=== PATIENT | female | born 1955 | race Caucasian/White ===

== ENCOUNTER 2025-08-17 14:54 | Emergency (ER) | payer MEDICARE, SELFPAY ==
[2025-08-17] VITALS (10 sets, daily range): BP systolic 130–154; BP diastolic 69–82; PULSE 67–75; RESP 11–20; TEMP 36.7–36.8; O2SAT 95–100; BMI 25.8
--- NOTE | 2025-08-17 15:05 | ECG_ITS ---
APPROVED REPORT Exam: Resting ECG HR:71 bpm ECG Measurements Heart Rate 71 AXES WV 192 P 31 QRSd 102 QRS 76 QT 391 T 39 QTc 413 Conclusion SINUS RHYTHM INCOMPLETE RIGHT BUNDLE BRANCH BLOCK [90+ ms QRS DURATION, TERMINAL R IN V1/V2, 40+ ms S IN I/aVL/V4/V5/V6] BORDERLINE ECG UNCONFIRMED REPORT Electronically signed by : GREG LANG, 08/17/2025 18:54:32
--- NOTE | 2025-08-17 15:18 | ED_ITS ---
<Statement entered by Gareth Nunez MD - 08/17/25 22:02> Gareth Nunez MD: I was consulted by the MARIAN, and we discussed the complexity of the problems being addressed. I approve the treatment and management plan for this patient's care in the emergency department, thus performing a substantive portion of the medical decision making. I personally evaluate the patient she states that she feels better at this time. She has mild discomfort to the back of her head but is been ambulatory here in the emergency department. Will arrange follow-up with the cardiology clinic on Monday for her given she has been having some palpitations for quite some time but she feels comfortable going home at this time. I presume she likely had a vasovagal syncopal episode as a source of her syncope today. Discharge Plan Disposition Patient Disposition: Home, Self-Care Condition: Good Referrals Follow up/Referrals: Juliann Pizano [Primary Care Provider, Medical] - See instructions Riky Carson MD [Staff Physician, Cardiology] - See instructions Activity Restrictions/Add. Instructions Additional Instructions/Restrictions: You were seen for syncope. Please see cardiology Monday at 9 am. Return here if you have another episode or have chest pain, shortness of breath. Clinical Impressions Clinical Impression: Syncope Instructions Patient Instructions: DI for Syncope in Adults (Fainting) Print Language Print Language: Tamazight Discharge ED Provider: Gareth Nunez General Adult HPI General Chief complaint: Syncope Stated complaint: Syncope Time Seen by Provider: 08/17/25 15:07 Mode of Arrival: Wheelchair Source of Information: Patient Description of Symptoms (Recalled from ER Triage Doc. by RN): Reports while signing [place] a [place] [facility] [place] that she got hot and passed out and just remembers waking up on the floor. Complaint of having nausea since last night. Denies any pain. History of Present Illness HPI narrative: Patient presents after a syncopal episode. 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 She reports that she started to feel as if she might pass out and became hot and sweaty. She did have complete loss of consciousness however no injury as those around her were able to catch her before her fall. She denies any chest pain or shortness of breath. She does report some palpitations. She reports some pain in her bilateral jaws. Loss of consciousness lasted several minutes per witnesses. She does report some nausea MD complaint: syncope Onset (ago): minute(s) Severity: moderate Consistency: intermittent Relieving factors: other (laying flat ) Exacerbating factors: none Associated symptoms: nausea/vomiting and syncope; negative chest pain Treatments prior to arrival: none Related Data Allergies Allergy/AdvReac Type Severity Reaction Status Date / Time No Known Allergies Allergy Verified 08/17/25 15:06 [facility] Disclaimer: The information contained in this section may have been updated after the patient was seen, as this information can be updated by other users. Social History Smoking Status: Never smoker alcohol intake: never current occupational status: retired Travel in the last 8 weeks?: None ROS Obtained: Yes Systems reviewed as appropriate & no additional complaints except as documented Physical Exam General General appearance: alert and in no apparent distress Head Head exam: atraumatic and normocephalic Eye Eye exam: Present normal appearance and EOMI Chest Chest inspection: Present symmetric chest wall rise Respiratory Respiratory exam: Present normal lung sounds bilaterally; Absent wheezes or stridor Cardiovascular Cardiovascular exam: Present regular rate and normal rhythm; Absent systolic murmur Abdominal Exam Abdominal exam: Present soft; Absent distention, tenderness or guarding Extremities Exam Extremities exam: Present full ROM Neurological Exam Neurological exam: Present alert, oriented X3 and CN II-XII intact; Absent motor sensory deficit Psychiatric Psychiatric exam: Present normal affect and normal mood Skin Skin exam: Present warm, dry and intact Medical Decision Making Medical Records Screening: Per USPSTF and CDC recommendations, given the prevalence of disease in our region, it is our hospital?s policy to screen for HIV and viral Hepatitis for all patients aged 18 and over and those with ongoing risk factors. Noam Inquiry Pt receiving controlled substance: No Vital Signs: 08/17/25 15:00 08/17/25 15:03 08/17/25 15:30 Temperature 98.0 F Temperature Source Oral Pulse Rate 72 74 Pulse Rate [Radial] 72 Respiratory Rate 12 13 14 Blood Pressure 133/71 148/72 H Blood Pressure [Right Arm] 140/69 Blood Pressure Mean [Right Arm] 92 Blood Pressure Source [Right Arm] Automatic Cuff Blood Pressure Position [Right Arm] Sitting 02 Sat by Pulse Oximetry 97 98 96 Oxygen Delivery Method Room Air 08/17/25 16:00 08/17/25 16:30 08/17/25 16:45 Temperature Temperature Source Pulse Rate 67 67 73 Pulse Rate [Radial] Respiratory Rate 11 L 13 11 L Blood Pressure 142/71 H 154/77 H Blood Pressure [Right Arm] Blood Pressure Mean [Right Arm] Blood Pressure Source [Right Arm] Blood Pressure Position [Right Arm] 02 Sat by Pulse Oximetry 97 95 96 Oxygen Delivery Method 08/17/25 17:00 08/17/25 17:30 08/17/25 18:00 Temperature Temperature Source Pulse Rate 75 75 72 Pulse Rate [Radial] Respiratory Rate 16 12 12 Blood Pressure 151/82 H 152/75 H 130/69 Blood Pressure [Right Arm] Blood Pressure Mean [Right Arm] Blood Pressure Source [Right Arm] Blood Pressure Position [Right Arm] 02 Sat by Pulse Oximetry 96 97 100 Oxygen Delivery Method 08/17/25 19:45 Temperature 98.2 F Temperature Source Pulse Rate 71 Pulse Rate [Radial] Respiratory Rate 20 Blood Pressure 154/80 H Blood Pressure [Right Arm] Blood Pressure Mean [Right Arm] Blood Pressure Source [Right Arm] Blood Pressure Position [Right Arm] 02 Sat by Pulse Oximetry Oxygen Delivery Method Room Air Lab Data Lab Results 08/17/25 15:14: WBC 5.9, RBC 4.06 L, Hgb 12.4, Hct 36.9 L, MCV 90.9, MCH 30.5, MCHC 33.6, RDW 12.0, Plt Count 278, MPV 10.6 H, Neut % (Auto) 59.5, Lymph % (Auto) 30.9, [place] % (Auto) 7.3, Eos % (Auto) 1.2, Baso % (Auto) 0.9, Neut # (Auto) 3.5, Lymph # (Auto) 1.8, [place] # (Auto) 0.4, Eos # (Auto) 0.1, Baso # (Auto) 0.1, Sodium 139, Potassium 3.7, Chloride 106, Carbon Dioxide 25, Anion Gap 11.7, BUN 14, Creatinine 0.80, Estimated Creat Clear 54, Estimated GFR 71, Est GFR ( Amer) 86, Glucose 104 H, Calcium 9.3, Magnesium 1.8, Total Bilirubin 1.0, AST 40 H, ALT 29, Alkaline Phosphatase 90, Troponin I < 0.01, Total Protein 7.2, Albumin 4.4, Globulin 2.8, Albumin/Globulin Ratio 1.6, TSH 1.04 08/17/25 17:00: Urine Color Yellow, Urine Appearance Clear, Urine pH 7.0, Ur Specific Clark 1.010, Urine Protein Negative, Urine Glucose (UA) Negative, Urine Ketones Negative, Urine Blood Negative, Urine Nitrate Negative, Urine Bilirubin Negative, Urine Urobilinogen 0.2, Ur Leukocyte Esterase Trace, Urine RBC 3-5, Urine WBC 5-10, Ur Squamous Epith Cells 5-10, Urine Bacteria 3+, Urine Mucus 1+ 08/17/25 18:00: Troponin I < 0.01 08/17/25 15:14 08/17/25 15:14 Orders (Tests/Meds): ED MEDICATIONS Discontinued Medications Generic Name Dose Route Start Last Admin Trade Name Freq PRN Reason Stop Dose Admin Sodium Chloride 1,000 mls @ 999 mls/hr 08/17/25 15:12 08/17/25 16:58 Sod Chlor 0.9% 1000ml Bag IV 08/17/25 16:12 Infused .Q1H1M ONE Infusion ORDERS Category Date Time Status CBC w/Auto Diff [Complete Blood Count Auto Diff] Stat Lab 08/17/25 15:14 Completed CMP [Comprehensive Metabolic Panel] Stat Lab 08/17/25 15:14 Completed MAG [Magnesium] Stat Lab 08/17/25 15:14 Completed TSH [Thyroid Stimulating Hormone] Stat Lab 08/17/25 15:14 Completed Trop I [Troponin I] Stat Lab 08/17/25 15:14 Completed Troponin I Q3H Lab 08/17/25 18:00 Completed UA [Urinalysis and Microscopic] Stat Lab 08/17/25 17:00 Completed Urine Culture Stat Micro 08/17/25 17:00 Received Medical Decision Narrative: In summary patient is a 70-year-old who presents the emergency department for evaluation of syncope. Patient is hemodynamically stable upon arrival, afebrile. Unremarkable physical exam. Differential diagnosis includes ACS, dehydration, vasovagal syncope. Initial workup will be conducted with hematologic labs, EKG, troponin. Initial inventions include IV fluid. Initial workup reviewed by me unremarkable. Upon repeat evaluation patient had acceptable resolution of symptoms. Given this patient is appropriate for discharge home at this time with follow-up appointment to see cardiology tomorrow morning at 9 AM. Given return precautions. Patient is agreeable to plan. Denies UTI symptoms. Critical Care Critical Care Time Critical Care Time: No
[2025-08-17 15:22] LABS: Hematocrit 36.9 % (37.0-47.0); Hemoglobin 12.4 g/dL (12.2-16.2); Immature Granulocytes % 0.2 %; Mean Corpuscular HGB Conc 33.6 g/dL (31.8-35.4); Mean Corpuscular Hemoglobin 30.5 pg (27.0-31.2); Mean Corpuscular Volume 90.9 fl (81-99); Nucleated Red Blood Cells % 0 %; Platelet Count 278 K/mm3 (142-424); Red Blood Count 4.06 M/mm3 (4.20-5.40); Red Cell Distribution Width-SD 40.0 fL; White Blood Count 5.9 K/mm3 (4.8-10.8)
[2025-08-17] MEDS: 0.9 % SODIUM CHLORIDE 1000ML 1,000 ML 999 ML IV (15:31)
[2025-08-17 15:34] LABS: Alanine Aminotransferase 29 U/L (12-78); Albumin Level 4.4 g/dl (3.5-5.0); Albumin/Globulin Ratio 1.6 (1.1-1.8); Alkaline Phosphatase 90 U/L (38-126); Anion Gap 11.7 mEq/L (5-15); Aspartate Amino Transferase 40 U/L (14-36); Bilirubin,Total 1.0 mg/dl (0.2-1.3); Blood Urea Nitrogen 14 mg/dl (7-17); Calcium 9.3 mg/dl (8.4-10.2); Carbon Dioxide 25 mmol/L (22.0-30.0); Chloride 106 mmol/L (98-107); Creatinine Clearance Estimated 54 mL/min (50-200); Creatinine,Serum 0.80 mg/dl (0.52-1.04); Estimated Glomerular Filt Rate 71 ml/min (>60); GFR (African American) 86 ML/MIN (>60); Globulin 2.8 g/dL (1.3-3.2); Glucose 104 mg/dl (74-100); Magnesium 1.8 mg/dl (1.6-2.3); Potassium 3.7 mmoL/L (3.5-5.1); Sodium 139 mmol/L (136-145); Total Protein,Serum 7.2 g/dl (6.3-8.2)
--- OUTSIDE RECORDS SUMMARY | 2025-08-17 15:39 | XMS_ITS | Patient Health Record ---
Author Organization [facility] Address [address] [place] [address] Care Team Providers Care Aquatics Assistant Department Head Name Role Phone Bri Castrejon Unavailable [phone] Reason For Referral No Information Social History Social History Additional Details Category Social Info Options Details Miscellaneous: Sexually active: SEXUAL AC TIV: Current Problems Problem Type SNOMED Code ICD Code Onset Dates Problem Status W/U Status Risk Notes Problem Atrophic vaginitis (27126569) Atrophic vaginitis (N95.2) 2020 Active confirmed Vaginal atrophy Problem Hormone replacement therapy (056292516) Counseling for estrogen replacement therapy (Z79.890) 2020 Active confirmed Hormone replacement therapy Problem Menopause (351375871) *Menopausal and female climacteric states (Code also, associated symptoms) (N95.1) 2020 Active confirmed Menopausal and female climacteric states Problem SI - Stress incontinence (37818764) Female genuine stress incontinence (N39.3) 2016 Active confirmed Urinary incontinence, stress Problem Gynecological examination normal (77523235942082 4) Cervical smear, as part of routine gynecological examination (Z01.419) 2018 Active confirmed Annual without abnormal findings Problem Midline cystocele (234175389) Acquired female bladder prolapse (N81.10) 2020 Active confirmed 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
--- OUTSIDE RECORDS SUMMARY | 2025-08-17 15:39 | XMS_ITS | Continuity of Care Document ---
Author Organization [facility], PAIN MEDICINE [address] [place] [address] Care Team Providers Care Cork Insulator Helper Name Role Phone PIZANOJULIANN Primary Care Provider [phone] YOMI KELLER Orthopedic Surgeon [phone] Assessment Encounter Date Assessment Date Assessment LastModified by Organization Details LastModified Time 06/03/2025 06/03/2025 This is a 69-year-old female with knee pain today for follow-up evaluation after bilateral intra-articular injection of the knees with Zilretta added relief for only 1 week. Unfortunately her knee pain is worsening and persistent. She would like to discuss her candidacy for genicular nerve ablation PMH: PSHx: 1. X-ray bilateral knees 12/14/2022 demonstrates severe degenerative changes bilaterally. The above image findings were discussed with the patient. Previous injection therapy has included: 05/08/2025 bilateral Zilretta injection 50% 1 week 01/28/2025 Bilateral Zilretta injections with 80% ongoing 10/22/2024 Bilateral Zilretta injections with 98% x 3 months 07/22/2024 intra-articular knee injection (triamcinolone) bilaterally (ortho) 04/17/2024 intra-articular knee injection (triamcinolone) bilaterally (ortho) Intra-articular hyaluronic acid no relief Presentation is consistent with osteoarthritis of both knees. I recommend: 1. Fortunately Zilretta has not offered durable relief. 2. I explained that her insurance will not cover genicular nerve ablation at this time. 3. She understands that surgery may be her only option. She would like to discuss her options with orthopedics and I will place a referral. 4. Topical pain relief cream was discussed and will be prescribed I had an in-depth discussion with the patient regarding the risks of the procedure including bleeding, infection, damage to surrounding structures, paralysis and even . We discussed the potential adverse effects of corticosteroid injection including flushing of the face, lipodystrophy, skin discoloration, elevated blood glucose, increased blood pressure. Risks of frequent steroid administration include weight gain, hormonal changes, mood changes, osteoporosis. External records were reviewed and discussed as above, including imaging, clinical notes, and relevant labs. [email or web address] Not available 06/03/2025 14:24:36 Plan of Treatment Reminders Order Date Submit Date Provider Last Modified By Organization Details Last Modified Time Details Appointments SHOT ONLY 2024 03:15P M DMITRY_ [place]_RY[place] E Not available Not available Not available RECHECK 2025 02:30P M LUIS ALFREDO SALDAÑA PA-C Not available Not available Not available MEDICARE WELLNESS VISIT 2025 09:30A M JULIANN PIZANO MD Not available Not available Not available Lab None recorded. Referral orthopedi c surgeon referral 2024 025 [email or web address] Yomi Keller MD, [address] [place], [address], 06/04/2025 14:30:37 Procedures None recorded. Surgeries None recorded. Imaging None recorded. Medication Orders Compound Rx Alternati ves Neuropath ic Pain Cream 2024 025 [email or web address] [facility], [address] [place], [address], 06/12/2025 13:56:32 Patient TargetsNo targets recorded. Patient InstructionsNo instructions recorded. Reason for Referral Orthopedic Surgeon Referral for Bilateral osteoarthritis of knees Referring Physician: Jossie Arevalo, Pain Management, Encounter Date: 06/03/2025 Results Created Date Observation Date Name Description Value Unit Range Abnormal Flag Note LastModifiedBy Organization Detail LastModifiedTime 06/10/2006/09/2025 XR, knee, 4 or more view [facility] [address] [place] [address] [phone] Pk ni Name: MICHELLE ni : 1954 Patiterry ni 9 Orderi ng Provid er: LUIS ALFREDO SALDAÑA EXAM DATE: 2024 EXAM: XR YOMAIRA KNEES COMPLE TE, 4 OR MORE VWS HISTOR Y: Pain COMPAR STACY: 023 FINDIN GS: Loss of the medial compar tments bilate rally with degene rative spurri ng. Normal alignm ent includ ing the patell ofemor al joints . No fractu re or disloc ation. IMPRES LELE: 1. Severe bilate ral knee DJD Interp reted By: Shiva Andrea MD Electr onical ly Signed By: Shiva Andrea MD on 2024 8:48 AM [email or web address] [facility] [address] [place], [place], [address] [place] [address], 06/10/2025 09:39:21 Result Notes None recorded. Problems Name Problem SNOMED Code Status Onset Date Resolution Date Notes Provider Name and Address Organization Details Recorded Time Lack of energy 446577074 Completed 201502/07/2018 From Autom[employer] Load;Pro vider: Juliann Pizano;Sta tus: Active JULIANN PIZANO MD [address] [place] [address] 8 13:33:48 Finding of appearan ce of skin Completed 201502/07/2018 From Automate d Load;Pro vider: Juliann Pizano;Sta tus: Active JULIANN PIZANO MD [address] [place] [address], [address] [place] [address] 8 13:33:45 Hypothyr oidism 44564554 Active 2015 From Autom[employer] Load;Pro vider: Juliann Pizano;Sta tus: Active JULIANN PIZANO MD [address] [place] [address], [address] [place] [address] 3 14:38:44 Tinnitus 46556776 Active 2015 From Automate d Load;Pro vider: Pizano, Juliann;Sta tus: Active Not Available [facility] 2 07:32:58 Fibrocys tic disease of breast 62802049 Active 2017 Not Available [facility] 2 07:32:58 Divertic ular disease of colon 784789145 Active 2017 Not Available [facility] 2 07:32:58 Hearing loss 98714498 Active 2017 Not Available [facility] 2 07:32:58 Displace ment of lumbar interver tebral disc without myelopat hy 51432402 Active 2017 JULIANN PIZANO MD [address] [place] [address], [address] , [facility] 3 14:38:27 Osteoart hritis of knee 553028635 Active 2018 Not Available [facility] 2 07:32:58 Alopecia 27639543 Active 2019 Not Available [facility] 2 07:32:58 Hyperlip idemia 70210944 Active 2019 LDL>190 JULIANN PIZANO MD [address] [place] [address], [address] , [facility] 3 22:05:06 Vitamin B12 deficien cy (non anemic) 43148193 Active 2020 JULIANN PIZANO MD [address] [place] [address], [address] , [facility] 3 14:38:51 Atherosc lerosis of aorta 41715408 Active 2022 JULIANN PIZANO MD [address] [place] [address], [address] , [facility] 3 14:51:55 Cystitis 42314441 Active 2022 KERRIE SLATER PA-C [address] [place] [address], [address] , [facility] 3 10:32:11 Bilatera l osteoart hritis of knees 00953055595 9107 Active 2022 JULIANN PIZANO MD [address] [place] [address], [address] , [facility] 3 10:32:14 Pain of right temporom andibula r joint 14982593868 085653 Active 2022 JULIANN PIZANO MD [facility] [place], [address] , [facility] 3 10:33:46 Body mass index 25-29 - overweig ht 852792529 Active 2023 JULIANN PIZANO MD [facility] [place], [address] , [facility] 4 09:58:29 Dyslipid emia 986890594 Active 2023 JULIANN PIZANO MD [facility] [place], [address] , [facility] 4 10:13:07 Ischial bursitis 140324657 Active 2023 JULIANN PIZANO MD [facility] [place], [address] , [facility] 4 10:42:24 Lumbar radiculo wendy 085249271 Active 2024 JULIANN PIZANO MD [facility] [place], [address] , [facility] 5 11:31:09 Primary gonarthr osis, bilatera l 883937298 Active 2024 JULIANN PIZANO MD [address] [place] [address] [place], [address] , [facility] 5 14:24:04 Acute frontal sinusiti s 01586214 Active 2024 KERRIE SLATER PA-C [address] [place] [address] [place], [address] , [facility] 5 11:58:13 Acute cough Active 2024 KERRIE SLATER PA-C [address] [place], [address] , [facility] 5 12:02:22 Problem Notes None recorded. Procedures Surgical History Date Name Laterality Status Provider Name and Address Organization Details Recorded Time 025 Joint Injection, Knee - Barb completed YOUNG GHOTRA MD [address] [place], [address], [facility] 05/08/2025 12:43:39 025 Joint Injection, Knee - Barb completed YOUNG GHOTRA MD [address] [place], [address], [facility] 01/28/2025 16:06:18 025 Joint Injection, Knee - Barb completed YOUNG GHOTRA MD [address] [place], [address], [facility] 10/22/2024 12:43:32 024 Injection - Joint/Bursa, Major completed Vicki Rai [facility] 07/15/2024 10:48:22 024 Injection - Joint/Bursa, Major completed Spenser Tijerina [facility] 04/12/2024 15:30:21 024 Injection - Joint/Bursa, Major completed Alexandria Sellers [facility] 01/10/2024 15:32:45 024 Injection - Joint/Bursa, Major completed Quinten Rizo [facility] 10/16/2023 15:30:00 024 Injection - Joint/Bursa, Major completed Lisa SWANN PA-C [address] [place], [address], [facility] 10/13/2023 11:11:57 024 Injection - Joint/Bursa, Major cancelled [facility] 09/05/2023 08:39:03 023 Euflexxa Injection completed Rashad Welsh [facility] 08/16/2023 08:58:43 023 Euflexxa Injection completed Quinten Rizo [facility] 08/09/2023 09:16:07 023 Euflexxa Injection completed Rashad Welsh [place] [facility] 08/02/2023 08:54:42 023 Injection - Joint/Bursa, Major completed Alexandria Young [place] [facility] 06/21/2023 08:22:13 023 Injection - Joint/Bursa, Major completed [place] Young [place] [facility] 06/19/2023 14:59:56 023 DXA Normal completed JONAH HOWARD MD [address] [place] [address], [address], [place] [facility] 03/30/2023 12:31:04 023 Injection - Joint/Bursa, Major completed Alexandria Young [place] [facility] 03/07/2023 15:51:17 023 Injection - Joint/Bursa, Major completed Alexandria Young [place] [facility] 03/07/2023 12:43:58 023 Injection - Joint/Bursa, Major completed [place] Young [place] [facility] 12/14/2022 15:10:30 023 Injection - Joint/Bursa, Major completed Alexandria Young [place] [facility] 12/05/2022 10:15:50 023 Injection - Joint/Bursa, Major completed [place] Young [place] [facility] 09/19/2022 14:26:10 023 Injection - Joint/Bursa, Major completed [place] Young [place] [facility] 09/12/2022 14:23:21 022 Injection - Joint/Bursa, Major completed [place] Young [place] [facility] 06/03/2022 11:20:02 022 Injection - Joint/Bursa, Major completed [place] Young [place] [facility] 05/23/2022 08:51:27 022 Injection - Joint/Bursa, Major completed Vicki Rai [place] [facility] 03/02/2022 09:13:27 022 Injection - Joint/Bursa, Major completed Alexandria Young [place] [facility] 02/18/2022 09:00:30 06/23/2 022 Injection - Joint/Bursa, Major cancelled Alexandria Young [place] [facility] 02/09/2022 14:36:58 022 Injection - Joint/Bursa, Major completed [place] Young [place] [facility] 11/18/2021 12:21:48 022 Injection - Joint/Bursa, Major completed [place] [facility] 11/10/2021 12:53:16 022 Injection - Joint/Bursa, Major cancelled Alexandria Young [place] [facility] 11/10/2021 09:28:24 021 Injection - Joint/Bursa, Major completed [place] Young [place] [facility] 08/18/2021 13:14:56 021 Injection - Joint/Bursa, Major completed [place] [facility] 2021 13:04:59 021 Injection - Joint/Bursa, Major completed [place] Young [place] [facility] 05/12/2021 10:51:44 021 Injection - Joint/Bursa, Major completed [place] [facility] 05/12/2021 10:50:50 021 repair of stress incontinence by suprapubic sling completed JULIANN PIZANO MD [address] [place], [address], [place] [facility] 12/07/2023 10:17:40 021 Injection - Joint/Bursa, Major completed [place] Young [place] [facility] 02/10/2021 08:25:13 021 Injection - Joint/Bursa, Major completed Vicki Rai [place] [facility] 02/03/2021 08:07:56 021 Injection - Joint/Bursa, Major completed [place] Young [place] [facility] 11/11/2020 08:47:33 021 Injection - Joint/Bursa, Major completed Lisa SWANN PA-C [address] [place], [address], [facility] 11/04/2020 13:58:40 020 Orthotic, HFO, Static Custom completed HEMALATHA BERNARD, OTR/L, CHT [address] [place], [address], [facility] 2020 13:04:03 020 Op Note completed YOUNG GUIDRY MD [address] [place], [address], [facility] 07/27/2020 19:12:28 020 Injection - Joint/Bursa, Interm completed YOUNG GUIDRY MD [address] [place], [address], [facility] 02/25/2020 19:59:39 Op Note completed YOUNG GUIDRY MD [address] [place], [address], [facility] 05/13/2019 09:25:23 019 Injection - Trigger Finger, Ortho completed YOUNG GUIDRY MD [address] [place], [address], [facility] 04/05/2019 16:43:35 019 Injection - Carpal Tunnel completed YOUNG GUIDRY MD [address] [place], [address], [facility] 03/15/2019 16:13:35 019 Injection - Joint/Bursa, Major completed Cristine Luna [facility] 12/18/2018 15:10:45 019 Injection - Joint/Bursa, Major completed Cristine Jeremy [facility] 12/11/2018 10:50:07 019 Injection - Joint/Bursa, Interm completed YOUNG GUIDRY MD [address] [place], [address], [facility] 09/20/2018 17:43:12 019 Electromyography (EMG) with Nerve Conduction Study (NCV) completed Luz Maria Pizano (Nicky) [facility] 09/20/2018 13:42:03 019 Injection - Joint/Bursa, Major completed Lisa SWANN PA-C [address] [place] [address], [address] [place] [address], [facility] 09/05/2018 15:07:17 018 Injection - Joint/Bursa, Interm completed YOUNG GUIDRY MD [address] [place] [address], [address] [place] [address], [facility] 07/04/2018 12:19:03 Hand tendon/muscle transfer completed JULIANN PIZANO MD [address] [place] [address], [address] [place] [address], [facility] 01/05/2017 11:59:57 Cataract Surgery completed JULIANN PARKS MD [address] [place] [address], [address] [place] [address], [facility] 08/29/2022 14:55:26 Appendectomy completed JULIANN PIZANO MD [address] [place] [address], [address] [place] [address] 10/13/2016 08:25:37 Imaging Results None recorded. Procedure Notes None recorded. Medical Equipment None Reported. Allergies No known drug allergies Medications Name Sig Start Date Stop Date Status Note LastModified by Organization Details LastModified Time Compound Rx Alternati ves Neuropath ic Pain Cream Apply 1-2 grams to the affected area 3-4 times daily 2024 active D/C Not Available Not Available Not Avai lable Compound Rx Alternati ves General Pain Cream Apply 1-2 grams to the affected area 3-4 times daily 01/08 completed Not Available Not Available Not Available methocarb cande 500 mg tablet Take 1 tablet twice a day by oral route. 02/07 completed Not Available Not Available Not Available diclofena c 3 % topical gel Apply 2-3 gm topicall y, up to 4 times daily. PRN active Not Available Not Available No t Available doxycycli ne hyclate 100 mg capsule Take 1 capsule twice a day by oral route for 7 days. 07/25 completed Not Available Not Available Not Available atorvasta tin 20 mg tablet Take 1 tablet every day by oral route for 90 days. 02/27 completed Not Available Not Available Not Available atorvasta tin 10 mg tablet Take 1 tablet by oral route at bedtime. 01/10 completed Not Available Not Available Not Available pravastat in 40 mg tablet TAKE 1 TABLET BY MOUTH DAILY 08/28 completed No longer taking 07/30/24 Not Available Not Available Not Available benzonata te 200 mg capsule Take 1 capsule 3 times a day by oral route as needed for 10 days. 07/28 completed Not Available Not Available Not Available meloxicam 15 mg tablet TAKE 1 TABLET BY MOUTH DAILY NEEDED 09/13 completed not taking Not Available Not Available Not Available Medrol (Tunde) 4 mg tablets in a dose pack Take 1 dose pk by oral route as directed for 6 days. 12/12 completed no longer takes Not Available Not Available Not Available prednison e 20 mg tablet Take 2 tablets every day by oral route for 5 days. 07/23 completed Not Available Not Available Not Available Tylenol Arthritis Pain 650 mg tablet,ex tended release Take 1 tablet every 8 hours by oral route. active schedule Not Available Not Available No t Available meloxicam 7.5 mg tablet 1 tab daily as needed 2024 active Not Available Not Available Not Avai lable levothyro xine 100 mcg tablet TAKE 1 TABLET BY MOUTH DAILY 2024 active Not Available Not Available Not Avai lable pravastat in 80 mg tablet TAKE 1 TABLET BY MOUTH AT BEDTIME active Not Available Not Available No t Available gentamici n 0.3 % eye drops INSTILL 1 DROP INTO AFFECTED EYE(S) BY OPHTHALM IC ROUTE EVERY 4 HOURS 07/04 completed Not Available Not Available Not Available benzonata te 100 mg capsule Take 1 capsule 3 times a day by oral route for 10 days. 02/24 completed Not Available Not Available Not Available cyanocoba jessica (vit B-12) 1,000 mcg/mL injection solution Inject 1 mL every month by subcutan eous route. 2024 active Not Available Not Available Not Avai lable Neurontin 100 mg capsule Take 1 capsule po qhs for 1 week 08/11 completed Not Available Not Available Not Available calcipotr iene 0.005 % topical cream Apply 3-4gm topicall y twice a day; rub it in gently and complete . PRN active Not Available Not Available No t Available Synthroid 88 mcg tablet One Tablet Daily 04/27 completed Frequenc y: daily;Me dication Descript ion: levothyr oxine; Dosage:1 ; Route:or al; refills: 1; Quantity :30 tablet Not Available Not Available Not Available diclofena c sodium 75 mg tablet,de layed release TAKE ONE TABLET BY MOUTH TWICE A DAY 06/21 completed Not Available Not Available Not Available Synthroid 112 mcg tablet Take 1 tablet every day by oral route for 30 days. 04/25 completed Not Available Not Available Not Available prednison e 5 mg tablets in a dose pack Take by oral route. 05/03 completed Not Available Not Available Not Available ibuprofen 600 mg tablet As needed 03/29 completed Duration : 30 days;Antione quency: prn;Medi cation Descript ion: ibuprofe n; Dosage:1 ; Route:or al; refills: 0; Quantity :60 tablet Not Available Not Available Not Available [place] 5 mg-325 mg tablet TAKE 1 TAB PO Q 4-6 HRS PRN UNCONTRO LLED PAIN 08/02 completed Not Available Not Available Not Available cefdinir 300 mg capsule Take 1 capsule every 12 hours by oral route for 10 days. 12/12 completed no longer takes Not Available Not Available Not Available doxepin 5 % topical cream Apply 1-2 gm topicall y, 3 times a day to affected area. If feeling drowsy, apply at bed time. PRN active Not Available Not Available No t Available amoxicill in 875 mg-potass ium clavulana te 125 mg tablet Take 1 tablet every 12 hours by oral route for 10 days. 01/24 completed Not Available Not Available Not Available oxycodone 5 mg tablet take 1 tab po q 4-6 hrs prn uncontro lled pain 08/11 completed Not Available Not Available Not Available Bactrim DS 800 mg-160 mg tablet Take 1 tablet every 12 hours by oral route for 5 days. 02/24 completed Not Available Not Available Not Available ezetimibe 10 mg tablet Take 1 tablet by oral route at bedtime for 90 days. 2024 active Not Available Not Available Not Avai lable cyclobenz aprine 5 mg tablet Every night at bedtime 03/29 completed Frequenc y: qhs;Alt Frequenc y: prn;Medi cation Descript ion: cycloben zaprine; Dosage:1 ; Route:or al; refills: 0; Quantity :30 tablet Not Available Not Available Not Available rosuvasta tin 5 mg tablet Take 1 tablet every day by oral route. 03/27 completed Not Available Not Available Not Available rosuvasta tin 10 mg tablet Take 1 tablet by oral route at bedtime. 12/06 completed Not Available Not Available Not Available duloxetin e 30 mg capsule,d elayed release Take 2 capsules every day by oral route for 90 days. 09/13 completed not taking Not Available Not Available Not Available fluocinon penelope 0.1 % topical cream Apply 2-4gm up to 4times daily to affected area. PRN active Not Available Not Available No t Available ibuprofen 04/24 completed prn Not Available Not Available Not Available fiber active Not Available Not Availa ble Not Available ProAir HFA 90 mcg/actua tion aerosol inhaler Inhale 2 puffs every 6-8 hours by inhalati on route for 10 days. 01/24 completed Not Available Not Available Not Available vitamin E 15 unit/0.3 mL oral drops 04/30 completed Medicati on Descript ion: vitamin E; Route:or al; refills: 0; Quantity :1 capsule Not Available Not Available Not Available cyclobenz aprine 7.5 mg tablet Take 1-2 tablet by mouth up to 3 times daily for pain. PRN active Not Available Not Available No t Available diclofena c 1 % topical gel APPLY 2 GRAMS TO THE AFFECTED AREA(S) BY TOPICAL ROUTE 4 TIMES PER DAY PRN 09/13 completed No longer using 07/30/24 Not Available Not Available Not Available naproxen sodium ER (CR) 375 mg tablet,ex tended release 24 hr mphase Take 1-2 tablets orally, Once daily as needed for pain. PRN active Not Available Not Available No t Available diclofena c 1.5 % topical drops Apply up to 40 drops to the affected area up to 4 times daily 03/29 completed Not Available Not Available Not Available Multi For Her active Not Available Not Available Not Available lidocaine 5 % topical ointment Apply 2-3 gm 3-4 times daily to affected area. Do not exceed 8 gm a day. PRN active Not Available Not Available No t Available multivit 37-iron 27 mg-Lmfola te 1.13 mg-algalo il,soy 581.92 mg capsule Take by oral route. 08/28 completed not taking Not Available Not Available Not Available Calcium Magnesium 500 mg calcium-2 50 mg tablet 07/29 completed Medicati on Descript ion: multivit pedraza with minerals ; Route:or al; refills: 0 Not Available Not Available Not Available Mirvaso 0.33 % topical gel APPLY A PEA-SIZE D AMOUNT BY TOPICAL ROUTE ON FACE ONCE DAILY TO COVER AREAS OF FACE WITH THIN LAYER AVOIDING THE EYES AND LIPS 03/15 completed Not Available Not Available Not Available SynerDerm topical spray Apply a small amount (1 gm) to affected skin area, allow to dry. May repeat up to 4 times daily. PRN active Not Available Not Available No t Available baclofen 5 mg tablet Take 1 tablet 3 times a day by oral route as needed for 30 days. 12/12 completed no longer take Not Available Not Available Not Available calcium 400 mg-vit D3 83.3 mcg-magne sium 166.7 mg-zinc 16.7 mg capsule Take by oral route. active Not Available Not Available No t Available Paxlovid 300 mg (150 mg x 2)-100 mg tablets in a dose pack Take 3 tablets twice a day by oral route for 5 days. 12/12 completed Not Available Not Available Not Available Vitals Date Recorded Body height Body mass index (BMI) Body weight Oxygen saturation Heart rate Systolic And Diastolic Provider Name and Address Organization Details Last Updated DateTime 5 160.02 cm 26.6 kg/m2 33101.8 6 g 96 % 86 /min 130/72 mm[Hg] Daisy Bang [facility] 5 14:02:09 Social History Question Answer Notes LastModified by Organizat ion Details LastModified Time Tobacco Smoking Status Never Smoker JULIANN PIZANO MD [address] [place] [address], [address], [facility] 01/05/2017 08:07:38 What Is Your Level Of Caffeine Consumption? Occasional Information not available 06/08/2017 How Much Tobacco Do You Chew? None [email or web address] Information not available 03/07/2019 Which Of Your Hands Is Dominant? Right Information not available 06/08/2017 Marital Status Informatio n not available 06/08/2017 What Was The Date Of Your Most Recent Tobacco Screening? 07/11/2025 [email or web address] Information not available 07/11/2025 What Is Your Relationship Status? [email or web address] Information not available 09/07/2023 How Much Tobacco Do You Smoke? No Information not available 04/24/2019 Has Tobacco Cessation Counseling Been Provided? No [email or web address] Information not available 10/18/2023 Sex: Female Functional Status Question Answer Note LastModified by Organizat ion Details LastModified Time Do you use any illicit or recreational drugs? No Information not available 06/08/2017 Do you or have you ever used any other forms of tobacco or nicotine? No [email or web address] Information not available 10/18/2023 What is your level of alcohol consumption? None Information not available 06/08/2017 Do you or have you ever used smokeless tobacco? Never used smokeless tobacco Information not available 04/24/2019 Are you currently employed? No Information not available 10/18/2019 What is your occupation? retired Information not available 10/18/2019 Do you or have you ever used e-cigarettes or vape? Never used electronic cigarettes Information not available 04/24/2019 Mental Status None recorded. Family History Relationship Description Onset Age of this Age Resolved Age Notes LastModified by Organization Details LastModified Time Unspecified Relation Malignant neoplastic disease Not available 2016 08:25:18 Unspecified Relation Cerebrovascu lar accident Not available 08:25:23 Mother History of multiple myeloma Not available 07/30 11:06:48 Notes:NO FAMILY HX OF MM Medical History Condition Response Coronary Artery Disease N Other N Gout N Atrial Fibrillation N Kidney Stones N Hyperthyroidism N Blood Transfusion N Emphysema N Sexually Transmitted Disease N Depression N COPD N Pneumonia N Anxiety Disorder N Muscle, Joint, or Bone Problems Y Vision or Eye Problems N Arthritis Y Polyps N Infertility N Blood Clot N Cancer N Varicosities N Stroke N Neurologic Disorder N Headaches N Fibromyalgia N Kidney Disease N Endocrine Disorder N Heart Problems N Heart Conditions N Ear or Hearing Problems N Hospitalizations N Migraines N Skin Problems N Eating Disorder N Meningitis N Constipation N Ulcers N Rheumatic Fever N Bleeding Disorder N Tuberculosis N Genetic Disorder N AIDS/HIV N Asthma N Thyroid Disorder Y GERD/Reflux N Hepatitis N Included as Review of Systems Y Pulmonary Embolism N Chronic Ear Infections N Chicken Pox N Thrombophilias N Anxiety/Depression N Thyroid Disease Y Hernia N Colon/Rectal Disorders N Lung Disease N Hypothyroidism Y Glaucoma N Breast Problem N Measles N Difficulty Swallowing N Diverticulitis/Diverticulosis Y Anesthesia Complications N Varicose Veins N Meniere's disease N Attempted Suicide N Hearing Loss N Radiation Therapy N Endometriosis N Blood Thinners N Bladder or Kidney Problems N Alcohol Overuse/Alcohol Abuse N High Cholesterol Y Liver Disease N Allergies/Hayfever N Parkinson's Disease N Alzheimer's N Thyroid Problems Y GI Problems N Anemia N Immune System Disorder N Heart Attack ([place]) N Mental Illness N Neurological Problems N Ovarian Cancer N Diabetes N Seizures/Epilepsy N Eczema N Diverticulitis N Epilepsy/Seizures N Reflux/GERD N Sleep Apnea N Heart Disease N Pre-Eclampsia N Hypertension N Osteoporosis N Gynecological HistoryNo gynecological history recorded. Obstetrics History GPAL:G 0 P 0 0 0 0 Immunizations Vaccine Type Date Status Note Provider Nam e and Address Organization Details Recorded Time zoster recombinant 3 completed Sayda lund [facility] 12/06/2023 16:19:20 Hep A, adult 9 completed Not Available [facility] 09/07/2019 02:50:37 COVID-19, mRNA, LNP-S, PF, jamie-sucrose, 30 mcg/0.3 mL 4 [facility] 14:35:52 Influenza, split virus, quadrivalent, PF 9 completed Not Available [facility] 09/07/2019 02:52:20 Influenza, split virus, quadrivalent, preservative 0 completed Sayda Borjas null, [facility] 09/07/2023 16:44:05 zoster live 5 completed Sayda Borjas null, [facility] 09/07/2023 16:44:05 DTaP 4 completed Sayda Borjas [facility] 09/07/2023 16:44:05 COVID-19 vaccine, vector-nr, rS-Ad26, PF, 0.5 mL 1 completed Sayda Borjas [facility] 09/07/2023 16:44:05 Influenza, split virus, quadrivalent, preservative 1 completed [facility] 16:44:05 Tdap 4 completed Sayda Borjas [facility] 12/07/2023 10:49:24 Influenza, high-dose, quadrivalent, PF 4 completed Sayda Borjas [facility] 12/07/2023 10:49:24 RSV, recombinant, protein subunit RSVpreF, adjuvant reconstituted, 0.5 mL, PF 4 completed [facility] 01/09/2024 11:30:59 COVID-19, mRNA, LNP-S, PF, 100 mcg/0.5mL dose or 50 mcg/0.25mL dose 1 completed Veronica Stone null, [facility] 06/13/2022 08:44:52 Pneumococcal conjugate PCV 13 1 completed Veronica Stone [facility] 06/13/2022 08:44:52 COVID-19, mRNA, LNP-S, PF, 100 mcg/0.5mL dose or 50 mcg/0.25mL dose 2 completed Veronica Stone [facility], [facility] 06/13/2022 08:44:52 COVID-19 vaccine, vector-nr, rS-Ad26, PF, 0.5 mL 1 completed Veronica Stone [facility] 06/13/2022 08:44:52 Influenza, high-dose, trivalent, PF 0 completed Veronica Stone [facility], [facility] 06/13/2022 08:44:52 Influenza, high-dose, trivalent, PF 4 completed JULIANN PIZANO MD [address] [place] [address], [phone], [facility] 05/26/2024 14:32:15 pneumococcal polysaccharide PPV23 9 completed JULIANN PIZANO MD [address] [place] [address], [phone], [facility] 08/29/2022 14:39:38 Influenza, split virus, quadrivalent, PF 7 completed JULIANN PIZANO MD [address] [place] [address], [phone], [facility] 08/29/2022 14:39:38 influenza, unspecified formulation 2 completed Sayda Borjas [facility] 09/07/2023 16:44:05 COVID-19, mRNA, LNP-S, PF, jamie-sucrose, 30 mcg/0.3 mL 5 completed JULIANN PIZANO MD [address] [place] [address], [id number], [facility] 12/12/2024 17:13:08 zoster recombinant 3 completed Luis Alfredo Bourgeois [facility] 02/27/2023 09:41:31 Hep A, adult 8 completed Not Available [facility] 09/07/2019 02:45:53 Influenza, high-dose, trivalent, PF 5 completed Luis Alfredo Ramsey [facility] 06/12/2025 14:37:25 COVID-19, mRNA, LNP-S, PF, jamie-sucrose, 30 mcg/0.3 mL 5 [facility]25 14:37:25 COVID-19, mRNA, LNP-S, bivalent, PF, 30 mcg/0.3 mL dose 3 completed [place] Braulio [facility] 03/24/2023 15:03:47 Influenza, split virus, quadrivalent, PF 8 completed Not Available [facility] 09/07/2019 02:48:52 Past Encounters Encounter ID Performer Location Encounter Start Date Encounter Closed Date Diagnosis/Indication Diagnosis SNOMED-CT Code Diagnosis ICD10 Code Diagnosis IMO Codes Diagnosis Note [id number] JULIANN PIZANO MD [facility] [address] [address] 05/12/2025 13:44:12 05/12/2025 14:11:53 Cobalamin deficiency 606773844 E53.8 [id number] YOUNG GHOTRA MD [facility]ESS[facility] NAL CHARGES [address] [facility], [address] [place] [address] 05/08/2025 11:29:44 05/13/2025 15:18:57 Bilateral osteoarthritis of knees [id number] 78970 M17.0 [id number] JOSSIE AREVALO PA-C [facility] [address] [place] [address] 06/03/2025 13:53:16 06/04/2025 04:17:53 Bilateral osteoarthritis of knees [id number] 45986 M17.0 Osteoarthr itis of knee 588728423 M17.9 Health Concerns Section Related Observation LastModified by Organization Detai ls LastModified Time None Recorded Concern Status LastModified by Organization Details LastModified Time None Recorded Payers Encounter Date Sequence Insurance Name Policy Number Policy Walter Covered Member ID Walter Member ID Guarantor Name 06/03/2025 1 [place]MEDICARE REPLACEMENT HMO) [id number] Sharp [id number] January [employer] Notes Date Note Type Note Provider Name and Address Organization Details Recorded Time 06/03/2025 text/html Injection follow upReported by PatientPainFor most recent procedures, patient reportsjoint injection (yomaira zilretta knee)anddate: (05/08/25). For % of relief, patient reportspain relief 0%. For duration of relief, patient reportsongoing. For severity, patient reportsworsening,curre nt pain 8/10, andaverage pain 7-8/10. For wound, patient reportsinjection site healed well,no fever, andno bleeding. JOSSIE AREVALO PA-C [address] [place], [phone], [facility] 06/03/2025 14:26:25 OBGyn Episode No OBEpisode recorded.
--- OUTSIDE RECORDS SUMMARY | 2025-08-17 15:39 | XMS_ITS | Data Portability ---
Author Organization [facility] [place] [facility] Address [address] [facility] [address] [place] [address] Care Team Providers Care Rate Examiner Name Role Phone DENVERJULIANN Primary Care Provider YOMI KELLER Orthopedic Surgeon Assessment Encounter Date Assessment Date Assessment LastModified [...] relevant labs. [email or web address] Not available 06/03/2025 14:24:36 06/12/2025 06/12/2025 - 69-year-old female with a history of vitamin B12 deficiency and hypothyroidism presenting with a six-month follow-up. - Vitamin B12 deficiency: Ongoing management with B12 injections noted, well-tolerated by the patient. - Snoring: Clinical suspicion of possible concurrent sleep apnea prompting a sleep study. - Restless legs syndrome: Symptoms appear to be predominantly nocturnal, possibly linked to other conditions including low ferritin or sleep apnea. - Bilateral primary osteoarthritis of knee: Symptomatic with reduced effect from prior injections and meloxicam; considering alternative pain management including low-dose meloxicam pending renal review. - Dyslipidemia: Patient aware of the condition, questioning medication effects. - Hypothyroidism: Currently stable as per patient's report without requirement for modification of therapy. Not available 06/12/2025 14:36:35 07/11/2025 07/11/2025 - The patient is a 69-year-old female presenting with an acute cough and postnasal drainage. - The patient's symptoms, which began 5-6 days ago, are consistent with an acute viral upper respiratory infection, characterized by cough, significant postnasal drainage, and associated headaches. - Negative rapid tests for COVID-19, influenza, and strep further support a viral etiology. - The symptoms are suggestive of bronchitis, which is most often viral. - The current timeline places the patient at the peak of a typical viral illness, which generally resolves within 10 days. - A bacterial infection is less likely at this stage but will be considered if symptoms persist or worsen. - Given the patient's report of prior success with corticosteroids for a similar episode, a non-antibiotic approach is the initial plan. Acute Sinusitis: - Advised a watchful waiting approach as symptoms are more consistent with a viral infection rather than a bacterial sinus infection. - An antibiotic prescription will be sent to the pharmacy but should only be filled and initiated if symptoms worsen (e.g., spike a fever, drainage becomes thicker or darker) or fail to improve by Monday. General Care: - Advised the patient to avoid close contact with others for a few more days while symptomatic to prevent transmission, as the patient is likely still contagious. [email or web address] Not available 07/14/2025 13:07:05 Plan of Treatment Reminders Order Date Submit Date Provider Last Modified By Organization Details Last Modified Time Details Appointments SHOT ONLY 2024 03:15P Coby ANDRES_ DENVER_NURS E Not available Not available Not available RECHECK 2025 02:30P Coby SALDAÑA PA-C Not available Not available Not available MEDICARE WELLNESS VISIT 2025 09:30A M JULIANN PIZANO MD Not available Not available Not available Lab influenza virus A + B and SARS CoV 2, QL, SARA+probe , respirato ry specimen [address], [address] [place] [address], [phone], 07/11/2025 11:58:56 strep group A, DNA, swab [address], [address] [place] [address], [address], 07/11/2025 11:58:56 lipid panel, serum 2024 025 [facility], [address] [place] [address], [address], 06/12/2025 18:18:25 hepatic function panel, serum 2024 025 [facility], [address] [place] [address], [address], 06/12/2025 18:34:01 ferritin, serum or plasma 2024 025 [facility], [address] [place], [address], 06/12/2025 18:33:57 TSH, serum or plasma 2024 025 [facility], [address] [place], [address], 06/12/2025 18:34:03 Referral sleep medicine referral 2024 025 [email or web address] Laci Patricia MD, [address], [address], 07/25/2025 08:58:34 orthopedi c surgeon referral 2024 025 [email or web address] Yomi Keller MD, [address] [place], [address], 06/04/2025 14:30:37 Procedures None recorded. Surgeries None recorded. Imaging None recorded. Medication Orders cyanocoba jessica (vit B-12) 1,000 mcg/mL injection solution 2024 025 [email or web address] Not available 07/18/2025 15:33:33 doxycycli ne hyclate 100 mg capsule 2024 025 [facility] [id number], [address] [place] [address], [address], 07/25/2025 05:02:00 prednison e 20 mg tablet 2024 025 [facility] [id number], [address] [place], [address], 07/23/2025 05:02:37 benzonata te 200 mg capsule 2024 025 [facility] [id number], [address] [place], [address], 07/28/2025 05:02:05 meloxicam 7.5 mg tablet 2024 [facility] [id number], [address] [place], [address], 06/12/2025 14:37:19 cyanocoba jessica (vit B-12) 1,000 mcg/mL injection solution 2024 025 Not available 06/12/2025 14:37:19 Compound Rx Alternati ves Neuropath ic Pain Cream 2024 [facility], [address], [place], [address], 06/12/2025 13:56:32 Patient TargetsNo targets recorded. Patient Instructions Encounter Date Encounter Id Patient Instructions Last Modified By Organization Details Last Modified Time 06/12/2025 [id number] - Continue administering your B12 injection monthly. - Make sure to complete the sleep study as planned. - You can take melatonin to help with your restless legs at night. - Start taking meloxicam as directed for knee pain relief. - Continue your cholesterol medication but talk with me if you feel it affects your knee pain. - Remember to get vaccinated today for COVID-19 and influenza. - Follow up with any new or worsening symptoms. Return 6month fasting medicare wellness visit. [email or web address] Not available 06/12/2025 14:34:00 07/11/2025 [id number] - Take one prednisone pill each morning with food for five days. - If you experience trouble sleeping or feel very jittery from the prednisone, you can stop taking it. - Take the Tessalon Perles (cough pearls) as directed to help with your cough. - Keep the Tessalon Perles in a safe place, as they are toxic in high doses and can be dangerous if taken by accident. - An antibiotic prescription has been sent to your pharmacy. Do not pick it up or start taking it unless your symptoms get worse (such as new fever or thicker, darker drainage) or if you are not getting any better by Monday. - Expect that it may take another 3 to 5 days to start feeling better. - While you are still actively coughing and have drainage, it is best to avoid being around other people as you are likely still contagious. [email or web address] Not available 07/11/2025 12:07:20 Reason for Referral Orthopedic Surgeon Referral for Bilateral osteoarthritis of knees Referring Physician: Carrol Arevalo, Pain Management, Encounter Date: 06/03/2025 Sleep Medicine Referral for Snoring Referring Physician: Juliann Pizano, Family Medicine, Encounter Date: 06/12/2025 Results Created Date Observation Date Name Description Value Unit Range Abnormal Flag Note LastModifiedBy Organization Detail LastModifiedTime 06/12/2006/12/2025 LIPID PROFI LE HDL cholesterol 58 mg/dL normal EDILSON L RANGE FEMAL E >49 MALE >39 NOTE: NEW EDILSON L RANGE Not Available [facility] [address] [place] [address], [address], 06/12/2025 18:33:59 06/12/20 25 06/12/2025 LIPID PROFI LE triglyceride s 106 mg/dL 0-149 normal TRIGL YCERI DE RANGE S EDILSON L: < 150 BORDE RLINE HIGH: 150 - 199 HIGH: 200 - 499 VERY HIGH: > OR = 500 Not Available [facility] [address] [place] [address], [address], 06/12/2025 18:33:59 06/12/20 25 06/12/2025 LIPID PROFI LE cholesterol 198 mg/dL 0-199 normal JHOANA STERO L (TOTA L) RANGE S GAYLA ABLE: < 200 BORDE RLINE : 200 - 239 HIGHE R RISK: > 239 Not Available [facility] [address] [place] [address], [address], 06/12/2025 18:33:59 06/12/20 25 06/12/2025 LIPID PROFI LE LDL cholesterol 119 mg/dL _(nohelia c) 0-99 high LDL JHOANA STERO L RANGE S OPTIM AL: < 100 NEAR/ ABOVE OPTIM AL: 100 - 129 BORDE RLINE HIGH: 130 - 159 HIGH: 160 - 189 VERY HIGH: > OR = 190 Not Available [facility] [address] [place] [address], [address], 06/12/2025 18:33:59 06/12/20 25 06/12/2025 LIPID PROFI LE chol/HDL ratio (calc) 3.4 mg/dL normal NO EDILSON L RANGE ESTAB LISHE D FOR JHOANA STERO L/HDL RATIO (CALC ULATE D). Not Available [facility] [address] [place] [address], [address], 06/12/2025 18:33:59 06/12/20 25 06/12/2025 LIPID PROFI LE LDL, direct 122 0-99 high Not Available [facility] [address] [place] [address], [address], 06/12/2025 18:33:59 06/12/20 25 06/12/2025 REY TIN ferritin 69 NG/mL 13-157 normal Not Available [facility] [address] [place] [address], [address], 06/12/2025 18:33:57 06/12/20 25 06/12/2025 HEPAT IC (LIVE R) PANEL AST 21 U/L 0-32 normal Not Available [facility] [address] [place] [address], [address], 06/12/2025 18:34:01 06/12/20 25 06/12/2025 HEPAT IC (LIVE R) PANEL ALT 14 U/L 0-33 normal Not Available [facility] [address] [place] [address], [address], 06/12/2025 18:34:01 06/12/20 25 06/12/2025 HEPAT IC (LIVE R) PANEL alkaline phosphatase 79 U/L 30-121 normal Not Available [facility] [address] [place] [address], [address], 06/12/2025 18:34:01 06/12/20 25 06/12/2025 HEPAT IC (LIVE R) PANEL total protein 7.2 g/dL 6.4-8. 3 normal Not Available [facility] [address] [place] [address] [place], [address], 06/12/2025 18:34:01 06/12/20 25 06/12/2025 HEPAT IC (LIVE R) PANEL albumin 4.4 g/dL 3.5-5. 2 normal Not Available [facility] [address] [place] [address], [address], 06/12/2025 18:34:01 06/12/20 25 06/12/2025 HEPAT IC (LIVE R) PANEL bilirubin, total 0.6 mg/dL 0.1-1. 0 normal NOTE: New refer ence range . Not Available [facility] [address] [place] [address], [address], 06/12/2025 18:34:01 06/12/20 25 06/12/2025 HEPAT IC (LIVE R) PANEL bilirubin, direct <0.2 mg/dL 0.0-0. 3 normal Not Available [facility] [address] [place] [address], [address], 06/12/2025 18:34:01 06/12/2006/12/2025 HEPAT IC (LIVE R) PANEL bilirubin, indirect see below mg/dL _(nohelia c) 0.0-1. 0 normal Unabl e to calcu late Indir ect Bilir ubin. Not Available [facility] [address] [place] [address], [address], 06/12/2025 18:34:01 06/12/20 25 06/12/2025 TSH TSH 1.300 u[IU] /mL 0.270- 4.200 normal Not Available [facility] [address] [place], [address], 06/12/2025 18:34:03 07/11/20 25 07/11/2025 influ trini virus A + B and SARS CoV 2, QL, SARA+p robe, respi rator y speci men Unknown Analyte Negati ve Not Available [facility] [address], [address], 07/11/2025 11:41:20 07/11/20 25 07/11/2025 influ trini virus A + B and SARS CoV 2, QL, SARA+p robe, respi rator y speci men Unknown Analyte Negati ve Not Available [address], [address], 07/11/2025 11:41:20 07/11/20 25 07/11/2025 influ trini virus A + B and SARS CoV 2, QL, SARA+p robe, respi rator y speci men Unknown Analyte Negati ve Not Available [address], [address], 07/11/2025 11:41:20 07/11/20 25 07/11/2025 influ trini virus A + B and SARS CoV 2, QL, SARA+p robe, respi rator y speci men Unknown Analyte Valid Not Available [address], [address], 07/11/2025 11:41:20 07/11/20 25 07/11/2025 strep group A, DNA, swab Strep A negati ve Not Available [address], [address], 07/11/2025 11:41:55 07/11/20 25 07/11/2025 strep group A, DNA, swab Procedural Control Valid Not Available [address], [address], 07/11/2025 11:41:55 06/10/20 25 06/09/2025 XR, knee, 4 or more view [facility] [address] [place] [address] [phone] Patiterry t Name: MICHELLE ni : 1954 Patiterry t 9 Orderi ng Provid er: AUGUSTA SALDAÑA EXAM DATE: 2024 EXAM: XR LOLA KNEES COMPLE TE, 4 OR MORE VWS HISTOR Y: Pain COMPAR STACY: 023 FINDIN GS: Loss of the medial compar tments bilate rally with degene rative spurri ng. Normal alignm ent includ ing the patell ofemor al joints . No fractu re or disloc ation. IMPRES LELE: 1. Severe bilate ral knee DJD Interp reted By: Milvia Andrea MD Electr on ly Signed By: Milvia Andrea MD on 2024 8:48 AM [email or web address] [facility] [address] [place], [address], 06/10/2025 09:39:21 Result Notes Documentation Provider Name and Address Organization Details Recorded Time Xr, Knee, 4 Or More View : [facility] [address] [place], [place] [id number] Patient Name: MICHELLE MACDONALD Patient : 1955 Patient Ordering Provider: AUGUSTA SALDAÑA EXAM DATE: 06/09/2025 EXAM: XR LOLA KNEES COMPLETE, 4 OR MORE VWS HISTORY: Pain COMPARISON: 12/14/2022 FINDINGS: Loss of the medial compartments bilaterally with degenerative spurring. Normal alignment including the patellofemoral joints. No fracture or dislocation. IMPRESSION: 1. Severe bilateral knee DJD Interpreted By: Milvia Andrea MD STA SALDAÑA PA-C [address] [place] [address], [address], [facility] 06/10/2025 09:39:21 Problems Name Problem SNOMED Code Status Onset Date Resolution Date Notes Provider Name and Address Organization Details Recorded Time Lack of energy 456481130 Completed 201502/07/2018 From Automate d Load;Pro vider: Juliann Pizano;Sta tus: Active JULIANN PIZANO MD [address] [place] [address], [address] , [facility] 8 13:33:48 Finding of appearan ce of skin Completed 201502/07/2018 From Automate d Load;Pro vider: Juliann Pizano;Sta tus: Active JULIANN PIZANO MD [address] [place] [address], [address] , [facility] 8 13:33:45 Hypothyr oidism 64922538 Active 2015 From Automate d Load;Pro vider: Juliann Pizano;Sta tus: Active JULIANN PIZANO MD [address] [place] [address], [address] , [facility] 3 14:38:44 Tinnitus 54506560 Active 2015 From Automate d Load;Pro vider: Juliann Pizano;Sta tus: Active Not Available [facility] 2 07:32:58 Fibrocys tic disease of breast 54660921 Active 2017 Not Available [facility] 2 07:32:58 Divertic ular disease of colon 185180027 Active 2017 Not Available [facility] 2 07:32:58 Hearing loss 61705877 Active 2017 Not Available [facility] 2 07:32:58 Displace ment of lumbar interver tebral disc without myelopat hy 81457195 Active 2017 JULIANN PIZANO MD [address] [place] [address], [address] , [facility] 3 14:38:27 Osteoart hritis of knee 858886403 Active 2018 Not Available [facility] 2 07:32:58 Alopecia 04074882 Active 2019 Not Available [facility] 2 07:32:58 Hyperlip idemia 23790182 Active 2019 LDL>190 JULIANN PIZANO MD [address] [place] [address], [address] , [facility] 3 22:05:06 Vitamin B12 deficien cy (non anemic) 80964628 Active 2020 JULIANN PIZANO MD [address] [place] [address], [address] , [facility] 3 14:38:51 Atherosc lerosis of aorta 24629164 Active 2022 JULIANN PIZANO MD [address] [place] [address], [address] , [facility] 3 14:51:55 Cystitis 97121127 Active 2022 KERRIE SLATER PA-C [address] [place] [address], [address] [place] [address] , [facility] 3 10:32:11 Bilatera l osteoart hritis of knees 95004812772 9107 Active 2022 JULIANN PIZANO MD [address] [place] [address], [address] , [facility] 3 10:32:14 Pain of right temporom andibula r joint 89817070194 172560 Active 2022 JULIANN PIZANO MD [address] [place] [address], [address] , [facility] 3 10:33:46 Body mass index 25-29 - overweig ht 720862427 Active 2023 JULIANN PIZANO MD [address] [place] [address], [address] , [facility] 4 09:58:29 Dyslipid emia 722282015 Active 2023 JULIANN PIZANO MD [address] [place] [address], [address] , [facility] 4 10:13:07 Ischial bursitis 194331962 Active 2023 JULIANN PIZANO MD [address] [place] [address], [address] , [facility] 4 10:42:24 Lumbar radiculo wendy 610723904 Active 2024 JULIANN PIZANO MD [address] [place] [address], [address] , [facility] 11:31:09 Primary gonarthr aura joiner l 629241944 Active 2024 JULIANN PIZANO MD [address] [place] [address], [address] , [facility] 14:24:04 Acute frontal sinusiti s 69722065 Active 2024 KERRIE SLATER PA-C [address] [place] [address], [address] , [facility] 11:58:13 Acute cough Active 2024 KERRIE SLATER PA-C [address] [place] [address], [address] , [facility] 12:02:22 Problem Notes None recorded. Procedures Surgical History Date Name Laterality Status Provider Name and Address Organization Details Recorded Time 025 Joint Injection, Knee - Barb completed YOUNG DAY MD [address] [place] [address], [address], [facility] 05/08/2025 12:43:39 025 Joint Injection, Knee - Barb completed YOUNG DAY MD [address] [place] [address], [address], [facility] 01/28/2025 16:06:18 025 Joint Injection, Knee - Barb completed YOUNG DAY MD [address] [place] [address], [address], [facility] 10/22/2024 12:43:32 024 Injection - Joint/Bursa, Saravanan completed Vicki Rai [facility] 07/15/2024 10:48:22 024 Injection - Joint/Bursa, Saravanan completed Spenser Tijerina [facility] 04/12/2024 15:30:21 024 Injection - Joint/Bursa, Saravanan completed Alexandria Young [place] [facility] 01/10/2024 15:32:45 024 Injection - Joint/Bursa, Major completed Quinten Rizo [place] [facility] 10/16/2023 15:30:00 024 Injection - Joint/Bursa, Major completed Lisa SWANN PA-C [address] [place], [address], [place] [facility] 10/13/2023 11:11:57 024 Injection - Joint/Bursa, Major cancelled Alexandria Young [place] [facility] 09/05/2023 08:39:03 023 Euflexxa Injection completed Rashad Welsh [place] [facility] 08/16/2023 08:58:43 023 Euflexxa Injection completed Quinten Rizo [place] [facility] 08/09/2023 09:16:07 023 Euflexxa Injection completed Rashad Welsh [place] [facility] 08/02/2023 08:54:42 023 Injection - Joint/Bursa, Major completed [place] Young [place] [facility] 06/21/2023 08:22:13 023 Injection - Joint/Bursa, Major completed [place] Young [place] [facility] 06/19/2023 14:59:56 023 DXA Normal completed JONAH HOWARD MD [address] [place], [address], [place] [facility] 03/30/2023 12:31:04 023 Injection - Joint/Bursa, [...] Joint/Bursa, Major completed Vicki Rai [place] [facility] 03/02/2022 09:13:27 022 Injection - Joint/Bursa, Major completed [place] Young [place] [facility] 02/18/2022 09:00:30 022 Injection - Joint/Bursa, Major cancelled Alexandria [...] sling completed JULIANN PIZANO MD [address] [place], [address], [facility] 12/07/2023 10:17:40 021 Injection - Joint/Bursa, Major completed [facility] 02/10/2021 08:25:13 021 Injection - Joint/Bursa, Major completed Vicki Rai [facility] 02/03/2021 08:07:56 021 Injection - Joint/Bursa, Major completed [place] Sellers [place] [facility] 11/11/2020 08:47:33 021 Injection - Joint/Bursa, Major completed Lisa SWANN PA-C [address] [place], [address], [facility] 11/04/2020 13:58:40 020 Orthotic, HFO, Static Custom completed HEMALATHA BERNARD, OTR/L, CHT [address] [place], [address], [facility] 2020 13:04:03 020 Op Note completed YOUNG GUIDRY MD [address] [place], [address], [facility] 07/27/2020 19:12:28 020 Injection - Joint/Bursa, Interm completed YOUNG GUIDRY MD [address] [place], [address], [facility] 02/25/2020 19:59:39 019 Op Note completed YOUNG GUIDRY MD [address] [place], [address], [facility] 05/13/2019 09:25:23 019 Injection - Trigger Finger, Ortho completed YOUNG GUIDRY MD [address] [place], [address], [facility] 04/05/2019 16:43:35 019 Injection - Carpal Tunnel completed YOUNG GUIDRY MD [address] [place] [address], [address], [facility] 03/15/2019 16:13:35 019 Injection - Joint/Bursa, Major completed Cristinecarol Luna [facility] 12/18/2018 15:10:45 019 Injection - Joint/Bursa, Major completed Cristine Jeremy [facility] 12/11/2018 10:50:07 019 Injection - Joint/Bursa, Interm completed YOUNG GUIDRY MD [address] [place] [address], [address], [facility] 09/20/2018 17:43:12 019 Electromyography (EMG) with Nerve Conduction Study (NCV) completed Luz Maria Pizano (Nicky) [facility] 09/20/2018 13:42:03 019 Injection - Joint/Bursa, Major completed Lisa SWANN PA-C [address] [place] [address], [address], [facility] 09/05/2018 15:07:17 018 Injection - Joint/Bursa, Interm completed YOUNG GUIDRY MD [address] [place] [address], [address], [facility] 07/04/2018 12:19:03 Hand tendon/muscle transfer completed JULIANN PIZANO MD [address] [place] [address], [address], [facility] 01/05/2017 11:59:57 Cataract Surgery completed JULIANN PARKS MD [address] [place] [address], [address], [facility] 08/29/2022 14:55:26 Appendectomy completed JULIANN PIZANO MD [address] [place] [address], [address], [facility] 10/13/2016 08:25:37 Imaging Results None recorded. Procedure [...] tablet Not Available Not Available Not Available [place] 5 mg-325 mg tablet TAKE 1 TAB [...] and Address Organization Details Last Updated DateTime 160.02 cm 26.6 kg/m2 36386.8 6 g 96 % 86 /min 130/72 mm[Hg] Daisy Bang [facility] 14:02:09 Date Recorded Body height Body mass index (BMI) Body weight Pain severity - 0-10 verbal numeric rating [Score] - Reported Provider Name and Address Organization Details Last Updated DateTime 06/09/2025 160.02 cm 26.6 kg/m2 49331.86 g 6 Honey Mane [facility] 06/09/2025 15:32:20 Date Recorded Body height Body mass index (BMI) Body weight Body temperature Heart rate Oxygen saturation Respiratory rate Systolic And Diastolic Provider Name and Address Organization Details Last Updated DateTime 160.02 cm 26.6 kg/m2 26208.5 6 g 97.2 [degF] 84 /min 96 % 16 /min 134/84 mm[Hg] Augusta Ramsey [facility] 13:55:58 Date Recorded Body height Body mass index (BMI) Body weight Body temperature Heart rate Oxygen saturation Systolic And Diastolic Provider Name and Address Organization Details Last Updated DateTime 11/21/202 5 160.02 cm 26 kg/m2 41734.6 4 g 98.6 [degF] 112 /min 95 % 118/80 mm[Hg] Makenzie Cornell [facility] 5 11:31:59 Social History Question Answer Notes LastModified by Organizat ion Details LastModified Time Tobacco Smoking Status Never Smoker JULIANN PIZANO MD [address] [place] [address], [phone], [facility] 01/05/2017 08:07:38 What Is Your Level Of Caffeine Consumption? Occasional Information not available 06/08/2017 How Much Tobacco Do You Chew? None [email or web address] Information not available 03/07/2019 Which Of Your Hands Is Dominant? Right Information not available 06/08/2017 Marital Status Informatio n not available 06/08/2017 What Was The Date Of Your Most Recent Tobacco Screening? 07/11/2025 [email or web address] Information not available 07/11/2025 What Is Your Relationship Status? [email or web address] Information not available 09/07/2023 How Much Tobacco Do You Smoke? No Information not available 04/24/2019 Has Tobacco Cessation Counseling Been Provided? No [email or web address] Information not available 10/18/2023 Sex: Female Functional Status Question Answer Note LastModified by Organizat ion Details LastModified Time Do you use any illicit or recreational drugs? No Information not available 06/08/2017 Do you or have you ever used any other forms of tobacco or nicotine? No [email or web address] Information not available 10/18/2023 What is your [...] available 08:25:23 Mother History of multiple myeloma [email or web address] Not available 07/30 11:06:48 Notes:NO FAMILY HX OF MM Medical History Condition Response Coronary Artery Disease N Gout N Other N Atrial Fibrillation N Kidney Stones N Hyperthyroidism N Blood Transfusion N Emphysema N Sexually Transmitted Disease N COPD N Depression N Pneumonia N Anxiety Disorder N Muscle, [...] Disease Y Hernia N Colon/Rectal Disorders N Glaucoma N Hypothyroidism Y Lung Disease N Breast Problem N Measles N Difficulty Swallowing N Diverticulitis/Diverticulosis Y Anesthesia Complications N Varicose Veins N Attempted Suicide N Meniere's disease N Hearing Loss N Radiation Therapy N Endometriosis N Blood Thinners N Bladder or Kidney Problems N Alcohol Overuse/Alcohol Abuse N High Cholesterol Y Liver Disease N Allergies/Hayfever N Parkinson's Disease N Alzheimer's N Thyroid Problems Y GI Problems N Anemia N Immune System Disorder N Heart Attack (IA) N Mental Illness N Neurological Problems N Diabetes N Ovarian Cancer N Seizures/Epilepsy N Eczema N Diverticulitis N Epilepsy/Seizures N Reflux/GERD N Sleep Apnea N Heart Disease N Hypertension N Pre-Eclampsia N Osteoporosis N Gynecological HistoryNo gynecological history recorded. Obstetrics History GPAL:G 0 P 0 0 0 0 Immunizations Vaccine Type Date Status Note Provider Salvador e and Address Organization Details Recorded Time [facility]oster [facility] 16:19:20 Hep A, adult 9 completed Not Available [facility]07/2019 02:50:37 COVID-19, mRNA, LNP-S, PF, jamie-sucrose, 30 mcg/0.3 mL 4 completed Gem Gilliam [facility] 06/09/2025 14:35:52 Influenza, split virus, quadrivalent, PF 9 completed Not Available [facility] 09/07/2019 02:52:20 Influenza, split virus, quadrivalent, preservative 0 completed Sayda Borjas [facility] 09/07/2023 16:44:05 zoster live 5 completed Sayda Borjas null, [facility] 09/07/2023 16:44:05 DTaP 4 completed Sayda Borjas [facility] 09/07/2023 16:44:05 COVID-19 vaccine, vector-nr, rS-Ad26, PF, 0.5 mL 1 completed Sayda Borjas [facility] 09/07/2023 16:44:05 Influenza, split virus, quadrivalent, preservative 1 completed Sayda Borjas [facility] 09/07/2023 16:44:05 Tdap 4 completed Sayda Borjas [facility] 12/07/2023 10:49:24 Influenza, high-dose, quadrivalent, PF 4 completed Sayda Borjas [facility] 12/07/2023 10:49:24 RSV, recombinant, protein subunit RSVpreF, adjuvant reconstituted, 0.5 mL, PF 4 completed Augusta Ramsey [facility] 01/09/2024 11:30:59 COVID-19, mRNA, LNP-S, PF, 100 mcg/0.5mL dose or 50 mcg/0.25mL dose 1 completed Veronica Phelpse null, [facility] 06/13/2022 08:44:52 Pneumococcal conjugate PCV 13 1 completed Veronica Stone [facility] 06/13/2022 08:44:52 COVID-19, mRNA, LNP-S, PF, 100 mcg/0.5mL dose or 50 mcg/0.25mL dose 2 completed Veronica Stone [facility], [facility] 06/13/2022 08:44:52 COVID-19 vaccine, vector-nr, rS-Ad26, PF, 0.5 mL 1 completed Veronica Stone [facility] 06/13/2022 08:44:52 Influenza, high-dose, trivalent, PF 0 completed Veronica Stone null, [facility] 06/13/2022 08:44:52 Influenza, high-dose, trivalent, PF 4 completed JULIANN PIZANO MD [address] [place] [address], [phone], [facility] 05/26/2024 14:32:15 pneumococcal polysaccharide PPV23 9 completed JULIANN PIZANO MD [address] [place] [address], [phone], [facility] 08/29/2022 14:39:38 Influenza, split virus, quadrivalent, PF 7 completed JULIANN PIZANO MD [address] [place] [address], [phone], [facility] 08/29/2022 14:39:38 influenza, unspecified formulation 2 completed Sayda Borjas [facility] 09/07/2023 16:44:05 COVID-19, mRNA, LNP-S, PF, jamie-sucrose, 30 mcg/0.3 mL 5 completed JULIANN PIZANO MD [address] [place] [address], [phone], [facility] 12/12/2024 17:13:08 zoster recombinant 3 completed [facility] 02/27/2023 09:41:31 Hep A, adult 8 completed Not Available [facility] 09/07/2019 02:45:53 Influenza, high-dose, trivalent, PF 5 completed [facility] 06/12/2025 14:37:25 COVID-19, mRNA, LNP-S, PF, jamie-sucrose, 30 mcg/0.3 mL 5 completed Augusta Braulio [facility] 06/12/2025 14:37:25 COVID-19, mRNA, LNP-S, bivalent, PF, 30 mcg/0.3 mL dose 3 completed [place] Braulio [facility] 03/24/2023 15:03:47 Influenza, split virus, quadrivalent, PF 8 completed Not Available [facility] 09/07/2019 02:48:52 Past Encounters Encounter ID Performer Location Encounter Start Date Encounter Closed Date Diagnosis/Indication Diagnosis SNOMED-CT Code Diagnosis ICD10 Code Diagnosis IMO Codes Diagnosis Note [id number] [facility] [address] 11/21/2016 16:13:37 11/21/2016 16:13:37 [id number] JULIANN PIZANO MD [address] [address] 11/23/2016 10:48:14 11/23/2016 14:28:47 [id number] JULIANN PIZANO MD [address] [address] 01/05/2017 11:05:32 01/05/2017 12:22:52 Hypothyroidism 96616629 E03.9 TSH today since she has restarted medication . Continue current dosage. I informed that she cannot discontinu e medication [id number] MESERET PANIAGUA APRN [facility] [place] [facility] [address] [place] [address] 03/29/2017 08:41:01 03/29/2017 09:44:29 Hypothyroidism 55285406 E03.9 Bilateral knee pain 1187 206394 4474242 M25.224 [id number] VINH KLINE MD [facility] [address] [place] [address] 03/29/2017 10:49:12 03/31/2017 15:53:12 [id number] MESERET PANIAGUA APRN [facility] [place] [facility] [address] [place] [address] 04/27/2017 09:54:11 04/27/2017 11:40:00 Osteoarthritis of knee 224759829 M17.0 Body mass index 30+ - obesity 127485251 Z68.39 Hypothyroidism 32197970 E03.9 Administra tion of influenza vaccine 22546673 Z23 [id number] YOUNG GUIDRY MD [facility] [address] [place] [address] 06/08/2017 09:14:33 06/08/2017 15:18:36 Pain in thumb 640637494 M79.642 X-rays reveal previous Trapezoid excision with tight rope suspension of the thumb metacarpal . There is residual subsidence of the thumb metacarpal . [id number] MESERET PANIAGUA APRN [address] [address] 10/10/2017 13:48:13 10/10/2017 14:59:14 Contusion wrist or hand 157368198 S60.211A Contusion of right hand 7326613248 2883055 S60.221A [id number] JULIANN PIZANO MD [address] [address] 02/07/2018 12:45:49 02/07/2018 15:50:22 Hypothyroidism 42463720 E03.9 stable/con tinue current medication Vitamin B1 2 deficiency (non anemic) 32669657 E53.8 She has not taking vitamin B12. I advised to start at Vitamin B12 500mcg daily. Repeat in 2 months. Fibrocysti c disease of breast 98231035 N60.19 Continue vitamin E Diverticul osis of colon without diverticulitis 971106733 K57.30 Increased body mass index 00794320 E66.9 Advised [employer] Active or passive immunization 996304400 Z23 [id number] JULIANN PIZANO MD [address] [address] 02/09/2018 09:58:08 02/09/2018 10:07:19 [id number] JULIANN PIZANO MD [address] [address] 02/16/2018 14:58:15 02/19/2018 15:50:26 Active or passive immunization 782391463 Z23 [id number] JULIANN PIZANO MD [address] [address] 05/03/2018 10:46:16 05/14/2018 09:28:10 Acute conjunctivitis of left eye 1112194931 39748 H10.32 To call if symptoms worsen or do not improve. Active or passive immunization 154543259 Z23 [id number] YOUNG GUIDRY MD [facility] [address] [place] [address] 07/04/2018 09:39:59 07/04/2018 10:21:48 Pain in thumb 134118113 M79.642 Left thumb CMC CSI: 07/04/18 Previous x-rays reveal previous trapezium excision with tight rope suspension of the thumb metacarpal . There is residual subsidence of the thumb metacarpal . [id number] C ORVILLE SWANN PA-C [facility] [address] [address] 07/04/2018 10:21:00 07/04/2018 11:16:32 Osteoarthritis of knee 082042154 M17.0 heel wedge, NSAID, f/u By phone to try different anti-infla mmatories follow-up and person if/when ready to consider Intra-karen cular corticoste roid injection [id number] MESERET PANIAGUA APRN [address] [address] 08/09/2018 09:57:38 08/10/2018 14:43:05 Pain in throat 256410492 R07.0 Pharyngitis 321280072 J0 2.9 Hypothyroidism 32023771 E03.9 Mixed hyperlipidemia 267 022110 E78.2 [id number] YOUNG GUIDRY MD [facility] [address] [place] [address] 08/16/2018 14:06:42 08/20/2018 17:19:48 Pain in thumb 302272809 M79.642 Left thumb CMC CSI: 07/04/18 Previous x-rays reveal previous trapezium excision with tight rope suspension of the thumb metacarpal . There is residual subsidence of the thumb metacarpal . 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 Bilateral injection today. Refilled diclofenac . Follow-up when necessary [id number] SEBASTIEN DENNEY MD [facility] [address] [place] [address] 09/20/2018 12:50:54 09/20/2018 14:14:28 Skin sensation disturbance 46079741 R20.9 Pain in left thumb 08862 91833 610058 M79.823 [id number] YOUNG GUIDRY MD [facility] [address] [address] 09/20/2018 14:38:46 09/20/2018 16:28:59 Pain in thumb 882014426 M79.642 Left thumb CMC CSI: 07/04/18 Previous x-rays reveal previous trapezium excision with tight rope suspension of the thumb metacarpal . There is residual subsidence of the thumb metacarpal . Carpal mckenna jay syndrome 87387470 G56.02 Possible EMG negative carpal tunnel syndrome EMG/NCV (09/20/18) was normal [id number] Lisa SWANN PA-C [facility] [address] [place] [address] 12/11/2018 10:41:31 12/11/2018 12:20:33 Osteoarthritis of knee 100829761 M17.0 We decided to inject 1 knee today in the contralate ral knee next week. I'll also send her prioritiza tion for hyaluronic acid. We spent approximat samir 25 minutes discussing various treatments such as meniscal supplement ation and stem cell injections . A total of 15 min of face-to-fa ce time was spent with the patient during this encounter, with >50% spent on counseling , review of imaging, treatment options, and coordinati on of care. [id number] C ORVILLE SWANN PA-C [facility] [address] [place] [address] 12/18/2018 14:43:06 12/18/2018 15:45:02 Osteoarthritis of knee 106430752 M17.0 [id number] JASON BERGER APRN [facility] [address] [place] [address] 03/07/2019 09:43:43 03/07/2019 10:16:01 Rosacea 942592020 L71.9 ERYTHEMATO US OPTIONS EDUCATE RECOMMEND UV PROTECTION DAILY TRY MIRVASO GEL QAM IF INSURANCE WILL COVER IF PAPULAR DEVELOPS DISCUSSED LET ME KNOW FOR FURTHER TREATMENT [id number] YOUNG GUIDRY MD [facility] [address] [place] [address] 03/15/2019 15:05:42 03/15/2019 16:11:48 Pain in thumb 608353501 M79.642 Left thumb CMC CSI: 07/04/18 Previous x-rays reveal previous trapezium excision with tight rope suspension of the thumb metacarpal . There is residual subsidence of the thumb metacarpal . Carpal mckenna jay syndrome 37155638 G56.02 Possible EMG negative carpal tunnel syndrome (CSI: 03/15/19) EMG/NCV (09/20/18) was normal [id number] YOUNG GUIDRY MD [facility] [address] [place] [address] 04/05/2019 15:06:41 04/08/2019 08:56:30 Pain in thumb 983842007 M79.642 Left thumb CMC CSI: 07/04/18 Previous x-rays reveal previous trapezium excision with tight rope suspension of the thumb metacarpal . There is residual subsidence of the thumb metacarpal . Carpal mckenna jay syndrome 03871905 G56.02 Possible EMG negative carpal tunnel syndrome (CSI: 03/15/19) - currently no numbness or tingling in the index or long fingers following injection EMG/NCV (09/20/18) was normal Trigger finger 004179369 1 07468 M65.312 Early trigger thumb versus tenosynovi tis (CSI: 04/05/19) [id number] JULIANN PIZANO MD [address] [address] 04/24/2019 13:32:43 04/24/2019 15:59:28 Hypothyroidism 94208348 E03.9 stable/con tinue current medication Fibrocysti c disease of breast 33224680 N60.19 Continue vitamin E Osteoarthr itis of knee 329823715 M17.0 Following with orthopedic s for prn cortisone. Continue diclofenac prn and advised to try topical American Wonder Dream Cream Hyperlipidemia 00364858 E78.5 [id number] YOUNG GUIDRY MD SURGERY SCHEDULE [address] [place] [address] 05/13/2019 06:05:31 05/13/2019 06:09:45 [id number] NOHEMY MICHEL PA-C [facility] [address] [facility] [place] [address] 05/24/2019 14:12:18 05/24/2019 15:19:56 Postoperative care 593303268 Z48.89 Doing well s/p Revision left thumb CMC tight rope suspension arthroplas ty; Removal of hardware from left thumb and index finger (DOS: 05/13/19) Post op films today reveal stable appearance status post left thumb revision CMC arthroplas ty with tight rope suspension . Previously status post revision left thumb CMC tight rope suspension arthroplas ty and left thumb CMC arthroplas ty by Dr. Lewis . Pain in thumb 587414067 M79.642 Left thumb CMC CSI: 07/04/18 Previous x-rays reveal previous trapezium excision with tight rope suspension of the thumb metacarpal . There is residual subsidence of the thumb metacarpal . Trigger finger 977192400 1 47845 M65.312 Early trigger thumb versus tenosynovi tis (CSI: 04/05/19) Carpal mckenna jay syndrome 30823937 G56.02 Possible EMG negative carpal tunnel syndrome (CSI: 03/15/19) - currently no numbness or tingling in the index or long fingers following injection EMG/NCV (09/20/18) was normal [id number] YOUNG GUIDRY MD [facility] [address] [place] [address] 06/21/2019 13:58:06 06/21/2019 16:13:30 Postoperative care 587903799 Z48.89 6 weeks s/p Revision left thumb CMC tight rope suspension arthroplas ty; Removal of hardware from left thumb and index finger (DOS: 05/13/19) Carpal mckenna jay syndrome 10382193 G56.02 Possible EMG negative carpal tunnel syndrome (CSI: 03/15/19) - currently no numbness or tingling in the index or long fingers following injection EMG/NCV (09/20/18) was normal [id number] JULIANN PIZANO MD [facility] [address] [place] [address] 07/22/2019 10:48:33 07/22/2019 13:35:42 [id number] ASAEL NAYLOR PA-C [facility] [address] [place] [address] 07/29/2019 13:29:50 07/29/2019 16:49:05 Active or passive immunization 208842107 Z23 [id number] YOUNG GUIDRY MD [facility] [address] [place] [address] 08/02/2019 13:14:29 08/02/2019 13:36:50 Postoperative care 595027292 Z48.89 12 weeks s/p Revision left thumb CMC tight rope suspension arthroplas ty; Removal of hardware from left thumb and index finger (DOS: 05/13/19) Carpal mckenna jay syndrome 72641903 G56.02 Possible EMG negative carpal tunnel syndrome (CSI: 03/15/19) - currently no numbness or tingling in the index or long fingers following injection EMG/NCV (09/20/18) was normal [id number] MESERET PANIAGUA APRN [address] [address] 08/19/2019 14:00:10 08/19/2019 14:58:52 Adult health examination 276349460 Z00.00 Active or passive immunization 782434775 Z23 Abdominal aortic aneurysm screening 805319193 Z13.6 [id number] YOUNG GUIDRY MD [facility] [address] [place] [address] 09/13/2019 13:03:55 09/13/2019 14:21:49 Postoperative care 159929730 Z48.89 4 months s/p Revision left thumb CMC tight rope suspension arthroplas ty; Removal of hardware from left thumb and index finger (DOS: 05/13/19) Carpal mckenna jay syndrome 60520519 G56.02 Possible EMG negative carpal tunnel syndrome (CSI: 03/15/19) - currently no numbness or tingling in the index or long fingers following injection EMG/NCV (09/20/18) was normal [id number] YOUNG GUIDRY MD [facility] [address] [place] [address] 10/18/2019 13:12:26 10/18/2019 14:08:00 Postoperative care 207587499 Z48.89 5 months s/p Revision left thumb CMC tight rope suspension arthroplas ty; Removal of hardware from left thumb and index finger (DOS: 05/13/19) Carpal mckenna jay syndrome 53947664 G56.02 Possible EMG negative carpal tunnel syndrome (CSI: 03/15/19) - currently no numbness or tingling in the index or long fingers following injection EMG/NCV (09/20/18) was normal [id number] JULIANN PIZANO MD [address] [address] 01/28/2020 08:55:16 01/28/2020 12:34:20 Alopecia 77382331 L65.9 ?due to thyroid. TEODORA normal 07/2019. Blood work today, including TSH. Advised MVI, Bcomplex and Acai(not FDA approved). Hypothyroidism 34600321 E03.9 stable/con tinue current medication Displaceme nt of lumbar intervertebral disc without myelopathy 59532666 M51.26 Tinnitus 64429170 H93.11 Osteoarthr itis of knee 277250045 M17.0 Following with orthopedic s for prn cortisone. Continue diclofenac prn and advised to try topical American Wonder Dream Cream Hearing loss 41825283 H9 1.93 Diverticul ar disease of colon 314534884 K57.30 Hyperlipidemia 43197699 E78.5 [id number] YOUNG GUIDRY MD [facility] [address] [place] [address] 02/25/2020 10:00:02 02/25/2020 12:49:33 Postoperative care 279452136 Z48.89 9.5 months s/p Revision left thumb CMC tight rope suspension arthroplas ty; Removal of hardware from left thumb and index finger (DOS: 05/13/19) Carpal mckenna jay syndrome 81814551 G56.02 Possible EMG negative carpal tunnel syndrome (CSI: 03/15/19) - currently no numbness or tingling in the index or long fingers following injection EMG/NCV (09/20/18) was normal Pain in thumb 082089639 M79.642 Left thumb hardware/C MC CSI: 02/25/20 [id number] YOUNG GUIDRY MD [facility] [address] [place] [address] 03/17/2020 08:42:34 03/17/2020 12:17:11 Pain in thumb 773654943 M79.642 Left thumb hardware/C MC CSI: 02/25/20 Postoperative care 96538 9007 Z48.89 10 months s/p Revision left thumb CMC tight rope suspension arthroplas ty; Removal of hardware from left thumb and index finger (DOS: 05/13/19) Carpal mckenna jay syndrome 83881412 G56.02 Possible EMG negative carpal tunnel syndrome (CSI: 03/15/19) - currently no numbness or tingling in the index or long fingers following injection EMG/NCV (09/20/18) was normal [id number] YOUNG GUIDRY MD [facility] [address] [address] 05/21/2020 09:01:22 05/21/2020 10:56:30 Pain in thumb 197096846 M79.642 Left thumb hardware/C MC CSI: 02/25/20 Postoperative care 39768 9007 Z48.89 1 year s/p Revision left thumb CMC tight rope suspension arthroplas ty; Removal of hardware from left thumb and index finger (DOS: 05/13/19) Carpal mckenna jay syndrome 44522566 G56.02 Possible EMG negative carpal tunnel syndrome (CSI: 03/15/19) - currently no numbness or tingling in the index or long fingers following injection EMG/NCV (09/20/18) was normal [id number] YOUNG GUIDRY MD [facility] [address] [place] [address] 06/18/2020 09:11:15 06/23/2020 10:28:03 Pain in thumb 842822364 M79.642 Left thumb hardware/C MC CSI: 02/25/20 Postoperative care 40103 9007 Z48.89 Previously s/p Revision left thumb CMC tight rope suspension arthroplas ty; Removal of hardware from left thumb and index finger (DOS: 05/13/19) Carpal mckenna jay syndrome 69402734 G56.02 Possible EMG negative carpal tunnel syndrome (CSI: 03/15/19) - currently no numbness or tingling in the index or long fingers following injection EMG/NCV (09/20/18) was normal [id number] YOUNG GUIDRY MD SURGERY SCHEDULE [address] [place] [address] 07/27/2020 10:41:20 07/27/2020 10:43:08 [id number] JULIANN PIZANO MD [address] [address] 07/29/2020 11:17:55 07/29/2020 14:15:15 Hyperlipidemia 93933358 E78.5 Patient is advised on low fat, low calorie diet, weight loss and regular exercise. Also advised on medication compliance and regular labs. Hypothyroidism 48370190 E03.9 stable/con tinue current medication Diverticul ar disease of colon 578771215 K57.30 Fibrocysti c disease of breast 02224327 N60.19 Continue vitamin E Osteoarthr itis of knee 402363794 M17.0 Following with orthopedic s for prn cortisone. Continue diclofenac prn and advised to try topical American Wonder Dream Cream Hearing loss 77158436 H9 1.93 Osteoarthr osis of the carpometacarpal joint of the thumb 75185067 M18.9 s/p another revision per Dr Guidry [id number] NOHEMY MICHEL PA-C [facility] [address] [place] [address] 2020 10:55:54 2020 11:47:56 Pain in thumb 129287612 M79.642 Left thumb hardware/C MC CSI: 02/25/20 Postoperative care 63695 9007 Z48.89 Now s/p Revision left thumb CMC suture suspension arthroplas ty; Left 1/2 trapezoid excision; Removal of hardware from left thumb and index finger; Left trigger thumb release (DOS: 07/27/2020) Post op films today reveal stable alignment status post revision left thumb CMC arthroplas ty and 1/2 trapezoid excision. Previously s/p Revision left thumb CMC tight rope suspension arthroplas ty; Removal of hardware from left thumb and index finger (DOS: 05/13/19) Carpal mckenna jay syndrome 93576658 G56.02 Possible EMG negative carpal tunnel syndrome (CSI: 03/15/19) - currently no numbness or tingling in the index or long fingers following injection EMG/NCV (09/20/18) was normal [id number] HEMALATHA BERNARD, OTR/L, CHT PHYSICAL THERAPY / HAND THERAPY [facility] [address] [place] [address] 2020 12:59:33 2020 13:49:19 Osteoarthrosis of the carpometacarpal joint of the thumb 36417462 M18.9 CMC Arth. Revision [id number] HEMALATHA BERNARD OTR/L, CHT PHYSICAL THERAPY / HAND [facility] [address] [place] [address] 08/19/2020 13:14:31 11/17/2020 13:26:58 [id number] YOUNG GUIDRY MD ORTHOPEDI [facility] [address] [place] [address] 09/08/2020 10:32:24 09/08/2020 11:58:13 Postoperative care [id number] Z48.89 6 weeks s/p Revision left thumb CMC suture suspension arthroplas ty; Left 1/2 trapezoid excision; Removal of hardware from left thumb and index finger; Left trigger thumb release (DOS: 07/27/2020) Post op films today reveal stable alignment status post revision left thumb CMC arthroplas ty and 1/2 trapezoid excision. Previously s/p Revision left thumb CMC tight rope suspension arthroplas ty; Removal of hardware from left thumb and index finger (DOS: 05/13/19) Carpal mckenna jay syndrome 30143110 G56.02 Possible EMG negative carpal tunnel syndrome (CSI: 03/15/19) - currently no numbness or tingling in the index or long fingers following injection EMG/NCV (09/20/18) was normal [id number] MESERET PANIAGUA APRN [facility] [address] [place] [address] 09/28/2020 11:48:30 09/28/2020 12:22:28 Bilateral tinnitus 1158464479 102 H93.13 Hypothyroidism 40066128 E03.9 Mixed hyperlipidemia 267 287878 E78.2 [id number] CODY LOVELACE MD ENT SB [address] [place] [address] 10/12/2020 14:21:56 10/14/2020 10:55:48 Sensorineural hearing loss of bilateral ears 178001973 H90.3 audiogram performed and reviewed. Bilateral high-frequ ency sensorineu ral hearing loss present which is the etiology for her bilateral tinnitus. Not severe enough for hearing aids. Discussed lack of adequate treatment options. Discussed masking. Bilateral tinnitus 72906 69616 102 H93.13 Right temporomandibular joint disorder [id number] 6397564 M26.601 soft diet, heat, NSAIDs [id number] ANNE MARIE BARNARD ENT SB [address] [place] [address] 1 10/12/2020 15:10:48 10/12/2020 15:30:35 Sensorineural hearing loss of bilateral ears 622917065 H90.3 [id number] YOUNG GUIDRY MD ORTHOPEDI CS [facility] [address] [place] [address] 10/20/2020 10:16:27 10/20/2020 11:32:53 Postoperative care 026761801 Z48.89 12 weeks s/p Revision left thumb CMC suture suspension arthroplas ty; Left 1/2 trapezoid excision; Removal of hardware from left thumb and index finger; Left trigger thumb release (DOS: 07/27/2020) Post op films today reveal stable alignment status post revision left thumb CMC arthroplas ty and 1/2 trapezoid excision. Previously s/p Revision left thumb CMC tight rope suspension arthroplas ty; Removal of hardware from left thumb and index finger (DOS: 05/13/19) Carpal mckenna jay syndrome 24416450 G56.02 Possible EMG negative carpal tunnel syndrome (CSI: 03/15/19) - currently no numbness or tingling in the index or long fingers following injection EMG/NCV (09/20/18) was normal [id number] Lisa SWANN PA-C [facility]EDI [facility] [address] [facility] [place] [address] 11/04/2020 13:13:05 11/04/2020 14:03:17 Osteoarthritis of knee 374455951 M17.0 Ongoing bilateral medial compartmen t arthritis. Discontinu e ibuprofen and change to daily meloxicam. Follow-up next week for contralate ral knee injection. Maynor discussion with patient regarding likely inevitabil ity of knee replacemen t if she wishes to maintain current quality of life. Certainly no emergency [id number] Lisa SWANN PA-C [facility] [address] [place] [address] 11/11/2020 09:12:48 11/11/2020 09:51:36 Osteoarthritis of knee 164578707 M17.0 Patient responding well to right knee CSI and by mouth meloxicam [id number] YOUNG GUIDRY MD ORTHOPEDI [facility] [address] [place] [address] 12/01/2020 10:39:20 12/01/2020 11:54:27 Postoperative care 332348360 Z48.89 4 months s/p Revision left thumb CMC suture suspension arthroplas ty; Left 1/2 trapezoid excision; Removal of hardware from left thumb and index finger; Left trigger thumb release (DOS: 07/27/2020) Post op films today reveal stable alignment status post revision left thumb CMC arthroplas ty and 1/2 trapezoid excision. Previously s/p Revision left thumb CMC tight rope suspension arthroplas ty; Removal of hardware from left thumb and index finger (DOS: 05/13/19) Carpal mckenna jay syndrome 26684026 G56.02 Possible EMG negative carpal tunnel syndrome (CSI: 03/15/19) - currently no numbness or tingling in the index or long fingers following injection EMG/NCV (09/20/18) was normal [id number] MESERET PANIAGUA APRN [address] [address] 12/23/2020 13:56:56 12/23/2020 14:33:23 Pre-surgery evaluation 863461762 Z01.818 Urinary incontinence 165 086122 R32 Hypothyroidism 17923711 E03.9 Displaceme nt of lumbar intervertebral disc without myelopathy 56068314 M51.26 [facility] 79985023 H93.13 [id number] YOUNG GUIDRY MD ORTHOPEDI [facility] [address] [place] [address] 01/28/2021 14:29:50 01/28/2021 15:23:25 Postoperative care 558867739 Z48.89 6 months s/p Revision left thumb CMC suture suspension arthroplas ty; Left 1/2 trapezoid excision; Removal of hardware from left thumb and index finger; Left trigger thumb release (DOS: 07/27/2020) Post op films today reveal stable alignment status post revision left thumb CMC arthroplas ty and 1/2 trapezoid excision. Previously s/p Revision left thumb CMC tight rope suspension arthroplas ty; Removal of hardware from left thumb and index finger (DOS: 05/13/19) Carpal mckenna jay syndrome 90040914 G56.02 Possible EMG negative carpal tunnel syndrome (CSI: 03/15/19) - currently no numbness or tingling in the index or long fingers following injection EMG/NCV (09/20/18) was normal [id number] MILVIA SANTANA PA-C [facility] [address] [place] [address] 02/03/2021 09:50:22 02/03/2021 10:09:20 Osteoarthritis of knee 151476675 M17.9 [id number] MILVIA SANTANA PA-C [facility] [address] [place] [address] 02/10/2021 09:51:36 02/10/2021 10:03:13 Osteoarthritis of knee 233865330 M17.9 [id number] NOHEMY MICHEL PA-C [facility]EDI [facility] [address] [place] [place] [address] 02/11/2021 10:03:30 02/11/2021 10:55:31 Postoperative care 080083329 Z48.89 6 months s/p Revision left thumb CMC suture suspension arthroplas ty; Left 1/2 trapezoid excision; Removal of hardware from left thumb and index finger; Left trigger thumb release (DOS: 07/27/2020) Updated post op films today reveal stable alignment status post revision left thumb CMC arthroplas ty and 1/2 trapezoid excision. 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 (CSI: 03/15/19) - currently no numbness or tingling in the index or long fingers following injection EMG/NCV (09/20/18) was normal [id number] YOUNG GUIDRY MD ORTHOPEDI CS [facility] [address] [place] [address] 02/18/2021 10:57:01 02/18/2021 12:55:02 Postoperative care 090811444 Z48.89 7 months s/p Revision left thumb CMC suture suspension arthroplas ty; Left 1/2 trapezoid excision; Removal of hardware from left thumb and index finger; Left trigger thumb release (DOS: 07/27/2020) Updated post op films today reveal stable alignment status post revision left thumb CMC arthroplas ty and 1/2 trapezoid excision. 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 (CSI: 03/15/19) - currently no numbness or tingling in the index or long fingers following injection EMG/NCV (09/20/18) was normal [id number] YOUNG GUIDRY MD ORTHOPEDI [facility] [address] [place] [address] 03/04/2021 15:01:51 03/04/2021 16:08:29 Postoperative care 968489449 Z48.89 7 months s/p Revision left thumb CMC suture suspension arthroplas ty; Left 1/2 trapezoid excision; Removal of hardware from left thumb and index finger; Left trigger thumb release (DOS: 07/27/2020) Previously s/p Revision left thumb CMC tight rope suspension arthroplas ty; Removal of hardware from left thumb and index finger (DOS: 05/13/19) Carpal mckenna jay syndrome 21063691 G56.02 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 Scheduled for injection on 05/12. Advised PT and topical Voltaren gel prn. To call if symptoms worsen or do not resolve. Bilateral osteoarthritis of knees 2749483205 22777 M17.0 [id number] MILVIA SANTANA PA-C [facility] [address] [place] [address] 05/05/2021 10:25:16 05/05/2021 10:50:23 Osteoarthritis of knee 099954036 M17.9 [id number] MILVIA SANTANA PA-C [facility] [address] [place] [address] 05/12/2021 10:26:05 05/12/2021 11:09:04 Osteoarthritis of knee 014021773 M17.9 [id number] JULIANN PIZANO MD [address] [address] 06/07/2021 14:05:30 06/08/2021 07:31:20 Adult health examination 492374394 Z00.00 Screening for osteoporosis 604914415 Z13.820 Anemia 139310142 D64.9 Hypothyroidism 09195480 E03.9 stable/con tinue current medication Vitamin B1 2 deficiency (non anemic) 39343573 E53.8 She has not taking vitamin B12. I advised to start at Vitamin B12 500mcg daily. Repeat in 2 months. Hyperlipidemia 90247114 E78.5 Patient is advised on low fat, low calorie diet, weight loss and regular exercise. Also advised on medication compliance and regular labs. Menopausal syndrome 1237 91434 N95.9 [id number] [place] [address] 06/17/2021 11:41:40 06/17/2021 16:06:45 [id number] JULIANN PIZANO MD [address] [address] 06/30/2021 10:51:20 06/30/2021 11:34:23 Vitamin B12 deficiency (non anemic) 75437728 E53.8 She has not taking vitamin B12. I advised to start at Vitamin B12 500mcg daily. Repeat in 2 months. [id number] JULIANN PIZANO MD [address] [address] 07/28/2021 10:50:28 07/29/2021 08:52:05 Vitamin B12 deficiency (non anemic) 82790975 E53.8 She has not taking vitamin B12. I advised to start at Vitamin B12 500mcg daily. Repeat in 2 months. [id number] MILVIA SANTANA PA-C [facility] [address] [place] [address] 2021 13:04:02 2021 13:19:59 Osteoarthritis of knee 240625813 M17.9 [id number] MILVIA SANTANA PA-C [facility] [address] [place] [address] 08/18/2021 13:07:07 08/18/2021 13:27:07 Osteoarthritis of knee 862448919 M17.9 [id number] JULIANN PIZANO MD [place] [address] 09/14/2021 11:08:59 09/14/2021 11:55:43 Vitamin B12 deficiency (non anemic) 89159891 E53.8 She has not taking vitamin B12. I advised to start at Vitamin B12 500mcg daily. Repeat in 2 months. [id number] TATUM ALVARADOI CS [facility] [address] [place] [address] 11/10/2021 15:19:11 11/10/2021 15:57:27 Osteoarthritis of knee 111348115 M17.9 [id number] ADELINA LENNON MD [address] [address] 11/17/2021 10:44:52 11/17/2021 11:05:32 Vitamin B12 deficiency (non anemic) 10394742 E53.8 [id number] MILVIA SANTANA PA-C [facility] [address] [place] [address] 11/18/2021 14:57:55 11/18/2021 15:30:12 Osteoarthritis of knee 451718278 M17.9 [id number] JULIANN PIZANO MD [place] [address] 12/08/2021 11:01:00 12/08/2021 13:00:04 Hypothyroidism 43977388 E03.9 stable/con tinue current medication Vitamin B1 2 deficiency (non anemic) 64869528 E53.8 She has been consistent with B12 IM monthly. Repeat B12 levels. Hyperlipidemia 19663300 E78.5 Patient is advised on low fat, low calorie diet, weight loss and regular exercise. Also advised on medication compliance and regular labs. Immunization due 1396137 08 Z28.3 Osteoarthr itis of knee 907947762 M17.9 Following with orthopedic s for prn cortisone. Continue diclofenac prn and advised to try topical American Wonder Dream Cream Displaceme nt of lumbar intervertebral disc without myelopathy 75903711 M51.26 Diverticul ar disease of colon 237385183 K57.30 Tinnitus 95713025 H93.13 Fibrocysti c disease of breast 78979798 N60.19 Continue vitamin E Hearing loss 65422985 H9 1.93 [id number] RACHELL GILBERT PA-C [facility] [address] [place] [address] 12/20/2021 13:36:01 12/20/2021 14:12:00 Cough 53264088 R05.1 Asthmatic bronchitis 405 777616 J45.098 [id number] JULIANN PIZANO MD [facility] [address] [place] [address] 12/31/2021 14:34:55 12/31/2021 14:46:11 Vitamin B12 deficiency (non anemic) 00148828 E53.8 She has been consistent with B12 IM monthly. Repeat B12 levels. [id number] ASAEL NAYLOR PA-C [facility] [address] [place] [address] 01/24/2022 10:38:15 01/25/2022 09:57:02 Exposure to SARS-CoV-2 157276528 Z20.369 [id number] ADELINA LENNON MD [facility] [address] [place] [address] 02/04/2022 14:36:40 02/04/2022 15:25:23 Vitamin B12 deficiency (non anemic) 11311681 E53.8 [id number] TAIWO Messina ANSELMO, DO [facility] [address] [place], [place] [address] 02/10/2022 10:38:51 02/10/2022 11:46:56 COVID-19 101523396 U07.1 [id number] MILVIA SANTANA PA-C [facility] [address] [address] 02/22/2022 10:28:00 02/22/2022 11:25:59 Osteoarthritis of left knee joint 3095611273 85577 M17.12 [id number] MILVIA SANTANA PA-C [facility] [address] [place] [address] 03/03/2022 14:50:15 03/03/2022 15:34:16 Osteoarthritis of right knee joint 3427746438 50431 M17.11 [id number] JULIANN PIZANO MD [place] [address] 03/17/2022 14:21:09 03/17/2022 15:23:21 Vitamin B12 deficiency (non anemic) 25045930 E53.8 She has been consistent with B12 IM monthly. Repeat B12 levels. [id number] JULIANN PIZANO MD [place] [address] 7 04/18/2022 10:45:43 04/18/2022 11:33:25 Vitamin B12 deficiency (non anemic) 13981359 E53.8 She has been consistent with B12 IM monthly. Repeat B12 levels. [id number] JULIANN PIZANO MD [place] [address] 05/19/2022 10:37:12 05/19/2022 11:17:18 Vitamin B12 deficiency (non anemic) 41415852 E53.8 She has been consistent with B12 IM monthly. Repeat B12 levels. [id number] MILVIA SANTANA PA-C [facility] [address] [place] [address] 06/02/2022 14:36:21 06/02/2022 15:50:32 Osteoarthritis of left knee joint 9215991178 63836 M17.12 [id number] MILVIA SANTANA PA-C [facility] [address] [place] [address] 06/06/2022 09:47:55 06/06/2022 10:04:12 Osteoarthritis of right knee joint 6133900924 12219 M17.11 [id number] KERRIE SLATER PA-C [place] [address] 06/28/2022 11:02:38 06/28/2022 11:16:23 Vitamin B12 deficiency (non anemic) 62263008 E53.8 [id number] JULIANN PIZANO MD [place] [address] 7 07/28/2022 10:49:23 07/28/2022 11:21:13 Vitamin B12 deficiency (non anemic) 12257060 E53.8 She has been consistent with B12 IM monthly. Repeat B12 levels. [id number] JULIANN PIZANO MD [place] [address] 08/29/2022 13:35:50 08/29/2022 17:08:01 Vitamin B12 deficiency (non anemic) 97231576 E53.8 She has been consistent with B12 IM monthly. Repeat B12 levels. Adult [facility] th examination 730266449 Z00.00 Hypothyroidism 72092403 E03.9 stable/con tinue current medication Displaceme nt of lumbar intervertebral disc without myelopathy 28999419 M51.26 Diverticul ar disease of colon 924640719 K57.30 Fibrocysti c disease of breast 50757513 N60.19 Continue vitamin E Osteoarthr itis of knee 575993979 M17.9 Following with orthopedic s for prn cortisone. Continue diclofenac prn and advised to try topical American Wonder Dream Cream Hearing loss 94365813 H9 1.93 Hyperlipidemia 50553903 E78.5 Advised patient to start Lipitor nightly due to atheroscle rosis of aorta. ASCVD 9% in 10 years Patient is advised on low fat, low calorie diet, weight loss and regular exercise. Also advised on medication compliance and regular labs. Body mass index 25-29 - overweight 880526725 Z68.28 Atheroscle rosis of aorta 08380940 I70.0 Immunization due 4952168 08 Z28.39 Menopause 621724247 Z78. 0 [id number] MILVIA SANTANA PA-C [facility] [address] [address] 09/12/2022 14:54:41 09/12/2022 15:34:35 Osteoarthritis of left knee joint 4922761793 42221 M17.12 [id number] MILVIA SANTANA PA-C [facility] [address] [place] [address] 6 09/19/2022 14:38:07 09/19/2022 15:15:13 Osteoarthritis of right knee joint 5269769736 05150 M17.11 [id number] [place] [address] 11/28/2022 11:51:05 11/29/2022 12:13:12 [id number] [place] [address] 11/30/2022 15:43:25 11/30/2022 16:05:13 [id number] MILVIA SANTANA PA-C [facility] [address] [place] [address] 12/14/2022 15:02:39 12/14/2022 15:44:50 Osteoarthritis of left knee joint 3673161050 33251 M17.12 [id number] MILVIA SANTANA PA-C [facility] [address] [place] [address] 12/05/2022 12:46:40 12/05/2022 13:08:36 Osteoarthritis of right knee joint 0323771188 28492 M17.11 CSI today. We will have patient follow-up in office with new x-rays, reevaluati on, possible scheduling of TKA. [id number] KERRIE SLATER PA-C [facility] [address] [place] [address] 01/10/2023 09:54:57 01/10/2023 11:54:21 Dysuria 36228697 R30.0 No blood in urine today but did have some leukocytes . We will treat with Bactrim and see if sx improve. MCIF pending. Cystitis 27765733 N30.81 if not improved after abx - recommend Urology and HOME COMFORT ADVISOR follow-up for bleeding of unknown origin in a post-menop ausal female. No blood in urine today. No recent episodes. Pt will call her HOME COMFORT ADVISOR to make an appt (had bladder/ur ethral surgery in the past). Hyperlipidemia 84255951 E78.[address] Pizano note on most recent lipids - start atorvastat in 20 mg. Pt did not receive that prescripti on. Risks benefits of increasing her statin were discussed. She agrees to try it. Pt is due to return in February for recheck so she will get her fasting lipid recheck then. [id number] OLAYINKA GARZA PA-C [facility] [address] [place] [address] 02/08/2023 13:48:04 02/08/2023 14:49:53 Acute upper respiratory infection 68791330 J06.9 Patient presented with symptoms of upper respirator y infection. Discussed symptoms likely due to allergy exacerbati on. Advised to drink plenty of fluids, run a cool-mist humidifier in room at night, gargle salt water for sore throat, and get plenty of rest. Patient should avoid over-exert ion and reduce exposure to irritants such as smoke, cold, dry air, and dust. Treatment currently involves symptomati c relief. Antihistam ine and decongesta nt usage was discussed and recommenda tions made. Patient understood these instructio ns and will follow up in the office in 7-10 days if symptoms not improving. [id number] JULIANN PIZANO MD [facility] [address] [place] [address] 02/27/2023 09:23:11 02/27/2023 11:25:27 Hypothyroidism 38317150 E03.9 stable/con tinue current medication Vitamin B1 2 deficiency (non anemic) 56181649 E53.8 She has been consistent with B12 IM monthly. Repeat B12 levels. Atheroscle rosis of aorta 34434480 I70.0 Hyperlipidemia 94053606 E78.5 Displaceme nt of lumbar intervertebral disc without myelopathy 81870728 M51.26 Following with Work[employer] Diverticul ar disease of colon 210516964 K57.30 Stable/no issues Cystitis 31306399 N30.81 Stable/no issues. Fibrocysti c disease of breast 40213035 N60.19 Continue vitamin E Body mass index 25-29 - overweight 119548077 Z68.28 Myalgia/my ositis - multiple 153065954 M79.10 Appears to be related to new start atorvastat in. Bloodwork today. Change to rosuvastat in Menopause 194028287 Z78. 0 Bilateral osteoarthritis of knees 4084896544 52721 M17.0 Actively following with orthopedic surgery/co ntinue injections prn Pain of ri ght temporomandibular joint 0982600470 4130200 M26.621 Advised bite guard [id number] MILVIA SANTANA PA-C [facility] [address] [place] [address] 03/07/2023 12:32:57 03/07/2023 13:37:53 Osteoarthritis of right knee joint 6647192345 44475 M17.11 [id number] MILVIA SANTANA PA-C [facility] [address] [address] 03/13/2023 15:07:45 03/13/2023 15:31:16 Osteoarthritis of left knee joint 8585227356 45495 M17.12 CSI today [id number] JULIANN PIZANO MD [facility] [address] [address] 03/27/2023 11:09:57 03/27/2023 12:57:18 Hyperlipidemia 80528959 E78.5 Tolerating rosuvastat in Patient is advised on low fat, low calorie diet, weight loss and regular exercise. Also advised on medication compliance and regular labs. Vitamin B1 2 deficiency (non anemic) 34469982 E53.8 She has been consistent with B12 IM monthly. Repeat B12 levels. [id number] JONAH HOWARD MD [facility] [address] [place] [address] 03/30/2023 08:18:53 03/30/2023 08:35:59 Menopausal and postmenopausal disorders 557847612 N95.8 [id number] JULIANN PIZANO MD [place] [address] 05/01/2023 16:00:56 05/01/2023 16:23:41 Vitamin B12 deficiency (non anemic) 43970387 E53.8 She has been consistent with B12 IM monthly. Repeat B12 levels. [id number] JULIANN PIZANO MD [address] 7 05/04/2023 15:04:25 05/04/2023 18:23:43 Bilateral osteoarthritis of knees 3153703828 23476 M17.0 Actively following with orthopedic surgery/co ntinue injections prn [id number] MILVIA SANTANA PA-C [facility] [address] [place] [address] 06/19/2023 14:52:23 06/19/2023 15:15:49 Osteoarthritis of left knee joint 3135634992 78556 M17.12 CSI today [id number] JULIANN PIZANO MD [place] [address] 06/19/2023 16:09:27 06/19/2023 16:16:20 Vitamin B12 deficiency (non anemic) 06946819 E53.8 She has been consistent with B12 IM monthly. Repeat B12 levels. [id number] MILVIA SANTANA PA-C [facility] [address] [place] [address] 06/22/2023 08:55:00 06/22/2023 09:19:16 Osteoarthritis of right knee joint 2471104179 16635 M17.11 [id number] JULIANN PIZANO MD [facility] [address] [place] [address] 07/28/2023 15:35:18 07/28/2023 16:06:58 Vitamin B12 deficiency (non anemic) 45943235 E53.8 She has been consistent with B12 IM monthly. Repeat B12 levels. [id number] GENE BETANCOURT PA-C [facility] [address] [place] [address] 08/02/2023 08:50:12 08/02/2023 09:15:45 Bilateral osteoarthritis of knees 7904890472 30232 M17.0 I discussed the risk and benefits of KUMAR injection to the patient which included the risk of infection, hypersensi tivity. The patient voiced understand ing of these risks and wished to proceed with the injection. Bilateral KUMAR injection tolerated well. Follow-up 1 week for her second part. [id number] TATUM MANTILLAI [facility] [address] [place] [address] 08/09/2023 08:54:10 08/09/2023 09:31:19 Bilateral osteoarthritis of knees 9327520577 99681 M17.0 I discussed the risk and benefits of KUMAR injection to the patient which included the risk of infection, hypersensi tivity. The patient voiced understand ing of these risks and wished to proceed with the injection. Bilateral KUMAR injection tolerated well. Follow-up 1 week for her third part. [id number] GENE BETANCOURT PA-C [facility] [address] [place] [address] 08/16/2023 08:51:19 08/16/2023 10:01:23 Bilateral osteoarthritis of knees 6020505438 27064 M17.0 I discussed the risk and benefits of KUMAR injection to the patient which included the risk of infection, hypersensi tivity. The patient voiced understand ing of these risks and wished to proceed with the injection. Third week of bilateral KUMAR injections completed and tolerated great. Patient will follow-up 6 months, sooner if needed. [id number] JULIANN PIZANO MD FAMILY [address] [address] 12/07/2023 09:22:19 12/07/2023 12:16:06 Adult health examination 939965518 Z00.00 Atheroscle rosis of aorta 68012865 I70.0 Continue rosuvastat in and advised to add aspirin 81mg daily. Hypothyroidism 74450451 E03.9 stable/con tinue levothyrox ine Displaceme nt of lumbar intervertebral disc without myelopathy 32064474 M51.26 Following with Workman's Comp-Rubina nue meloxicam Bilateral osteoarthritis of knees 4167809858 93144 M17.0 Actively following with orthopedic surgery/co ntinue injections prn-Contin ue meloxicam Diverticul ar disease of colon 284001697 K57.30 Stable/no issues Cystitis 77513437 N30.81 Stable/no issues. Vitamin B1 2 deficiency (non anemic) 68428789 E53.8 She has been consistent with B12 IM monthly.- Repeat B12 levels.-Ad vised compliance with monthly B12 injections . Pain of ri ght temporomandibular joint [id number] 8694286 M26.621 Continue bite guard Body mass index 25-29 - overweight 980190308 Z68.28 Congratula tions on sustained 15 pound weight loss with healthy diet and exercise. Dyslipidemia 115533991 E 78.5 Intolerant to atorvastat in and rosuvastat in. Elevated 10 year calculated CV risk factor 8.9%. Change rosuvastat in to pravastati n.-Fasting bloodwork today and in 1month after change medication -Advised CoQ10 daily Patient is advised on low fat, low calorie diet, weight loss and regular exercise. Also advised on medication compliance and regular labs. Immunization due 9601862 08 Z28.39 Ischial bursitis 0914018 03 M70.72 Advised Medrol dose pack. To call if symptoms persist or worsen. [id number] Lisa SWANN PA-C [facility] [address] [address] 10/13/2023 10:41:46 10/13/2023 11:07:03 Osteoarthritis of knee 077150550 M17.0 [id number] AUDREY ANKITA CLUSKY, PA-C [facility] [address] [address] 10/18/2023 08:37:48 10/18/2023 09:02:45 Bilateral osteoarthritis of knees 9097078864 15988 M17.0 I discussed the risk and benefits of CSI to the patient which included the risk of elevated blood sugar, elevated blood pressure. We also discussed the risks of chondrotox ic effect of the medication with repeated injection as well as the risks of infection. The patient voiced understand ing of these risks and wished to proceed with the injection. We will arrange a repeat bilateral CSI in 3 months so she does not have to come in 2 different days.. Gel injections in the past provided her no relief. She wants to stick to CSI going forward. [id number] JULIANN PIZANO MD [address] [address] 01/09/2024 11:07:22 01/09/2024 11:38:24 Vitamin B12 deficiency (non anemic) 03973356 E53.8 Active or passive immunization 610720516 Z23 [id number] AUDREY KNAPP PA-C [facility] [address] [place] [address] 01/17/2024 08:24:12 01/17/2024 08:48:08 Bilateral osteoarthritis of knees 9777888728 90021 M17.0 I discussed the risk and benefits of CSI to the patient which included the risk of elevated blood sugar, elevated blood pressure. We also discussed the risks of chondrotox ic effect of the medication with repeated injection as well as the risks of infection. The patient voiced understand ing of these risks and wished to proceed with the injection. Bilateral knee CSI's. [id number] JULIANN PIZANO MD [address] [address] 02/06/2024 11:04:36 02/06/2024 11:44:50 Vitamin B12 deficiency (non anemic) 43602031 E53.8 Small amount of leakage of B12 from around connection of needle and syringe. Reassuranc e given to patient that insignific ant amount noted. [id number] JULIANN PIZANO MD [facility] [place] [address] [place] [address] 05/23/2024 13:54:24 05/27/2024 05:35:09 Hypothyroidism 04617063 E03.9 stable/con tinue levothyrox ine Hyperlipidemia 54459253 E78.5 Tolerating rosuvastat in Patient is advised on low fat, low calorie diet, weight loss and regular exercise. Also advised on medication compliance and regular labs. Alopecia 41880968 L65.9 Bilateral osteoarthritis of knees 0336801503 57503 M17.0 Actively following with orthopedic surgery/co ntinue injections prn-Contin ue meloxicam- Add duloxetine Immunization due 0642414 08 Z28.39 Body mass index 25-29 - overweight 554414521 Z68.28 Congratula tions on sustained 15 pound weight loss with healthy diet and exercise. Screening mammography 24 915198 Z12.31 [id number] JULIANN PIZANO MD [address] [address] 03/07/2024 13:50:02 03/07/2024 16:55:41 [id number] JULIANN PIZANO MD [address] [address] 03/14/2024 15:49:26 03/14/2024 16:05:49 Vitamin B12 deficiency (non anemic) 55210490 E53.8 Small amount of leakage of B12 from around connection of needle and syringe. Reassuranc e given to patient that insignific ant amount noted. [id number] AUDREY KNAPP PA-C [facility] [address] [address] 04/17/2024 08:33:09 04/17/2024 08:55:29 Bilateral osteoarthritis of knees 8741817160 80281 M17.0 I discussed the risk and benefits of CSI to the patient which included the risk of elevated blood sugar, elevated blood pressure. We also discussed the risks of chondrotox ic effect of the medication with repeated injection as well as the risks of infection. The patient voiced understand ing of these risks and wished to proceed with the injection. Bilateral knee CSI's. May repeat in 3 months or PRN. [id number] JULIANN PIZANO MD [address] [address] 04/16/2024 10:50:30 04/16/2024 11:59:24 Vitamin B12 deficiency (non anemic) 32849801 E53.8 [id number] JULIANN PIZANO MD [address] [address] 05/14/2024 11:00:04 05/14/2024 12:38:19 Vitamin B12 deficiency (non anemic) 45314620 E53.8 [id number] JULIANN PIZANO MD [place] [address] 06/13/2024 10:38:43 06/13/2024 12:10:59 Vitamin B12 deficiency (non anemic) 46145475 E53.8 [id number] JULIANN PIZANO MD [address] [address] 07/11/2024 14:07:35 07/11/2024 16:43:47 Vitamin B12 deficiency (non anemic) 65812537 E53.8 [id number] AUDREY KNAPP PA-C [facility] [address] [place] [address] 07/22/2024 08:24:17 07/22/2024 08:50:05 Bilateral osteoarthritis of knees 6733642221 61700 M17.0 I discussed the risk and benefits of CSI to the patient which included the risk of elevated blood sugar, elevated blood pressure. We also discussed the risks of chondrotox ic effect of the medication with repeated injection as well as the risks of infection. The patient voiced understand ing of these risks and wished to proceed with the injection. Bilateral knee CSI's. May repeat in 3 months or PRN. [id number] YOUNG DAY MD [facility] [address] [place] [address] 07/30/2024 10:24:17 07/30/2024 16:23:19 Bilateral osteoarthritis of knees 9066382291 60762 M17.0 Osteoarthr itis of knee 731202117 M17.9 [id number] JULIANN PIZANO MD [facility] [place] [address] [place] [address] 08/15/2024 16:12:33 08/15/2024 16:37:58 Vitamin B12 deficiency (non anemic) 68409504 E53.8 [id number] JULIANN PIZANO MD [facility] [address] [place] [address] 08/28/2024 14:49:07 08/28/2024 16:50:27 Cough 21032669 R05.9 As the cough may be secondary to sinusitis, begin doxycyclin e therapy aimed at treating any underlying bacterial component. Recommend Delsym as an effective suppressan t to facilitate better sleep. Acute sinusitis 52059412 J01.90 Prescribe doxycyclin e to address sinusitis and its contributo ry effect on cough frequency. Encourage the use of over-the-c ounter cough suppressan ts like Delsym to manage acute symptoms. Restless l egs syndrome 71709435 G25.81 and snoring: Referral to a sleep specialist for targeted evaluation and management of restless legs syndrome. Continue monitoring leg restlessne ss frequency and symptom severity. Hyperlipidemia 70894373 E78.5 Continue pravastati n at 80 mg. Order follow-up laboratory tests for cholestero l and liver function to ensure therapeuti c efficacy and safety. Confirm adherence to prescribed medication and continue cardiovasc ular risk assessment . Patient is advised on low fat, low calorie diet, weight loss and regular exercise. Also advised on medication compliance and regular labs. Body mass index 25-29 - overweight 143289413 Z68.28 Congratula tions on weight loss with healthy diet and exercise. [id number] JULIANN PIZANO MD [facility] [address] [place] [address] 09/13/2024 10:41:14 09/16/2024 08:54:21 Cough 72839467 R05.9 Administer benzonatat e pearls for symptomati c relief of cough. Order a chest X-ray due to persistent symptoms. Recommend and continue supportive care. -As the cough may be secondary to sinusitis, so treat sinusitis. Recommend Delsym as an effective suppressan t to facilitate better sleep over benzonatat e, if more effective. Restless l egs syndrome 41715748 G25.81 Reassessme nt scheduled for next month with sleep specialist . Continue current management until then. Lumbar radiculopathy 128 702725 M54.16 Recommend Medrol dose pack as anti-infla mmatory treatment. Initiate Baclofen for muscle relaxation . Follow up with Dr. Day for pain management and reassessme nt whether surgery or further interventi on might be helpful. Acute sinusitis 48934413 J01.90 Prescribe Cefdinir 300 mg orally twice daily for 10 days. Recommend monitoring symptoms and follow up if they persist or worsen. Bilateral osteoarthritis of knees 5064385924 64875 M17.0 Instruct to continue use of analgesic creams as needed. Explore possibilit y of expedited cortisone injections following consultati ons with Dr. Day and insurer. Continue Tylenol Arthritis as previously directed. Actively following with orthopedic surgery/co ntinue injections prn -Tylenol 650mg TID scheduled [id number] JULIANN PIZANO MD [address] [address] 09/19/2024 15:58:13 09/20/2024 04:18:05 Vitamin B12 deficiency (non anemic) 88502188 E53.8 [id number] JULIANN PIZANO MD [address] [address] 10/18/2024 13:59:32 10/18/2024 14:55:42 Vitamin B12 deficiency (non anemic) 23979525 E53.8 [id number] YOUNG DAY MD [facility] PROFESSIO NAL CHARGES [address], [address] [place] [address] 10/22/2024 11:47:06 10/22/2024 13:25:39 Bilateral osteoarthritis of knees 2158257348 16179 M17.0 [id number] CARROL AREVALO PA-C [facility] [address] [place] [address] 01/08/2025 12:52:45 01/08/2025 16:13:38 Bilateral osteoarthritis of knees 8043183825 76717 M17.0 Osteoarthr itis of knee 310934117 M17.9 [id number] JULIANN PIZANO MD [address] [address] 12/12/2024 10:43:25 12/12/2024 15:06:45 Adult health examination 381471797 Z00.00 Ensure routine health maintenanc e and update screenings as needed during the wellness exam. Screening mammography 24 000092 Z12.31 Mammogram on 10/03/2024 . Screening for malignant neoplasm of colon 276957714 Z12.11 Colonoscop y on 11/28/2017 , repeat in 2027. Hepatitis C screening 41 1816139 Z11.59 07/22/2019 negative. Eye disord er screening 667922090 Z13.5 Keep regular follow-up with ophthalmol ogist for preventive care. No record in chart. Postmenopa usal osteoporosis 782564025 M81.0 2201 Continue existing treatment plan and follow preventive advice. DEXA on 03/30/2023 , repeat in 2027. Atheroscle rosis of aorta 14762041 I70.0 Continue rosuvastat in and advised to add aspirin 81mg daily. Hyperlipidemia 29538188 E78.5 Sustain current lipid management plan and regular tests, as necessary. Continue pravastati n at 80 mg. Order follow-up laboratory tests for cholestero l and liver function to ensure therapeuti c efficacy and safety. Confirm adherence to prescribed medication and continue cardiovasc ular risk assessment . Patient is advised on low fat, low calorie diet, weight loss and regular exercise. Also advised on medication compliance and regular labs.-Chec k EKG-Check labs today. Vitamin B1 2 deficiency (non anemic) 10357405 E53.8 Resume B12 injection schedule due to previous disruption s from illness. Hypothyroidism 33740700 E03.9 Keep up with thyroid medication and periodic evaluation s. stable/con tinue levothyrox ine Immunization due 8105781 08 Z23 6094805 Covid vaccine today, then hepatitis B vaccine at pharmacy. Displaceme nt of lumbar intervertebral disc without myelopathy 24938512 M51.26 Following with Workman's Comp-Rubina nue meloxicam [id number] [place] [address] 01/09/2025 13:56:27 01/09/2025 14:33:39 Cobalamin deficiency 633913625 E53.8 98999 [id number] YOUNG DAY MD [facility] PROFESSIO NAL CHARGES [address] [facility] [address], [address] [place] [address] 01/28/2025 14:39:40 01/28/2025 16:25:52 Bilateral osteoarthritis of knees 9688348850 40077 M17.0 [id number] JULIANN PIZANO MD [place] [address] 02/10/2025 14:00:04 02/10/2025 15:08:57 Cobalamin deficiency 899569357 E53.8 472394 [id number] CARROL AREVALO PA-C [facility] [address] [place] [address] 02/26/2025 14:32:52 02/26/2025 16:22:08 Bilateral osteoarthritis of knees 4046192464 00345 M17.0 Osteoarthr itis of knee 749129798 M17.9 [id number] JULIANN PIZANO MD [place] [address] 03/12/2025 13:49:13 03/12/2025 15:34:33 Cobalamin deficiency 517947961 E53.8 56423 [id number] JULIANN PIZANO MD [place] [address] 04/14/2025 14:04:45 04/14/2025 14:53:59 Cobalamin deficiency 198063840 E53.8 04997 [id number] JULIANN PIZANO MD [place] [address] 05/12/2025 13:44:12 05/12/2025 14:11:53 Cobalamin deficiency 175427072 E53.8 83038 [id number] YOUNG DAY MD [facility] PROFESSIO NAL [address]ARGES [address] [facility] [address], [address] [place] [address] 05/08/2025 11:29:44 05/13/2025 15:18:57 Bilateral osteoarthritis of knees 8533379255 76428 M17.0 [id number] CARROL AREVALO PA-C [facility] [address] [place] [address] 06/03/2025 13:53:16 06/04/2025 04:17:53 Bilateral osteoarthritis of knees 0700594312 14301 M17.0 Osteoarthr itis of knee 239641519 M17.9 [id number] AUGUSTA SALDAÑA PA-C [facility] [address] [place] [address] 06/09/2025 14:29:03 06/09/2025 15:58:40 Primary gonarthrosis, bilateral 662989988 M17.0 [id number] Ms. Macdonald is here to discuss treatment options for her knees. Patient states that she continues to have significan t bilateral knee pain despite numerous cortisone injections , Zilretta injections and hyaluronic injections in the bilateral knees. She most recently has been seeing pain management with Dr. Day and received Zilretta injections on May 08. She states that they lasted about 3 weeks before wearing off. She has also tried meloxicam without significan t relief, as well as topical pain creams and physical therapy. Radiograph s today of the bilateral knees show severe arthritis in the medial compartmen t of the knees bilaterall y. No acute findings noted. Ultimately , we discussed that she has already tried and failed many of the conservati ve treatments that we have to offer for the knees. 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 She is interested in nerve ablation but unfortunat samir her insurance does not cover this. Patient does state that she was on meloxicam at 1 time but was taken off of the medication by her primary care provider. She has an appointmen t with her PCP and is going to ask the reason why she was taken off of it and if this is something she can try again for her bilateral knee pain. Return to clinic in 3 months to check back in on her knee pain and if she is more ready for knee replacemen t at that time. Patient was agreeable. [id number] JULIANN PIZANO MD [facility] [place] [facility] [address] [place] [address] 06/12/2025 13:44:45 06/12/2025 14:53:29 Vitamin B12 deficiency (non anemic) 64025922 E53.8 Continue B12 injections monthly. Snoring 18172884 R06.83 97651 - Refer for a sleep study to assess nocturnal breathing patterns and potential sleep apnea. Restless l egs syndrome 40760752 G25.81 31235 Reassessme nt scheduled for next month with sleep specialist . Continue current management until then. - Order ferritin level as low levels might contribute to symptoms. - Consider melatonin supplement ation as supportive therapy. Primary go narthrosis, bilateral 099031471 M17.0 9220173 Instruct to continue use of analgesic creams as needed. Explore possibilit y of expedited cortisone injections following consultati ons with Dr. Day and insurer. Continue Tylenol Arthritis as previously directed.A ctively following with orthopedic surgery/co ntinue injections prn-Tyleno l 650mg TID scheduled- Advised meloxicam 7.5mg daily prn- Restart meloxicam at a low dose of 7.5 mg as needed for knee pain. - Follow-up on patient's response and knee pain management . Dyslipidemia 427796619 E 78.5 Intolerant to atorvastat in and rosuvastat in. Elevated 10 year calculated CV risk factor 8.9%. Continue pravastati n.-Fasting bloodwork today and in 1month after change medication -Advised CoQ10 daily Patient is advised on low fat, low calorie diet, weight loss and regular exercise. Also advised on medication compliance and regular labs. - Continue current medication ; address any concerns about side effects causing musculoske letal symptoms. Hypothyroidism 39269693 E03.9 Keep up with thyroid medication and periodic evaluation s. stable/con tinue levothyrox ine - Conduct a TSH test for evaluation due to persistent nocturnal symptoms, though well-maint ained per patient report. Immunization due 4765831 08 Z23 6766419 Covid vaccine today, then hepatitis B vaccine at pharmacy.- Administer COVID-19 and influenza vaccinatio ns during the visit. [id number] KERRIE SLATER PA-C [facility] [address] [place] [address] 07/11/2025 11:22:46 07/11/2025 13:36:55 Acute cough 0358251145 62684791 R05.9 4173889933 discussed negative flu and covid Acute fron joaquín sinusitis 20143940 J01.10 J40 20123559 Patient presented with symptoms of upper respirator y infection. Advised to drink plenty of fluids and get plenty of rest. Treatment currently involves symptomati c relief. Patient may take acetaminop hen or ibuprofen as directed to reduce fever and body aches. Antihistam ine and decongesta nt usage was discussed and recommenda tions made.Delay ed antibiotic use discussed and patient agreed - a prescripti on for an antibiotic was placed on hold at the pharmacy to be picked up if symptoms not improving over the next few days or if worse.Ashley ent understood these instructio ns and will follow up in the office in 10 days to 2 weeks if symptoms not improving. - Prescribed a 5-day course of prednisone , taken once in the morning with food, to manage inflammati on. - Prescribed Tessalon Perles to help control the cough, as this was effective for the patient previously . - Counseled the patient on the potential side effects of prednisone , including jitterines s and trouble sleeping, and advised to stop the medication if these occur. - Advised the patient on the toxicity risk of Tessalon Perles and the importance of keeping them stored safely away from children. [id number] ALEXANDRIA LEONG APRN [facility] [address] [place] [address] 07/18/2025 14:52:21 07/18/2025 15:05:20 Cobalamin deficiency 502278335 E53.8 68007 Health Concerns Section Related Observation LastModified by Organization Detai ls LastModified Time None Recorded Concern Status LastModified by Organization Details LastModified Time None Recorded Advance Directives Directive None Recorded Payers Insurance Date Sequence Insurance Name Policy Number Policy Walter Covered Member ID Walter Member ID Guarantor Name 08/12/2025 1 DUARTE-VIC: [employer] [employer] [place] - MEDIBLUE PL[place] (MEDICARE REPLACEMENT HMO) [id number] January Torres [id number] January Sharp 03/27/2023 MIGUEL (BA) January Deans [id number] January Sharp 03/27/2023 1 [place] [id number] January Torres [id number] January Sharp 03/27/2023 1 [place] January Torres [id number] January Sharp 03/27/2023 GENERIC INSURANCE - MOVED-HOLD January Sharp 03/27/2023 2 [employer] - [employer] jobs HEALTH NETWORK (EPO) January Torres [id number] January Torres 03/27/2023 1 [employer] HEALTH (PPO) January Torres [id number] January Sharp 03/27/2023 2 VERDEGARD (PPO) January Torres [id number] January Sharp 03/27/2023 1 [employer] Mashed jobs HEALTH (PPO) January Torres [id number] January Torres 08/19/2020 TRA[employer]ELERS INSURANCE [employer] January Torres 05/04/2020 TRA[employer]ELERS [employer] January Torres 03/27/2023 CORVEL (ZURDO) January Deans [id number] January Torres 03/27/2023 3 VERDEGARD SMM January Torres [id number] January Torres 03/27/2023 1 HUMANA (POS) [id number] January Jono [id number] January Torres 03/27/2023 1 [employer] - [employer] [place] (MEDICAID REPLACEMENT - HMO) [id number] January Jono [id number] January Torres 03/27/2023 [employer] - DMEPOS ASSIGNED (MEDICARE DME REGION B) January Torres [id number] January Torres 03/27/2023 1 [place]ID-[place] [facility] CHO[facility] - FFS/TRADITIONAL January Deans [id number] January Torres 03/03/2022 [employer] January Torres 03/27/2023 BABS (BA) Michelle Gonzalez Jono [id number] January Lisa Macdonald 05/04/2020 1 UNSPECIFIED REMIT PAYOR January Lisa Macdonald 08/19/2020 [employer]S [employer] January Torres 08/19/2020 [employer] Michelle Lisa Macdonald 03/27/2023 BABS (BA) Michelle Cowart [id number] Michelle Lisa Macdonald 03/27/2023 INGENIOUSMED (MOVED TO HOLD) January Torres January Torres Notes Date Note Type Note Provider Name and Address Organization Details Recorded Time 06/03/2025 text/html Injection follow upReported by PatientPainFor most recent procedures, patient reportsjoint injection (lola zilretta knee)anddate: (05/08/25). For % of relief, patient reportspain relief 0%. For duration of relief, patient reportsongoing. For severity, patient reportsworsening,curre nt pain 8/10, andaverage pain 7-8/10. For wound, patient reportsinjection site healed well,no fever, andno bleeding. CARROL AREVALO PA-C [address] [place], [address], [facility] 06/03/2025 14:26:25 06/09/2025 text/html ROS as noted in the HPI 06/09/25Recheck lola knee pain Patient states that she continues to have significant bilateral knee pain despite numerous cortisone injections, Zilretta injections and hyaluronic injections in the bilateral knees. She most recently has been seeing pain management with Dr. Day and received Zilretta injections on May 08. She states that they lasted about 3 weeks before wearing off. She has also tried meloxicam without significant relief, as well as topical pain creams and physical therapy. She is wanting to know what her treatment options are. She is primarily concerned that she is the primary caregiver for her buhgud-mu-lpe and is wanting to avoid surgical treatment and the associated downtime. She is interested in nerve ablation but unfortunately her insurance does not cover this. 05/08/2025 bilateral Zilretta injection 50% 1 week01/28/2025 Bilateral Zilretta injections with 80% ongoing10/22/2024 Bilateral Zilretta injections with 98% x 3 [id number]/22/2024 intra-articular knee injection (triamcinolone) bilaterally (ortho)04/17/2024 intra-articular knee injection (triamcinolone) bilaterally (ortho)Intra-articular hyaluronic acid no relief 4Bil knee CSI 01/17/24Bil Knee CSI 10/18/23Left knee CSI 10/13/23Right knee CSI AUGUSTA SALDAÑA PA-C [address] [place] [address], [phone], [facility] 06/09/2025 17:10:43 06/12/2025 text/html ROS as noted in the HPI Pt presents today for 6 mo recheck, B12 injection. Agrees to flu vaccination and any other vaccinations needed. No acute issues. 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 The patient is a 69-year-old female presenting with a six-month follow-up. Vitamin B12 deficiency (non-anemic): - Patient has been administering their own B12 injections. - Compliance with therapy is noted, and there are no reported issues with treatment. Snoring: - Patient acknowledges snoring, particularly mentioned that her partner occasionally brings it up. - The presence of snoring is being associated with nocturnal respiratory concerns needing further investigation. Restless legs syndrome: - Patient describes nocturnal agitation of the legs, especially troubling at night. - Some nights are worse than others, affecting the patient's ability to fall asleep. - Melatonin has been used to help with symptoms. Bilateral primary osteoarthritis of knee: - Patient reports knee pain for which they previously used meloxicam. - Currently off meloxicam, leading to questions on effectiveness and need for alternative therapies. - Recent knee injections did not have lasting effects. Dyslipidemia: - Patient is aware of elevated cholesterol, mentioning medication might be contributing to knee discomfort. Hypothyroidism: - Patient states no current issues with thyroid function. - Previous lab assessments indicated normal thyroid function. Documentation on this patient encounter was supported using voice-enabled Al technology. The patient consented to recording for the purpose of documenting the encounter. Provider reviewed content of the generated note prior to signature. JULIANN PIZANO MD [address] [place] [address], [phone], [facility] 06/12/2025 14:38:24 07/11/2025 text/html Upper Respirator y SymptomsReported by PatientUpper Respiratory SymptomsFor quality, patient reportsproductive coughandcongested. For associated symptoms, patient reportsgreen sputum,wheezing, andsore throatbut reportsno shortness of breath,no change in number of pillows needed to sleep at night,no sweats,no fever,no significant weight gain,no significant weight loss,no morning cough,no vomiting,no diarrhea,no rash, andno nausea. For onset/timing, patient reportsactual date: (07/06/25). For context, patient reportsno sick contacts,no foreign travel, andnon-smoker. The patient is a 69-year-old female presenting with cough and postnasal drainage. Acute Viral Illness: - The patient reports not feeling well for approximately 5-6 days. - Current symptoms include a cough, significant postnasal drainage, and headaches that worsen with coughing. - The patient has tried [id number] medications without relief. - In-office testing for COVID-19, influenza, and streptococcus were all negative. - The patient denies a history of allergies, wheezing, or asthma. - The patient reports having a similar condition in the past which was successfully treated with a prednisone pack and Tessalon Perles for the cough. Documentation on this patient encounter was supported using voice-enabled Al technology. The patient consented to recording for the purpose of documenting the encounter. Provider reviewed content of the generated note prior to signature. KERRIE SLATER PA-C [address] [place] [address], [phone], [facility] 07/14/2025 13:07:34 OBGyn Episode No OBEpisode recorded.
--- OUTSIDE RECORDS SUMMARY | 2025-08-17 15:39 | XMS_ITS | Clinical Summary ---
Author Organization [facility] Address [address] [facility] [address] Care Team Providers Care Support Service Tech Name Role Phone Juliann Pizano MD Primary Care Provider [phone] Allergies No known active allergies Medications atorvastatin (LIPITOR) 20 MG tablet TAKE 1 TABLET BY MOUTH AT BEDTIME 01/15/2022 Active Euthyrox 100 mcg tablet TAKE 1 TABLET BY MOUTH ONCE DAILY 12/08/2021 Active meloxicam (MOBIC) 15 MG tablet 12/03/2021 Active Social History Tobacco Use Types Packs/Day Years Used Date Smoking Tobacco: Never Smokeless Tobacco: Never Tobacco Cessation:Counseling Given: No Comments No Sex and Gender Information Value Date Recorded Sex Assigned at Not on file Legal Sex Female 12:41 PM EDT Gender Identity Not on file Sexual Orientation Not on file Last Filed Vital Signs Vital Sign Reading Time Taken Comments Blood Pressure 130/85 02/15/2022 4:13 PM EDT Pulse 73 02/15/2022 4:13 PM EDT Temperature 36.2 C (97.2 F) 02/15/2022 4:13 PM EDT Respiratory Rate 18 02/15/2022 4:13 PM EDT Oxygen Saturation 98% 02/15/2022 4:13 PM EDT Inhaled Oxygen Concentration - - Weight 77.1 kg (170 lb) 02/15/2022 4:13 PM EDT Height 160 cm (5' 3 ) 02/15/2022 4:13 PM EDT Body Mass Index 30.11 02/15/2022 4:13 PM EDT Plan of Treatment Not on file Medical Devices Not on file Insurance [facility] Care Teams Support Service Tech Relationship Specialty Start Date End Date Juliann Pizano MD [address] [place] [address] PCP - General Internal Medicine 02/15/22
--- OUTSIDE RECORDS SUMMARY | 2025-08-17 15:39 | XMS_ITS | Data Portability ---
Author Organization [facility], [facility] Address [address] [place] [address] Assessment No assessment recorded. Plan of Treatment Reminders Order Date Submit Date Provider Last Modified By Organization Details Last Modified Time Details Appointments SHOT ONLY 2024 03:15P M DMITRY_ [place] Not available Not available Not available RECHECK 2025 02:30P M LUIS ALFREDO SALDAÑA PA-C Not available Not available Not available MEDICARE WELLNESS VISIT 2025 09:30A M JC GOFF MD Not available Not available Not available Lab None recorded. Referral None recorded. Procedures None recorded. Surgeries None recorded. Imaging None recorded. Medication Orders None recorded. Patient TargetsNo targets recorded. Patient InstructionsNo instructions recorded. Reason for Referral None Reported. Medical Equipment None Reported. Vitals None Recorded Social History None recorded. Functional Status None recorded. Mental Status None recorded. Family History Nothing Reported. Medical History No medical history recorded. Gynecological HistoryNo gynecological history recorded. Obstetrics History GPAL:G 0 P 0 0 0 0 Past Encounters Encounter ID Performer Location Encounter Start Date Encounter Closed Date Diagnosis/Indication Diagnosis SNOMED-CT Code Diagnosis ICD10 Code Diagnosis IMO Codes Diagnosis Note [id number] QM_IMPORTS [place] [address] 11/21/2016 16:13:37 11/21/2016 16:13:37 [id number] JC GOFF MD [facility] [address] [address] 11/23/2016 10:48:14 11/23/2016 14:28:47 [id number] JC GOFF MD [address] [address] 01/05/2017 11:05:32 01/05/2017 12:22:52 [id number] MESERET PANIAGUA [facility] [address] [place] [address] 03/29/2017 08:41:01 03/29/2017 09:44:29 [id number] VINH KLINE MD [facility] [address] [place] [address] 03/29/2017 10:49:12 03/31/2017 15:53:12 [id number] MESERET PANIAGUA [facility] [address] [place] [address] 7 04/27/2017 09:54:11 04/27/2017 11:40:00 [id number] YOUNG GUIDRY MD [facility]EDI [facility] CLOSED [address] [place] [address] 06/08/2017 09:14:33 06/08/2017 15:18:36 [id number] MESERET PANIAGUA RAD[facility] PRESENTER [facility] [address] [place] [address] 7 10/10/2017 13:48:13 10/10/2017 14:59:14 [id number] JC GOFF MD [address] [address] 7 02/07/2018 12:45:49 02/07/2018 15:50:22 [id number] JC GOFF MD [address] [address] 7 02/09/2018 09:58:08 02/09/2018 10:07:19 [id number] JC GOFF MD [address] [address] 7 02/16/2018 14:58:15 02/19/2018 15:50:26 [id number] JC GOFF MD [address] [address] 7 05/03/2018 10:46:16 05/14/2018 09:28:10 [id number] YOUNG GUIDRY MD [facility] CLOSED [address] [place] [address] 07/04/2018 09:39:59 07/04/2018 10:21:48 [id number] Lisa SWANN PA-C [facility] CLOSED [address] [place] [address] 6 07/04/2018 10:21:00 07/04/2018 11:16:32 [id number] MESERET PANIAGUA APRN [address] [address] 7 08/09/2018 09:57:38 08/10/2018 14:43:05 [id number] YOUNG GUIDRY MD [facility] CLOSED [address] [facility] [place] [address] 6 08/16/2018 14:06:42 08/20/2018 17:19:48 [id number] JC GOFF MD [place] [address] 7 08/22/2018 15:01:56 08/23/2018 08:38:12 [id number] Lisa SWANN PA-C [facility] CLOSED [address] [place] [address] 6 09/05/2018 13:57:11 09/05/2018 15:09:51 [id number] SEBASTIEN DENNEY MD NEUROLOGY [facility] CLOSED [address] [facility] [place] [address] 1 09/20/2018 12:50:54 09/20/2018 14:14:28 [id number] YOUNG GUIDRY MD [facility] CLOSED [address] [place] [address] 6 09/20/2018 14:38:46 09/20/2018 16:28:59 [id number] Lisa SWANN PA-C [facility] CLOSED [address] [place] [address] 6 12/11/2018 10:41:31 12/11/2018 12:20:33 [id number] Lisa SWANN PA-C [facility] CLOSED [address] [place] [address] 6 12/18/2018 14:43:06 12/18/2018 15:45:02 [id number] JASON BERGER, RADIO PRESENTER [facility] [address] [place] [address] 03/07/2019 09:43:43 03/07/2019 10:16:01 [id number] YOUNG GUIDRY MD [facility] CLOSED [address] [place] [address] 6 03/15/2019 15:05:42 03/15/2019 16:11:48 [id number] YOUNG GUIDRY MD [facility] CLOSED [address] [place] [address] 6 04/05/2019 15:06:41 04/08/2019 08:56:30 [id number] JC GOFF MD [address] [address] 7 04/24/2019 13:32:43 04/24/2019 15:59:28 [id number] YOUNG GUIDRY MD SURGERY SCHEDULE [address] [place] [address] 1 05/13/2019 06:05:31 05/13/2019 06:09:45 [id number] NOHEMY MICHEL PA-C [facility] CLOSED [address] [address] 6 05/24/2019 14:12:18 05/24/2019 15:19:56 [id number] YOUNG GUIDRY MD [facility] CLOSED [address] [address] 6 06/21/2019 13:58:06 06/21/2019 16:13:30 [id number] JC GOFF MD [facility] DMITRY [address] [place] [address] 7 07/22/2019 10:48:33 07/22/2019 13:35:42 [id number] ASAEL NAYLOR PA-C SAME DAY DMITRY CLOSED [employer] [place] [address] 07/29/2019 13:29:50 07/29/2019 16:49:05 [id number] YOUNG GUIDRY MD [facility]I [facility] CLOSED [address] [place] [address] 08/02/2019 13:14:29 08/02/2019 13:36:50 [id number] MESERET PANIAGUA APRN [address] [address] 7 08/19/2019 14:00:10 08/19/2019 14:58:52 [id number] YOUNG GUIDRY MD [facility] CLOSED [address] [place] [address] 6 09/13/2019 13:03:55 09/13/2019 14:21:49 [id number] YOUNG GUIDRY MD [facility]I [facility] CLOSED [address] [place] [address] 6 10/18/2019 13:12:26 10/18/2019 14:08:00 [id number] JC GOFF MD [address] [address] 7 01/28/2020 08:55:16 01/28/2020 12:34:20 [id number] YOUNG GUIDRY MD [facility] CLOSED [address] [place] [address] 6 02/25/2020 10:00:02 02/25/2020 12:49:33 [id number] YOUNG GUIDRY MD [facility]I [facility] CLOSED [address] [place] [address] 6 03/17/2020 08:42:34 03/17/2020 12:17:11 [id number] YOUNG GUIDRY MD [facility] CLOSED [address] [place] [address] 6 05/21/2020 09:01:22 05/21/2020 10:56:30 [id number] YOUNG GUIDRY MD [facility] CLOSED [address] [place] [address] 6 06/18/2020 09:11:15 06/23/2020 10:28:03 [id number] YOUNG GUIDRY MD SURGERY SCHEDULE [address] [place] [address] 1 07/27/2020 10:41:20 07/27/2020 10:43:08 [id number] JC GOFF MD [place] [id number] 7 07/29/2020 11:17:55 07/29/2020 14:15:15 [id number] NOHEMY MICHEL PA-C [facility] CLOSED [address] [place] [address] 2020 10:55:54 2020 11:47:56 [id number] HEMALATHA BERNARD, OTR/L, CHT PHYSICAL THERAPY / HAND THERAPY [facility] CLOSED [address] [place] [address] 2020 12:59:33 2020 13:49:19 [id number] HEMALATHA BERNARD, OTR/L, CHT PHYSICAL THERAPY / HAND THERAPY [facility] CLOSED [address] [place] [address] 6 08/19/2020 13:14:31 11/17/2020 13:26:58 [id number] YOUNG GUIDRY MD [facility]OP[facility]I CS [facility] CLOSED [address] [place] [address] 6 09/08/2020 10:32:24 09/08/2020 11:58:13 [id number] MESERET PANIAGUA APRN [facility] [place] [id number] 7 09/28/2020 11:48:30 09/28/2020 12:22:28 [id number] [place] [address] [place], [place] [address] 1 10/12/2020 14:21:56 10/14/2020 10:55:48 [id number] ANNE MARIE BARNARD ENT SB [address] [place] [address] 1 10/12/2020 15:10:48 10/12/2020 15:30:35 [id number] YOUNG GUIDRY MD [facility]I [facility] CLOSED [address] [place] [address] 10/20/2020 10:16:27 10/20/2020 11:32:53 [id number] Lisa SWANN PA-C [facility] CLOSED [address] [place] [address] 6 11/04/2020 13:13:05 11/04/2020 14:03:17 [id number] Lisa SWANN PA-C [facility] CLOSED [address] [place] [address] 6 11/11/2020 09:12:48 11/11/2020 09:51:36 [id number] YOUNG GUIDRY MD [facility]OPEDI CS [facility] CLOSED [address] [place] [address] 6 12/01/2020 10:39:20 12/01/2020 11:54:27 [id number] MESERET PANIAGUA RADIO PRESENTER [address] [address] 7 12/23/2020 13:56:56 12/23/2020 14:33:23 [id number] YOUNG GUIDRY MD [facility]OPEDI [facility] CLOSED [address] [place] [address] 6 01/28/2021 14:29:50 01/28/2021 15:23:25 [id number] MILVIA SANTANA PA-C [facility]I [facility] CLOSED [address] [place] [address] 6 02/03/2021 09:50:22 02/03/2021 10:09:20 [id number] MILVIA SANTANA PA-C [facility]I [facility] CLOSED [address] [place] [address] 6 02/10/2021 09:51:36 02/10/2021 10:03:13 [id number] NOHEMY MICHEL PA-C [facility] CLOSED [address] [place] [address] 6 02/11/2021 10:03:30 02/11/2021 10:55:31 [id number] YOUNG GUIDRY MD [facility]THOPEDI CS [facility] CLOSED [address] [place] [address] 6 02/18/2021 10:57:01 02/18/2021 12:55:02 [id number] YOUNG GUIDRY MD [facility]OPEDI CS [facility] CLOSED [address] [place] [address] 6 03/04/2021 15:01:51 03/04/2021 16:08:29 [id number] JC GOFF MD [facility] [address] [place] [address] 7 04/30/2021 12:57:45 04/30/2021 14:12:24 [id number] MILVIA SANTANA PA-C [facility]I [facility] CLOSED [address] [place] [address] 6 05/05/2021 10:25:16 05/05/2021 10:50:23 [id number] MILVIA SANTANA PA-C [facility]I [facility] CLOSED [address] [place] [address] 6 05/12/2021 10:26:05 05/12/2021 11:09:04 [id number] JC GOFF MD [place] [address] 7 06/07/2021 14:05:30 06/08/2021 07:31:20 [id number] [place] [address] 7 06/17/2021 11:41:40 06/17/2021 16:06:45 [id number] [place] [address] 7 06/30/2021 10:51:20 06/30/2021 11:34:23 [id number] [place] [address] 7 07/28/2021 10:50:28 07/29/2021 08:52:05 [id number] MILVIA SANTANA PA-C [facility] CLOSED [address] [place] [address] 2021 13:04:02 2021 13:19:59 [id number] MILVIA SANTANA PA-C [facility] CLOSED [address] [place] [address] 6 08/18/2021 13:07:07 08/18/2021 13:27:07 [id number] JC GOFF MD [facility] [address] [place] [address] 09/14/2021 11:08:59 09/14/2021 11:55:43 [id number] MILVIA SANTANA PA-C [facility] CLOSED [address] [place] [address] 6 11/10/2021 15:19:11 11/10/2021 15:57:27 [id number] ADELINA LENNON MD [facility] [address] [place] [address] 11/17/2021 10:44:52 11/17/2021 11:05:32 [id number] MILVIA SANTANA PA-C [facility]I CS [facility] CLOSED [address] [facility] [place] [address] 11/18/2021 14:57:55 11/18/2021 15:30:12 [id number] [facility]C GO[facility] [address] [place] [address] 12/08/2021 11:01:00 12/08/2021 13:00:04 [id number] RACHELL GILBERT PA-C SAME DAY DMITRY CLOSED [address] [place] [address] 7 12/20/2021 13:36:01 12/20/2021 14:12:00 [id number] JC GOFF MD [facility] [address] [facility] [place] [address] 12/31/2021 14:34:55 12/31/2021 14:46:11 [id number] ASAEL NAYLOR PA-C SAME DAY DMITRY CLOSED [address] [place] [address] 7 01/24/2022 10:38:15 01/25/2022 09:57:02 [id number] ADELINA LENNON MD [address] [address] 7 02/04/2022 14:36:40 02/04/2022 15:25:23 [id number] TAIWO BRIONES, DO SAME DAY DMITRY CLOSED [address] [place] [address] 7 02/10/2022 10:38:51 02/10/2022 11:46:56 [id number] MILVIA SANTANA PA-C [facility] CLOSED [address] [place] [address] 6 02/22/2022 10:28:00 02/22/2022 11:25:59 [id number] MILVIA SANTANA PA-C [facility] CLOSED [address] [place] [address] 6 03/03/2022 14:50:15 03/03/2022 15:34:16 [id number] JC GOFF MD [address] [address] 7 03/17/2022 14:21:09 03/17/2022 15:23:21 [id number] JC GOFF MD [address] [address] 7 04/18/2022 10:45:43 04/18/2022 11:33:25 [id number] JC GOFF MD [address] [address] 7 05/19/2022 10:37:12 05/19/2022 11:17:18 [id number] MILVIA SANTANA PA-C [facility] CLOSED [address] [place] [address] 6 06/02/2022 14:36:21 06/02/2022 15:50:32 [id number] MILVIA SANTANA PA-C [facility] CLOSED [address] [place] [address] 6 06/06/2022 09:47:55 06/06/2022 10:04:12 [id number] KERRIE SLATER PA-C [place] [address] 7 06/28/2022 11:02:38 06/28/2022 11:16:23 [id number] JC GOFF MD [place] [address] 7 07/28/2022 10:49:23 07/28/2022 11:21:13 [id number] [place] [address] 7 08/29/2022 13:35:50 08/29/2022 17:08:01 [id number] MILVIA SANTANA PA-C [facility] CLOSED [address] [place] [address] 6 09/12/2022 14:54:41 09/12/2022 15:34:35 [id number] MILVIA SANTANA PA-C [facility] CLOSED [address] [place] [address] 6 09/19/2022 14:38:07 09/19/2022 15:15:13 [id number] [place] [address] 7 11/28/2022 11:51:05 11/29/2022 12:13:12 [id number] JC GOFF MD [address] [address] 7 11/30/2022 15:43:25 11/30/2022 16:05:13 [id number] MILVIA SANTANA PA-C [facility]I [facility] CLOSED [address] [place] [address] 6 12/14/2022 15:02:39 12/14/2022 15:44:50 [id number] MILVIA SANTANA PA-C [facility] CLOSED [address] [address] 6 12/05/2022 12:46:40 12/05/2022 13:08:36 [id number] KERRIE SLATER PA-C [facility] [address] [place] [address] 7 01/10/2023 09:54:57 01/10/2023 11:54:21 [id number] OLAYINKA GARZA PA-C SAME DAY DMITRY CLOSED [address] [place] [address] 7 02/08/2023 13:48:04 02/08/2023 14:49:53 [id number] [place] [address] 7 02/27/2023 09:23:11 02/27/2023 11:25:27 [id number] MILVIA SANTANA PA-C [facility] CLOSED [address] [address] 6 03/07/2023 12:32:57 03/07/2023 13:37:53 [id number] MILVIA SANTANA PA-C [facility] CLOSED [address] [address] 6 03/13/2023 15:07:45 03/13/2023 15:31:16 [id number] [place] [address] 7 03/27/2023 11:09:57 03/27/2023 12:57:18 [id number] JONAH HOWARD MD [facility] [address] [place] [address] 1 03/30/2023 08:18:53 03/30/2023 08:35:59 [id number] JC GOFF MD [place] [address] 7 05/01/2023 16:00:56 05/01/2023 16:23:41 [id number] [place] [address] 7 05/04/2023 15:04:25 05/04/2023 18:23:43 [id number] MILVIA SANTANA PA-C [facility] CLOSED [address] [place] [address] 6 06/19/2023 14:52:23 06/19/2023 15:15:49 [id number] JC GOFF MD [place] [address] 7 06/19/2023 16:09:27 06/19/2023 16:16:20 [id number] MILVIA SANTANA PA-C [facility] CLOSED [address] [place] [address] 6 06/22/2023 08:55:00 06/22/2023 09:19:16 [id number] JC GOFF MD [place] [address] 7 07/28/2023 15:35:18 07/28/2023 16:06:58 [id number] GENE BETANCOURT PA-C [facility] CLOSED [address] [place] [address] 6 08/02/2023 08:50:12 08/02/2023 09:15:45 [id number] GENE BETANCOURT PA-C [facility] CLOSED [address] [place] [address] 6 08/09/2023 08:54:10 08/09/2023 09:31:19 [id number] GENE BETANCOURT PA-C [facility]OP[facility] CLOSED [address] [place] [address] 6 08/16/2023 08:51:19 08/16/2023 10:01:23 [id number] JC GOFF MD [address] 7 12/07/2023 09:22:19 12/07/2023 12:16:06 [id number] Lisa SWANN PA-C [facility] CLOSED [address] [place] [address] 6 10/13/2023 10:41:46 10/13/2023 11:07:03 [id number] AUDREY KNAPP PA-C [facility] CLOSED [address] [place] [address] 6 10/18/2023 08:37:48 10/18/2023 09:02:45 [id number] JC GOFF MD [facility] [address] [place] [address] 7 01/09/2024 11:07:22 01/09/2024 11:38:24 [id number] AUDREY KNAPP PA-C [facility] CLOSED [address] [address] 6 01/17/2024 08:24:12 01/17/2024 08:48:08 [id number] JC GOFF MD [address] [address] 7 02/06/2024 11:04:36 02/06/2024 11:44:50 [id number] JC GOFF MD [address] [address] 7 05/23/2024 13:54:24 05/27/2024 05:35:09 [id number] JC GOFF MD [address] [address] 7 03/07/2024 13:50:02 03/07/2024 16:55:41 [id number] JC GOFF MD [address] [address] 7 03/14/2024 15:49:26 03/14/2024 16:05:49 [id number] AUDREY KNAPP PA-C [facility] CLOSED [address] [place] [address] 6 04/17/2024 08:33:09 04/17/2024 08:55:29 [id number] JC GOFF MD [place] [address] [place] [address] 7 04/16/2024 10:50:30 04/16/2024 11:59:24 [id number] JC GOFF MD [facility] [address] [place] [address] 7 05/14/2024 11:00:04 05/14/2024 12:38:19 [id number] JC GOFF MD [address] [address] 7 06/13/2024 10:38:43 06/13/2024 12:10:59 [id number] JC GOFF MD [address] [address] 7 07/11/2024 14:07:35 07/11/2024 16:43:47 [id number] AUDREY KNAPP PA-C [facility] CLOSED [address] [address] 6 07/22/2024 08:24:17 07/22/2024 08:50:05 [id number] YOUNG GHOTRA MD PAIN MEDICINE CLOSED [address] [place] [address] 1 07/30/2024 10:24:17 07/30/2024 16:23:19 [id number] JC GOFF MD [address] [address] 7 08/15/2024 16:12:33 08/15/2024 16:37:58 [id number] JC GOFF MD [facility] [address] [place] [address] 7 08/28/2024 14:49:07 08/28/2024 16:50:27 [id number] JC GOFF MD [facility] [address] [place] [address] 7 09/13/2024 10:41:14 09/16/2024 08:54:21 [id number] JC GOFF MD [address] [address] 7 09/19/2024 15:58:13 09/20/2024 04:18:05 [id number] JC GOFF MD [place] [address] 7 10/18/2024 13:59:32 10/18/2024 14:55:42 [id number] YOUNG GHOTRA MD [facility] [facility] PROFESSIO NAL CHARGES [address] [place] [address] 1 10/22/2024 11:47:06 10/22/2024 13:25:39 [id number] CARROL BELLAMY PA-C PAIN MEDICINE [address] [place] [address] 1 01/08/2025 12:52:45 01/08/2025 16:13:38 [id number] JC GOFF MD [place] [address] 7 12/12/2024 10:43:25 12/12/2024 15:06:45 [id number] JC GOFF MD [place] [address] 7 01/09/2025 13:56:27 01/09/2025 14:33:39 [id number] YOUNG GHOTRA MD [facility] [address] [facility] PROFESSIO NAL CHARGES [address] [place] [address] 1 01/28/2025 14:39:40 01/28/2025 16:25:52 [id number] JC GOFF MD [place] [address] 7 02/10/2025 14:00:04 02/10/2025 15:08:57 [id number] CARROL BELLAMY PA-C PAIN MEDICINE [address] [place] [address] 1 02/26/2025 14:32:52 02/26/2025 16:22:08 [id number] JC GOFF MD [place] [address] 7 03/12/2025 13:49:13 03/12/2025 15:34:33 [id number] JC GOFF MD [facility] [address] [address] 04/14/2025 14:04:45 04/14/2025 14:53:59 [id number] JC GOFF MD [facility] [place] [id number] 05/12/2025 13:44:12 05/12/2025 14:11:53 [id number] YOUNG GHOTRA MD [facility] [address] OF [facility] PROFESSIO NAL [address]ARGES [address] [facility], [address] [place] [address] 05/08/2025 11:29:44 05/13/2025 15:18:57 [id number] CARROL BELLAMY PA-C PAIN MEDICINE [address] [place] [address] 1 06/03/2025 13:53:16 06/04/2025 04:17:53 [id number] LUIS ALFREDO SALDAÑA PA-C ORTHOPEDI [address] [place] [address] 06/09/2025 14:29:03 06/09/2025 15:58:40 [id number] JC [place] [address] 06/12/2025 13:44:45 06/12/2025 14:53:29 [id number] KERRIE SLATER PA-C [facility] [place] [id number] 07/11/2025 11:22:46 07/11/2025 13:36:55 [id number] ARIANNE LEONG APRN [facility] [address] [address] 07/18/2025 14:52:21 07/18/2025 15:05:20 Health Concerns Section Related Observation LastModified by Organization Detai ls LastModified Time None Recorded Concern Status LastModified by Organization Details LastModified Time None Recorded Advance Directives Directive None Recorded Payers Insurance Date Sequence Insurance Name Policy Number Policy Walter Covered Member ID Walter Member ID Guarantor Name 08/12/2025 1 [place]MED[place] REPLACEMENT HMO) [id number] January Torres [id number] January Sharp 03/27/2023 ALISIA & ARSEN (BA) January Jono [id number] January Sharp 03/27/2023 1 [place] [id number] 0 January Torres [id number] January Sharp 03/27/2023 1 [place] January Sharp [id number] January Sharp 03/27/2023 GENERIC INSURANCE - MOVED-HOLD January Sharp 03/27/2023 2 [employer] (EPO) January Sharp [id number] January Sharp 03/27/2023 1 [employer] [facility] (PPO) January Torres [id number] January Sharp 03/27/2023 2 [employer] (PPO) January Sharp [id number] January Sharp 03/27/2023 1 [employer] [facility] (PPO) January Torres [id number] January Torres 08/19/2020 [employer]ERS [employer] January Sharp 05/04/2020 TRA[employer]ELERS [employer] January03/27/2023 [place] (ZURDO) January [place] [id number] January Sharp 03/27/2023 3 [employer] SMM January Torres [id number] January Sharp 03/27/2023 1 [employer] (POS) [id number] January [place] [id number] January Sharp 03/27/2023 1 [employer] [employer] [place] (MEDICA[place]AC[place] - HMO) CSKY January Jono [id number] January Sharp 03/27/2023 C[employer] ADMINISTRATORS - DMEPOS ASSIGNED (MEDICARE DME REGION B) January Torres [id number] January Sharp 03/27/2023 1 [place] [facility] HEALTH CHOICES - FFS/TRADITIONAL January [place] [id number] January Sharp 03/03/2022 [employer] January Torres 03/27/2023 BABS (BA) January Jono [id number] January Torres 05/04/2020 1 UNSPECIFIED REMIT PAYOR January Torres 08/19/2020 BABS [employer] January Torres 08/19/2020 [employer] January Torres 03/27/2023 BABS (NAPOLEON) January [place] [id number] January Torres 03/27/2023 INGENIOUSMED (MOVED TO HOLD) January Torres January Torres OBGyn Episode No OBEpisode recorded.
--- OUTSIDE RECORDS SUMMARY | 2025-08-17 15:39 | XMS_ITS | Continuity of Care Document ---
Author Organization Formerly [facility], [facility] Address [address] [place] [address] Care Team Providers Care Sausage Canner Name Role Phone JULIANN PIZANO Primary Care Provider YOMI KELLER Orthopedic Surgeon Assessment Encounter Date Assessment Date Assessment LastModified by Organization Details LastModified Time 06/12/2025 06/12/2025 - 69-year-old female with a [...] modification of therapy. Not available 06/12/2025 14:36:35 Plan of Treatment Reminders Order Date Submit Date Provider Last Modified By Organization Details Last Modified Time Details Appointments SHOT ONLY 2024 03:15P M DMITRY_ [place] E Not available Not available Not available RECHECK 2025 02:30P M LUIS ALFREDO SALDAÑA PA-C Not available Not available Not available MEDICARE WELLNESS VISIT 2025 09:30A M JULIANN PIZANO MD Not available Not available Not available Lab lipid panel, serum 2024 [facility], [address] [place] [address], [phone], 06/12/2025 18:18:25 hepatic function panel, serum 2024 [facility], [address] [place] [address], [address], 06/12/2025 18:34:01 ferritin, serum or plasma 2024 [facility], [address] [place] [address], [address], 06/12/2025 18:33:57 TSH, serum or plasma 2024 [facility], [address] [place] [address], [address], 06/12/2025 18:34:03 Referral sleep medicine referral 2024 [email or web address] Laci Patricia MD, [address] [place] [address], [id number], 07/25/2025 08:58:34 Procedures None recorded. Surgeries None recorded. Imaging None recorded. Medication Orders meloxicam 7.5 mg tablet 2024 [facility] [id number], [address] [place] [address], [id number], 06/12/2025 14:37:19 cyanocoba jessica (vit B-12) 1,000 mcg/mL injection solution 2024 [place] [address] Not available 06/12/2025 14:37:19 Patient TargetsNo targets recorded. Patient Instructions Encounter Date Encounter Id Patient Instructions Last Modified By Organization Details Last Modified Time 06/12/2025 [id number] - Continue administering your B12 injection monthly. [...] symptoms. Return 6month fasting medicare wellness visit. Not available 06/12/2025 14:34:00 Reason for Referral Sleep Medicine Referral for Snoring Referring Physician: Juliann Pizano, Family Medicine, Encounter Date: 06/12/2025 Results Created Date Observation Date Name Description Value Unit Range Abnormal Flag Note LastModifiedBy Organization Detail LastModifiedTime 06/12/2006/12/2025 LIPID PROFI LE HDL cholesterol 58 mg/dL normal EDILSON L RANGE FEMAL E >49 MALE >39 NOTE: NEW EDILSON L RANGE Not Available [facility] [address] [place] [address], [phone], 06/12/2025 18:33:59 06/12/2006/12/2025 LIPID PROFI LE triglyceride s 106 mg/dL 0-149 normal TRIGL YCERI DE RANGE S EDILSON L: < 150 BORDE RLINE HIGH: 150 - 199 HIGH: 200 - 499 VERY HIGH: > OR = 500 Not Available [facility] [address] [place], [address], 06/12/2025 18:33:59 06/12/20 25 06/12/2025 LIPID PROFI LE cholesterol 198 mg/dL 0-199 normal JHOANA STERO L (TOTA L) RANGE S GAYLA ABLE: < 200 BORDE RLINE : 200 - 239 HIGHE R RISK: > 239 Not Available [facility] [address] [place], [address], 06/12/2025 18:33:59 06/12/2006/12/2025 LIPID PROFI LE LDL cholesterol 119 mg/dL _(nohelia c) 0-99 high LDL JHOANA STERO L RANGE S OPTIM AL: < 100 NEAR/ ABOVE OPTIM AL: 100 - 129 BORDE RLINE HIGH: 130 - 159 HIGH: 160 - 189 VERY HIGH: > OR = 190 Not Available [facility] [address] [place] [address], [address], 06/12/2025 18:33:59 06/12/20 25 06/12/2025 LIPID PROFI LE chol/HDL ratio (calc) 3.4 mg/dL normal NO EDILSON L RANGE ESTAB LISHE D FOR JHOANA STERO L/HDL RATIO (CALC ULATE D). Not Available [facility] [address] [place] [address], [address], 06/12/2025 18:33:59 06/12/20 25 06/12/2025 LIPID PROFI LE LDL, direct 122 0-99 high Not Available [facility] [address] [place] [address], [address], 06/12/2025 18:33:59 06/12/20 25 06/12/2025 REY TIN ferritin 69 NG/mL 13-157 normal Not Available [facility] [address] [place] [address], [address], 06/12/2025 18:33:57 06/12/20 25 06/12/2025 HEPAT IC (LIVE R) PANEL AST 21 U/L 0-32 normal Not Available [facility] [address] [place] [address], [address], 06/12/2025 18:34:01 06/12/20 25 06/12/2025 HEPAT IC (LIVE R) PANEL ALT 14 U/L 0-33 normal Not Available [facility] [address] [place] [address], [address], 06/12/2025 18:34:01 06/12/20 25 06/12/2025 HEPAT IC (LIVE R) PANEL alkaline phosphatase 79 U/L 30-121 normal Not Available [facility] [address] [place] [address], [address], 06/12/2025 18:34:01 06/12/20 25 06/12/2025 HEPAT IC (LIVE R) PANEL total protein 7.2 g/dL 6.4-8. 3 normal Not Available [facility] [address] [place] [address], [address], 06/12/2025 18:34:01 06/12/20 25 06/12/2025 HEPAT IC (LIVE R) PANEL albumin 4.4 g/dL 3.5-5. 2 normal Not Available [facility] [address] [place] [address], [address], 06/12/2025 18:34:01 06/12/20 25 06/12/2025 HEPAT IC (LIVE R) PANEL bilirubin, total 0.6 mg/dL 0.1-1. 0 normal NOTE: New refer ence range . Not Available [facility] [address] [place] [address], [address], 06/12/2025 18:34:01 06/12/20 25 06/12/2025 HEPAT IC (LIVE R) PANEL bilirubin, direct <0.2 mg/dL 0.0-0. 3 normal Not Available [facility] [address] [place] [address], [address], 06/12/2025 18:34:01 06/12/20 25 06/12/2025 HEPAT IC (LIVE R) PANEL bilirubin, indirect see below mg/dL _(nohelia c) 0.0-1. 0 normal Unabl e to calcu late Indir ect Bilir ubin. Not Available [facility] [address] [place] [address], [address], 06/12/2025 18:34:01 06/12/2006/12/2025 TSH TSH 1.300 u[IU] /mL 0.270- 4.200 normal Not Available [facility] [address] [place] [address], [address], 06/12/2025 18:34:03 06/10/20 25 06/09/2025 XR, knee, 4 or more view [facility] [address] [place] [id number] [phone] Pk ni Name: MICHELLE ni : 1954 Pk ni 9 Orderi ng Provid er: LUIS [...] Shiva Andrea MD on 2024 8:[address] [facility] [address] [place], [address], 06/10/2025 09:39:21 Result Notes None recorded. Problems Name Problem SNOMED Code Status Onset Date Resolution Date Notes Provider Name and Address Organization Details Recorded Time Lack of energy 097186635 Completed 201502/07/2018 From [employer];Pro vider: Juliann Pizano;Sta tus: Active JULIANN PIZANO MD [address] [place] [address], [address] , [facility] 8 13:33:48 Finding of appearan ce of skin Completed 201502/07/2018 From Autom[employer];Pro vider: Juliann Pizano;Sta tus: Active JULIANN PIZANO MD [address] [place] [address], [address] , [facility] 8 13:33:45 Hypothyr oidism 57588797 Active 2015 From Autom[employer] Load;Pro vider: Juliann Pizano;Sta tus: Active JULIANN PIZANO MD [address] [place] [address], [address] , [facility] 3 14:38:44 Tinnitus 34805148 Active 2015 From Autom[employer] Load;Pro vider: Juliann Pizano;Sta tus: Active Not Available [facility] 2 07:32:58 Fibrocys tic disease of breast 66409641 Active 2017 Not Available [facility] 2 07:32:58 Divertic ular disease of colon 699629520 Active 2017 Not Available [facility] 2 07:32:58 Hearing loss 94002124 Active 2017 Not Available [facility] 2 07:32:58 Displace ment of lumbar interver tebral disc without myelopat hy 85518665 Active 2017 JULIANN PIZANO MD [address] [place] [address], [address] , [facility] 3 14:38:27 Osteoart hritis of knee 260464955 Active 2018 Not Available [facility] 2 07:32:58 Alopecia 58036576 Active 2019 Not Available [facility] 2 07:32:58 Hyperlip idemia 56408364 Active 2019 LDL>190 JULIANN PIZANO MD [address] [place] [address], [address] , [facility] 3 22:05:06 Vitamin B12 deficien cy (non anemic) 70677426 Active 2020 JULIANN PIZANO MD [address] [place] [address], [address] , [facility] 3 14:38:51 Atherosc lerosis of aorta 73615814 Active 2022 JULIANN PIZANO MD [address] [place] [address], [address] , [facility] 3 14:51:55 Cystitis 85668985 Active 2022 KERRIE SLATER PA-C [address] [place] [address], [address] , [facility] 3 10:32:11 Bilatera l osteoart hritis of knees 15832895335 9107 Active 2022 JULIANN PIZANO [place] [facility] [place], [address] , [facility] 3 10:32:14 Pain of right temporom andibula r joint 82898933252 505350 Active 2022 JULIANN PIZANO MD [facility] [place], [address] , [facility] 3 10:33:46 Body mass index 25-29 - overweig ht 738073027 Active 2023 JULIANN PIZANO MD [facility] [place], [address] , [facility] 4 09:58:29 Dyslipid emia 407852579 Active 2023 JULIANN PIZANO MD [facility] [place], [address] , [facility] 4 10:13:07 Ischial bursitis 005387656 Active 2023 JULIANN PIZANO MD [facility] [place], [address] , [facility] 4 10:42:24 Lumbar radiculo wendy 657149601 Active 2024 JULIANN PIZANO MD [facility] [place], [address] , [facility] 5 11:31:09 Primary gonarthr osis, bilatera l 830833144 Active 2024 JULIANN PIZANO MD [address] [place] [address] [place], [address] , [facility] 5 14:24:04 Acute frontal sinusiti s 21297001 Active 2024 KERRIE SLATER PA-C [address] [place] [address] [place], [address] , [facility] 5 11:58:13 Acute cough Active 2024 KERRIE SLATER PA-C [address] [place], [address] , [facility] 12:02:22 Problem Notes None recorded. Procedures Surgical History Date Name Laterality Status Provider Name and Address Organization Details Recorded Time 025 Joint Injection, Knee - Barb completed YOUNG DAY MD [address] [place], [address], [facility] 05/08/2025 12:43:39 025 Joint Injection, Knee - Barb completed YOUNG DAY MD [address] [place], [address], [facility] 01/28/2025 16:06:18 025 Joint Injection, Knee - Barb completed YOUNG DAY MD [address] [place], [address], [facility] 10/22/2024 12:43:32 024 Injection - Joint/Bursa, Major completed Vicki Rai [facility] 07/15/2024 10:48:22 024 Injection - Joint/Bursa, Major completed Spenser Tijerina [facility] 04/12/2024 15:30:21 024 Injection - Joint/Bursa, Major completed [facility] 01/10/2024 15:32:45 024 Injection - Joint/Bursa, Major completed Quinten Rizo [facility] 10/16/2023 15:30:00 024 Injection - Joint/Bursa, Major completed Lisa SWANN PA-C [address] [place], [address], [facility] 10/13/2023 11:11:57 024 Injection - Joint/Bursa, Major cancelled Alexandria [facility] 09/05/2023 08:39:03 023 Euflexxa Injection completed Rashad Welsh [facility] 08/16/2023 08:58:43 023 Euflexxa Injection completed Quinten Rizo [facility] 08/09/2023 09:16:07 023 Euflexxa Injection completed Rashad Welsh [place] [facility] 08/02/2023 08:54:42 023 Injection - Joint/Bursa, Major completed [place] [facility] 06/21/2023 08:22:13 023 Injection - Joint/Bursa, Major completed [place] [facility] 06/19/2023 14:59:56 023 DXA Normal completed JONAH HOWARD MD [address] [facility] [place], [address], [place] [facility] 03/30/2023 12:31:04 023 Injection - Joint/Bursa, [...] Joint/Bursa, Major completed Vicki Rai [place] [facility] 03/02/2022 09:13:27 022 Injection - Joint/Bursa, [...] suprapubic sling completed JULIANN PIZANO MD [address] [place], [address], [place] [facility] 12/07/2023 10:17:40 021 Injection - Joint/Bursa, Major completed [place] [facility] 02/10/2021 08:25:13 021 Injection - Joint/Bursa, Major completed Vicki Rai [place] [facility] 02/03/2021 08:07:56 021 Injection - Joint/Bursa, Major completed [place] [facility] 11/11/2020 08:47:33 021 Injection - Joint/Bursa, Major completed Lisa SWANN PA-C [address] [place], [address], [facility] 11/04/2020 13:58:40 Orthotic, HFO, Static Custom completed HEMALATHA BERNARD, OTR/L, CHT [address] [place], [address], [facility] 2020 13:04:03 020 Op Note completed YOUNG GUIDRY MD [address] [place], [address], [facility] 07/27/2020 19:12:28 020 Injection - Joint/Bursa, Interm completed YOUNG GUIDRY MD [address] [place], [address], [facility] 02/25/2020 19:59:39 Op Note completed YOUNG GUIDRY MD [address] [place], [address], [facility] 05/13/2019 09:25:23 019 Injection - Trigger Finger, Ortho completed YOUNG GUIDRY MD [address] [place], [address], [facility] 04/05/2019 16:43:35 019 Injection - Carpal Tunnel completed YOUNG GUIDRY MD [address] [place], [address], [facility] 03/15/2019 16:13:35 019 Injection - Joint/Bursa, Major completed Cristine Luna [facility] 12/18/2018 15:10:45 019 Injection - Joint/Bursa, Major completed Cristine Jeremy [facility] 12/11/2018 10:50:07 019 Injection - Joint/Bursa, Interm completed YOUNG GUIDRY MD [address] [place], [address], [facility] 09/20/2018 17:43:12 019 Electromyography (EMG) with Nerve Conduction Study (NCV) completed Luz Maria Pizano (Nicky) [facility] 09/20/2018 13:42:03 019 Injection - Joint/Bursa, Major completed Lisa SWANN PA-C [address] [place] [address], [address] [place] [address], [facility] 09/05/2018 15:07:17 018 Injection - Joint/Bursa, Interm completed YOUNG GUIDRY MD [address] [place] [address], [facility] 07/04/2018 12:19:03 Hand tendon/muscle transfer completed JULIANN PIZANO MD [address] [place] [address], [address] [place] [address], [facility] 01/05/2017 11:59:57 Cataract Surgery completed JULIANN PARKS MD [address] [place] [address], [address] [place] [address], [facility] 08/29/2022 14:55:26 Appendectomy completed JULIANN PIZANO MD [address] [place] [address], [address] [place] [address] 10/13/2016 08:25:37 Imaging Results None recorded. Procedure Notes None recorded. Medical Equipment None Reported. Allergies No known drug allergies Medications Name Sig Start Date Stop Date Status Note LastModified by Organization Details LastModified Time Compound Rx Alternati ves General Pain Cream Apply 1-2 grams to the affected area 3-4 times daily 01/08 completed Not Available Not Available Not Available Compound Rx Alternati ves Neuropath ic Pain Cream Apply 1-2 grams to the affected area 3-4 times daily 2024 active D/C Not Available Not Available Not Avai lable methocarb cnade 500 mg tablet Take 1 tablet twice [...] mL every month by subcutan eous route. 11/28/ 2025 active Not Available Not Available Not Avai [...] tablet Not Available Not Available Not Available [place] 5 mg-325 mg tablet TAKE 1 TAB [...] Updated DateTime 5 160.02 cm 26.6 kg/m2 10927.5 6 g 97.2 [degF] 84 /min 96 % 16 /min 134/84 mm[Hg] Luis Alfredo Ramsey [facility] 5 13:55:58 Social History Question Answer Notes LastModified by [employer] Details LastModified Time Tobacco Smoking Status Never Smoker JULIANN PIZANO MD [address] [place] [address], [address], [facility] 01/05/2017 08:07:38 What Is Your Level Of Caffeine Consumption? Occasional Information not available 06/08/2017 How Much Tobacco Do You Chew? None [email or web address] Information not available 03/07/2019 Which Of Your Hands Is Dominant? Right Information not available 06/08/2017 Marital Status Informatio n not available 06/08/2017 What Was The Date Of Your Most Recent Tobacco Screening? 07/11/2025 [email or web address] Information not available 07/11/2025 What Is Your Relationship Status? [email or web address] Information not available 09/07/2023 How Much Tobacco Do You Smoke? No Information not available 04/24/2019 Has Tobacco Cessation Counseling Been Provided? No [email or web address] Information not available 10/18/2023 Sex: Female Functional Status Question Answer Note LastModified by [employer] Details LastModified Time Do you use any illicit or recreational drugs? No Information not available 06/08/2017 Do you or have you ever used any other forms of tobacco or nicotine? No [email or web address] Information not available 10/18/2023 What is your [...] e-cigarettes or vape? Never used electronic cigarettes [email or web address] Information not available 04/24/2019 Mental Status None recorded. Family History Relationship Description Onset Age of this Age Resolved Age Notes LastModified by Organization Details LastModified Time Unspecified Relation Malignant neoplastic disease Not available 2016 08:25:18 Unspecified Relation Cerebrovascu lar accident [email or web address] Not available 08:25:23 Mother History of multiple [...] N Immune System Disorder N Heart Attack (NE) N Mental Illness N Neurological Problems N Diabetes N Ovarian Cancer N Seizures/Epilepsy N Eczema N Diverticulitis N Epilepsy/Seizures N Reflux/GERD N Sleep Apnea N Heart Disease N Hypertension N Pre-Eclampsia N Osteoporosis N Gynecological HistoryNo gynecological history recorded. Obstetrics History GPAL:G 0 P 0 0 0 0 Immunizations Vaccine Type Date Status Note Provider Salvador giraldo and Address Organization Details Recorded Time zoster recombinant 3 completed Sayda lund [facility] 12/06/2023 16:19:20 Hep A, adult 9 completed Not Available [facility] 09/07/2019 02:50:37 COVID-19, mRNA, LNP-S, PF, jamie-sucrose, 30 mcg/0.3 mL 4 completed Gem Gilliam [facility] 06/09/2025 14:35:52 Influenza, split virus, quadrivalent, PF 9 completed Not Available [facility] 09/07/2019 02:52:20 Influenza, split virus, quadrivalent, preservative 0 completed Sayda Borjas [facility] 09/07/2023 16:44:05 zoster live 5 [facility] 16:44:05 DTaP 4 completed Sayda Borjas [facility] 09/07/2023 16:44:05 COVID-19 vaccine, vector-nr, rS-Ad26, PF, 0.5 mL 1 completed Sayda Borjas [facility] 09/07/2023 16:44:05 Influenza, split virus, quadrivalent, preservative 1 completed Sayda Borjas [facility] 09/07/2023 16:44:05 Tdap 4 completed Sayda Borjas [facility] 12/07/2023 10:49:24 Influenza, high-dose, quadrivalent, PF 4 completed Sayda Borjas [facility] 12/07/2023 10:49:24 RSV, recombinant, protein subunit RSVpreF, adjuvant reconstituted, 0.5 mL, PF 4 completed Luis Alfredo Ramsey [facility] 01/09/2024 11:30:59 COVID-19, mRNA, LNP-S, PF, 100 mcg/0.5mL dose or 50 mcg/0.25mL dose 1 completed Veronica Stone [facility] 06/13/2022 08:44:52 Pneumococcal conjugate PCV 13 1 completed Veronica Stone [facility] 06/13/2022 08:44:52 COVID-19, mRNA, LNP-S, PF, 100 mcg/0.5mL dose or 50 mcg/0.25mL dose 2 completed Veronica Stone [facility] 06/13/2022 08:44:52 COVID-19 vaccine, vector-nr, rS-Ad26, PF, 0.5 mL 1 completed Veronica Stone [facility] 06/13/2022 08:44:52 Influenza, high-dose, trivalent, PF 0 completed Veronica Stone [facility] 06/13/2022 08:44:52 Influenza, high-dose, trivalent, PF 4 completed JULIANN PIZANO MD [address] [place] [address], [address] [place] [address] 05/26/2024 14:32:15 pneumococcal polysaccharide PPV23 9 completed JULIANN PIZANO MD [address] [place] [address], [address] [place] [address] 08/29/2022 14:39:38 Influenza, split virus, quadrivalent, PF 7 completed JULIANN PIZANO MD [address] [place] [address], [address] [place] [address], [facility] 08/29/2022 14:39:38 influenza, unspecified formulation 2 completed Sayda Borjas [facility] 09/07/2023 16:44:05 COVID-19, mRNA, LNP-S, PF, jamie-sucrose, 30 mcg/0.3 mL 5 completed JULIANN PIZANO MD [address] [place] [address], [address] [place] [address], [facility] 12/12/2024 17:13:08 zoster recombinant 3 completed Luis Alfredo Bourgeois [facility] 02/27/2023 09:41:31 Hep A, adult 8 completed Not Available [facility] 09/07/2019 02:45:53 Influenza, high-dose, trivalent, PF 5 completed Luis Alfredo Coreaser [facility] 06/12/2025 14:37:25 COVID-19, mRNA, LNP-S, PF, jamie-sucrose, 30 mcg/0.3 mL 5 completed Luis Alfredo Ramsey [facility] 06/12/2025 14:37:25 COVID-19, mRNA, LNP-S, bivalent, PF, 30 mcg/0.3 mL dose 3 completed Luis Alfredo Ramsey [facility] 03/24/2023 15:03:47 Influenza, split virus, quadrivalent, PF 8 completed Not Available [facility] 09/07/2019 02:48:52 Past Encounters Encounter ID Performer Location Encounter Start Date Encounter Closed Date Diagnosis/Indication Diagnosis SNOMED-CT Code Diagnosis ICD10 Code Diagnosis IMO Codes Diagnosis Note [id number] CARROL BELLAMY PA-C [facility] [address] [phone] 06/03/2025 13:53:16 06/04/2025 04:17:53 Bilateral osteoarthritis of knees 9146583050 40674 M17.0 Osteoarthr itis of knee 225111871 M17.9 [id number] LUIS ALFREDO SALDAÑA PA-C [facility] [address] [phone] 06/09/2025 14:29:03 06/09/2025 15:58:40 Primary gonarthrosis, bilateral 724047169 M17.0 [id number] Ms. Macdonald is here to discuss treatment [...] She is interested in nerve ablation but unfortshady dawson her insurance does not cover this. Patient [...] t at that time. Patient was agreeable. [id number] JULIANN PIZANO MD [facility] [address] [phone] 06/12/2025 13:44:45 06/12/2025 14:53:29 Vitamin B12 deficiency (non anemic) 72103786 E53.8 Continue B12 injections monthly. Snoring 22234458 R06.83 [id number] - Refer for a sleep study to assess nocturnal breathing patterns and potential sleep apnea. Restless l egs syndrome 23830163 G25.81 [id number] Reassessme nt scheduled for next month with sleep specialist . Continue current management until then. - Order ferritin level as low levels might contribute to symptoms. - Consider melatonin supplement ation as supportive therapy. Primary go narthrosis, bilateral [id number] M17.0 [id number] Instruct to continue use of analgesic creams [...] response and knee pain management . Dyslipidemia 702704996 E 78.5 Intolerant to atorvastat in and [...] side effects causing musculoske letal symptoms. Hypothyroidism 79291710 E03.9 Keep up with thyroid medication and periodic evaluation s. stable/con tinue levothyrox ine - Conduct a TSH test for evaluation due to persistent nocturnal symptoms, though well-maint ained per patient report. Immunization due [id number] 08 Z23 [id number] Covid vaccine today, then hepatitis B vaccine at pharmacy.- Administer COVID-19 and influenza vaccinatio ns during the visit. Health Concerns Section Related Observation LastModified by Organization Detai ls LastModified Time None Recorded Concern Status LastModified by Organization Details LastModified Time None Recorded Payers Encounter Date Sequence Insurance Name Policy Number Policy Walter Covered Member ID Walter Member ID Guarantor Name 06/12/2025 1 [place] ARIANE RAMACHANDRAN OF [employer] - MED[employer] PLUS (MEDICARE REPLACEMENT HMO) [id number] Torres [id number] 31 January C Torres Notes Date Note Type Note Provider Name and Address Organization Details Recorded Time 06/12/2025 text/html ROS as noted in the HPI Pt presents today for 6 mo recheck, B12 injection. Agrees to flu vaccination and any other vaccinations needed. No acute issues. 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 The patient is a 69-year-old female presenting [...] note prior to signature. JULIANN PIZANO MD [address] [place] [address], [phone], [facility] 06/12/2025 14:38:24 OBGyn Episode No OBEpisode recorded.
--- OUTSIDE RECORDS SUMMARY | 2025-08-17 15:40 | XMS_ITS | Encounter Summary ---
Author Organization [employer] ([place], [place], [place], [place], [place]) Address [address] [place] [address] Care Team Providers Care Resawyer Name Role Phone Unavailable Primary Care Provider Unavailabl e Encounter Details Date Type Department Care Team (Late st Contact Info) Description 03/03/2021 Transcribed Document [facility] Family Medicine [facility] [place] [address] ProviderHector MD [address] [place] [address] Social History Tobacco Use Types Packs/Day Years Used Date Smoking Tobacco: Never Assessed Comments Unknown Sex and Gender Information Value Date Recorded Sex Assigned at Female 02/15/2022 1:40 PM CDT Legal Sex Female 1:40 PM CDT Gender Identity Female 02/15/2022 1:40 PM CDT Sexual Orientation Not on file documented as of this encounter Miscellaneous Notes * Cerner Conversion Note - Hector Vaughan MD - 03/03/2021 4:23 [place] [address] MICHELLE VOSS :1955 Visit Time:03/03/2021 What to do next Your Diagnosis Stress incontinence (female) (male), Stress incontinence (female) (male) Instructions From Your Care Team Nothing vaginally until seen by doctor at follow up appointment Medications have been escribed to your pharmacy Resume diet as tolerated Follow-Up Appointments Follow Up with Angie PULLIAM MD-OBG When Comments Keep already scheduled follow up appointment Where: [place] [address]- Medications What How Much When Instructions Next Dose meloxicam 15 Milligram(s) Every Day levothyroxine 88 Microgram(s) Oral Every Day Take your medications faithfully. Do NOT skip medication. Do NOT stop taking medications without the direction of a physician. Carry a list of your medications with you at all times, and take this medication list with you to your first follow up visit. Report any side effects. Avoid herbal remedies unless discussed with your physician. As part of your treatment plan, your physician may have prescribed a limited course of a controlled substance. This medication may be given to help people with moderate or severe pain or for other medical conditions, but there are risks involved with treatment. Common side effects may include nausea, constipation, drowsiness, sweating, itching, dry mouth, and rash. More serious side effects may include cognitive and motor impairment, like problems with thinking, concentrating, alertness, and movement (e.g. slowed reflexes), and driving and operating heavy machinery can be dangerous. It is important for you to talk to your physician if you have these side effects or questions. These controlled substances can produce physical dependence and be habit-forming if taken for an extended period of time, which means that the body has gotten used to them and may experience withdrawal symptoms if they are abruptly stopped. Withdrawal symptoms can include runny nose, sweating, goose bumps, diarrhea, abdominal cramping, rapid heartbeat, difficulty sleeping, and nervousness. Please dispose of unused and medications per pharmacy guidance. Education Materials Urethral Vaginal Sling, Care After This sheet gives you information about how to care for yourself after your procedure. Your health care provider may also give you more specific instructions. If you have problems or questions, contact your health care provider. What can I expect after the procedure? After the procedure: ??? It is common to have some abdominal pain. Your health care provider will give you pain medicines for this. ??? You may also have a gauze packing in the vagina to prevent bleeding. This will be removed in 1???2 days. Follow these instructions at home: Incision care ??? Follow instructions from your health care provider about how to take care of your abdominal incision. Make sure you: ? Wash your hands with soap and water before you change your bandage (dressing). If soap and water are not available, use hand optical goods drill operator. ? Change your dressing as told by your health care provider. ? Leave stitches (sutures), skin glue, or adhesive strips in place. These skin closures may need to stay in place for 2 weeks or longer. If adhesive strip edges start to loosen and curl up, you may trim the loose edges. Do not remove adhesive strips completely unless your health care provider tells you to do that. ??? Check your incision area every day for signs of infection. Check for: ? Redness, swelling, or pain. ? Fluid or blood. ? Warmth. ? Pus or a bad smell. Activity ??? Get plenty of rest. ??? Limit exercise and activities as told by your health care provider. ??? Do not lift anything that is heavier than 5 pounds (2.3 kg) until your health care provider says that it is safe. ??? Do not douche, use tampons, or have sexual intercourse for 6 weeks after your procedure or as told by your health care provider. ??? Do not drive or use heavy machinery while taking prescription pain medicine. ??? Return to your normal activities as told by your health care provider. Ask your health care provider what activities are safe for you. General instructions ??? If you have a urinary catheter in place, follow instructions from your health care provider about how to empty the catheter bag. ??? Do not take baths, swim, or use a hot tub until your health care provider approves. Ask your health care provider if you may take showers. You may only be allowed to take sponge baths. ??? Take nrij-rdf-lcqigmv and prescription medicines only as told by your health care provider. Do not take aspirin because it can cause bleeding. ??? Do not use any products that contain nicotine or tobacco, such as cigarettes and e-cigarettes. These can delay bone healing. If you need help quitting, ask your health care provider. ??? You may resume your usual diet. Eat a well-balanced diet. ??? To prevent or treat constipation while you are taking prescription pain medicine, your health care provider may recommend that you: ? Drink enough fluid to keep your urine pale yellow. ? Take wtfu-rec-iftlctc or prescription medicines. ? Eat foods that are high in fiber, such as fresh fruits and vegetables, whole grains, and beans. ? Limit foods that are high in fat and processed sugars, such as fried and sweet foods. ??? Avoid straining when having a bowel movement. ??? Keep all follow-up visits as told by your health care provider. This is important. Contact a health care provider if: ??? You have a heavy or bad smelling vaginal discharge. ??? You have bruising in the vaginal area. ??? You have pain that is not controlled with medicines. ??? Your incision feels warm to the touch. ??? You have redness, swelling, or pain around your incision. ??? You have pus or a bad smell coming from your incision. ??? You have fluid or blood coming from your incision. ??? You feel faint or light-headed. ??? You have a rash. Get help right away if: ??? You have a fever. ??? You faint. ??? You have shortness of breath. ??? You have chest, abdominal, or leg pain. ??? You have pain when urinating or cannot urinate. ??? Your catheter is still in your bladder and it becomes blocked. ??? You have vaginal bleeding. ??? You have swelling, redness, and pain in the vaginal area. Summary ??? After the procedure, it is common to have some abdominal pain. Your health care provider will give you pain medicines for this. ??? Follow instructions from your health care provider about how to take care of your incision. ??? Limit exercise and activities as told by your health care provider. ??? Contact your health care provider if you have any signs of infection after your surgery. This information is not intended to replace advice given to you by your health care provider. Make sure you discuss any questions you have with your health care provider. Document Revised: 07/20/2018 Document Reviewed: 11/15/2017 [employer] Patient Education ?? 2020 [employer] General Anesthesia, Adult, Care After This sheet gives you information about how to care for yourself after your procedure. Your health care provider may also give you more specific instructions. If you have problems or questions, contact your health care provider. What can I expect after the procedure? After the procedure, the following side effects are common: ??? Pain or discomfort at the IV site. ??? Nausea. ??? Vomiting. ??? Sore throat. ??? Trouble concentrating. ??? Feeling cold or chills. ??? Weak or tired. ??? Sleepiness and fatigue. ??? Soreness and body aches. These side effects can affect parts of the body that were not involved in surgery. Follow these instructions at home: For at least 24 hours after the procedure: ??? Have a responsible adult stay with you. It is important to have someone help care for you until you are awake and alert. ??? Rest as needed. ??? Do not: ? Participate in activities in which you could fall or become injured. ? Drive. ? Use heavy machinery. ? Drink alcohol. ? Take sleeping pills or medicines that cause drowsiness. ? Make important decisions or sign legal documents. ? Take care of children on your own. Eating and drinking ??? Follow any instructions from your health care provider about eating or drinking restrictions. ??? When you feel hungry, start by eating small amounts of foods that are soft and easy to digest (bland), such as toast. Gradually return to your regular diet. ??? Drink enough fluid to keep your urine pale yellow. ??? If you vomit, rehydrate by drinking water, juice, or clear broth. General instructions ??? If you have sleep apnea, surgery and certain medicines can increase your risk for breathing problems. Follow instructions from your health care provider about wearing your sleep device: ? Anytime you are sleeping, including during daytime naps. ? While taking prescription pain medicines, sleeping medicines, or medicines that make you drowsy. ??? Return to your normal activities as told by your health care provider. Ask your health care provider what activities are safe for you. ??? Take bzaz-sng-huyrtba and prescription medicines only as told by your health care provider. ??? If you smoke, do not smoke without supervision. ??? Keep all follow-up visits as told by your health care provider. This is important. Contact a health care provider if: ??? You have nausea or vomiting that does not get better with medicine. ??? You cannot eat or drink without vomiting. ??? You have pain that does not get better with medicine. ??? You are unable to pass urine. ??? You develop a skin rash. ??? You have a fever. ??? You have redness around your IV site that gets worse. Get help right away if: ??? You have difficulty breathing. ??? You have chest pain. ??? You have blood in your urine or stool, or you vomit blood. Summary ??? After the procedure, it is common to have a sore throat or nausea. It is also common to feel tired. ??? Have a responsible adult stay with you for the first 24 hours after general anesthesia. It is important to have someone help care for you until you are awake and alert. ??? When you feel hungry, start by eating small amounts of foods that are soft and easy to digest (bland), such as toast. Gradually return to your regular diet. ??? Drink enough fluid to keep your urine pale yellow. ??? Return to your normal activities as told by your health care provider. Ask your health care provider what activities are safe for you. This information is not intended to replace advice given to you by your health care provider. Make sure you discuss any questions you have with your health care provider. Document Revised: 08/10/2018 Document Reviewed: 03/23/2018 [employer] Patient Education ?? 2020 [employer]. Emergency Awareness and Preventative Care STROKE is an EMERGENCY Every Minute Counts Act FAST and Check for these signs: FACE Does the face look uneven? ARM Does one arm drift down? SPEECH Does their speech sound strange? TIME Call at any sign of stroke Stroke Risk Factors Atrial Fibrillation (irregular heartbeat) Diabetes Family history of stroke Heart Disease Heavy alcohol use High Blood Pressure High Cholesterol Physical inactivity and obesity Smoking Cigarette Smoking The facts are clear, cigarette smoking will shorten your life. Smoking can cause many illnesses along the way. As a healthcare provider, we recommend that you stop smoking. Assistance with quitting is available by contacting 8-675-GCDG-NOW. This is a free resource providing counseling, support, and referral. Or you may contact your personal physician. National Suicide Prevention Lifeline: The National Suicide Prevention Lifeline is a national network of local crisis centers that provides free and confidential emotional support to people in suicidal crisis or emotional distress 24 hours a day, 7 days a week. Don't Wait! Stop a Heart Attack Before it Starts What is a heart attack? A heart attack is damage or to a part of the heart from severely decreased or lack of blood flow to the heart. Over time, arteries can become narrow from the buildup of fat and cholesterol, which is called plaque. The plaque can rupture causing a blood clot to form. When the blood clot forms, the artery can become severely narrowed or completely blocked, causing a heart attack. Heart attack is the leading cause of in the [place]. 85% of muscle damage occurs within the first 2 hours. Delay in the recognition of heart attack symptoms increases the chances of . Know the early symptoms of a heart attack: Nausea Feeling of fullness in chest Jaw Pain Pain that travels down one or both arms Fatigue/being tired Anxiety Back Pain Chest pressure, squeezing, or discomfort Shortness of breath Sweating, or a cold sweat Feeling of impending doom There are unusual signs of a heart attack, too! Women, the elderly, and diabetics may present with atypical symptoms: Fainting/dizziness Weakness Confusion Risk Factors for a Heart Attack Some heart disease risk factors, such as age and family history, cannot be changed. Others, like smoking and lack of exercise, can be changed. Smoking High Cholesterol High Blood Pressure Family History Obesity Age Gender (Males are at higher risk) Lack of Exercise Diabetes Diet Stress Excessive Alcohol Intake If you or someone you know is experiencing the signs and symptoms of a heart attack, DON???T DELAY. Call immediately and seek help. If someone collapses, perform CPR! Do not attempt to drive if you are having symptoms of heart attack. Hands-Only CPR Why Hands-Only CPR? Hands-Only CPR has been shown to be as effective as conventional CPR for cardiac arrests that occur outside of a hospital. Survival depends on immediately receiving CPR from someone nearby. How do you perform Hands-Only CPR? There are two easy steps: Call if you see a teen or adult collapse Push hard and fast in the center of the chest at a beat of 100 beats per minute. Save a life! 4 WAYS TO GET AHEAD OF SEPSIS SEPSIS is a MEDICAL EMERGENCY. Time matters! Infections put you and your family at risk for a life-threatening condition called sepsis. Sepsis is the body's extreme response to an infection. It is life-threatening, and without timely treatment, sepsis can rapidly lead to tissue damage, organ failure, and . Sepsis happens when an infection you already have-in your skin, lungs, urinary tract or somewhere else-triggers a chain reaction throughout your body. 1 PREVENT INFECTIONS Take good care of chronic conditions. Talk to your doctor about getting the recommended vaccines. 2 PRACTICE GOOD HYGIENE Wash your hands frequently. Keep cuts or open sores clean and covered until they are healed. 3 KNOW THE SYMPTOMS Confusion or disorientation Shortness of breath High heart rate Fever, shivering, or feeling very cold Extreme pain or discomfort Clammy or sweaty skin 4 ACT FAST Get medical care IMMEDIATELY if you suspect sepsis or if you have an infection that is not getting better or is getting worse. To learn more about sepsis and how to prevent infections, visit www.cdc.gov/sepsis. Test Results Laboratory or Other Results This Visit (last charted value for your 03/03/2021 visit) Hematology 03/01/2021 12:14 PM WBC: 5.4 K/uL -- Normal range between ( 3.9 and 10.0 ) RBC: 3.90 Million/uL -- Normal range between ( 3.93 and 5.22 ) Hct: 37.3 % -- Normal range between ( 34.1 and 44.9 ) Hgb: 12.2 Gram/dL -- Normal range between ( 11.2 and 15.7 ) Platelet Count: 245 K/uL -- Normal range between ( 163 and 369 ) MCH: 31.3 pg -- Normal range between ( 25.6 and 32.2 ) MCHC: 32.7 Gram/dL -- Normal range between ( 32.3 and 36.5 ) MCV: 95.6 fL -- Normal range between ( 79.0 and 94.8 ) Slide Review: No RDW: 12.6 % -- Normal range between ( 11.6 and 14.4 ) MPV: 10.9 fL -- Normal range between ( 9.4 and 12.4 ) Microbiology 03/01/2021 11:35 AM SARS-CoV-2 (COVID19 PCR): Negative General Chemistry 03/01/2021 12:14 PM Potassium Level: 4.8 mmol/L -- Normal range between ( 3.5 and 5.1 ) Patient Name:MICHELLE VOSS I have received this information and was given the opportunity to ask questions. Patient/Oracle Business Analyst Name: Patient/Oracle Business Analyst Signature: Relationship to Patient: Clinician/Hospital Oracle Business Analyst Signature: Date: documented in this encounter Plan of Treatment Not on file documented as of this encounter Visit Diagnoses Not on filedocumented in this encounter
--- OUTSIDE RECORDS SUMMARY | 2025-08-17 15:40 | XMS_ITS | Encounter Summary ---
Author Organization [employer] ([place], [place], [place], [place], [place]) Address [address] [place] [address] Care Team Providers Care Sales Representative Livestock Name Role Phone Unavailable Primary Care Provider Unavailabl e Encounter Details Date Type Department Care Team (Late st Contact Info) Description 03/03/2021 Transcribed Document [facility] Family Medicine [facility] [address] ProviderHector MD [facility] [address] Social History Tobacco Use Types Packs/Day Years Used Date Smoking Tobacco: Never Assessed Comments Unknown Sex and Gender Information Value Date Recorded Sex Assigned at Female 02/15/2022 1:40 PM CDT Legal Sex Female 1:40 PM CDT Gender Identity Female 02/15/2022 1:40 PM CDT Sexual Orientation Not on file documented as of this encounter Miscellaneous Notes * Cerner Conversion Note - Hector ProviderMD - 03/03/2021 3:06 PM CDT [facility] PostOp Summary Primary Physician: Angie PULLIAM MD-[facility] Finalized Date/Time: 03/03/21 16:41:07 Pt. Name: MICHELLE VOSS /Sex: 1955 Female Med Rec #: [id number] Physician: Angie PULLIAM MD-OBG Financial #: [id number] Pt. Type: O Room/Bed: [facility] Admit/Disch: 03/03/21 04:56:00 - Institution: [facility] Post[facility] Case Times Entry 1 In PACU II 03/03/21 16:11:00 Ready for PACU II 03/03/21 16:32:00 Discharge Discharge from PACU 03/03/21 16:32:00 II Last Modified By: NEIL WELCH RN 03/03/21 16:41:05 Finalized By: NEIL WELCH, KATHY Document Signatures Signed By: NEIL WELCH RN 03/03/21 16:41 Electronically signed by [facility] Conversion Coal Mill Operator Cerner at 12/07/2022 8:26 PM CDT documented in this encounter Plan of Treatment Not on file documented as of this encounter Visit Diagnoses Not on filedocumented in this encounter
--- OUTSIDE RECORDS SUMMARY | 2025-08-17 15:40 | XMS_ITS | Continuity of Care Document ---
Author Organization [facility], ORTHOPEDICS [address] [place] [address] Care Team Providers Care Wagon Driller Name Role Phone JULIANN PIZANO Primary Care Provider [phone] YOMI KELLER Orthopedic Surgeon [phone] Assessment No assessment recorded. Plan of Treatment [...] instructions recorded. Reason for Referral None Reported. Results Created Date Observation Date Name Description Value Unit Range Abnormal Flag Note LastModifiedBy Organization Detail LastModifiedTime 06/10/20 25 06/09/2025 XR, knee, 4 or more view [facility] [address] [facility] [place], [place] [id number] [phone] Patiterry t Name: MICHELLE ni : 1954 Pk ni [...] Shiva Andrea MD on 2024 8:48 AM [id number] [facility] Radiology [address] [place], [address], 06/10/2025 09:39:21 Result Notes None recorded. Problems Name Problem SNOMED Code Status Onset Date Resolution Date Notes Provider Name and Address Organization Details Recorded Time Lack of energy 340853203 Completed 201502/07/2018 From Automate d Load;Pro vider: Juliann Pizano;Sta tus: Active JULIANN PIZANO MD [address] [place] [address], [address] [place] [address] , [facility] 8 13:33:48 Finding of appearan ce of skin Completed 201502/07/2018 From Automate d Load;Pro vider: Juliann Pizano;Sta tus: Active JULIANN PIZANO MD [address] [place] [address], [address] [place] [address] 8 13:33:45 Hypothyr oidism 61706337 Active 2015 From Automate d Load;Pro vider: Juliann Pizano;Sta tus: Active JULIANN PIZANO MD [address] [place] [address], [address] [place] [address] , [facility] 3 14:38:44 Tinnitus 43298674 Active 2015 From Automate d Load;Pro vider: Juliann Pizano;Sta tus: Active Not Available [facility] 2 07:32:58 Fibrocys tic disease of breast 52618160 Active 2017 Not Available [facility] 2 07:32:58 Divertic ular disease of colon 536410015 Active 2017 Not Available [facility] 2 07:32:58 Hearing loss 51846156 Active 2017 Not Available [facility] 2 07:32:58 Displace ment of lumbar interver tebral disc without myelopat hy 07533991 Active 2017 JULIANN PIZANO MD [address] [place] [address], [address] , [facility] 3 14:38:27 Osteoart hritis of knee 506813721 Active 2018 Not Available [facility] 2 07:32:58 Alopecia 97032645 Active 2019 Not Available [facility] 2 07:32:58 Hyperlip idemia 95885972 Active 2019 LDL>190 JULIANN PIZANO MD [address] [place] [address], [address] , [facility] 3 22:05:06 Vitamin B12 deficien cy (non anemic) 09203859 Active 2020 JULIANN PIZANO MD [address] [place] [address], [address] [place] [address] , [facility] 3 14:38:51 Atherosc lerosis of aorta 01317388 Active 2022 JULIANN PIZANO MD [address] [place] [address], [address] [place] [address] , [facility] 3 14:51:55 Cystitis 97387507 Active 2022 KERRIE SLATER PA-C [address] [place] [address], [address] [place] [address] , [facility] 3 10:32:11 Bilatera l osteoart hritis of knees 13786410811 9107 Active 2022 JULIANN PIZANO MD [address] [place] [address], [address] , [facility] 3 10:32:14 Pain of right temporom andibula r joint 96029971934 858065 Active 2022 JULIANN PIZANO MD [address] [place] [address], [address] , [facility] 3 10:33:46 Body mass index 25-29 - overweig ht 299906019 Active 2023 JULIANN PIZANO MD [address] [place] [address], [address] , [facility] 4 09:58:29 Dyslipid emia 872142170 Active 2023 JULIANN PIZANO MD [address] [place] [address], [address] , [facility] 4 10:13:07 Ischial bursitis 768904643 Active 2023 JULIANN PIZANO MD [address] [place] [address], [address] , [facility] 4 10:42:24 Lumbar radiculo wendy 637396943 Active 2024 JULIANN PIZANO MD [address] [place] [address], [address] , [facility] 5 11:31:09 Primary gonarthr osis, bilatera l 495101062 Active 2024 JULIANN PIZANO MD [address] [place] [address], [address] , [facility] 5 14:24:04 Acute frontal sinusiti s 13072390 Active 2024 KERRIE SLATER PA-C [address] [place], [address] , [facility] 5 11:58:13 Acute cough Active 2024 KERRIE SLATER PA-C [address] [place], [address] , [facility] 5 12:02:22 Problem Notes None recorded. Procedures Surgical History Date Name Laterality Status Provider Name and Address Organization Details Recorded Time 025 Joint Injection, [place] [address] [place] [address], [address], [facility] 05/08/2025 12:43:39 025 Joint Injection, Knee - Barb completed YOUNG DAY MD [address] [place], [address], [facility] 01/28/2025 16:06:18 025 Joint Injection, Knee - Barb completed YOUNG DAY MD [address] [place], [address], [facility] 10/22/2024 12:43:32 024 Injection - Joint/Bursa, Major completed Vicki Rai [facility] 07/15/2024 10:48:22 024 Injection - Joint/Bursa, Major completed Spenser Tijerina [facility] 04/12/2024 15:30:21 024 Injection - Joint/Bursa, Major completed [place] Sellers [place] [facility] 01/10/2024 15:32:45 024 Injection - Joint/Bursa, Major completed Quinten Rizo [facility] 10/16/2023 15:30:00 024 Injection - Joint/Bursa, Major completed Lisa SWANN PA-C [address] [place], [address], [facility] 10/13/2023 11:11:57 024 Injection - Joint/Bursa, Major cancelled [place] Sellers [place] [facility] 09/05/2023 08:39:03 023 Euflexxa Injection completed Rashad Welsh [facility] 08/16/2023 08:58:43 023 Euflexxa Injection completed Quinten Rizo [facility] 08/09/2023 09:16:07 023 Euflexxa Injection completed Rashad Welsh [facility] 08/02/2023 08:54:42 023 Injection - Joint/Bursa, Major completed [place] Sellers [place] [facility] 06/21/2023 08:22:13 023 Injection - Joint/Bursa, Major completed [place] Sellers [place] [facility] 06/19/2023 14:59:56 023 DXA Normal completed JONAH HOWARD MD [address] [place], [address], [place] [facility] 03/30/2023 12:31:04 023 Injection - Joint/Bursa, [...] Joint/Bursa, Major completed Vicki Rai [place] [facility] 03/02/2022 09:13:27 022 Injection - Joint/Bursa, [...] suprapubic sling completed JULIANN PIZANO MD [address] [place], [address], [facility] 12/07/2023 10:17:40 021 Injection - Joint/Bursa, Major completed [place] [facility] 02/10/2021 08:25:13 021 Injection - Joint/Bursa, Major completed Vicki Rai [facility] 02/03/2021 08:07:56 021 Injection - Joint/Bursa, Major completed [place] [facility] 11/11/2020 08:47:33 021 Injection - Joint/Bursa, Major completed Lisa SWANN PA-C [address] [place], [address], [facility] 11/04/2020 13:58:40 020 Orthotic, HFO, Static Custom completed HEMALATHA BERNARD, OTR/L, CHT [address] [place], [address], [facility] 2020 13:04:03 020 Op Note completed YOUNG GUIDRY MD [address] [place], [address], [facility] 07/27/2020 19:12:28 020 Injection - Joint/Bursa, Interm completed YOUNG GUIDRY MD [address] [place], [address], [facility] 02/25/2020 19:59:39 019 Op Note completed YOUNG GUIDRY MD [address] [place], [address], [facility] 05/13/2019 09:25:23 019 Injection - Trigger Finger, Ortho completed YOUNG GUIDRY MD [address] [place], [address], [facility] 04/05/2019 16:43:35 019 Injection - Carpal Tunnel completed YOUNG GUIDRY MD [address] [place], [address], [facility] 03/15/2019 16:13:35 019 Injection - Joint/Bursa, Major completed Cristine Jeremy [facility] 12/18/2018 15:10:45 019 Injection - Joint/Bursa, Major completed Cristine Luna [facility] 12/11/2018 10:50:07 019 Injection - Joint/Bursa, Interm completed YOUNG GUIDRY MD [address] [place], [address], [facility] 09/20/2018 17:43:12 019 Electromyography (EMG) with Nerve Conduction Study (NCV) completed Luz Maria Pizano (Nicky) [facility] 09/20/2018 13:42:03 019 Injection - Joint/Bursa, Major completed Lisa SWANN PA-C [address] [place], [address], [facility] 09/05/2018 15:07:17 018 Injection - Joint/Bursa, Interm completed YOUNG GUIDRY MD [address] [place] [address], [address], [facility] 07/04/2018 12:19:03 Hand tendon/muscle transfer completed JULIANN PIZANO MD [address] [place] [address], [address], [facility] 01/05/2017 11:59:57 Cataract Surgery completed JULIANN PARKS MD [address] [place] [address], [address], [facility] 08/29/2022 14:55:26 Appendectomy completed JULIANN PIZANO MD [address] [place] [address], [address], [facility] 10/13/2016 08:25:37 Imaging Results None recorded. [...] MOUTH DAILY 08/28 completed No longer taking 12/10/24 Not Available Not Available Not Available benzonata [...] tablet Not Available Not Available Not Available [place] 5 mg-325 mg tablet TAKE 1 TAB [...] qhs;Alt Frequenc y: prn;Medi cation Descript ion: cyclobeolivia zaprine; Dosage:1 ; Route:or al; refills: 0; [...] Updated DateTime 06/09/2025 160.02 cm 26.6 kg/m2 04583.86 g 6 [employer] [facility] 06/09/2025 15:32:20 Social History Question Answer Notes LastModified by Organizat ion Details LastModified Time Tobacco Smoking Status Never Smoker JULIANN PIZANO MD [address] [place], [address], [facility] 01/05/2017 08:07:38 What Is Your Level Of Caffeine Consumption? Occasional Information not available 06/08/2017 How Much Tobacco Do You Chew? None [email or web address] Information not available 03/07/2019 Which Of Your Hands Is Dominant? Right Information not available 06/08/2017 Marital Status Informatio n not available 06/08/2017 What Was The Date Of Your Most Recent Tobacco Screening? 07/11/2025 [email or web address] Information not available 07/11/2025 What Is Your Relationship Status? [email or web address] Information not available 09/07/2023 How Much Tobacco Do You Smoke? No Information not available 04/24/2019 Has Tobacco Cessation Counseling Been Provided? No [email or web address] Information not available 10/18/2023 Sex: Female Functional Status Question Answer Note LastModified by Organizat ion Details LastModified Time Do you use any illicit or recreational drugs? No Information not available 06/08/2017 Do you or have you ever used any other forms of tobacco or nicotine? No [email or web address] Information not available 10/18/2023 What is your [...] available 08:25:23 Mother History of multiple myeloma [email or web address] Not available 07/30 11:06:48 Notes:NO FAMILY HX OF MM Medical History Condition Response Coronary Artery Disease N Other N Gout N Atrial Fibrillation N Kidney Stones N Hyperthyroidism N Blood Transfusion N Emphysema N Sexually Transmitted Disease N Depression N COPD N Pneumonia N Anxiety Disorder N Muscle, Joint, or Bone Problems Y Vision or Eye Problems N Arthritis Y Infertility N Polyps N Blood Clot N Cancer N Stroke N Varicosities N Neurologic Disorder N Headaches N Fibromyalgia N Endocrine Disorder N Kidney Disease N Heart Problems N Heart Conditions N Ear or Hearing Problems N Hospitalizations N Migraines N Eating Disorder N Skin Problems N Constipation N Meningitis N Ulcers N Rheumatic Fever N Bleeding Disorder N Tuberculosis N Genetic Disorder N AIDS/HIV N Asthma N Thyroid Disorder Y GERD/Reflux N Hepatitis N Included as Review of Systems Y Pulmonary Embolism N Chronic Ear Infections N Chicken Pox N Thrombophilias N Anxiety/Depression N Thyroid Disease Y Hernia N Colon/Rectal Disorders N Glaucoma N Lung Disease N Hypothyroidism Y Breast Problem N Measles N Difficulty Swallowing N Diverticulitis/Diverticulosis Y Anesthesia Complications N Meniere's disease N Varicose Veins N Attempted Suicide N Hearing Loss N Radiation Therapy N Endometriosis N Blood Thinners N Bladder or Kidney Problems N Alcohol Overuse/Alcohol Abuse N High Cholesterol Y Liver Disease N Allergies/Hayfever N Parkinson's Disease N Alzheimer's N Thyroid Problems Y GI Problems N Anemia N Immune System Disorder N Heart Attack (DC) N Mental Illness N Neurological Problems N [...] Recorded Time zoster recombinant 3 completed Sayda Borjas [facility] 12/06/2023 16:19:20 Hep A, adult 9 completed Not Available [facility] 09/07/2019 02:50:37 COVID-19, mRNA, LNP-S, PF, jamie-sucrose, 30 mcg/0.3 mL 4 completed Gem Gilliam [facility] 06/09/2025 14:35:52 Influenza, split virus, quadrivalent, PF 9 completed Not Available [facility] 09/07/2019 02:52:20 Influenza, split virus, quadrivalent, preservative 0 completed Sadya Borjas [facility] 09/07/2023 16:44:05 zoster live 5 completed Sayda Borjas null, [facility] 09/07/2023 16:44:05 DTaP 4 completed Sayda Borjas [facility] 09/07/2023 16:44:05 COVID-19 vaccine, vector-nr, rS-Ad26, PF, 0.5 mL 1 [facility] 16:44:05 Influenza, split virus, quadrivalent, preservative 1 [facility] 16:44:05 Tdap 4 completed Sayda Borjas [facility] 12/07/2023 10:49:24 Influenza, high-dose, quadrivalent, PF 4 completed Sayda Borjas [facility] 12/07/2023 10:49:24 RSV, recombinant, protein subunit RSVpreF, adjuvant reconstituted, 0.5 mL, PF 4 completed Luis Alfredo Ramsey [facility] 01/09/2024 11:30:59 COVID-19, mRNA, LNP-S, PF, 100 mcg/0.5mL dose or 50 mcg/0.25mL dose 1 completed Veronica Stone [facility] 06/13/2022 08:44:52 Pneumococcal conjugate PCV 13 1 completed Veronica Stone [facility] 06/13/2022 08:44:52 COVID-19, mRNA, LNP-S, PF, 100 mcg/0.5mL dose or 50 mcg/0.25mL dose 2 completed Veronica Stone [facility] 06/13/2022 08:44:52 COVID-19 vaccine, vector-nr, rS-Ad26, PF, 0.5 mL 1 completed Veronica Stone [facility] 06/13/2022 08:44:52 Influenza, high-dose, trivalent, PF 0 completed Veronicabethany Stone [facility] 06/13/2022 08:44:52 Influenza, high-dose, trivalent, PF 4 completed JULIANN PIZANO MD [address] [place] [address], [address] [place] [address], [facility] 05/26/2024 14:32:15 pneumococcal polysaccharide PPV23 9 completed JULIANN PIZANO MD [address] [place] [address], [address] [place] [address], [facility] 08/29/2022 14:39:38 Influenza, split virus, quadrivalent, PF 7 completed JULIANN PIZANO MD [address] [place] [address], [address] [place] [address], [facility] 08/29/2022 14:39:38 influenza, unspecified formulation 2 completed Sayda Borjas [facility] 09/07/2023 16:44:05 COVID-19, mRNA, LNP-S, PF, jamie-sucrose, 30 mcg/0.3 mL 5 completed JULIANN PIZANO MD [address] [place] [address], [address] [place] [address], [facility] 12/12/2024 17:13:08 zoster recombinant 3 completed Luis Alfredo Bourgeois [facility] 02/27/2023 09:41:31 Hep A, adult 8 completed Not Available [facility] 09/07/2019 02:45:53 Influenza, high-dose, trivalent, PF 5 completed Luis Alfredo Ramsey [facility] 06/12/2025 14:37:25 COVID-19, mRNA, LNP-S, PF, jamie-sucrose, 30 mcg/0.3 mL 5 completed Luis Alfredo Ramsey [facility] 06/12/2025 14:37:25 COVID-19, mRNA, LNP-S, bivalent, PF, 30 mcg/0.3 mL dose 3 completed Luis Alfredo Ramsey [facility] 03/24/2023 15:03:47 Influenza, split virus, quadrivalent, PF 8 completed Not Available [facility] 09/07/2019 02:48:52 Past Encounters Encounter ID Performer Location Encounter Start Date Encounter Closed Date Diagnosis/Indication Diagnosis SNOMED-CT Code Diagnosis ICD10 Code Diagnosis IMO Codes Diagnosis Note [id number] JULIANN PIZANO MD FAMILY [address] [address] 05/12/2025 13:44:12 05/12/2025 14:11:53 Cobalamin deficiency 306489140 E53.8 31742 [id number] CARROL BELLAMY PA-C PA[facility] MED[facility] [address] [place] [address] 06/03/2025 13:53:16 06/04/2025 04:17:53 Bilateral osteoarthritis of knees 1762054843 82656 M17.0 Osteoarthr itis of knee 503584766 M17.9 [id number] LUIS ALFREDO SALDAÑA PA-C ORTHOPEDI [facility] [address] [place] [id number] 06/09/2025 14:29:03 06/09/2025 15:58:40 Primary gonarthrosis, bilateral 241103631 M17.0 [id number] Ms. Macdonald is here to discuss treatment [...] t at that time. Patient was agreeable. Health Concerns Section Related Observation LastModified by Organization Detai ls LastModified Time None Recorded Concern Status LastModified by Organization Details LastModified Time None Recorded Payers Encounter Date Sequence Insurance Name Policy Number Policy Walter Covered Member ID Walter Member ID Guarantor Name 06/09/2025 1 DUARTE-VIC: ARIANE RAMACHANDRAN OF [place] - MED[employer] (MEDICARE REPLACEMENT HMO) [id number] C Torres [id number] 31 January C Torres Notes Date Note Type Note Provider Name and Address Organization Details Recorded Time 06/09/2025 text/html ROS as noted in the HPI 06/09/25Recheck yomaira knee pain Patient states that she continues [...] 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 She is interested in nerve ablation but unfortunately her insurance does not cover this. 05/08/2025 bilateral Zilretta injection 50% 1 week01/28/2025 Bilateral Zilretta injections with 80% ongoing10/22/2024 Bilateral Zilretta injections with 98% x 3 [id number]/22/2024 intra-articular knee injection (triamcinolone) bilaterally (ortho)04/17/2024 intra-articular knee injection (triamcinolone) bilaterally (ortho)Intra-articu lar hyaluronic acid no relief 04/17/2024il knee CSI 01/17/24Bil Knee CSI 10/18/23Left knee CSI 10/13/23Right knee CSI LUIS ALFREDO SALDAÑA PA-C [address] [place], [address], [facility] 06/09/2025 17:10:43 OBGyn Episode No OBEpisode recorded.
--- OUTSIDE RECORDS SUMMARY | 2025-08-17 15:40 | XMS_ITS | Encounter Summary ---
Author Organization [employer] ([place], [place], [place], [place], [place]) Address [address] [place] [address] Care Team Providers Care Treasury Management Sales Consultant Name Role Phone Unavailable Primary Care Provider Unavailabl e Encounter Details Date Type Department Care Team (Late st Contact Info) Description 03/01/2021 Transcribed Document [facility] [place] [facility] [place] [address] ProviderHector MD [facility] [place] [address] Social History Tobacco Use Types Packs/Day Years Used Date Smoking Tobacco: Never Assessed Comments Unknown Sex and Gender Information Value Date Recorded Sex Assigned at Female 02/15/2022 1:40 PM CDT Legal Sex Female 1:40 PM CDT Gender Identity Female 02/15/2022 1:40 PM CDT Sexual Orientation Not on file documented as of this encounter Miscellaneous Notes * Cerner Conversion Note - Historical ProviderMD - 03/01/2021 12:00 PM CDT PAT Adult Entered On: 03/01/2021 12:03 EDT Performed On: 03/01/2021 12:00 EDT by LAKEISHA PARTIDA RN Vital Measurements Temperature Source : Temporal artery scanning Temperature Mode : Fahrenheit Temperature, Fahrenheit : 98.1 Deg F Clinical Temperature, C : 36.7 Deg C Peripheral Pulse Rate : 82 bpm Respiratory Rate : 18 Breaths/Min Systolic Blood Pressure : 139 mmHg Diastolic Blood Pressure : 75 mmHg Oxygen Saturation : 98 % Oxygen Therapy Mode : Room air LAKEISHA PARTIDA RN - 03/01/2021 12:14 EDT Height and Weight, Clinical Dosing Height Source : Stated Height Entry Format : [place] Height, Feet : 5 ft(Converted to: 152 cm, 60 Inch) Height, Inches : 2 Inch(Converted to: 0 ft 2 Inch, 5.08 cm) Clinical Height : 157.48 cm Weight Source : Standing scale Weight Entry Format : [place] Clinical Dosing Weight : 75.45 kg Weight, Pounds : 166 lb Body Surface Area (BSA) : 1.77 m2 Body Mass Index : 30.4 kg/m2 ([place]) [employer] Body Weight : 50 kg LAKEISHA PARTIDA RN - 03/01/2021 12:00 EDT Health Histories Smoking Status : Never (less than 100 in lifetime; none in last 30 days) Smokeless Tobacco Status : Never LAKEISHA PARTIDA RN - 03/01/2021 12:00 EDT Social History (As Of: 03/01/2021 12:03:26 EDT) Tobacco: Never (less than 100 in lifetime) Smoking Status. (Last Updated: 03/01/2021 12:00:07 EDT by LAKEISHA PARTIDA RN) Alcohol: Alcohol Use History No. (Last Updated: 03/01/2021 12:00:07 EDT by LAKEISHA PARTIDA RN) Substance Abuse: Drug Use Hx: No. (Last Updated: 03/01/2021 12:00:07 EDT by LAKEISHA PARTIDA RN) Infectious Disease History Has the patient ever been tested for COVID-19? : Yes, Patient stated results pending Date of COVID-19 test known? : Yes Date of COVID-19 Test : 03/01/2021 EDT Does patient have symptoms of COVID-19? : No COVID19 Screening : No Experiencing Infectious Disease Symptoms : No symptoms Physical contact outside [place] in the last 30 days : No Infectious Disease History : Chicken pox/Shingles, Measles Tuberculosis Symptoms : None LAKEISHA PARTIDA RN - 03/01/2021 12:00 EDT COVID19 PreProcedure Screening Is this an Emergent or Add on Procedure? : No Date PreProcedure COVID-19 test known? : Yes Date of PreProcedure COVID-19 : 03/01/2021 EDT Has patient been isolated since the test : N/A - PreProcedure, in-person visit Exposed to COVID19 symptoms since test? : N/A - PreProcedure, in-person visit LAKEISHA PARTIDA RN - 03/01/2021 12:00 EDT Anesthesia/Transfusion History Family History of Anesthesia Reaction : No prior transfusion(s) Transfusion History : Prior anesthesia without reaction Family History of Anesthesia Reaction : None LAKEISHA PARTIDA RN - 03/01/2021 12:00 EDT Functional Assessment Functional ADL Evaluation Index EBN Bathing : Independent (2) Dressing : Independent (2) Toileting : Independent (2) Transferring Bed or Chair : Independent (2) Continence : Independent (2) Feeding : Independent (2) LAKEISHA PARTIDA RN - 03/01/2021 12:00 EDT ADL Index Score : 12 LAKEISHA PARTIDA RN - 03/01/2021 12:00 EDT Advance Directive Patient has Advance Directive *Q : No, patient refuses Advance Directive information LAKEISHA PARTIDA RN - 03/01/2021 12:00 EDT [place] Suicide Severity Rating Scale (C-SSRS) CSSRS Past Month Wish to be : No CSSRS Past Month Suicidal Thoughts : No CSSRS Lifetime Suicide Behavior : No Suicide Severity Rating Score : 0 Suicide Severity Rating : No Additional Care Required at this time LAKEISHA PARTIDA RN - 03/01/2021 12:00 EDT Psychosocial History Currently in Unsafe Situation : LAKEISHA Ritter RN - 03/01/2021 12:00 EDT Education Topics, Periop Preadmission Perioperative Education Grid Arrival Time/Place : Verbalizes understanding CHG Preoperative Bathing/Cloths : Verbalizes understanding Infection Control : Verbalizes understanding NPO Status/Directions : Verbalizes understanding Preprocedure Preparations : Verbalizes understanding Preprocedure Tests/Labs : Verbalizes understanding Remove Body Piercings : Verbalizes understanding Responsible Adult : Verbalizes understanding Take/Hold Medications Pre-Procedure : Verbalizes understanding LAKEISHA PARTIDA RN - 03/01/2021 12:00 EDT General Info Want Family/Rep/Phys Notified of Admit : No Emergency Contact #1 : Zahra Emergency Contact #1 Emergency Contact #1 Relationship : spouse Emergency Contact #2 : - Emergency Contact #2 Phone Number : - Emergency Contact #2 Relationship : - Primary Language : [place] Citizen Communication Barrier : None Power Plant Technician Needed : LAKEISHA Ritter RN - 03/01/2021 12:00 EDT Tino Scale Tino Sensory Perception : No impairment Tino Moisture : Rarely moist Tino Activity : Walks frequently Tino Mobility : No limitation Tino Nutrition : Excellent Tino Friction and Shear : No apparent problem Tino Score : 23 LAKEISHA PARTIDA RN - 03/01/2021 12:00 EDT Sleep Apnea Risk Assmt Hx of Obstructive Sleep Apnea Diagnosis : No Snore Loudly : Yes Tired, Fatigued, or Sleepy During Day : No Observed Stopping Breathing During Sleep : No Have/Are Being Treated for Hypertension : No BMI Greater Than 35 kg/m2 : No Age over 50 Years Old : Yes Neck Circumference Greater Than 40 cm : No Gender Male : No STOP-BANG Sleep Apnea Risk Level Score : 2 LAKEISHA PARTIDA RN - 03/01/2021 12:00 EDT documented in this encounter Plan of Treatment Not on file documented as of this encounter Visit Diagnoses Not on filedocumented in this encounter
--- OUTSIDE RECORDS SUMMARY | 2025-08-17 15:40 | XMS_ITS | Clinical Summary ---
[facility] Organization [facility] Address [address] [place] [address] Care Team Providers Care Single Corner Cutter Name Role Phone Juliann Pizano MD Primary Care Provider [phone] Family History Medical History Relation Name Comments Breast cancer Other maternal great aunt Ovarian cancer Neg Hx Relation Name Status Comments Other Social History Tobacco Use Types Packs/Day Years Used Date Smoking Tobacco: Unknown Smokeless Tobacco: Never Alcohol Use Standard Drinks/Week Comments Defer 0 (1 standard drink = 0.6 oz pur e alcohol) Comments No Sex and Gender Information Value Date Recorded Sex Assigned at Not on file Legal Sex Female 1:28 PM EDT Gender Identity Not on file Sexual Orientation Not on file Plan of Treatment Health Maintenance Due Date Last Done Comments COLOGUARD 1999 COLON CANCER SCREENING 5 YEA R SIGMOIDOSCOPY 1999 COLONOSCOPY 1999 COLORECTAL CANCER SCREENING 1999 CT COLONOGRAPHY 1999 FECAL OCCULT BLOOD TEST 1999 FIT Testing (1 year) 1999 PT PLAN OF CARE 11/03/2016 ANNUAL WELLNESS VISIT 11/17/2016 HEPATITIS C SCREENING 11/17/2016 MAMMOGRAM 03/17/2025 03/17/2023, 07/0 12/2022, 01/25/2022, Additional history exists INFLUENZA VACCINE 03/21/2025 05/23/2024, , 05/24/2022, Additional history exists DXA SCAN 03/30/2025 03/30/2023, 01/30/2020 COVID-19 Vaccine (2023-09 5 season) 2025 05/02/2024, 02/27/2023, 02/04/2022, Additional history exists TDAP/TD VACCINES (2 - Td or Tdap) 12/06/2033 024 Pneumococcal Vaccine 50+ Completed 04/09/2021, 07/23 ZOSTER VACCINE Completed 07/10/2023, 11/19, 10/01/2014 Procedures Procedure Name Priority Date/Time Associated Diagnosis Comments MAMMO DIAGNOSTIC DIGITAL TOMOSYNTHESIS RIGHT W CAD Routine 03/17/2023 1:43 PM EDT Abnormal mammogram DEXA BONE DENSITY AXIAL Routine 01/30/2020 1:16 PM EDT Other specified disorders of bone density and structure, multiple sites from Last 3 Months or Most Recently Relevant to Health Maintenance Results * Mammo Diagnostic Digital Tomosynthesis Right With CAD (03/17/2023 1:43 PM EDT) Anatomical Region Laterality Modality Breast Right Mammography 03/17/2023 12:5 9 PM EDT Impressions 03/17/2023 1:00 PM EDT Benign right breast imaging findings. BI-RADS CATEGORY: 2, BENIGN RECOMMENDATION: Recommend the patient resume routine annual screening mammography. CAD was utilized. The standard false-negative rate of mammography is between 10% and 25%. Complex patterns or increased breast density will markedly elevate the false-negative rate of mammography. The patient was notified of the results and recommendations at the time of her visit. Additionally, a letter, in lay terminology, with the results of this exam will be mailed to the patient. This report was finalized on 03/17/2023 2:[address] Aubrie Mancia MD. Narrative 03/17/2023 1:00 PM EDT RIGHT DIAGNOSTIC MAMMOGRAM WITH TOMOSYNTHESIS AND RIGHT BREAST ULTRASOUND CLINICAL INDICATION: 67-year-old patient recalled from recent screening mammogram for further evaluation of the right breast TECHNIQUE: Right MLO and CC focal compression views and a right ML view were obtained using both 2D and tomosynthesis imaging. Focused ultrasound evaluation of the right breast was also performed COMPARISON: 02/22/2023, 01/25/2022, 09/28/2020, 09/18/2019 FINDINGS: Additional mammographic imaging demonstrates a persistent small oval mass in the posterior right 7:00 region. Right breast ultrasound: Focused sonographic evaluation of the right breast demonstrates a 0.7 cm cyst at 7:00, 9 cm from the nipple, which correlates with the area noted mammographically. There are no suspicious sonographic findings in the imaged portion of the right breast Procedure Note Aubrie Mancia MD - 03/05/2024 RIGHT DIAGNOSTIC MAMMOGRAM WITH TOMOSYNTHESIS AND RIGHT BREAST ULTRASOUND CLINICAL INDICATION: 67-year-old patient recalled from recent screening mammogram for further evaluation of the right breast TECHNIQUE: Right MLO and CC focal compression views and a right ML view were obtained using both 2D and tomosynthesis imaging. Focused ultrasound evaluation of the right breast was also performed COMPARISON: 02/22/2023, 01/25/2022, 09/28/2020, 09/18/2019 FINDINGS: Additional mammographic imaging demonstrates a persistent small oval mass in the posterior right 7:00 region. Right breast ultrasound: Focused sonographic evaluation of the right breast demonstrates a 0.7 cm cyst at 7:00, 9 cm from the nipple, which correlates with the area noted mammographically. There are no suspicious sonographic findings in the imaged portion of the right breast IMPRESSION: Benign right breast imaging findings. BI-RADS CATEGORY: 2, BENIGN RECOMMENDATION: Recommend the patient resume routine annual screening mammography. CAD was utilized. The standard false-negative rate of mammography is between 10% and 25%. Complex patterns or increased breast density will markedly elevate the false-negative rate of mammography. The patient was notified of the results and recommendations at the time of her visit. Additionally, a letter, in lay terminology, with the results of this exam will be mailed to the patient. This report was finalized on 03/17/2023 2:[address] Aubrie Mancia MD. us Pamela Agarwal MD IMG MAMMOGRAPHY ORDERABLES Ted lorin Result - Final * DEXA Bone Density Axial (01/30/2020 1:16 PM EDT) Anatomical Region Laterality Modality Wrist, Hip, L-spine N/A Other 01/30/2020 2:31 PM EDT Impressions 01/30/2020 10:49 PM EDT Osteopenia of the left femoral neck. The ten year fracture risk assessment is calculated at 8.9% for major systemic osteoporotic fracture and 1.0% for a hip fracture. Less than 3% risk in the [place] for hip fracture and less than 20% risk of any systemic osteoporotic fracture is considered less than the threshold for where pharmacological therapy is recommended by the National Osteoporosis Foundation. All the treatment decisions require clinical judgment and consideration of individual patient factors, including patient preferences, co-morbidities, previous drug use, risk factors not captured in the FRAX model (frailty, falls, vitamin D deficiency, increased bone turnover, interval significant decline in bone density) and possible under or over estimation of fracture risk by FRAX. Approaches to reduce osteoporosis related fracture risk include optimizing calcium and vitamin D status, appropriate weight bearing exercises and fall-prevention measurements. The National Osteoporosis Foundation recommends (http://www.nof.org/hcp/practice/jrurbiio-bke-rvzcvttn-guidelines/clinic ans-guide) that FDA-approved medical therapies be considered in postmenopausal women and men aged equal or greater than 50 years with : a) hip or vertebral (clinical or morphometric) fracture; b) T-score of -2.5 or less at the spine or hip; c) Ten-year fracture probability by FRAX of greater than 3% for hip fracture of greater than 20% for major osteoporotic fracture. Secondary causes of bone loss should be evaluated if clinically indicated since the etiology of low BMD cannot be determined by BMD measurement alone. FOLLOWUP: Consider repeating the study in 2-3 years to reassess the patient's status or sooner if there is some new clinical indication. INTERVAL CHANGE: There was a decrease in bone mineral density of the L1-L4 vertebrae by 0.7%, and total left hip by 4.9% when compared to previous study performed on 08/08/2012. At this facility, the least significant change in the BMD at the left hip with 95% confidence is 0.384795 gm/cm2 at the hip and 0.173824 g/cm2 at the lumbar spine. This report was finalized on 01/30/2020 10:[address] Mandeep Napoles MD. Narrative 01/30/2020 10:49 PM EDT DUAL-ENERGY X-RAY ABSORPTIOMETRY (DXA) INDICATION: Postmenopausal, screening for osteoporosis COMPARISON: Previous bone mineral density exam performed on 08/08/2012 PROCEDURE: A DXA scan was performed using a Hologic densitometer. The lumbar spine L1-L4 was evaluated as well as left total hip. The T-score compares the patient's bone mineral density with the peak bone mass of young normal patients. According to criteria established by the World Health Organization, patients with T-scores between 1.0 and 2.5 standard deviations BELOW the mean are osteopenic (low bone mass). Patients with T-scores EQUAL TO OR GREATER than 2.5 standard deviations below the mean are osteoporotic. The Z-score compares the patient bone mineral density with age and sex matched peers. According to the International Society for Clinical Densitometry's 2007 consensus conference: In women prior to menopause and men less than age 50, Z-scores, not T-scores are preferred. A Z-score of -2.0 or lower is defined as below the expected range for age and a Z-score above -2.0 is within the expected range for age. The WHO diagnostic criteria may be applied in women in the menopausal transition. Osteoporosis cannot be diagnosed in men under age 50 on the basis of BMD alone. TECHNICAL QUALITY: The study is of good technical quality. RESULTS: Lumbar Spine: The BMD measured in the L1-L4 region is 0.939 g/cm2. The average T-score is -1.0. The Z-score is 0.8. Total Hip: The BMD measured at the left total proximal femur is 0.873 g/cm2. The T-score is -0.6. The Z-score is 0.7. Femoral Neck: The BMD measured at the left femoral neck is 0.672 g/cm2. The T-score is -1.6. The Z-score is -0.1. Procedure Note Luz Maria Martinez PA - 01/30/2020 DUAL-ENERGY X-RAY ABSORPTIOMETRY (DXA) INDICATION: Postmenopausal, screening for osteoporosis COMPARISON: Previous bone mineral density exam performed on 08/08/2012 PROCEDURE: A DXA scan was performed using a Hologic densitometer. The lumbar spine L1-L4 was evaluated as well as left total hip. The T-score compares the patient's bone mineral density with the peak bone mass of young normal patients. According to criteria established by the World Health Organization, patients with T-scores between 1.0 and 2.5 standard deviations BELOW the mean are osteopenic (low bone mass). Patients with T-scores EQUAL TO OR GREATER than 2.5 standard deviations below the mean are osteoporotic. The Z-score compares the patient bone mineral density with age and sex matched peers. According to the International Society for Clinical Densitometry's 2007 consensus conference: In women prior to menopause and men less than age 50, Z-scores, not T-scores are preferred. A Z-score of -2.0 or lower is defined as below the expected range for age and a Z-score above -2.0 is within the expected range for age. The WHO diagnostic criteria may be applied in women in the menopausal transition. Osteoporosis cannot be diagnosed in men under age 50 on the basis of BMD alone. TECHNICAL QUALITY: The study is of good technical quality. RESULTS: Lumbar Spine: The BMD measured in the L1-L4 region is 0.939 g/cm2. The average T-score is -1.0. The Z-score is 0.8. Total Hip: The BMD measured at the left total proximal femur is 0.873 g/cm2. The T-score is -0.6. The Z-score is 0.7. Femoral Neck: The BMD measured at the left femoral neck is 0.672 g/cm2. The T-score is -1.6. The Z-score is -0.1. IMPRESSION: Osteopenia of the left femoral neck. The ten year fracture risk assessment is calculated at 8.9% for major systemic osteoporotic fracture and 1.0% for a hip fracture. Less than 3% risk in the [place] for hip fracture and less than 20% risk of any systemic osteoporotic fracture is considered less than the threshold for where pharmacological therapy is recommended by the National Osteoporosis Foundation. All the treatment decisions require clinical judgment and consideration of individual patient factors, including patient preferences, co-morbidities, previous drug use, risk factors not captured in the FRAX model (frailty, falls, vitamin D deficiency, increased bone turnover, interval significant decline in bone density) and possible under or over estimation of fracture risk by FRAX. Approaches to reduce osteoporosis related fracture risk include optimizing calcium and vitamin D status, appropriate weight bearing exercises and fall-prevention measurements. The National Osteoporosis Foundation recommends (http://www.nof.org/hcp/practice/ndcerxfd-gzu-yayevvtq-guidelines/clinic ans-guide) that FDA-approved medical therapies be considered in postmenopausal women and men aged equal or greater than 50 years with : a) hip or vertebral (clinical or morphometric) fracture; b) T-score of -2.5 or less at the spine or hip; c) Ten-year fracture probability by FRAX of greater than 3% for hip fracture of greater than 20% for major osteoporotic fracture. Secondary causes of bone loss should be evaluated if clinically indicated since the etiology of low BMD cannot be determined by BMD measurement alone. FOLLOWUP: Consider repeating the study in 2-3 years to reassess the patient's status or sooner if there is some new clinical indication. INTERVAL CHANGE: There was a decrease in bone mineral density of the L1-L4 vertebrae by 0.7%, and total left hip by 4.9% when compared to previous study performed on 08/08/2012. At this facility, the least significant change in the BMD at the left hip with 95% confidence is 0.990515 gm/cm2 at the hip and 0.029863 g/cm2 at the lumbar spine. This report was finalized on 01/30/2020 10:[address] Mandeep Napoles MD. Stormy Jolley BRAND SPECIALIST IM DXA ORDERABLES Final R esult from Last 3 Months or Most Recently Relevant to Health Maintenance Insurance [employer]VANT[employer] HMO Care Teams Single Corner Cutter Relationship Specialty Start Date End Date Juliann Pizano MD [address] [place] [address] PCP - General 05/19/15
--- OUTSIDE RECORDS SUMMARY | 2025-08-17 15:40 | XMS_ITS | Clinical Summary ---
Author Organization [facility] ([place], [place], [place], [place], [place]) Address [address] [place] [address] Care Team Providers Care All Terrain Vehicle Technician Name Role Phone Unavailable Primary Care Provider Unavailabl e Social History Tobacco Use Types Packs/Day Years Used Date Smoking Tobacco: Never Assessed Comments Unknown Sex and Gender Information Value Date Recorded Sex Assigned at Female 02/15/2022 1:40 PM CDT Legal Sex Female 1:40 PM CDT Gender Identity Female 02/15/2022 1:40 PM CDT Sexual Orientation Not on file Plan of Treatment Not on file
--- OUTSIDE RECORDS SUMMARY | 2025-08-17 15:40 | XMS_ITS | Referral Summary ---
Author Organization [facility] ([place], [place], [place], [place], [place]) Address [address] [place] [address] Care Team Providers Care Flame Degreaser Name Role Phone Unavailable Primary Care Provider [...]
--- OUTSIDE RECORDS SUMMARY | 2025-08-17 15:40 | XMS_ITS | Encounter Summary ---
Author Organization [employer] ([place], [place], [place], [place], [place]) Address [address] [place] [address] Care Team Providers Care Treating Plant Supervisor Name Role Phone Unavailable Primary Care Provider Unavailabl e Encounter Details Date Type Department Care Team (Late st Contact Info) Description 03/03/2021 Transcribed Document [facility] [place] Medicine [facility] [place] [address] ProviderHector MD [place] [address] Social History Tobacco Use Types Packs/Day Years Used Date Smoking Tobacco: Never Assessed Comments Unknown Sex and Gender Information Value Date Recorded Sex Assigned at Female 02/15/2022 1:40 PM CDT Legal Sex Female 1:40 PM CDT Gender Identity Female 02/15/2022 1:40 PM CDT Sexual Orientation Not on file documented as of this encounter Miscellaneous Notes * Cerner Conversion Note - Hector Provider, - 03/03/2021 3:06 PM CDT [facility] [place] IntraOp Summary Primary Physician: Angie PULLIAM MD-OBG Finalized Date/Time: 03/05/21 09:24:22 Pt. Name: MICHELLE VOSS Lisa /Sex: 1955 Female Med Rec #: [id number] Physician: Angie PULLIAM MD-OBG Financial #: [id number] Pt. Type: O Room/Bed: [facility] Admit/Disch: 03/03/21 04:56:00 - 03/03/21 16:32:00 Institution: [facility] [place]Op Case Attendance Entry 1 Entry 2 Entry 3 Case Attendee Angie PULLIAM Holliday, Stewart R, RN Spohia Dwyer, PREPARATION SUPERVISOR -OBG Role Performed Surgeon/Proceduralist, Police Records Clerk, First Scrub, First First Time In 03/03/21 14:56:00 03/03/21 14:56:00 03/03/21 14:56:00 Time Out 03/03/21 15:21:00 03/03/21 15:21:00 03/03/21 15:07:00 Procedure Vaginal Sling Vaginal Sling Vaginal Sling Procedure, Cystoscopy Procedure, Cystoscopy Procedure, Cystoscopy Adult Adult Adult Other Attendee Superficial Wound Closed By: Last Modified By: Rashid Carrillo, RN Rashid Carrillo, RN Rashid Carrillo, KATHY 03/03/21 15:21:11 03/03/21 15:21:11 03/03/21 15:21:11 Entry 4 Entry 5 Case Attendee ZEN CHUA, LUIS ALFREDO [address] Role Performed PRESS MAINTAINER/Nurse Lathe Hand Scrub, First Time In 03/03/21 14:56:00 03/03/21 15:07:00 Time Out 03/03/21 15:21:00 03/03/21 15:21:00 Procedure Vaginal Sling Vaginal Sling Procedure, Cystoscopy Procedure, Cystoscopy Adult Adult Other Attendee Superficial Wound Closed By: Last Modified By: Rashid Carrillo RN Holliday, Stewart R, KATHY 03/03/21 15:21:11 03/03/21 15:21:11 [facility] IntraOp Case Attendance Audit 03/03/21 15:21:11 Communications Strategist: FELIX Modifier: [email or web address] 1 <+> Time Out 1 <*> Procedure Vaginal Sling Procedure, Cystoscopy Adult 2 <+> Time Out 2 <*> Procedure Vaginal Sling Procedure, Cystoscopy Adult 3 <*> Procedure Vaginal Sling Procedure, Cystoscopy Adult 4 <+> Time Out 4 <*> Procedure Vaginal Sling Procedure, Cystoscopy Adult 5 <+> Time Out 5 <*> Procedure Vaginal Sling Procedure, Cystoscopy Adult 03/03/21 15:07:06 Communications Strategist: FELIX Modifier: [email or web address] 1 <+> Time In 1 <*> Procedure Vaginal Sling Procedure, Cystoscopy Adult 2 <+> Time In 2 <*> Procedure Vaginal Sling Procedure, Cystoscopy Adult 3 <+> Time In 3 <+> Time Out 3 <*> Procedure Vaginal Sling Procedure, Cystoscopy Adult 4 <+> Time In 4 <*> Procedure Vaginal Sling Procedure, Cystoscopy Adult <+> 5 Case Attendee <+> 5 Role Performed <+> 5 Time In <+> 5 Procedure [facility] IntraOp Case Times Entry 1 Patient In Room Time 03/03/21 14:56:00 Out Room Time 03/03/21 15:21:00 Anesthesia Start Time 03/03/21 14:56:00 Stop Time 03/03/21 15:21:00 Anesthesia Ready 03/03/21 14:56:00 Surgery / Procedure Times Start Time 03/03/21 15:06:00 Stop Time 03/03/21 15:17:00 Last Modified By: Rashid Carrillo RN 03/03/21 15:21:10 [facility] IntraOp Case Times Audit 03/03/21 15:21:10 Communications Strategist: DAQUANIDSR Modifier: HOLLIDSR <+> 1 Out Room Time <+> 1 Stop Time 03/03/21 15:18:09 Communications Strategist: DAQUANIDSR Modifier: HOLLIDSR 1 <*> Start Time 03/03/21 15:17:00 03/03/21 15:17:57 Communications Strategist: DAQUANIDSR Modifier: HOLLIDSR <+> 1 Start Time 03/03/21 15:17:36 Communications Strategist: HOLLIDSR Modifier: HOLLIDSR <+> 1 Stop Time [facility] IntraOp Cautery Entry 1 ESU Identification Cautery Type Monopolar ESU ID Number ERBE ID Type Hospital Number Cautery Settings Cut Setting 30 Coag Setting 30 ESU Grounding Pad Ground Pad Type Adult Grounding Pad Rashid Carrillo RN Applied By Grounding Pad Site Intact Skin Condition Before Cautery Grounding Pad Site Unchanged Skin Condition After Cautery Last Modified By: Rsahid Carrillo RN 03/03/21 15:05:20 [facility] IntraOp Counts Verification Entry 1 Procedure Vaginal Sling Procedure, Cystoscopy Adult Count Info Count Type Sponge, Sharps, Miscellaneous Counts Verification Baseline/pre-procedure Sequence Counts Performed By Count Performed By Sophia Dwyer, GAYATRI (Scrub) Count Performed By Rashid Carrillo, RN (RN) Last Modified By: Rashid Carrillo RN 03/03/21 15:06:49 [facility] IntraOp Counts Final Entry 1 Procedure Vaginal Sling Procedure, Cystoscopy Adult Final Count Info Count Type Sponge, Sharps, Miscellaneous Counts Verification Skin Closure/end of Sequence procedure Count Results Correct, surgeon notified Counts Performed By Count Performed By LUIS ALFREDO [address] (Scrub) Count Performed By Rashid Carrillo RN (RN) Last Modified By: Rashid Carrillo RN 03/03/21 15:17:41 [facility] IntraOp Counts Final Audit 03/03/21 15:17:41 Communications Strategist: FELIX Modifier: FELIX 1 <*> Procedure Vaginal Sling Procedure [facility] IntraOp Departure from OR Entry 1 Integumentary Assessment Integumentary WDL Assessment WDL Transfer/Handoff Transfer to PACU Phase I Post-op Transport Stretcher/Gurney Via Patient Transport ZEN CHUA, Accompanied by Gerardo ACEVES Stewart R, RN Last Modified By: Rashid Carrillo RN 03/03/21 14:59:50 [facility] IntraOp Fire Risk Assessment Entry 1 Fire Info Surgical Site or 0- No Incision Above the Xyphoid Open O2 Source 0- No (Mask or Cannula) Available Ignition 1- Yes (ESU, Laser, Light Source) Fire Risk 1 Assessment Score Fire Score Fire Risk Yes Assessment Complete Fire Risk Rashid Carrillo, tactical air control party Verified By Fire Risk 03/03/21 14:47:00 Assessment Verified Date/Time Fire Risk High Risk Protocol Yes Implemented Standard Fire Yes Safety Precautions Followed Last Modified By: Rashid Carrillo, RN 03/03/21 14:56:09 [facility] IntraOp Fire Risk Assessment Audit 03/03/21 14:56:09 Communications Strategist: FELIX Modifier: FELIX <+> 1 Fire Risk Assessment Verified Date/Time [facility] IntraOp General Case Cashier Supervisor 1 Case Information OR OR 07 SJE Case Level 1 Room Verified Yes Wound Class II - Clean-Contaminated Specialty Gynecology Anesthesia Type General ASA Class 3 Diagnosis Preop Diagnosis urinary incontinence Postop Diagnosis refer to MD notes Last Modified By: Rashid Carrillo RN 03/03/21 15:06:05 [facility] IntraOp General Case Data Audit 03/03/21 15:06:05 Communications Strategist: FELIX Modifier: FELIX <+> 1 ASA Class <+> 1 Anesthesia Type <+> 1 Preop Diagnosis <+> 1 Postop Diagnosis <+> 1 Room Verified [facility] IntraOp Implant Log Entry 1 Type Implant (Synthetic) Implant Log Implant Type Mesh Implant SLING SOLYX SIS Identification [id number] Description Implant Quantity 1 Implant [id number] Identification Lot Number Implant Brooks Identification Sci:Urology/Gynecology Weight Control Lecturer Name: Implant [id number] Identification Catalog Number Implant Has an Yes Expiration Date Implant Expiration 01/26/24 Date Tissue Implant Last Modified By: Rashid Carrillo RN 03/03/21 15:08:33 [facility] IntraOp Intraoperative Assessment Entry 1 Valid History / Yes Physical in Chart Preoperative Yes Checklist Reviewed/Evaluated Allergies Reviewed Yes Patient is Latex No Sensitive Level of WDL Consciousness (WDL = Alert, Oriented to Person, Place, and Time) Skin Assessment Yes Verified Present Upon IVs Arrival to OR Last Modified By: Rashid Carrillo RN 03/03/21 15:05:06 [facility] IntraOp Intraoperative Equipment Entry 1 Type Equipment Equipment Equipment Other Intraop Monitoring Electrocardiogram Three lead placement (ECG) Electrode Placement Blood Pressure Non-Invasive BP Device Source Blood Pressure Arm, left upper Location Pulse Oximeter Hand, right Probe Site Antiembolic Devices Antiembolic Devices Sequential compression device, knee high Antiembolic Device Bilateral Location Scopes Photo/Video Documentation Photo No Video No Last Modified By: Rashid Carrillo RN 03/03/21 15:05:14 [facility] IntraOp Medication Admin Entry 1 Medication/Irrigant Marcaine 0.5% w/ epinephrine 1:200,000 30ml vial - [id number] Dose Administered By Angie PULLIAM MD-OBG Procedure Irrigation Last Modified By: Rashid Carrillo RN 03/03/21 15:05:36 [facility] IntraOp Patient Positioning Entry 1 Procedure Vaginal Sling Procedure Body Position Lithotomy Left Arm Position Secured on padded arm board Right Arm Position Secured on padded arm board Left Leg Position Secured in Leg Walter Right Leg Position Secured in Leg Walter Feet Uncrossed Yes Pressure Points Yes Checked Positioning Devices Arm Board, Stirrups/Leg Walter, Boot Positioned By Rashid Carrillo, RN, Angie PULLIAM MD-OBG Position Verified Positioning Yes Verified by Anesthesia Positioning Yes Verified by Surgeon Last Modified By: Rashid Carrillo RN 03/03/21 15:05:44 [facility] IntraOp Patient Positioning Audit 03/03/21 15:05:44 Communications Strategist: FELIX Modifier: FELIX <+> 1 Procedure S[facility] IntraOp Sign In Entry 1 Patient, Site, Yes Procedure Identified Surgical Consent Yes Confirmed Relevant Surgical Yes Documents Available Surgical Site Yes Marked by person performing procedure Anesthesia Machine Yes Check Completed Medication Checks Yes Completed Airway Difficult No Airway/Aspiration Risk Difficult Yes Airway/Aspiration Intervention Equipment Available Blood Loss Risk Yes Blood Loss Yes Intervention Equipment Prepared and Ready Hypothermia Risk Yes Warming Measures Yes Taken Last Modified By: Rashid Carrillo RN 03/03/21 14:46:40 S[facility] Intra Op Sign Out Entry 1 RN Confirmation Surgical Yes Procedure(s) Identified Instrument, Sponge Yes and Sharps Counts Correct/Documented Equipment Problems Yes Documented Urinary Catheter N/A Documented in IView Carranza Patient Yes Recovery Concerns Reviewed with Anesthesia Provider, Surgeon and RN Carranza Patient Yes Management Concerns Reviewed with Anesthesia Provider, Surgeon and RN Safety Checklist Yes Elements Complete? RN Sign Out Rashid Carrillo, RN Signature RN Sign Out 03/03/21 15:21:00 Signature Date/Time Plan of Care Outcome - Fire Risk OUTCOME STATEMENT: Goal met Patient is free from injury related to surgical fire Plan of Care Outcome - Pt Positioning OUTCOME STATEMENT: Goal met Absence of signs and symptoms of positioning injury. Plan of Care Outcome - Skin Prep OUTCOME STATEMENT: Goal met Intraoperative care is consistent with measures to prevent infection Plan of Care Outcome - Xray/Images OUTCOME STATEMENT: N/A Absence of observable signs or symptoms of radiation injury Plan of Care Outcome - Counts OUTCOME STATEMENT: Goal met Absence of signs and symptoms of injury related to extraneous objects Last Modified By: Rashid Carrillo RN 03/03/21 15:21:16 [facility] IntraOp Skin Prep Entry 1 Procedure Vaginal Sling Procedure, Cystoscopy Adult Prescribed Yes Pre-Surgical Prep Completed Prep Area VAGINA Intraop Prep Integumentary WDL Assessment WDL Prep Agents Betadine solution Prep by Rashid Carrillo, RN Hair Removal Last Modified By: Rashid Carrillo RN 03/03/21 15:17:41 S[facility] IntraOp Skin Prep Audit 03/03/21 15:17:41 Communications Strategist: [email or web address] Modifier: DAQUANEMILIANOGriselda <+> 1 Procedure [facility] IntraOp Surgical Procedures Entry 1 Entry 2 Procedure Vaginal Sling Procedure Cystoscopy Adult Modifiers Additional MIDURETHRAL SLING WITH Procedure CYSTOSCOPY Description Primary Procedure Yes No Primary Surgeon Angie PULLIAM, Angie PULLIAM MD-OBG -OBG Start 03/03/21 15:06:00 03/03/21 15:06:00 Stop 03/03/21 15:17:00 03/03/21 15:17:00 Physician States Cecum Reached Anesthesia Type General General Specialty Gynecology Gynecology Wound Class II - Clean-Contaminated II - Clean-Contaminated Last Modified By: Rashid Carrillo, RN Rashid Carrillo, RN 03/03/21 15:21:12 03/03/21 15:21:12 S[facility] IntraOp Surgical Procedures Audit 03/03/21 15:21:12 Communications Strategist: FELIX Modifier: DAQUANEMILIANOGriselda <+> 1 Start <+> 2 Start [facility] IntraOp Time Out Entry 1 Procedure to be Vaginal Sling Performed Procedure, Cystoscopy Adult Time Out Time Out Pause Time 03/03/21 15:05:00 All activity Yes suspended (unless life threatening emergency) Team Verbally Correct patient Confirms Information identity, Correct side and site are marked, Consent form is present and accurate, Agreement on the procedure to be done, Correct patient position, Relevant images/results properly labeled/appropriately displayed, Confirm antibiotics have been administered, Confirm the skin prep has dried, Confirm prosthesis/implant/devic e is present Antibiotic Yes Prophylaxis Administered Or In Progress Within the Last 60 Minutes Beta Beena N/A Administered Venous Yes Thromboembolism Prophylaxis Required Anticipated Critical Events Surgeon None expected Anesthesia Provider None expected Nursing Assures Sterility of instruments, Implant Availability Essential Imaging Yes Labeled and Displayed Last Modified By: Rashid Carrillo, KATHY 03/03/21 15:07:30 Case Comments <None> Finalized By: Rashid Carrillo, RN Document Signatures Signed By: Ruth Crocker RN 03/04/21 08:41 Rashid Carrillo RN 03/03/21 15:21 Rashid Carrillo RN 03/05/21 09:24 Unfinalized History Date/Time Username Reason for Unfinalizing Freetext Reason for Unfinalizing 03/04/21 08:41 YOHANA Chart Audit 03/05/21 09:24 FELIX Chart Audit documented in this encounter Plan of Treatment Not on file documented as of this encounter Visit Diagnoses Not on filedocumented in this encounter
--- OUTSIDE RECORDS SUMMARY | 2025-08-17 15:40 | XMS_ITS | Encounter Summary ---
Author Organization [employer] ([place], [place], [place], [place], [place]) Address [address] [place] [address] Care Team Providers Care Conventional Mortgage Underwriter Name Role Phone Unavailable Primary Care Provider Unavailabl e Encounter Details Date Type Department Care Team (Late st Contact Info) Description 03/03/2021 Transcribed Document [facility] [place] Family Medicine [facility] [address] ProviderHector MD [facility] [place] [address] Social History Tobacco Use Types [...] Conversion Note - Hector ProviderMD - 03/03/2021 1:37 PM CDT PAT Adult Entered On: 03/03/2021 13:38 EDT Performed On: 03/03/2021 13:37 EDT by NEIL WELCH RN Vital Measurements Temperature Source : Temporal artery scanning Temperature Mode : Fahrenheit Temperature, Fahrenheit : 97.1 Deg F Clinical Temperature, C : 36.2 Deg C Pulse Method : Non-Invasive BP Device Peripheral Pulse Rate : 83 bpm Respiratory Rate : 18 Breaths/Min Blood Pressure Location : Arm, left upper Blood Pressure Source : Non-Invasive BP Device Blood Pressure Position : Sitting Systolic Blood Pressure : 159 mmHg (HI) Diastolic Blood Pressure : 75 mmHg Oxygen Saturation : 98 % Oxygen Therapy Mode : Room air NEIL WELCH RN - 03/03/2021 13:37 EDT Pain Assessment Pain Assessment : Initial assessment Pain Scale Goal : 3 Pain Scale Used : 0-10 Scale NEIL WELCH RN - 03/03/2021 13:37 EDT Height and Weight, Clinical Dosing Height Source : Stated Height Entry Format : George Height, Feet : 5 ft(Converted to: 152 cm, 60 Inch) Height, Inches : 2 Inch(Converted to: 0 ft 2 Inch, 5.08 cm) Clinical Height : 157.48 cm Weight Source : Standing scale Weight Entry Format : George Clinical Dosing Weight : 75.45 kg Weight, Pounds : 166 lb Body Surface Area (BSA) : 1.77 m2 Body Mass Index : 30.4 kg/m2 (HI) [place] Body Weight : 50 kg NEIL WELCH RN - 03/03/2021 13:37 EDT Health Histories Smoking Status : Never (less than 100 in lifetime; none in last 30 days) Smokeless Tobacco Status : Never NEIL WELCH RN - 03/03/2021 13:37 EDT Social History (As Of: 03/03/2021 13:38:50 EDT) Tobacco: Never (less than 100 in lifetime) Smoking Status. (Last Updated: 03/01/2021 12:00:07 EDT by LAKEISHA PARTIDA, KATHY) Alcohol: Alcohol Use History No. (Last Updated: 03/01/2021 12:00:07 EDT by LAKEISHA PARTIDA, RN) Substance Abuse: Drug Use Hx: No. (Last Updated: 03/01/2021 12:00:07 EDT by LAKEISHA PARTIDA, RN) Infectious Disease History Has the patient ever been tested for COVID-19? : Yes, Patient stated results Negative Where are the test results? : In EMR Results Date of COVID-19 test known? : Yes Date of COVID-19 Test : 03/01/2021 EDT Does patient have symptoms of COVID-19? : No COVID19 Screening : No Experiencing Infectious Disease Symptoms : No symptoms Physical contact outside [place] in the last 30 days : No Infectious Disease History : Chicken pox/Shingles, Measles Tuberculosis Symptoms : None NEIL WELCH RN - 03/03/2021 13:37 EDT COVID19 PreProcedure Screening Is this an Emergent or Add on Procedure? : No Date PreProcedure COVID-19 test known? : Yes Date of PreProcedure COVID-19 : 03/01/2021 EDT Has patient been isolated since the test : Yes Exposed to COVID19 symptoms since test? : No NEIL WELCH RN - 03/03/2021 13:37 EDT Anesthesia/Transfusion History Family History of Anesthesia Reaction : No prior transfusion(s) Transfusion History : Prior anesthesia without reaction Family History of Anesthesia Reaction : None NEIL WELCH RN - 03/03/2021 13:37 EDT Functional Assessment Functional ADL Evaluation Index EBN Bathing : Independent (2) Dressing : Independent (2) Toileting : Independent (2) Transferring Bed or Chair : Independent (2) Continence : Independent (2) Feeding : Independent (2) NEIL WELCH RN - 03/03/2021 13:37 EDT ADL Index Score : 12 NEIL WELCH RN - 03/03/2021 13:37 EDT Advance Directive Patient has Advance Directive *Q : No, patient refuses Advance Directive information NEIL WELCH RN - 03/03/2021 13:37 EDT Spiritual/Cultural Needs Any Spiritual/Cultural Needs or Requests : Yes NEIL WELCH RN - 03/03/2021 13:37 EDT [place] Suicide Severity Rating Scale (C-SSRS) CSSRS Past Month Wish to be : No CSSRS Past Month Suicidal Thoughts : No CSSRS Lifetime Suicide Behavior : No Suicide Severity Rating Score : 0 Suicide Severity Rating : No Additional Care Required at this time NEIL WELCH RN - 03/03/2021 13:37 EDT Psychosocial History Do You Have a History of the Following? : Patient denies history Currently in Unsafe Situation : No NEIL WELCH RN - 03/03/2021 13:37 EDT Teaching/Learning Assessment Barriers To Learning : None evident Individuals Taught : Patient NEIL WELCH RN - 03/03/2021 13:37 EDT General Info Arrived From : Home Mode of Arrival on Unit : Ambulatory Legal Guardian : Spouse Want Family/Rep/Phys Notified of Admit : No Emergency Contact #1 : Zahra Emergency Contact #1 Emergency Contact #1 Relationship : spouse Emergency Contact #2 : - Emergency Contact #2 Phone Number : - Emergency Contact #2 Relationship : - Primary Language : Macedonian Communication Barrier : None Damage Inside Adjuster Needed : No NEIL WELCH RN - 03/03/2021 13:37 EDT Tino Scale Tino Sensory Perception : No impairment Tino Moisture : Occasionally moist Tino Activity : Walks frequently Tino Mobility : No limitation Tino Nutrition : Excellent Tino Friction and Shear : No apparent problem Tino Score : 22 NEIL WELCH RN - 03/03/2021 13:37 EDT Sleep Apnea Risk Assmt Hx of [...] Sleep Apnea Risk Level Score : 2 NEIL WELHC RN - 03/03/2021 13:37 EDT Pain Scale Intensity : 0 NEIL WELCH RN - 03/03/2021 13:37 EDT Image 4 - Images currently included in the form version of this document have not been included in the text rendition version of the form. documented in this encounter Plan of Treatment Not on file documented as of this encounter Visit Diagnoses Not on filedocumented in this encounter
--- OUTSIDE RECORDS SUMMARY | 2025-08-17 15:40 | XMS_ITS | Encounter Summary ---
Author Organization [employer] ([place], [place], [place], [place], [place]) Address [address] [place] [address] Care Team Providers Care Press Pipe Inspector Name Role Phone Unavailable Primary Care Provider Unavailabl e Encounter Details Date Type Department Care Team (Late st Contact Info) Description 03/03/2021 Transcribed Document [facility] [place] [facility] [place] [address] ProviderHector MD [facility] [place] [address] Social History Tobacco Use Types [...] Hector ProviderMD - 03/03/2021 3:06 PM CDT [facility] [place] PACU Summary Primary Physician: Angie PULLIAM MD-OBG Finalized Date/Time: 03/03/21 16:09:20 Pt. Name: MICHELLE VOSS /Sex: 1955 Female Med Rec #: [id number] Physician: Angie PULLIAM MD-OBG Financial #: [id number] Pt. Type: O Room/Bed: [facility] Admit/Disch: 03/03/21 04:56:00 - Institution: [facility] [place] PACU Case Times Entry 1 In PACU I 03/03/21 15:22:00 Ready for PACU 03/03/21 16:09:00 Discharge Discharge from PACU 03/03/21 16:09:00 I Last Modified By: Heydi Ho RN 03/03/21 16:09:09 [facility] Main OR PACU Case Times Audit 03/03/21 16:09:09 Pie Maker: [email or web address] Modifier: CARRIEC <+> 1 Ready for PACU Discharge <+> 1 Discharge from PACU I Finalized By: Heydi Ho RN Document Signatures Signed By: Heydi Ho RN 03/03/21 16:09 Electronically signed by Carol [facility] Conversion Tool Planer Set Up Operator Cerner at 12/07/2022 8:29 PM CDT documented in this encounter Plan of Treatment Not on file documented as of this encounter Visit Diagnoses Not on filedocumented in this encounter
--- OUTSIDE RECORDS SUMMARY | 2025-08-17 15:40 | XMS_ITS | Encounter Summary ---
Author Organization [employer] ([place], [place], [place], [place], [place]) Address [address] [place] [address] Care Team Providers Care Investigations Consultant Name Role Phone Unavailable Primary Care Provider Unavailabl e Encounter Details Date Type Department Care Team (Late st Contact Info) Description 03/03/2021 Transcribed Document [facility] [place] Family Medicine [facility] [place] [address] ProviderHector MD [facility] [address] Social History Tobacco Use Types [...] 03/03/2021 3:06 PM CDT [facility] Main OR PreOp Summary Primary Physician: Angie PULLIAM MD-OBG Finalized Date/Time: 03/04/21 06:50:22 Pt. Name: MICHELLE VOSS /Sex: 1955 Female Med Rec #: [id number] Physician: Angie PULLIAM MD-OBG Financial #: [id number] Pt. Type: O Room/Bed: [facility]/ Admit/Disch: 03/03/21 04:56:00 - 03/03/21 16:32:00 Institution: [facility] [place] PreOp Case Times Entry 1 In Preop 03/03/21 13:00:00 Ready for Holding n/a Room Patient Ready for n/a Surgery Patient Out of Preop 03/03/21 14:50:00 Patient Out of n/a Holding Room Last Modified By: BETSY FOREMAN 03/04/21 06:50:21 SJJacqueline PreOp Case Times Audit 03/04/21 06:50:21 Cook Helper Vegetable: RASHI Modifier: [email or web address] <+> 1 Patient Out of Preop Finalized By: BETSY FOREMAN Document Signatures Signed By: BETSY FOREMAN 03/04/21 06:50 Electronically signed by Carol [facility] Conversion Etcher Enameling Cerner at 12/07/2022 8:38 PM CDT documented in this encounter Plan of Treatment Not on file documented as of this encounter Visit Diagnoses Not on filedocumented in this encounter
--- OUTSIDE RECORDS SUMMARY | 2025-08-17 15:40 | XMS_ITS | Encounter Summary ---
Author Organization [employer] ([place], [place], [place], [place], [place]) Address [address] [place] [address] Care Team Providers Care Special Education Superintendent Name Role Phone Unavailable Primary Care Provider Unavailabl e Encounter Details Date Type Department Care Team (Late st Contact Info) Description 03/03/2021 Transcribed Document [facility] Family Medicine [facility] [place] [address] ProviderHector MD [facility] [place] [address] Social History Tobacco Use Types [...] Conversion Note - Hector ProviderMD - 03/03/2021 3:30 PM CDT DATE OF PROCEDURE: 03/03/2021 SURGEON: Angie Godfrey MD PREOPERATIVE DIAGNOSES: 1. Stress urinary incontinence. 2. Hypermobility. PROCEDURES PERFORMED: 1. Mid urethral sling with Solyx. 2. Cystoscopy. POSTOPERATIVE DIAGNOSES: 1. Stress urinary incontinence. 2. Hypermobility. IDENTIFICATION: Michelle is a 65-year-old white female, 3, para 3. She presented with stress urinary incontinence. Evaluation reveals genuine stress incontinence with hypermobility. She is for therapeutic intervention at this time. DESCRIPTION OF PROCEDURE: The patient was taken to the operating quarter and placed in the prone position. After general anesthesia was obtained, she was prepped and draped in routine fashion for a vaginal procedure. A small suburethral incision was then made beginning 1 cm from the urethral meatus after injecting with local. More local was injected in the sulcus at 3 o'clock and 9 o'clock. Catheter was in the bladder. A Solyx introduced on the right into the obturator internus muscle and then advanced on the left until the appropriate approximation to urethra was obtained. A Lucas dilator was passed through the urethra without resistance. Incision closed with 0 chromic running locked suture. Cystoscopy was performed. Urethra was normal throughout its length. Contour of the bladder was unremarkable. Ureteral orifices were normal. Clear urine seemed to efflux bilaterally. No lesions, tumors, or foreign bodies were noted. Sponge and needle counts were correct. Blood loss was less than 10 mL. The patient tolerated the procedure well and left the operating room in satisfactory condition. /[id number] PankajMD MANSOOR Maciel/AXEL / MANSOOR / MODL /[id number] documented in this encounter Plan of Treatment Not on file documented as of this encounter Visit Diagnoses Not on filedocumented in this encounter
--- OUTSIDE RECORDS SUMMARY | 2025-08-17 15:40 | XMS_ITS | Encounter Summary ---
Author Organization [employer] ([place], [place], [place], [place], [place]) Address [address] [place] [address] Care Team Providers Care Statistical Consultant Name Role Phone Unavailable Primary Care Provider Unavailabl e Encounter Details Date Type Department Care Team (Late st Contact Info) Description 03/03/2021 Transcribed Document [facility] [place] [facility] [place] [address] ProviderHector MD [address] [place] [address] Social History Tobacco Use Types [...] Note - Hector Vaughan MD - 03/03/2021 4:17 PM CDT Patient Education Materials Follows:and Gynecology Urethral Vaginal Sling, Care After This sheet [...] prevent bleeding. This will be removed in 1?2 days. Follow these instructions at home: Incision care ??? Follow instructions from your health care provider about how to take care of your abdominal incision. Make sure you: ? Wash your hands with soap and water before you change your bandage (dressing). If soap and water are not available, use hand tube and manifold builder. ? Change your dressing as told by [...] allowed to take sponge baths. ??? Take vlpu-jhj-hsxargb and prescription medicines only as told by [...] keep your urine pale yellow. ? Take rngr-jkp-qndbmba or prescription medicines. ? Eat foods that [...] provider. Document Revised: 07/20/2018 Document Reviewed: 11/15/2017 [email or web address] Patient Education ? 2020 [employer] Pharmacology General Anesthesia, Adult, Care After This sheet [...] activities are safe for you. ??? Take cyww-cxh-kjwhgna and prescription medicines only as told by [...] provider. Document Revised: 08/10/2018 Document Reviewed: 03/23/2018 [employer] Patient Education ? 2020 [employer] documented in this encounter Plan of Treatment Not on file documented as of this encounter Visit Diagnoses Not on filedocumented in this encounter
--- OUTSIDE RECORDS SUMMARY | 2025-08-17 15:40 | XMS_ITS | Clinical Summary ---
Author Organization Healthcare Address [address] [place] [address] Care Team Providers Care Insulation Cupola Charger Name Role Phone Juliann Pizano MD Primary Care Provider [phone] Gerald Vargas DDS Unavailable [phone] Richard Hein Unavailable Allergies No known active allergies Medications meloxicam (Mobic) 15 MG tablet meloxicam 15 mg tablet TAKE ONE TABLET BY MOUTH DAILY Active levothyroxine (Synthroid, Levoxyl) 100 MCG tablet Take 100 mcg by mouth 1 (one) time each day in the morning. Active cyclobenzaprine (Flexeril) 10 MG tablet Take 1 tablet (10 mg total) by mouth 1 (one) time each day. 30 tablet 1 3 Active Immunizations Immunization Administration Dates Next Due Arnie COVID-19 Vaccine (Blue Cap) 18+ 10/31/19 21 Moderna COVID-19 Vaccine ([address] Reporter) 12+ years ,07/21/2021 Family History Medical History Relation Name Comments Cancer Mother Zaira Nichols Relation Name Status Comments Mother Zaira Nichols Social History Tobacco Use Types Packs/Day Years Used Date Smoking Tobacco: Never Smokeless Tobacco: Never Tobacco Cessation:Counseling Given: Not Answered Alcohol Use Standard Drinks/Week Comments Never 0 (1 standard drink = 0.6 oz pur e alcohol) Comments Unknown Sex and Gender Information Value Date Recorded Sex Assigned at Not on file Legal Sex Female 2:43 PM EDT Gender Identity Not on file Sexual Orientation Not on file Last Filed Vital Signs Vital Sign Reading Time Taken Comments Blood Pressure 156/82 08/02/2022 8:59 AM EST Pulse 84 08/02/2022 8:59 AM EST Temperature 35.9 C (96.7 F) 08/02/2022 8:59 AM EST Respiratory Rate - - Oxygen Saturation 96% 08/02/2022 8:59 AM EST Inhaled Oxygen Concentration - - Weight 74.5 kg (164 lb 3.2 oz) 08/02/2022 8:59 A M EST Height 160 cm (5' 3 ) 08/02/2022 8:59 AM EST Body Mass Index 29.09 08/02/2022 8:59 AM EST Plan of Treatment Health Maintenance Due Date Last Done Comments [facility]-Bone Density Scan 1954 [facility]-Depression Screening 1954 [facility]-/Child/Adol SDOH Screenings 1954 [facility]- SDOH Screenings 1972 [facility]-Adult SDOH Screenings 1972 CT Colonography 1999 Colonoscopy 1999 FIT-DNA 1999 FIT 1999 FOBT 1999 Sigmoidoscopy 1999 [facility]-Colorectal Cancer Screening 1999 [facility]-Zoster Vaccines (3 of 3) 02/01/2023 12/07/2022, 10/01/2014 [facility]-DTaP,Tdap,and Td Vaccines (2 - Tdap) 10/02/2023 10/02/2013 [id number] Vaccine ( season) 2025 02/27/2023, 02/04/2022, 07/21/2021, Additional history exists [facility]-Influenza Vaccine (#1) 04/21/202505/10, 06/03/2020, 04/24/2020, Additional history exists [facility]-RSV Vaccine: 60+ Years or (1 - 1-dose 75+ series) 2029 [facility]-Hepatitis A Vaccines Aged Out 08/22/2018, 01/20 No longer eligible based on patient's age to complete this topic [facility]-Pneumococcal Vaccine: 50+ Years Completed 04/09/2021, 08/19/2019 [facility]-Breast Cancer Screening Discontinued 02/2022, 01/25/2022, 09/28/2020, Additional history exists HPV Vaccines (No Doses Required) Completed [facility]-HIB Vaccines Aged Out No longer e ligible based on patient's age to complete this topic [facility]-IPV Vaccines Aged Out No longer e ligible based on patient's age to complete this topic [facility]-Rotavirus Vaccines Aged Out No lo nger eligible based on patient's age to complete this topic Insurance [employer] on file [employer] MEDICARE Care Teams Insulation Cupola Charger Relationship Specialty Start Date End Date Juliann Pizano MD [address] [place] [address] PCP - General 08/21/21 Gerald Vargas DDS [address] [address] [address] [place] [address] Dentist Dentist 07/25/22 Richard Hein Dentist 07/25/22
--- OUTSIDE RECORDS SUMMARY | 2025-08-17 15:40 | XMS_ITS | Continuity of Care Document ---
Author Organization [facility], [facility] Address [address] [place] [address] Care Team Providers Care Loss Prevention/Safety District Manager Name Role Phone JULIANN PIZANO Primary Care Provider YOMI KELLER Orthopedic Surgeon Assessment Encounter Date Assessment Date Assessment LastModified by Organization Details LastModified Time 07/11/2025 07/11/2025 - The patient is a [...] as the patient is likely still contagious. [email or web address] Not available 07/14/2025 13:07:05 Plan of Treatment Reminders Order Date Submit Date Provider Last Modified By Organization Details Last Modified Time Details Appointments SHOT ONLY 2024 03:15P M DMITRY_ [facility]_NURS E Not available Not available Not available RECHECK 2025 02:30P M LUIS ALFREDO SALDAÑA PA-C Not available Not available Not available MEDICARE WELLNESS VISIT 2025 09:30A Coby PIZANO MD Not available Not available Not available Lab influenza virus A + B and SARS CoV 2, QL, SARA+probe , respirato ry specimen [address], [address], 07/11/2025 11:58:56 strep group A, DNA, swab [address], [address], 07/11/2025 11:58:56 Referral None recorded. Procedures None recorded. Surgeries None recorded. Imaging None recorded. Medication Orders doxycycli ne hyclate 100 mg capsule 2024 025 [facility] [id number], [address] [place] [address], [id number], 07/25/2025 05:02:00 prednison e 20 mg tablet 2024 025 [facility] [id number], [address] [place] [address], [id number], 07/23/2025 05:02:37 benzonata te 200 mg capsule 2024 025 [facility] [id number], [address] [place] [address], [address], 07/28/2025 05:02:05 Patient TargetsNo targets recorded. Patient Instructions Encounter Date Encounter Id Patient Instructions Last Modified By Organization Details Last Modified Time 07/11/2025 [id number] - Take one prednisone pill each morning [...] Not available 07/11/2025 12:07:20 Reason for Referral None Reported. Results Created Date Observation Date Name Description Value Unit Range Abnormal Flag Note LastModifiedBy Organization Detail LastModifiedTime 06/12/2006/12/2025 LIPID PROFI LE HDL cholesterol 58 mg/dL normal EDILSON L RANGE FEMAL E >49 MALE >39 NOTE: NEW EDILSON L RANGE Not Available [facility] [address] [place] [address], [phone], 06/12/2025 18:33:59 06/12/20 25 06/12/2025 LIPID PROFI LE triglyceride s 106 mg/dL 0-149 normal TRIGL YCERI DE RANGE S EDILSON L: < 150 BORDE RLINE HIGH: 150 - 199 HIGH: 200 - 499 VERY HIGH: > OR = 500 Not Available [facility] [address] [place], [address], 06/12/2025 18:33:59 06/12/20 25 06/12/2025 LIPID PROFI LE cholesterol 198 mg/dL 0-199 normal JHOANA STERO L (TOTA L) RANGE S GAYLA ABLE: < 200 BORDE RLINE : 200 - 239 HIGHE R RISK: > 239 Not Available [facility] [address] [place], [address], 06/12/2025 18:33:59 06/12/2006/12/2025 LIPID PROFI LE LDL cholesterol 119 mg/dL _(nohelia c) 0-99 high LDL JHOANA STERO L RANGE S OPTIM AL: < 100 NEAR/ ABOVE OPTIM AL: 100 - 129 BORDE RLINE HIGH: 130 - 159 HIGH: 160 - 189 VERY HIGH: > OR = 190 Not Available [facility] [address] [place] [address], [address], 06/12/2025 18:33:59 06/12/20 25 06/12/2025 LIPID PROFI LE chol/HDL ratio (calc) 3.4 mg/dL normal NO EDILSON L RANGE ESTAB LISHE D FOR JHOANA STERO L/HDL RATIO (CALC ULATE D). Not Available [facility] [address] [place] [address], [address], 06/12/2025 18:33:59 06/12/2006/12/2025 LIPID PROFI LE LDL, direct 122 0-99 high Not Available [facility] [address] [place] [address], [address], 06/12/2025 18:33:59 06/12/2006/12/2025 REY TIN ferritin 69 NG/mL 13-157 normal Not Available [facility] [address] [place] [address], [address], 06/12/2025 18:33:57 06/12/2006/12/2025 HEPAT IC (LIVE R) PANEL AST 21 U/L 0-32 normal Not Available [facility] [address] [place] [address], [address], 06/12/2025 18:34:01 06/12/20 25 06/12/2025 HEPAT IC (LIVE R) PANEL ALT 14 U/L 0-33 normal Not Available [facility] [address] [place] [address], [address], 06/12/2025 18:34:01 06/12/20 25 06/12/2025 HEPAT IC (LIVE R) PANEL alkaline phosphatase 79 U/L 30-121 normal Not Available [facility] [address] [place] [address], [address], 06/12/2025 18:34:01 06/12/20 25 06/12/2025 HEPAT IC (LIVE R) PANEL total protein 7.2 g/dL 6.4-8. 3 normal Not Available [facility] [address] [place] [address], [address], 06/12/2025 18:34:01 06/12/2006/12/2025 HEPAT IC (LIVE R) PANEL albumin 4.4 g/dL 3.5-5. 2 normal Not Available [facility] [address] [place] [address], [address], 06/12/2025 18:34:01 06/12/2006/12/2025 HEPAT IC (LIVE R) PANEL bilirubin, total 0.6 mg/dL 0.1-1. 0 normal NOTE: New refer ence range . Not Available [facility] [address] [place] [address], [address], 06/12/2025 18:34:01 06/12/20 25 06/12/2025 HEPAT IC (LIVE R) PANEL bilirubin, direct <0.2 mg/dL 0.0-0. 3 normal Not Available [facility] [address] [place] [address], [address], 06/12/2025 18:34:01 06/12/2006/12/2025 HEPAT IC (LIVE R) PANEL bilirubin, indirect see below mg/dL _(nohelia c) 0.0-1. 0 normal Unabl e to calcu late Indir ect Bilir ubin. Not Available [facility] [address] [place] [address], [address], 06/12/2025 18:34:01 06/12/2006/12/2025 TSH TSH 1.300 u[IU] /mL 0.270- 4.200 normal Not Available [facility] [address] [place] [address], [place], [address], 06/12/2025 18:34:03 07/11/20 25 07/11/2025 influ trini virus A + B and SARS CoV 2, QL, SARA+p robe, respi rator y speci men Unknown Analyte Negati ve Not Available [address], [address], 07/11/2025 11:41:20 07/11/20 25 07/11/2025 influ trini virus A + B and SARS CoV 2, QL, SARA+p robe, respi rator y speci men Unknown Analyte Negati ve Not Available [address], [address], 07/11/2025 11:41:20 07/11/20 25 07/11/2025 influ trini virus A + B and SARS CoV 2, QL, SARA+p robe, respi rator y speci men Unknown Analyte Negati ve Not Available [address], [address], 07/11/2025 11:41:20 07/11/20 25 07/11/2025 influ trini virus A + B and SARS CoV 2, QL, SARA+p robe, respi rator y speci men Unknown Analyte Valid Not Available [address], [address], 07/11/2025 11:41:20 07/11/20 25 07/11/2025 strep group A, DNA, swab Strep A negati ve Not Available [address], [address], 07/11/2025 11:41:55 07/11/20 25 07/11/2025 strep group A, DNA, swab Procedural Control Valid Not Available [facility] [place] [address] [place], [address], 07/11/2025 11:41:55 06/10/2006/09/2025 XR, knee, 4 or more view [facility] [address] [place], [place] [id number] [phone] Patiterry t Name: MICHELLE ni : 1954 Patiterry ni [...] Shiva Andrea MD on 2024 8:[address] [facility] [address] [place], [address], 06/10/2025 09:39:21 Result Notes None recorded. Problems Name Problem SNOMED Code Status Onset Date Resolution Date Notes Provider Name and Address Organization Details Recorded Time Lack of energy 044282055 Completed 201502/07/2018 From [employer];Pro vider: Juliann Pizano;Clint tus: Active JULIANN PIZANO MD [address] [place] [address], [address] , [facility] 8 13:33:48 Finding of appearan ce of skin Completed 201502/07/2018 From [employer] Load;Pro vider: Juliann Pizano;Sta tus: Active JULIANN PIZANO MD [address] [place] [address], [address] , [facility] 8 13:33:45 Hypothyr oidism 68490983 Active 2015 From [employer] Load;Pro vider: Juliann Pizano;Sta tus: Active JULIANN PIZANO MD [address] [place] [address], [address] , [facility] 3 14:38:44 Tinnitus 45537020 Active 2015 From [employer] Load;Pro vider: Juliann Pizano;Sta tus: Active Not Available [facility] 2 07:32:58 Fibrocys tic disease of breast 04787046 Active 2017 Not Available [facility] 2 07:32:58 Divertic ular disease of colon 823024873 Active 2017 Not Available [facility] 2 07:32:58 Hearing loss 46068570 Active 2017 Not Available [facility] 2 07:32:58 Displace ment of lumbar interver tebral disc without myelopat hy 08344250 Active 2017 JULIANN PIZANO MD [address] [place] [address], [address] , [facility] 3 14:38:27 Osteoart hritis of knee 565544510 Active 2018 Not Available [facility] 2 07:32:58 Alopecia 38013378 Active 2019 Not Available [facility] 2 07:32:58 Hyperlip idemia 26133854 Active 2019 LDL>190 JULIANN PIZANO MD [address] [place] [address], [address] , [facility] 3 22:05:06 Vitamin B12 deficien cy (non anemic) 08500011 Active 2020 JULIANN PIZANO MD [address] [place] [address], [address] , [facility] 3 14:38:51 Atherosc lerosis of aorta 02855186 Active 2022 JULIANN PIZANO MD [facility] [place], [address] , [facility] 3 14:51:55 Cystitis 75411990 Active 2022 KERRIE SLATER PA-C [address] [place], [address] , [facility] 3 10:32:11 Bilatera l osteoart hritis of knees 36389541416 9107 Active 2022 JULIANN PIZANO MD [address] [place] [address] [place], [address] , [facility] 3 10:32:14 Pain of right temporom andibula r joint 31686304082 611790 Active 2022 JULIANN PIZANO MD [address] [place] [address], [address] , [facility] 3 10:33:46 Body mass index 25-29 - overweig ht 545717033 Active 2023 JULIANN PIZANO MD [address] [place] [address], [address] , [facility] 4 09:58:29 Dyslipid emia 995819541 Active 2023 JULIANN PIZANO MD [facility], [address] , [facility] 4 10:13:07 Ischial bursitis 851150216 Active 2023 JULIANN PIZANO MD [address] [place] [address], [address] , [facility] 4 10:42:24 Lumbar radiculo wendy 961560997 Active 2024 JULIANN PIZANO MD [address] [place] [address], [address] , [facility] 5 11:31:09 Primary gonarthr osis, bilatera l 668099733 Active 2024 JULIANN PIZANO MD [address] [place] [address], [address] , [facility] 14:24:04 Acute frontal sinusiti s 48062715 Active 2024 KERRIE SLATER PA-C [address] [place], [address] , [facility] 5 11:58:13 Acute cough Active 2024 KERRIE SLATER PA-C [address] [place], [address] , [facility] 12:02:22 Problem Notes None recorded. Procedures Surgical History Date Name Laterality Status Provider Name and Address Organization Details Recorded Time 025 Joint Injection, Knee - Barb completed YOUNG DAY MD [address] [place] [address], [address], [facility] 05/08/2025 12:43:39 025 Joint Injection, Knee - Barb completed YOUNG DAY MD [address] [place] [address], [address], [facility] 01/28/2025 16:06:18 025 Joint Injection, Knee - Barb completed YOUNG DAY MD [address] [place] [address], [address], [facility] 10/22/2024 12:43:32 024 Injection - Joint/Bursa, Major completed Vicki Rai [facility] 07/15/2024 10:48:22 024 Injection - Joint/Bursa, Major completed Spenser Tijerina [facility] 04/12/2024 15:30:21 024 Injection - Joint/Bursa, Major completed Alexandria Sellers [facility] 01/10/2024 15:32:45 024 Injection - Joint/Bursa, Major completed Quinten Rizo [facility] 10/16/2023 15:30:00 024 Injection - Joint/Bursa, Major completed Lisa SWANN PA-C [address] [place], [address], [place] [facility] 10/13/2023 11:11:57 024 Injection - Joint/Bursa, Major cancelled Alexandria Young [place] [facility] 09/05/2023 08:39:03 023 Euflexxa Injection completed Rashad Welsh [place] [facility] 08/16/2023 08:58:43 023 Euflexxa Injection completed Quinten Rizo [place] [facility] 08/09/2023 09:16:07 023 Euflexxa Injection completed Rashad Welsh [place] [facility] 08/02/2023 08:54:42 023 Injection - Joint/Bursa, Major completed Alexandria Young [place] [facility] 06/21/2023 08:22:13 023 Injection - Joint/Bursa, Major completed Alexandria Young [place] [facility] 06/19/2023 14:59:56 023 DXA Normal completed JONAH HOWARD MD [address] [place], [address], [place] [facility] 03/30/2023 12:31:04 023 Injection - Joint/Bursa, [...] 022 Injection - Joint/Bursa, Major completed Vicki Fredi [place] [facility] 03/02/2022 09:13:27 022 Injection - Joint/Bursa, [...] by suprapubic sling completed JULIANN PIZANO MD [facility] [place], [address], [place] [facility] 12/07/2023 10:17:40 021 Injection - Joint/Bursa, Major completed [facility] 02/10/2021 08:25:13 021 Injection - Joint/Bursa, Major completed Vicki Rai [facility] 02/03/2021 08:07:56 021 Injection - Joint/Bursa, Major completed Alexandria Sellers [facility] 11/11/2020 08:47:33 021 Injection - Joint/Bursa, Major completed Lisa SWANN PA-C [address] [place], [address], [facility] 11/04/2020 13:58:40 020 Orthotic, HFO, Static Custom completed HEMALATHA BERNARD, OTR/L, CHT [address] [place], [address], [facility] 2020 13:04:03 020 Op Note completed YOUNG GUIDRY MD [address] [place], [address], [facility] 07/27/2020 19:12:28 020 Injection - Joint/Bursa, Interm completed YOUNG GUIDRY MD [address] [place], [address], [facility] 02/25/2020 19:59:39 019 Op Note completed YOUNG GUIDRY MD [address] [place], [address], [facility] 05/13/2019 09:25:23 019 Injection - Trigger Finger, Ortho completed YOUNG GUIDRY MD [address] [place], [address], [facility] 04/05/2019 16:43:35 019 Injection - Carpal Tunnel completed YOUNG GUIDRY MD [address] [place], [address], [facility] 03/15/2019 16:13:35 019 Injection - Joint/Bursa, Major completed Cristine Luna [facility] 12/18/2018 15:10:45 019 Injection - Joint/Bursa, Major completed Cristine Luna [facility] 12/11/2018 10:50:07 019 Injection - Joint/Bursa, [place] [address] [place] [address], [address], [facility] 09/20/2018 17:43:12 019 Electromyography (EMG) with Nerve Conduction Study (NCV) completed Luz Maira Pizano (Nicky) [facility] 09/20/2018 13:42:03 019 Injection - Joint/Bursa, Major completed Lisa SWANN PA-C [address] [place] [address], [address] [place] [address], [facility] 09/05/2018 15:07:17 018 Injection - Joint/Bursa, Interm completed YOUNG GUIDRY MD [address] [place] [address], [address] [place] [address], [facility] 07/04/2018 12:19:03 Hand tendon/muscle transfer completed JULIANN PIZANO MD [address] [place] [address], [address] [place] [address], [facility] 01/05/2017 11:59:57 Cataract Surgery completed JULIANN PARKS MD [address] [place] [address], [address] [place] [address], [facility] 08/29/2022 14:55:26 Appendectomy completed JULIANN PIZANO MD [address] [place] [address], [address] [place] [address], [facility] 10/13/2016 08:25:37 Imaging Results None recorded. Procedure [...] tablet Not Available Not Available Not Available [place] 5 mg-325 mg tablet TAKE 1 TAB PO Q 4-6 HRS PRN UNCONTRO LLED PAIN 08/02 completed Not Available Not Available Not Available cefdinir 300 mg capsule Take 1 capsule every 12 hours by oral route for 10 days. 12/125 completed no longer takes Not Available Not [...] Details Last Updated DateTime 5 160.02 cm 26 kg/m2 55552.6 4 g 98.6 [degF] 112 /min 95 % 118/80 mm[Hg] Makenzie Cornell [facility] 5 11:31:59 Social History Question Answer Notes LastModified by [employer] Details LastModified Time Tobacco Smoking Status Never Smoker JULIANN PIZANO MD [address] [place] [address], [address], [facility] 01/05/2017 08:07:38 What Is Your Level Of Caffeine Consumption? Occasional Information not available 06/08/2017 How Much Tobacco Do You Chew? None [email or web address] Information not available 03/07/2019 Which Of Your Hands Is Dominant? Right Information not available 06/08/2017 Marital Status Informatio n not available 06/08/2017 What Was The Date Of Your Most Recent Tobacco Screening? 07/11/2025 [email or web address] Information not available 07/11/2025 What Is Your Relationship Status? [email or web address] Information not available 09/07/2023 How Much Tobacco Do You Smoke? No Information not available 04/24/2019 Has Tobacco Cessation Counseling Been Provided? No [email or web address] Information not available 10/18/2023 Sex: Female Functional Status Question Answer Note LastModified by [employer] Details LastModified Time Do you use any illicit or recreational drugs? No Information not available 06/08/2017 Do you or have you ever used any other forms of tobacco or nicotine? No [email or web address] Information not available 10/18/2023 What is your [...] available 08:25:23 Mother History of multiple myeloma [email or web address] Not available 07/30 11:06:48 Notes:NO FAMILY HX [...] N Immune System Disorder N Heart Attack ([place]) N Mental Illness N Neurological Problems N [...] Time zoster recombinant 3 completed Sayda Borjas [facility] 12/06/2023 16:19:20 Hep A, adult 9 completed Not Available [facility] 09/07/2019 02:50:37 COVID-19, mRNA, LNP-S, PF, jamie-sucrose, 30 mcg/0.3 mL 4 completed Gem Gilliam [facility] 06/09/2025 14:35:52 Influenza, split virus, quadrivalent, PF 9 completed Not Available [facility] 09/07/2019 02:52:20 Influenza, split virus, quadrivalent, preservative 0 completed Sayda Borjas [facility] 09/07/2023 16:44:05 zoster live 5 completed Sayda Borjas [facility] 09/07/2023 16:44:05 DTaP 4 completed Sayda Borjas [facility] 09/07/2023 16:44:05 COVID-19 vaccine, vector-nr, rS-Ad26, PF, 0.5 mL 1 completed Sayda Borjas [facility] 09/07/2023 16:44:05 Influenza, split virus, quadrivalent, preservative 1 completed Sayda Borjas [facility] 09/07/2023 16:44:05 Tdap 4 completed Sayda Borjas [facility] 12/07/2023 10:49:24 Influenza, high-dose, quadrivalent, PF 4 completed Sayda Borjas [facility] 12/07/2023 10:49:24 RSV, recombinant, protein subunit RSVpreF, adjuvant reconstituted, 0.5 mL, PF 4 completed Luis Alfredo Ramsey [facility] 01/09/2024 11:30:59 COVID-19, mRNA, LNP-S, PF, 100 mcg/0.5mL dose or 50 mcg/0.25mL dose 1 completed Veronica Stone [facility] 06/13/2022 08:44:52 Pneumococcal conjugate PCV 13 1 completed Veronica Stone [facility] 06/13/2022 08:44:52 COVID-19, mRNA, LNP-S, PF, 100 mcg/0.5mL dose or 50 mcg/0.25mL dose 2 completed Veronica Stone [facility] 06/13/2022 08:44:52 COVID-19 vaccine, vector-nr, rS-Ad26, PF, 0.5 mL 1 completed Veronica Stone [facility] 06/13/2022 08:44:52 Influenza, high-dose, trivalent, PF 0 completed Veronica Stone [facility] 06/13/2022 08:44:52 Influenza, high-dose, trivalent, PF 4 completed JULIANN PIZANO MD [address] [place] [address], [address], [facility] 05/26/2024 14:32:15 pneumococcal polysaccharide PPV23 9 completed JULIANN PIZANO MD [address] [place] [address], [address], [facility] 08/29/2022 14:39:38 Influenza, split virus, quadrivalent, PF 7 completed JULIANN PIZANO MD [address] [place] [address], [address], [facility] 08/29/2022 14:39:38 influenza, unspecified formulation 2 completed Sayda Borjas [facility] 09/07/2023 16:44:05 COVID-19, mRNA, LNP-S, PF, jamie-sucrose, 30 mcg/0.3 mL 5 completed JULIANN PIZANO MD [address] [place] [address], [address], [facility] 12/12/2024 17:13:08 zoster recombinant 3 completed Luis Alfredo Bourgeois [facility] 02/27/2023 09:41:31 Hep A, adult 8 completed Not Available [facility] 09/07/2019 02:45:53 Influenza, high-dose, trivalent, PF 5 completed Luis Alfredo Ramsey [facility] 06/12/2025 14:37:25 COVID-19, mRNA, LNP-S, PF, jamie-sucrose, 30 mcg/0.3 mL 5 completed Luis Alfredo Ramsey [facility] 06/12/2025 14:37:25 COVID-19, mRNA, LNP-S, bivalent, PF, 30 mcg/0.3 mL dose 3 completed Luis Alfredo Ramsey [facility] 03/24/2023 15:03:47 Influenza, split virus, quadrivalent, PF 8 completed Not Available [facility] 09/07/2019 02:48:52 Past Encounters Encounter ID Performer Location Encounter Start Date Encounter Closed Date Diagnosis/Indication Diagnosis SNOMED-CT Code Diagnosis ICD10 Code Diagnosis IMO Codes Diagnosis Note [id number] JULIANN PIZANO MD [address] [address] 06/12/2025 13:44:45 06/12/2025 14:53:29 Vitamin B12 deficiency (non anemic) 60002165 E53.8 Continue B12 injections monthly. Snoring 99278328 R06.83 64759 - Refer for a sleep study to assess nocturnal breathing patterns and potential sleep apnea. Restless l egs syndrome 48303847 G25.81 85773 Reassessme nt scheduled for next month with sleep specialist . Continue current management until then. - Order ferritin level as low levels might contribute to symptoms. - Consider melatonin supplement ation as supportive therapy. Primary go narthrosis, bilateral 712952665 M17.0 6927888 Instruct to continue use of analgesic creams [...] response and knee pain management . Dyslipidemia 079545914 E 78.5 Intolerant to atorvastat in and [...] side effects causing musculoske letal symptoms. Hypothyroidism 39857086 E03.9 Keep up with thyroid medication and periodic evaluation s. stable/con tinue levothyrox ine - Conduct a TSH test for evaluation due to persistent nocturnal symptoms, though well-maint ained per patient report. Immunization due 2336236 08 Z23 1988088 Covid vaccine today, then hepatitis B vaccine at pharmacy.- Administer COVID-19 and influenza vaccinatio ns during the visit. [id number] KERRIE SLATER PA-C [facility] [address] [place] [address] 07/11/2025 11:22:46 07/11/2025 13:36:55 Acute cough 1071750036 59028478 R05.9 8221289847 discussed negative flu and covid Acute fron joaquín sinusitis 14154374 J01.10 J40 66372872 Patient presented with symptoms of upper respirator [...] keeping them stored safely away from children. Health Concerns Section Related Observation LastModified by Organization Detai ls LastModified Time None Recorded Concern Status LastModified by Organization Details LastModified Time None Recorded Payers Encounter Date Sequence Insurance Name Policy Number Policy Walter Covered Member ID Walter Member ID Guarantor Name 07/11/2025 1 BCBS-VIC: ARIANE RAMACHANDRAN OF [employer] (MEDICARE REPLACEMENT HMO) [id number] Torres [id number] 31 January C Torres Notes Date Note Type Note Provider Name and Address Organization Details Recorded Time 07/11/2025 text/html Upper Respirator y SymptomsReported by [...] with coughing. - The patient has tried [id number] medications without relief. - In-office testing for [...] note prior to signature. KERRIE SLATER PA-C [facility] [place], [address], [facility] 07/14/2025 13:07:34 OBGyn Episode No OBEpisode recorded.
--- OUTSIDE RECORDS SUMMARY | 2025-08-17 15:41 | XMS_ITS | Continuity of Care Document ---
Author Organization [facility] Address [address] [place] [address] Care Team Providers Care Roaster Helper Name Role Phone JULIANN PIZANO Primary Care Provider YOMI KELLER Orthopedic Surgeon [phone] Assessment No assessment recorded. Plan of Treatment [...] B-12) 1,000 mcg/mL injection solution 2024 025 [email or web address] Not available 07/18/2025 15:33:33 Patient TargetsNo targets recorded. Patient InstructionsNo instructions recorded. Reason for Referral None Reported. Results Created Date Observation Date Name Description Value Unit Range Abnormal Flag Note LastModifiedBy Organization Detail LastModifiedTime 07/11/2007/11/2025 influ trini virus A + B and SARS CoV 2, QL, SARA+p robe, respi rator y speci men Unknown Analyte Negati ve Not Available [facility] [address] [place], [address], 07/11/2025 11:41:20 07/11/20 25 07/11/2025 influ trini virus A + B and SARS CoV 2, QL, SARA+p robe, respi rator y speci men Unknown Analyte Negati ve Not Available [address], [address], 07/11/2025 11:41:20 07/11/20 25 07/11/2025 influ trini virus A + B and SARS CoV 2, QL, SARA+p robe, respi rator y speci men Unknown Analyte Negati ve Not Available [address], [address], 07/11/2025 11:41:20 07/11/20 25 07/11/2025 influ trini virus A + B and SARS CoV 2, QL, SARA+p robe, respi rator y speci men Unknown Analyte Valid Not Available [address], [address], 07/11/2025 11:41:20 07/11/20 25 07/11/2025 strep group A, DNA, swab Strep A negati ve Not Available [address], [address], 07/11/2025 11:41:55 07/11/20 25 07/11/2025 strep group A, DNA, swab Procedural Control Valid Not Available [address], [address], 07/11/2025 11:41:55 Result Notes None recorded. Problems Name Problem SNOMED Code Status Onset Date Resolution Date Notes Provider Name and Address Organization Details Recorded Time Lack of energy 884068605 Completed 201502/07/2018 From Automate d Load;Pro vider: Juliann Pizano;Sta tus: Active JULIANN PIZANO MD [address] [place] [address], [address] , [facility] 8 13:33:48 Finding of appearan ce of skin Completed 201502/07/2018 From Automate d Load;Pro vider: Juliann Pizano;Sta tus: Active JULIANN PIZANO MD [address] [place] [address], [address] , [facility] 8 13:33:45 Hypothyr oidism 25788327 Active 2015 From Automate d Load;Pro vider: Juliann Pizano;Sta tus: Active JULIANN PIZANO MD [address] [place] [address], [address] , [facility] 3 14:38:44 Tinnitus 98884662 Active 2015 From Automate d Load;Pro vider: Juliann Pizano;Sta tus: Active Not Available [facility] 2 07:32:58 Fibrocys tic disease of breast 74220896 Active 2017 Not Available [facility] 2 07:32:58 Divertic ular disease of colon 580834377 Active 2017 Not Available [facility] 2 07:32:58 Hearing loss 68089649 Active 2017 Not Available [facility] 2 07:32:58 Displace ment of lumbar interver tebral disc without myelopat hy 45780747 Active 2017 JULIANN PIZANO MD [address] [place] [address], [address] , [facility] 3 14:38:27 Osteoart hritis of knee 030800316 Active 2018 Not Available [facility] 2 07:32:58 Alopecia 99098463 Active 2019 Not Available [facility] 2 07:32:58 Hyperlip idemia 81162365 Active 2019 LDL>190 JULIANN PIZANO MD [address] [place] [address], [address] , [facility] 3 22:05:06 Vitamin B12 deficien cy (non anemic) 02106325 Active 2020 JULIANN PIZANO MD [address] [place] [address], [address] , [facility] 3 14:38:51 Atherosc lerosis of aorta 47725845 Active 2022 JULIANN PIZANO MD [address] [place] [address], [address] , [facility] 3 14:51:55 Cystitis 37326966 Active 2022 KERRIE SLATER PA-C [address] [place] [address], [address] , [facility] 3 10:32:11 Bilatera l osteoart hritis of knees 64743028446 9107 Active 2022 JULIANN PIZANO MD [address] [place] [address], [address] , [facility] 3 10:32:14 Pain of right temporom andibula r joint 04365045015 820192 Active 2022 JULIANN PIZANO MD [address] [place] [address], [address] , [facility] 3 10:33:46 Body mass index 25-29 - overweig ht 041626346 Active 2023 JULIANN PIZANO MD [address] [place] [address], [address] , [facility] 4 09:58:29 Dyslipid emia 340061976 Active 2023 JULIANN PIZANO MD [address] [place] [address], [address] , [facility] 4 10:13:07 Ischial bursitis 782017926 Active 2023 JULIANN PIZANO MD [address] [place] [address], [address] , [facility] 4 10:42:24 Lumbar radiculo wendy 325276006 [place] [address] [place] [address], [address] , [facility] 11:31:09 Primary gonarthr aura joiner l 195833969 [place] 20[place] [address] [place] [address], [address] , [facility] 14:24:04 Acute frontal sinusiti s 42469541 Active 2024 KERRIE SLATER PA-C [address] [place] [address], [address] , [facility] 11:58:13 Acute cough Active 2024 KERRIE SLATER PA-C [address] [place] [address], [address] , [facility] 12:02:22 Problem Notes None recorded. Procedures Surgical History Date Name Laterality Status Provider Name and Address Organization Details Recorded Time 025 Joint Injection, Knee - Barb completed YOUNG GHOTRA MD [address] [place] [address], [address], [facility] 05/08/2025 12:43:39 025 Joint Injection, Knee - Barb completed YOUNG GHOTRA MD [address] [place] [address], [address], [facility] 01/28/2025 16:06:18 025 Joint Injection, Knee - Barb completed YOUNG GHOTRA MD [address] [place] [address], [address], [facility] 10/22/2024 12:43:32 024 Injection - Joint/Bursa, Major completed Vicki Rai [facility] 07/15/2024 10:48:22 024 Injection - Joint/Bursa, Major completed Spenser Tijerina [facility] 04/12/2024 15:30:21 024 Injection - Joint/Bursa, Major completed [place] [facility] 01/10/2024 15:32:45 024 Injection - Joint/Bursa, Major completed Quinten Rizo [place] [facility] 10/16/2023 15:30:00 024 Injection - Joint/Bursa, Major completed Lisa SWANN PA-C [address] [place], [address], [place] [facility] 10/13/2023 11:11:57 024 Injection - Joint/Bursa, Major cancelled [place] [facility] 09/05/2023 08:39:03 023 Euflexxa Injection completed Rashad Welsh [place] [facility] 08/16/2023 08:58:43 023 Euflexxa Injection completed Quinten Rizo [place] [facility] 08/09/2023 09:16:07 023 Euflexxa Injection completed Rashad Welsh [place] [facility] 08/02/2023 08:54:42 023 Injection - Joint/Bursa, Major completed [place] [facility] 06/21/2023 08:22:13 023 Injection - Joint/Bursa, Major completed [place] [facility] 06/19/2023 14:59:56 023 DXA Normal completed JONAH HOWARD MD [address] [place], [address], [place] [facility] 03/30/2023 12:31:04 023 Injection - Joint/Bursa, [...] Joint/Bursa, Major completed Vicki Rai [place] [facility] 03/02/2022 09:13:27 022 Injection - Joint/Bursa, [...] 09:28:24 021 Injection - Joint/Bursa, Major completed Alexanrdia Young [place] [facility] 08/18/2021 [...] sling completed JULIANN PIZANO MD [address] [place], [address], [facility] 12/07/2023 10:17:40 021 Injection - Joint/Bursa, Major completed Alexandria Marlo [facility] 02/10/2021 08:25:13 021 Injection - Joint/Bursa, Major completed Vicki Fredi [facility] 02/03/2021 08:07:56 021 Injection - Joint/Bursa, Major completed Alexandria Sellers [facility] 11/11/2020 08:47:33 021 Injection - Joint/Bursa, Major completed Lisa SWANN PA-C [address] [place], [address], [facility] 11/04/2020 13:58:40 020 Orthotic, HFO, Static Custom completed HEMALATHA BERNARD, OTR/L, CHT [address], [address], [facility] 2020 13:04:03 020 Op Note completed YOUNG GUIDRY MD [address] [place], [address], [facility] 07/27/2020 19:12:28 020 Injection - Joint/Bursa, Interm completed YOUNG GUIDRY MD [address] [place], [address], [facility] 02/25/2020 19:59:39 019 Op Note completed YOUNG GUIDRY MD [address] [place], [address], [facility] 05/13/2019 09:25:23 019 Injection - Trigger Finger, Ortho completed YOUNG GUIDRY MD [address] [place], [address], [facility] 04/05/2019 16:43:35 019 Injection - Carpal Tunnel completed YOUNG GUIDRY MD [address] [place] [address], [address], [facility] 03/15/2019 16:13:35 019 Injection - Joint/Bursa, Major completed Cristinecarol Luna [facility] 12/18/2018 15:10:45 019 Injection - Joint/Bursa, Major completed Cristine Jeremy [facility] 12/11/2018 10:50:07 019 Injection - Joint/Bursa, Interm completed YOUNG GUIDRY MD [address] [place] [address], [address], [facility] 09/20/2018 17:43:12 019 Electromyography (EMG) with Nerve Conduction Study (NCV) completed Loera (Nicky) [facility] 09/20/2018 13:42:03 019 Injection - Joint/Bursa, Major completed Lisa SWANN PA-C [address] [place] [address], [address], [facility] 09/05/2018 15:07:17 018 Injection - Joint/Bursa, Interm completed YOUNG GUIDRY MD [address] [place] [address], [address], [facility] 07/04/2018 12:19:03 Hand tendon/muscle transfer completed JULIANN PIZANO MD [address] [place] [address], [address], [facility] 01/05/2017 11:59:57 Cataract Surgery completed JULIANN PARKS MD [address] [place] [address], [address], [facility] 08/29/2022 14:55:26 Appendectomy completed JULIANN PIZANO MD [address] [place] [address], [address], [facility] 10/13/2016 08:25:37 Imaging Results None recorded. [...] tablet Not Available Not Available Not Available [place] 5 mg-325 mg tablet TAKE 1 TAB [...] Not Available Not Available Not Available Vitals None Recorded Social History Question Answer Notes LastModified by Organizat ion Details LastModified Time Tobacco Smoking Status Never Smoker JULIANN PIZANO MD [address] [place] [address], [address], [facility] 01/05/2017 08:07:38 What Is Your Level Of Caffeine Consumption? Occasional Information not available 06/08/2017 How Much Tobacco Do You Chew? None [email or web address] Information not available 03/07/2019 Which Of Your Hands Is Dominant? Right Information not available 06/08/2017 Marital Status Informatio n not available 06/08/2017 What Was The Date Of Your Most Recent Tobacco Screening? 07/11/2025 Information not available 07/11/2025 What Is Your Relationship Status? [email or web address] Information not available 09/07/2023 How Much Tobacco Do You Smoke? No Information not available 04/24/2019 Has Tobacco Cessation Counseling Been Provided? No [email or web address] Information not available 10/18/2023 Sex: Female Functional Status Question Answer Note LastModified by Organizat ion Details LastModified Time Do you use any illicit or recreational drugs? No Information not available 06/08/2017 Do you or have you ever used any other forms of tobacco or nicotine? No [email or web address] Information not available 10/18/2023 What is your [...] available 08:25:23 Mother History of multiple myeloma [email or web address] Not available 07/30 11:06:48 Notes:NO FAMILY HX [...] N Immune System Disorder N Heart Attack (MA) N Mental Illness N Neurological Problems N [...] Time zoster recombinant 3 completed Sayda Borjas [facility] 12/06/2023 16:19:20 Hep A, adult 9 completed Not Available [facility] 09/07/2019 02:50:37 COVID-19, mRNA, LNP-S, PF, jamie-sucrose, 30 mcg/0.3 mL 4 completed Gem Gilliam [facility] 06/09/2025 14:35:52 Influenza, split virus, quadrivalent, PF 9 completed Not Available [facility] 09/07/2019 02:52:20 Influenza, split virus, quadrivalent, preservative 0 completed Sayda Borjas [facility] 09/07/2023 16:44:05 zoster live 5 completed Sayda Borjas [facility] 09/07/2023 16:44:05 DTaP 4 completed Sayda Borjas [facility] 09/07/2023 16:44:05 COVID-19 vaccine, vector-nr, rS-Ad26, PF, 0.5 mL 1 completed Sayda Borjas [facility] 09/07/2023 16:44:05 Influenza, split virus, quadrivalent, preservative 1 completed Sayda Borjas [facility] 09/07/2023 16:44:05 Tdap 4 completed Sayda Borjas [facility] 12/07/2023 10:49:24 Influenza, high-dose, quadrivalent, PF 4 completed Sayda Borjas [facility] 12/07/2023 10:49:24 RSV, recombinant, protein subunit RSVpreF, adjuvant reconstituted, 0.5 mL, PF 4 completed Luis Alfredo Ramsey [facility] 01/09/2024 11:30:59 COVID-19, mRNA, LNP-S, PF, 100 mcg/0.5mL dose or 50 mcg/0.25mL dose 1 completed Veronica Stone [facility] 06/13/2022 08:44:52 Pneumococcal conjugate PCV 13 1 completed Veronica Stone [facility] 06/13/2022 08:44:52 COVID-19, mRNA, LNP-S, PF, 100 mcg/0.5mL dose or 50 mcg/0.25mL dose 2 completed Veronica Stone [facility] 06/13/2022 08:44:52 COVID-19 vaccine, vector-nr, rS-Ad26, PF, 0.5 mL 1 completed Veronica Stone [facility] 06/13/2022 08:44:52 Influenza, high-dose, trivalent, PF 0 completed Veronica Stone [facility] 06/13/2022 08:44:52 Influenza, high-dose, trivalent, PF 4 completed JULIANN PIZANO MD [address] [place] [address], [address], [facility] 05/26/2024 14:32:15 pneumococcal polysaccharide PPV23 9 completed JULIANN PIZANO MD [address] [place] [address], [address], [facility] 08/29/2022 14:39:38 Influenza, split virus, quadrivalent, PF 7 completed JULIANN PIZANO MD [address] [place] [address], [address], [facility] 08/29/2022 14:39:38 influenza, unspecified formulation 2 completed Sayda Borjas [facility] 09/07/2023 16:44:05 COVID-19, mRNA, LNP-S, PF, jamie-sucrose, 30 mcg/0.3 mL 5 completed JULIANN PIZANO MD [address] [place] [address], [address], [facility] 12/12/2024 17:13:08 zoster recombinant 3 completed Luis Alfredo Bk [facility] 02/27/2023 09:41:31 Hep A, adult 8 completed Not Available [facility] 09/07/2019 02:45:53 Influenza, high-dose, trivalent, PF 5 completed Luis Alfredo Braulio [facility] 06/12/2025 14:37:25 COVID-19, mRNA, LNP-S, PF, jamie-sucrose, 30 mcg/0.3 mL 5 completed Luis Alfredo Ramsey [facility] 06/12/2025 14:37:25 COVID-19, mRNA, LNP-S, bivalent, PF, 30 mcg/0.3 mL dose 3 completed Luis Alfredo Ramsey [facility] 03/24/2023 15:03:47 Influenza, split virus, quadrivalent, PF 8 completed Not Available [facility] 09/07/2019 02:48:52 Past Encounters Encounter ID Performer Location Encounter Start Date Encounter Closed Date Diagnosis/Indication Diagnosis SNOMED-CT Code Diagnosis ICD10 Code Diagnosis IMO Codes Diagnosis Note [id number] KERRIE SLATER PA-C [address] [address] 07/11/2025 11:22:46 07/11/2025 13:36:55 Acute cough 2529308432 47328325 R05.0 1055921544 discussed negative flu and covid Acute fron joaquín sinusitis 64497001 J01.10 J40 21293992 Patient presented with symptoms of upper respirator [...] keeping them stored safely away from children. [id number] ALEXANDRIA LEONG APRN [address] [address] 07/18/2025 14:52:21 07/18/2025 15:05:20 Cobalamin deficiency 758062957 E53.8 96277 Health Concerns Section Related Observation LastModified by Organization Detai ls LastModified Time None Recorded Concern Status LastModified by Organization Details LastModified Time None Recorded Payers Encounter Date Sequence Insurance Name Policy Number Policy Walter Covered Member ID Walter Member ID Guarantor Name 07/18/2025 1 ANSELMO: ARIANE RAMACHANDRAN OF [place] - [employer] [place] (MEDICARE REPLACEMENT HMO) [id number] January Torres [id number] January Torres OBGyn Episode No OBEpisode recorded.
[2025-08-17 15:49] LABS: Troponin I < 0.01 ng/ml (0.00-0.034)
[2025-08-17 16:05] LABS: Thyroid Stimulating Hormone 1.04 uIU/mL (0.465-4.68)
[2025-08-17 17:11] LABS: Microscopic, Urine URINE MICROSCOPIC (MICROSCOPIC)
[2025-08-17 17:13] LABS: Bilirubin,Urine Negative (Negative); Color,Urine YELLOW (Yellow); Glucose,Urine (UA) Negative (Negative); Ketones,Urine Negative (Negative); Leukocyte Esterase,Urine TRACE (Negative); PH,Urine 7.0 (5.0-8.5); Protein,Urine Negative (Negative); Specific Gravity, Urine 1.010 (1.005-1.030); Urobilinogen,Urine 0.2 EU/dl (0.2)
[2025-08-17 17:20] LABS: Bacteria,Urine 3+ /lpf; Mucus,Urine 1+ /lpf
[2025-08-17 18:53] LABS: Troponin I < 0.01 ng/ml (0.00-0.034)
== END 2025-08-17 20:16 | disposition home or self-care (01) ==
PROVIDERS: Physician Assistant; Emergency Provider Student in an Organized Health Care Education/Training Program; PCP Internal Medicine
DX: R55 Syncope and collapse (principal); R11.0 Nausea
CPT/HCPCS: 80053; 81001; 83735; 84443; 84484; 85025; 87086; 93005; 96360; 99284; 99285; J7030

== ENCOUNTER 2025-08-18 09:29 | Outpatient (CLI) | payer MEDICARE, SELFPAY ==
--- OUTSIDE RECORDS SUMMARY | 2025-08-18 09:47 | XMS_ITS | Clinical Summary ---
Author Organization Healthcare Address [address] [place] [address] Care Team Providers Care Acid Remover Name Role Phone Juliann Pizano MD Primary Care Provider [phone] Gerald Vargas DDS Unavailable [phone] Richard Hein Unavailable Allergies No known active [...] Cap) 18+ 10/31/19 21 Moderna COVID-19 Vaccine ([employer] Operator) 12+ years ,07/21/2021 Family History Medical History [...] Td Vaccines (2 - Tdap) 10/02/2023 10/02/2013 [id number] Vaccine ( season) 2025 02/27/2023, 02/04/2022, 07/21/2021, [...] COMMERCIAL on file [employer] MEDICARE Care Teams Acid Remover Relationship Specialty Start Date End Date Juliann Pizano MD [address] [place] [address] PCP - General 08/21/21 Gerald Vargas DDS [address] [facility] [address] [place] [address] Dentist Dentist 07/25/22 Richard Hein Dentist 07/25/22
--- OUTSIDE RECORDS SUMMARY | 2025-08-18 09:47 | XMS_ITS | Encounter Summary ---
Author Organization [employer] ([place], [place], [place], [place], [place]) Address [address] [place] [address] Care Team Providers Care Quality Consultant Name Role Phone Unavailable Primary Care Provider Unavailabl e Encounter Details Date Type Department Care Team (Late st Contact Info) Description 03/03/2021 Transcribed Document [facility] Family Medicine [facility] [place] [address] ProviderHector [place] [address] Social History Tobacco Use Types [...] Hector Provider, - 03/03/2021 3:06 PM CDT [facility] Main OR IntraOp Summary Primary Physician: Angie PULLIAM MD-OBG Finalized Date/Time: 03/05/21 09:24:22 Pt. Name: MICHELLE VOSS Lisa /Sex: 1955 Female Med Rec #: [id number] Physician: Angie PULLIAM MD-OBG Financial #: [id number] Pt. Type: O Room/Bed: [facility] Admit/Disch: 03/03/21 04:56:00 - 03/03/21 16:32:00 Institution: [facility] IntraOp Case Attendance Entry 1 Entry 2 Entry 3 Case Attendee Angie PULLIAM Holliday, Stewart R, RN Sophia Dwyer, HEAVY MACHINERY ASSEMBLER -OBG Role Performed Surgeon/Proceduralist, Cloth Winding Supervisor, First Scrub, First First Time In 03/03/21 [...] CHUA, LUIS ALFREDO [address] Role Performed SECOND OPERATOR/Nurse Corporate Treasury Analyst Scrub, First Time In 03/03/21 14:56:00 03/03/21 15:07:00 Time Out 03/03/21 15:21:00 03/03/21 15:21:00 Procedure Vaginal Sling Vaginal Sling Procedure, Cystoscopy Procedure, Cystoscopy Adult Adult Other Attendee Superficial Wound Closed By: Last Modified By: Rashid Carrillo RN Holliday, Stewart R, KATHY 03/03/21 15:21:11 03/03/21 15:21:11 [facility] IntraOp Case Attendance Audit 03/03/21 15:21:11 Medical Physics Teacher: FELIX Modifier: HOLLIDSR 1 <+> Time Out 1 <*> Procedure Vaginal Sling Procedure, Cystoscopy Adult 2 <+> Time Out 2 <*> Procedure Vaginal Sling Procedure, Cystoscopy Adult 3 <*> Procedure Vaginal Sling Procedure, Cystoscopy Adult 4 <+> Time Out 4 <*> Procedure Vaginal Sling Procedure, Cystoscopy Adult 5 <+> Time Out 5 <*> Procedure Vaginal Sling Procedure, Cystoscopy Adult 03/03/21 15:07:06 Medical Physics Teacher: FELIX Modifier: DAQUANIDSR 1 <+> Time In [...] [facility] IntraOp Case Times Audit 03/03/21 15:21:10 Medical Physics Teacher: DAQUANIDSR Modifier: HOLLIDSR <+> 1 Out Room Time <+> 1 Stop Time 03/03/21 15:18:09 Medical Physics Teacher: DAQUANIDSR Modifier: HOLLIDSR 1 <*> Start Time 03/03/21 15:17:00 03/03/21 15:17:57 Medical Physics Teacher: DAQUANIDSR Modifier: HOLLIDSR <+> 1 Start Time 03/03/21 15:17:36 Medical Physics Teacher: HOLLIDSR Modifier: HOLLIDSR <+> 1 Stop Time [...] Skin Condition After Cautery Last Modified By: Rashid Carrillo RN 03/03/21 15:05:20 SJE IntraOp Counts Verification Entry 1 Procedure Vaginal Sling Procedure, Cystoscopy Adult Count Info Count Type Sponge, Sharps, Miscellaneous Counts Verification Baseline/pre-procedure Sequence Counts Performed By Count Performed By Sophia Dwyer, GYAATRI (Scrub) Count Performed By Rashid Carrillo, RN [...] [facility]JE IntraOp Counts Final Audit 03/03/21 15:17:41 Medical Physics Teacher: FELIX Modifier: FELIX 1 <*> Procedure Vaginal [...] Yes Assessment Complete Fire Risk Rashid Carrillo, plumbing and heating mechanic Verified By Fire Risk 03/03/21 14:47:00 Assessment Verified Date/Time Fire Risk High Risk Protocol Yes Implemented Standard Fire Yes Safety Precautions Followed Last Modified By: Rashid Carrillo, RN 03/03/21 14:56:09 SJE IntraOp Fire Risk Assessment Audit 03/03/21 14:56:09 Medical Physics Teacher: FELIX Modifier: FELIX <+> 1 Fire Risk Assessment Verified Date/Time SJE IntraOp General Case Washer Engineer 1 Case Information OR OR 07 SJE Case Level 1 Room Verified Yes Wound Class II - Clean-Contaminated Specialty Gynecology Anesthesia Type General ASA Class 3 Diagnosis Preop Diagnosis urinary incontinence Postop Diagnosis refer to MD notes Last Modified By: Rashid Carrillo RN 03/03/21 15:06:05 SJE IntraOp General Case Data Audit 03/03/21 15:06:05 Medical Physics Teacher: FELIX Modifier: FELIX <+> 1 ASA Class <+> 1 Anesthesia Type <+> 1 Preop Diagnosis <+> 1 Postop Diagnosis <+> 1 Room Verified SJE IntraOp Implant Log Entry 1 Type Implant (Synthetic) Implant Log Implant Type Mesh Implant SLING SOLYX SIS Identification [id number] Description Implant Quantity 1 Implant [id number] Identification Lot Number Implant Fields Identification Sci:Urology/Gynecology Livery Car Driver Name: Implant [id number] Identification Catalog Number Implant Has an Yes [...] 0.5% w/ epinephrine 1:200,000 30ml vial - [id number] Dose Administered By Angie PULLIAM MD-OBG Procedure [...] SJE IntraOp Patient Positioning Audit 03/03/21 15:05:44 Medical Physics Teacher: FELIX Modifier: FELIX <+> 1 Procedure SJE [...] SJE IntraOp Skin Prep Audit 03/03/21 15:17:41 Medical Physics Teacher: HEMALATHAGriselda Modifier: DAQUANEMILIANOGriselda <+> 1 Procedure SJE [...] SJE IntraOp Surgical Procedures Audit 03/03/21 15:21:12 Medical Physics Teacher: FELIX Modifier: DAQUANEMILIANOGriselda <+> 1 Start <+> [...]
--- OUTSIDE RECORDS SUMMARY | 2025-08-18 09:47 | XMS_ITS | Referral Summary ---
Author Organization [employer] ([place], [place], [place], [place], [place]) Address [address] [place] [address] Care Team Providers Care Press Hand Name Role Phone Unavailable Primary Care Provider [...]
--- OUTSIDE RECORDS SUMMARY | 2025-08-18 09:47 | XMS_ITS | Encounter Summary ---
Author Organization [employer] ([place], [place], [place], [place], [place]) Address [address] [place] [address] Care Team Providers Care Hot Stone Setter Name Role Phone Unavailable Primary Care Provider Unavailabl e Encounter Details Date Type Department Care Team (Late st Contact Info) Description 03/03/2021 Transcribed Document [facility] [place] [facility] [place] [address] ProviderHector MD [facility] [place] [address] Social History Tobacco Use Types [...] left the operating room in satisfactory condition. /[id number] PankajMD MANSOOR Maciel/AXEL / MANSOOR / MODL /[id number] documented in this encounter Plan of Treatment Not on file documented as of this encounter Visit Diagnoses Not on filedocumented in this encounter
--- OUTSIDE RECORDS SUMMARY | 2025-08-18 09:47 | XMS_ITS | Encounter Summary ---
Author Organization [employer] ([place], [place], [place], [place], [place]) Address [address] [place] [address] Care Team Providers Care Honey Grader And Blender Name Role Phone Unavailable Primary Care Provider Unavailabl e Encounter Details Date Type Department Care Team (Late st Contact Info) Description 03/03/2021 Transcribed Document [facility] [place] [facility] [place] [address] ProviderHector MD [facility] [address] Social History Tobacco Use Types [...] Main OR PreOp Summary Primary Physician: Angie PULLAIM MD-OBG Finalized Date/Time: 03/04/21 06:50:22 Pt. Name: MICHELLE VOSS /Sex: 1955 Female Med Rec #: [id number] Physician: Angie PULLIAM MD-OBG Financial #: [id number] Pt. Type: O Room/Bed: [facility]/ Admit/Disch: 03/03/21 04:56:00 - 03/03/21 16:32:00 Institution: [facility] [place] PreOp Case Times Entry 1 In Preop 03/03/21 13:00:00 Ready for Holding n/a Room Patient Ready for n/a Surgery Patient Out of Preop 03/03/21 14:50:00 Patient Out of n/a Holding Room Last Modified By: BETSY FOREMAN 03/04/21 06:50:21 SJJacqueline PreOp Case Times Audit 03/04/21 06:50:21 Rock Wool Applicator: RASHI Modifier: CATLETDD <+> 1 Patient Out of Preop Finalized By: BETSY FOREMAN Document Signatures Signed By: BETSY FOREMAN 03/04/21 06:50 Electronically signed by Carol [facility] Conversion Stogie Packer Cerner at 12/07/2022 8:38 PM CDT documented in this encounter Plan of Treatment Not on file documented as of this encounter Visit Diagnoses Not on filedocumented in this encounter
--- OUTSIDE RECORDS SUMMARY | 2025-08-18 09:47 | XMS_ITS | Clinical Summary ---
[facility] Address [address] [place] [address] Care Team Providers Care Echocardiologist Name Role Phone Juliann Pizano MD Primary Care Provider [phone] Family History Medical History Relation Name Comments [...] fall-prevention measurements. The National Osteoporosis Foundation recommends (http://www.nof.org/hcp/practice/jkvgilfc-vzq-nvatnjyf-guidelines/clinic ans-guide) that FDA-approved medical therapies be considered [...] the left hip with 95% confidence is 0.266917 gm/cm2 at the hip and 0.200297 g/cm2 at the lumbar spine. This report [...] fall-prevention measurements. The National Osteoporosis Foundation recommends (http://www.nof.org/hcp/practice/fcndgnzk-ygf-noenppcd-guidelines/clinic ans-guide) that FDA-approved medical therapies be considered [...] the left hip with 95% confidence is 0.225524 gm/cm2 at the hip and 0.202774 g/cm2 at the lumbar spine. This report was finalized on 01/30/2020 10:[address] Mandeep Napoles MD. Stormy Jolley HEARING AIDE TECHNICIAN IM DXA ORDERABLES Final R esult from Last 3 Months or Most Recently Relevant to Health Maintenance Insurance [employer] MEDICARE [employer] HMO Care Teams Echocardiologist Relationship Specialty Start Date End Date Juliann Pizano MD [address] [place] [address] PCP - General 05/19/15
--- OUTSIDE RECORDS SUMMARY | 2025-08-18 09:47 | XMS_ITS | Clinical Summary ---
Author Organization [facility] [facility] [employer] Address [address] [facility] [place] [address] Care Team Providers Care Auto Porter Name Role Phone Juliann Pizano MD Primary Care Provider Allergies No known active allergies Medications atorvastatin [...] file Medical Devices Not on file Insurance [facility] Care Teams Auto Porter Relationship Specialty Start Date End Date Juliann Pizano MD [address] [place] [address] PCP - General Internal Medicine 02/15/22
--- OUTSIDE RECORDS SUMMARY | 2025-08-18 09:47 | XMS_ITS | Encounter Summary ---
Author Organization [employer] ([place], [place], [place], [place], [place]) Address [address] [place] [address] Care Team Providers Care Chemical Equipment Repairer Name Role Phone Unavailable Primary Care Provider Unavailabl e Encounter Details Date Type Department Care Team (Late st Contact Info) Description 03/03/2021 Transcribed Document [facility] [place] [facility] [place] [address] ProviderHector MD [facility] [place] [address] Social History Tobacco Use Types [...] Hector ProviderMD - 03/03/2021 3:06 PM CDT [facility] [place] Main OR PACU Summary Primary Physician: Angie PULLIAM MD-OBG Finalized Date/Time: 03/03/21 16:09:20 Pt. Name: MICHELLE VOSS /Sex: 1955 Female Med Rec #: [id number] Physician: Angie PULLIAM MD-OBG Financial #: [id number] Pt. Type: O Room/Bed: [facility] Admit/Disch: 03/03/21 04:56:00 - Institution: [facility] [place] Main OR PACU Case Times Entry 1 In PACU I 03/03/21 15:22:00 Ready for PACU 03/03/21 16:09:00 Discharge Discharge from PACU 03/03/21 16:09:00 I Last Modified By: Heydi Ho RN 03/03/21 16:09:09 [facility] Main OR PACU Case Times Audit 03/03/21 16:09:09 Felt Hat Inspector And Packer: [email or web address] Modifier: CARRIEC <+> 1 Ready for PACU Discharge <+> 1 Discharge from PACU I Finalized By: Heydi Ho RN Document Signatures Signed By: Heydi Ho RN 03/03/21 16:09 Electronically signed by Carol [facility] Conversion Pharmacy Picking Tech Cerner at 12/07/2022 8:29 PM CDT documented in this encounter Plan of Treatment Not on file documented as of this encounter Visit Diagnoses Not on filedocumented in this encounter
--- OUTSIDE RECORDS SUMMARY | 2025-08-18 09:47 | XMS_ITS | Encounter Summary ---
Author Organization [employer] ([place], [place], [place], [place], [place]) Address [address] [place] [address] Care Team Providers Care Pattern Grader Name Role Phone Unavailable Primary Care Provider Unavailabl e Encounter Details Date Type Department Care Team (Late st Contact Info) Description 03/03/2021 Transcribed Document [facility] [place] [facility] [place] [address] ProviderHector MD [facility] [place] [address] Social History Tobacco Use Types [...] VOSS /Sex: 1955 Female Med Rec #: [id number] Physician: Angie PULLIAM MD-OBG Financial #: [id number] Pt. Type: O Room/Bed: [facility] Admit/Disch: 03/03/21 04:56:00 - Institution: [facility] Main OR PostOp Case Times Entry 1 In PACU II 03/03/21 16:11:00 Ready for PACU II 03/03/21 16:32:00 Discharge Discharge from PACU 03/03/21 16:32:00 II Last Modified By: NEIL WELCH RN 03/03/21 16:41:05 Finalized By: NEIL WELCH, KATHY Document Signatures Signed By: NEIL WELCH RN 03/03/21 16:41 Electronically signed by Carol [facility] Conversion Taker Off Hemp Fiber Cerner at 12/07/2022 8:26 PM CDT documented in this encounter Plan of Treatment Not on file documented as of this encounter Visit Diagnoses Not on filedocumented in this encounter
--- OUTSIDE RECORDS SUMMARY | 2025-08-18 09:47 | XMS_ITS | Encounter Summary ---
Author Organization [employer] ([place], [place], [place], [place], [place]) Address [address] [place] [address] Care Team Providers Care Inspecting Machine Adjuster Name Role Phone Unavailable Primary Care Provider Unavailabl e Encounter Details Date Type Department Care Team (Late st Contact Info) Description 03/03/2021 Transcribed Document [facility] [place] [facility] [place] [address] ProviderHector MD [facility] [place] [address] Social History Tobacco Use Types [...] Source : Stated Height Entry Format : [place] Height, Feet : 5 ft(Converted to: 152 cm, 60 Inch) Height, Inches : 2 Inch(Converted to: 0 ft 2 Inch, 5.08 cm) Clinical Height : 157.48 cm Weight Source : Standing scale Weight Entry Format : Franklin Clinical Dosing Weight : 75.45 kg Weight, Pounds : 166 lb Body Surface Area (BSA) : 1.77 m2 Body Mass Index : 30.4 kg/m2 (HI) [place] Body Weight : 50 kg NEIL WELCH [...] COVID19 symptoms since test? : No NEIL WECLH RN - 03/03/2021 13:37 EDT Anesthesia/Transfusion History [...] NEIL WELCH RN - 03/03/2021 13:37 EDT [place] Suicide Severity Rating Scale (C-SSRS) CSSRS Past [...] #2 Relationship : - Primary Language : Congolese Communication Barrier : None Internetworking Technician Needed : No NEIL WELCH RN - [...] Apnea Risk Level Score : 2 NEIL WELCH RN - 03/03/2021 13:37 EDT Pain Scale [...]
--- OUTSIDE RECORDS SUMMARY | 2025-08-18 09:47 | XMS_ITS | Encounter Summary ---
Author Organization [employer] ([place], [place], [place], [place], [place]) Address [address] [place] [address] Care Team Providers Care Journeyman Meat Cutter Name Role Phone Unavailable Primary Care Provider Unavailabl e Encounter Details Date Type Department Care Team (Late st Contact Info) Description 03/03/2021 Transcribed Document [facility] [place] [facility] [place] [address] ProviderHector MD [address] [place] [address] Social History Tobacco Use Types [...] Vaughan MD - 03/03/2021 4:23 [place] [address] MICHELLE VOSS :1955 Visit Time:03/03/2021 What to do next Your Diagnosis Stress incontinence (female) (male), Stress incontinence (female) (male) Instructions From Your Care Team Nothing vaginally until seen by doctor at follow up appointment Medications have been escribed to your pharmacy Resume diet as tolerated Follow-Up Appointments Follow Up with Angie PULLIAM MD-OBG When Comments Keep already scheduled follow up appointment Where: [place] [address]- Medications What How Much When Instructions Next [...] and water are not available, use hand fireworks assembly supervisor. ? Change your dressing as told by [...] allowed to take sponge baths. ??? Take psaa-qls-knzxkvd and prescription medicines only as told by [...] keep your urine pale yellow. ? Take vxqx-bva-mitlpfy or prescription medicines. ? Eat foods that [...] provider. Document Revised: 07/20/2018 Document Reviewed: 11/15/2017 [employer] Patient Education ?? 2020 [employer] General Anesthesia, Adult, Care After This [...] activities are safe for you. ??? Take jnvf-oqa-kvpfjee and prescription medicines only as told by [...] provider. Document Revised: 08/10/2018 Document Reviewed: 03/23/2018 [employer] Patient Education ?? 2020 [employer] Emergency Awareness and Preventative Care STROKE is [...] Assistance with quitting is available by contacting 8-604-ULSS-NOW. This is a free resource providing counseling, [...] was given the opportunity to ask questions. Patient/Translator/Interpreter Name: Patient/Translator/Interpreter Signature: Relationship to Patient: Clinician/Hospital Translator/Interpreter Signature: Date: documented in this encounter Plan of Treatment Not on file documented as of this encounter Visit Diagnoses Not on filedocumented in this encounter
--- OUTSIDE RECORDS SUMMARY | 2025-08-18 09:47 | XMS_ITS | Encounter Summary ---
Author Organization [employer] ([place], [place], [place], [place], [place]) Address [address] [place] [address] Care Team Providers Care Resource Protection Specialist Name Role Phone Unavailable Primary Care Provider Unavailabl e Encounter Details Date Type Department Care Team (Late st Contact Info) Description 03/03/2021 Transcribed Document [facility] [place] [facility] [place] [address] ProviderHector MD [address] [place] [address] Social History Tobacco Use Types [...] and water are not available, use hand supervisor slate splitting. ? Change your dressing as told by [...] allowed to take sponge baths. ??? Take inuc-bld-oxelfcz and prescription medicines only as told by [...] keep your urine pale yellow. ? Take uvpz-vhp-vbpvpxq or prescription medicines. ? Eat foods that [...] provider. Document Revised: 07/20/2018 Document Reviewed: 11/15/2017 [email or web address] Patient Education ? 2020 [employer] Pharmacology General Anesthesia, Adult, Care After [...] activities are safe for you. ??? Take xqsz-crt-kamxmyt and prescription medicines only as told by [...] provider. Document Revised: 08/10/2018 Document Reviewed: 03/23/2018 [employer] Patient Education ? 2020 [employer] documented in this encounter Plan of Treatment Not on file documented as of this encounter Visit Diagnoses Not on filedocumented in this encounter
--- OUTSIDE RECORDS SUMMARY | 2025-08-18 09:47 | XMS_ITS | Clinical Summary ---
Author Organization [employer] ([place], [place], [place], [place], [place]) Address [address] [place] [address] Care Team Providers Care Over Short And Damage Clerk Name Role Phone Unavailable Primary Care Provider [...]
--- OUTSIDE RECORDS SUMMARY | 2025-08-18 09:48 | XMS_ITS | Encounter Summary ---
Author Organization [employer] ([place], [place], [place], [place], [place]) Address [address] [place] [address] Care Team Providers Care Portrait Consultant Name Role Phone Unavailable Primary Care Provider Unavailabl e Encounter Details Date Type Department Care Team (Late st Contact Info) Description 03/01/2021 Transcribed Document [facility] [place] Family Medicine [facility] [place] [address] ProviderHector MD [facility] [place] [address] Social History Tobacco Use Types [...] Source : Stated Height Entry Format : Coffee Height, Feet : 5 ft(Converted to: 152 cm, 60 Inch) Height, Inches : 2 Inch(Converted to: 0 ft 2 Inch, 5.08 cm) Clinical Height : 157.48 cm Weight Source : Standing scale Weight Entry Format : Coffee Clinical Dosing Weight : 75.45 kg Weight, Pounds : 166 lb Body Surface Area (BSA) : 1.77 m2 Body Mass Index : 30.4 kg/m2 (HI) [place] Body Weight : 50 kg LAKEISHA PARTIDA [...] LAKEISHA PARTIDA RN - 03/01/2021 12:00 EDT [place] Suicide Severity Rating Scale (C-SSRS) CSSRS Past [...] #2 Relationship : - Primary Language : Turkmen Communication Barrier : None Measurement Superintendent Needed : LAKEISHA Ritter RN - 03/01/2021 [...]
[2025-08-18 10:40] LABS: D-Dimer 0.75 ug/mL (0.0-0.5)
--- NOTE | 2025-08-18 13:00 | CT_ITS ---
FINAL REPORT TECHNIQUE: Axial imaging of the chest is obtained after the administration of contrast. 3-D MIP reformatted images were also obtained and reviewed per PE protocol. CLINICAL HISTORY: positive d-dimer COMPARISON: None FINDINGS: The pulmonary arteries are well filled. There is no evidence of pulmonary embolus. There is no aortic dissection. Heart size is normal. There is no mediastinal, hilar, or axillary lymphadenopathy. The lungs are clear. A large hiatal hernia is present. There is no pleural or pericardial effusion. Limited evaluation of the upper abdomen is without acute abnormality. No acute osseous abnormality. IMPRESSION: No evidence of pulmonary embolism or aortic dissection. Large hiatal hernia. Reviewed, Interpreted and Dictated by Manisha Castellanos MD Transcribed by Becky Jeffers Authenticated and [facility]
[2025-08-18] MEDS: SODIUM CHLORIDE 0.9% 10ML SYR (RAD ONLY) 10 ML IV (13:23)
[2025-08-18] MEDS: 0.9 % SODIUM CHLORIDE 50 ML VIAL IV (13:23)
[2025-08-18] MEDS: IOPAMIDOL-370 (76%);100ML BOTTLE 85 ML IV (13:23)
== END 2025-08-18 23:59 | disposition home or self-care (01) ==
PROVIDERS: PCP Internal Medicine; Visit Provider Nurse Practitioner
DX: R55 Syncope and collapse (principal); R42 Dizziness and giddiness; E78.5 Hyperlipidemia, unspecified; Z13.6 Encounter for screening for cardiovascular disorders; R79.89 Other specified abnormal findings of blood chemistry
CPT/HCPCS: 36415; 71275; 85378; 93270; Q9967

== ENCOUNTER 2025-08-19 13:46 | Outpatient (CLI) | payer MEDICARE, SELFPAY ==
--- NOTE | 2025-08-19 13:45 | CA_ITS ---
APPROVED REPORT EXAM: Comprehensive 2D, Doppler, and color-flow Echocardiogram Vamp Throater: Sabiha Ocampo RVT Ht: 5 ft 3 in Wt: 148lbs BSA: 1.70 BP: 134/80 mmHg Indications: SYNCOPE 2D Dimensions IVSd 1.32 cm F: 0.6-1.0 LVEF (Visual) 61.30 % PWd 1.83 cm F: 0.6 - 1.0 LA Volume 42.60 mL LVDd 3.66 cm F: 3.9 - 5.3 LA Volume Index 25.06 mL/m2 (M/F) 16-34 LVDs 2.48 cm F: 2.2 - 3.5 M-Mode Dimensions LA Diam 3.18 cm (1.9-4.0) LV Diastology E Decel Time 150 (160-240 msec) E/A Ratio 1.0 Aortic Valve OK[place]NA Index 1.29 cm2/m2 AoV Peak Erik. 99.0 (50-130 cm/s) AO Peak GR. 4.00 mmHg AO Mean GR. 2.20 (<5 mmHg) AO VTI 22.4 (18-25 cm) [place]NA (VTI) 2.24 (2.5-4.5 cm2) Mitral Valve MV E Max Erik. 99.0 (40-130 cm/s) MV A Velocity 95.0 (40-130 cm/s) E/A Ratio 1.04 MV PHT 44.0 ms Pulmonary Valve PV Peak Velocity 54.0 (50-150 cm/s) Left Ventricle The left ventricle is normal size. Left ventricular systolic function is normal. The left ventricular ejection fraction is within the normal range. There is increased left ventricular wall thickness. There is normal LV segmental wall motion. The left ventricular diastolic function is normal. LVEF is 55% Right Ventricle The right ventricle is mildly dilated. The right ventricular systolic function is mildly reduced. Atria Left atrium is mildly dilated. Right atrium is mildly dilated. There is no color Doppler evidence of interatrial shunt. Aortic Valve The aortic valve is mildly thickened. There is no hemodynamically significant aortic valvular stenosis. Mild aortic regurgitation is present. Mitral Valve The mitral valve is normal in structure. No evidence of mitral valve stenosis. Mild mitral regurgitation is present. Tricuspid Valve The tricuspid valve leaflets are thin and pliable. Trace tricuspid regurgitation. There is insufficient TR jet to estimate RVSP. Pulmonic Valve The pulmonary valve is grossly normal in structure. Trace pulmonic valve regurgitation is present. Great Vessels The aortic root is normal in size. IVC is normal in size and collapses >50% with inspiration. Pericardium There is no pericardial effusion. Other Information Study Quality: Fair Conclusion Normal LV systolic function. Mild RV dilation with mild reduction in RV function. Mild AI, mild MR. Electronically signed by : Racquel Khanna MD 08/19/2025 19:01:00
--- OUTSIDE RECORDS SUMMARY | 2025-08-19 13:49 | XMS_ITS | Continuity of Care Document ---
Author Organization [facility], PAIN MEDICINE [address] [place] [address] Care Team Providers Care Physical Biochemist Name Role Phone PIZANOJULIANN Primary Care Provider YOMI KELLER Orthopedic Surgeon [...] Organization Details Last Modified Time Details Appointments HOSPITAL FOLLOW-UP 2025 03:30P Coby PIZANO MD Not available Not available Not available RECHECK 2025 02:30P M LUIS ALFREDO SALDAÑA PA-C Not available Not available Not available SHOT ONLY 2025 09:15A M DMITRY_ [facility] E Not available Not available Not available MEDICARE WELLNESS VISIT 2025 09:30A Coby PIZANO MD Not available Not available Not available Lab None recorded. Referral orthopedi c surgeon referral 2024 025 [email or web address] Yomi Keller MD, [address] [place], [address], 06/04/2025 14:30:37 Procedures None recorded. Surgeries None recorded. Imaging None recorded. Medication Orders Compound Rx Alternati ves Neuropath ic Pain Cream 2024 025 [email or web address] [facility], [address], [place], [address], 06/12/2025 13:56:32 Patient TargetsNo targets recorded. Patient InstructionsNo instructions recorded. Reason for Referral Orthopedic Surgeon Referral for Bilateral osteoarthritis of knees Referring Physician: Jossie Arevalo, Pain Management, Encounter Date: 06/03/2025 Results Created Date Observation Date Name Description Value Unit Range Abnormal Flag Note LastModifiedBy Organization Detail LastModifiedTime 06/10/20 25 06/09/2025 XR, knee, 4 or more view [facility] [address] [place] [address] Patiterry t Name: MICHELLE ni : 1954 Patiterry t 9 Orderi ng Provid er: LUIS ALFREDO PIOTR EXAM DATE: 2024 EXAM: XR YOMAIRA KNEES [...] Shiva Andrea MD on 2024 8:[address] [facility] [address] [place], [address], 06/10/2025 09:39:21 08/17/20 25 08/17/2025 imagi ng/di agnos tic resul t No observ ation record ed. [email or web address] Not Available 08/19 11:43:38 08/18/20 25 08/18/2025 CT, angio gram, chest , w/ contr ast No observ ation record ed. [email or web address] Not Available 08/19 11:46:36 Result Notes None recorded. Problems Name Problem SNOMED Code Status Onset Date Resolution Date Notes Provider Name and Address Organization Details Recorded Time Lack of energy 638443758 Completed 201502/07/2018 From Autom[employer] Load;Pro vider: Juliann Pizano;Sta tus: Active JULIANN PIZANO MD [address] [place] [address], [address] , [facility] 8 13:33:48 Finding of appearan ce of skin Completed 201502/07/2018 From Autom[employer] d Load;Pro vider: Juliann Pizano;Sta tus: Active JULIANN PIZANO MD [address] [place] [address], [address] , [facility] 8 13:33:45 Hypothyr oidism 33490447 Active 2015 From Automate d Load;Pro vider: Juliann Pizano;Sta tus: Active JULIANN PIZANO MD [address] [place] [address], [address] , [facility] 3 14:38:44 Tinnitus 49925083 Active 2015 From Automate d Load;Pro vider: Juliann Pizano;Sta tus: Active Not Available [facility] 2 07:32:58 Fibrocys tic disease of breast 02475050 Active 2017 Not Available [facility] 2 07:32:58 Divertic ular disease of colon 673643229 Active 2017 Not Available [facility] 2 07:32:58 Hearing loss 51325407 Active 2017 Not Available [facility] 2 07:32:58 Displace ment of lumbar interver tebral disc without myelopat hy 00748248 Active 2017 JULIANN PIZANO MD [address] [place] [address], [address] , [facility] 3 14:38:27 Osteoart hritis of knee 805423341 Active 2018 Not Available [facility] 2 07:32:58 Alopecia 15444864 Active 2019 Not Available [facility] 2 07:32:58 Hyperlip idemia 94144891 Active 2019 LDL>190 JULIANN PIZANO MD [address] [place] [address], [address] , [facility] 3 22:05:06 Vitamin B12 deficien cy (non anemic) 65475366 Active 2020 JULIANN PIZANO MD [address] [place] [address], [address] , [facility] 3 14:38:51 Atherosc lerosis of aorta 76905585 Active 2022 JULIANN PIZANO MD [address] [place] [address], [address] , [facility] 3 14:51:55 Cystitis 25315369 Active 2022 KERRIE SLATER PA-C [facility] [place], [address] , [facility] 3 10:32:11 Bilatera l osteoart hritis of knees 74919667112 9107 Active 2022 JULIANN PIZANO MD [facility] [place], [address] , [facility] 3 10:32:14 Pain of right temporom andibula r joint 82552439759 700879 Active 2022 JULIANN PIZANO MD [facility] [place], [address] , [facility] 3 10:33:46 Body mass index 25-29 - overweig ht 315726794 Active 2023 JULIANN PIZANO MD [facility] [place], [address] , [facility] 4 09:58:29 Dyslipid emia 922186311 Active 2023 JULIANN PIZANO MD [facility] [place], [address] , [facility] 4 10:13:07 Ischial bursitis 655126938 Active 2023 JULIANN PIZANO MD [facility] [place], [address] , [facility] 4 10:42:24 Lumbar radiculo wendy 145872269 Active 2024 JULIANN PIZANO MD [facility] [place], [address] , [facility] 5 11:31:09 Primary gonarthr osis, bilatera l 219531042 Active 2024 JULIANN PIZANO MD [facility] [place], [address] , [facility] 14:24:04 Acute frontal sinusiti s 60837250 Active 2024 KERRIE SLATER PA-C [address] [place], [address] , [facility] 11:58:13 Acute cough Active 2024 KERRIE SLATER PA-C [address] [place], [address] , [facility] 12:02:22 Hiatal hernia 41080937 [place] [address] [place] [address], [address] , [facility] 23:00:20 Problem Notes None recorded. Procedures Surgical History Date Name Laterality Status Provider Name and Address Organization Details Recorded Time 025 Joint Injection, Knee - Barb completed YOUNG GHOTRA MD [address] [place] [address], [address], [facility] 05/08/2025 12:43:39 025 Joint Injection, Knee - Barb completed YOUNG GHOTRA MD [address] [place] [address], [address], [facility] 01/28/2025 16:06:18 025 Joint Injection, Knee - Barb completed YOUNG GHOTRA MD [address] [place] [address], [address], [facility] 10/22/2024 12:43:32 024 Injection - Joint/Bursa, Major completed Vicki Rai [facility] 07/15/2024 10:48:22 024 Injection - Joint/Bursa, Major completed Spenser Tijerina [facility] 04/12/2024 15:30:21 024 Injection - Joint/Bursa, Major completed Alexandria Sellers [facility] 01/10/2024 15:32:45 024 Injection - Joint/Bursa, Major completed Quinten Rizo [facility] 10/16/2023 15:30:00 02/23/2 024 Injection - Joint/Bursa, Major completed Lisa SWANN PA-C [address] [place], [address], [place] [facility] 10/13/2023 11:11:57 024 Injection - Joint/Bursa, Major cancelled Alexandria Young [place] [facility] 09/05/2023 08:39:03 023 Euflexxa Injection completed Rashad Welsh [place] [facility] 08/16/2023 08:58:43 023 Euflexxa Injection completed Quinten Rizo [place] [facility] 08/09/2023 09:16:07 023 Euflexxa Injection [facility] 08/02/2023 08:54:42 023 Injection - Joint/Bursa, Major completed Alexandria Young [place] [facility] 06/21/2023 08:22:13 023 Injection - Joint/Bursa, Major completed Alexandria Young [place] [facility] 06/19/2023 14:59:56 023 DXA Normal completed JONAH HOWARD MD [address] [place], [address], [place] [facility] 03/30/2023 12:31:04 023 Injection - Joint/Bursa, [...] Joint/Bursa, Major completed Vicki Fredi [place] [facility] 03/02/2022 09:13:27 022 Injection - Joint/Bursa, [...] suprapubic sling completed JULIANN PIZANO MD [address] [place], [address], [facility] 12/07/2023 10:17:40 021 Injection - Joint/Bursa, Major completed [facility]ellers [facility] 02/10/2021 08:25:13 021 Injection - Joint/Bursa, Major completed Vicki Rai [facility] 02/03/2021 08:07:56 021 Injection - Joint/Bursa, Major completed Alexandria Sellers [facility] 11/11/2020 08:47:33 021 Injection - Joint/Bursa, Major completed iLsa SWANN PA-C [address] [place], [address], [facility] 11/04/2020 13:58:40 020 Orthotic, HFO, Static Custom completed HEMALATHA BERNARD, OTR/L, CHT [address] [place], [address], [facility] 2020 13:04:03 020 Op Note completed YOUNG GUIDRY MD [address] [place], [address], [facility] 07/27/2020 19:12:28 020 Injection - Joint/Bursa, Interm completed YOUNG GUIDRY MD [address] [place], [address], [facility] 02/25/2020 19:59:39 019 Op Note completed YOUNG GUIDRY MD [address] [place], [address], [facility] 05/13/2019 09:25:23 019 Injection - Trigger Finger, Ortho completed YOUNG GUIDRY MD [address] [place], [address], [facility] 04/05/2019 16:43:35 019 Injection - Carpal Tunnel completed YOUNG GUIDRY MD [address] [place], [address], [facility] 03/15/2019 16:13:35 019 Injection - Joint/Bursa, Major completed Cristine Luna [facility] 12/18/2018 15:10:45 019 Injection - Joint/Bursa, Major completed Cristine Luna [facility] 12/11/2018 10:50:07 019 Injection - Joint/Bursa, Interm completed YOUNG GUIDRY MD [address] [place] [address], [address], [facility] 09/20/2018 17:43:12 019 Electromyography (EMG) with Nerve Conduction Study (NCV) completed Luz Maria Pizano (Nicky) [facility] 09/20/2018 13:42:03 019 Injection - Joint/Bursa, Major completed Lisa SWANN PA-C [address] [place] [address], [address], [facility] 09/05/2018 15:07:17 018 Injection - Joint/Bursa, Interm completed YOUNG GUIDRY MD [address] [place] [address], [address], [facility] 07/04/2018 12:19:03 Hand tendon/muscle transfer completed JULIANN PIZANO MD [address] [place] [address], [address], [facility] 01/05/2017 11:59:57 Cataract Surgery completed JULIANN PARKS MD [address] [place] [address], [address] [place] [address], [facility] 08/29/2022 14:55:26 Appendectomy completed JULIANN PIZANO MD [address] [place] [address], [address], [facility] 10/13/2016 08:25:37 Imaging Results None recorded. [...] Available Not Available Not Avai lable methocarb cande 500 mg tablet Take 1 [...] tablet Not Available Not Available Not Available [place] 5 mg-325 mg tablet TAKE 1 TAB [...] Last Updated DateTime 160.02 cm 26.6 kg/m2 27844.8 6 g 96 % 86 /min 130/72 mm[Hg] Daisy Bang [facility] 14:02:09 Social History Question Answer Notes LastModified by cartmi Details LastModified Time Tobacco Smoking Status Never Smoker JULIANN PIZANO MD [address] [place] [address], [address], [facility] 01/05/2017 08:07:38 What Is Your Level Of Caffeine Consumption? Occasional Information not available 06/08/2017 How Much Tobacco Do You Chew? None [email or web address] Information not available 03/07/2019 Which Of Your Hands Is Dominant? Right Information not available 06/08/2017 Marital Status Informatio n not available 06/08/2017 What Was The Date Of Your Most Recent Tobacco Screening? 07/11/2025 [email or web address] Information not available 07/11/2025 What Is Your Relationship Status? [email or web address] Information not available 09/07/2023 How Much Tobacco Do You Smoke? No Information not available 04/24/2019 Has Tobacco Cessation Counseling Been Provided? No [email or web address] Information not available 10/18/2023 Sex: Female Functional Status Question Answer Note LastModified by Organizat ion Details LastModified Time Do you use any illicit or recreational drugs? No Information not available 06/08/2017 Do you or have you ever used any other forms of tobacco or nicotine? No [email or web address] Information not available 10/18/2023 What is your [...] N Asthma N Thyroid Disorder Y GERD/Reflux Y Hepatitis N Included as Review of Systems [...] Loss N Radiation Therapy N Endometriosis N Bladder or Kidney Problems N Blood Thinners N Alcohol Overuse/Alcohol Abuse N High Cholesterol Y Liver Disease N Allergies/Hayfever N Parkinson's Disease N Alzheimer's N Thyroid Problems Y GI Problems N Anemia N Immune System Disorder N Heart Attack ([place]) N Mental Illness N Neurological Problems N [...] Time zoster recombinant 3 completed Sayda Borjas [facility] 12/06/2023 16:19:20 Hep A, adult 9 completed Not Available [facility] 09/07/2019 02:50:37 COVID-19, mRNA, LNP-S, PF, jamie-sucrose, 30 mcg/0.3 mL 4 completed Gem Gilliam [facility] 06/09/2025 14:35:52 Influenza, split virus, quadrivalent, PF 9 completed Not Available [facility] 09/07/2019 02:52:20 Influenza, split virus, quadrivalent, preservative 0 completed Sayda Indio [facility] 09/07/2023 16:44:05 zoster live 5 completed Sayda Borjas [facility] 09/07/2023 16:44:05 DTaP 4 completed Sayda Borjas [facility] 09/07/2023 16:44:05 COVID-19 vaccine, vector-nr, rS-Ad26, PF, 0.5 mL 1 completed Sayda Borjas [facility] 09/07/2023 16:44:05 Influenza, split virus, quadrivalent, preservative 1 completed Sayda Indio [facility] 09/07/2023 16:44:05 Tdap 4 completed Sayda Borjas [facility] 12/07/2023 10:49:24 Influenza, high-dose, quadrivalent, PF 4 completed Sayda Borjas [facility] 12/07/2023 10:49:24 RSV, recombinant, protein subunit RSVpreF, adjuvant reconstituted, 0.5 mL, PF 4 completed Luis Alfredo Ramsey [facility] 01/09/2024 11:30:59 COVID-19, mRNA, LNP-S, PF, 100 mcg/0.5mL dose or 50 mcg/0.25mL dose 1 completed Veronica Stone [facility] 06/13/2022 08:44:52 Pneumococcal conjugate PCV 13 1 completed Veronica Stone [facility] 06/13/2022 08:44:52 COVID-19, mRNA, LNP-S, PF, 100 mcg/0.5mL dose or 50 mcg/0.25mL dose 2 completed Veronicabethany Stone [facility] 06/13/2022 08:44:52 COVID-19 vaccine, vector-nr, rS-Ad26, PF, 0.5 mL 1 completed Veronicabethany Stone [facility] 06/13/2022 08:44:52 Influenza, high-dose, trivalent, PF 0 completed Veronicabethany Stone [facility] 06/13/2022 08:44:52 Influenza, high-dose, trivalent, PF 4 completed JULIANN PIZANO MD [address] [place] [address], [address], [facility] 05/26/2024 14:32:15 pneumococcal polysaccharide PPV23 9 completed JULIANN PIZANO MD [address] [place] [address], [address], [facility] 08/29/2022 14:39:38 Influenza, split virus, quadrivalent, PF 7 completed JULIANN PIZANO MD [address] [place] [address], [address], [facility] 08/29/2022 14:39:38 influenza, unspecified formulation 2 completed Sayda Borjas [facility] 09/07/2023 16:44:05 COVID-19, mRNA, LNP-S, PF, jamie-sucrose, 30 mcg/0.3 mL 5 completed JULIANN PIZANO MD [address] [place] [address], [address], [facility] 12/12/2024 17:13:08 zoster recombinant 3 [facility] 09:41:31 Hep A, adult 8 completed Not [facility] 09/07/2019 02:45:53 Influenza, high-dose, trivalent, PF 5 completed Luis Alfredo lund, [facility] 06/12/2025 14:37:25 COVID-19, mRNA, LNP-S, PF, jamie-sucrose, 30 mcg/0.3 mL 5 completed Luis Alfredo Ramsey [facility] 06/12/2025 14:37:25 COVID-19, mRNA, LNP-S, bivalent, PF, 30 mcg/0.3 mL dose 3 [facility] 03/24/2023 15:03:47 Influenza, split virus, quadrivalent, PF 8 completed Not Available [facility] 09/07/2019 02:48:52 Past Encounters Encounter ID Performer Location Encounter Start Date Encounter Closed Date Diagnosis/Indication Diagnosis SNOMED-CT Code Diagnosis ICD10 Code Diagnosis IMO Codes Diagnosis Note [id number] JULIANN PIZANO MD [facility] [address] [address] 05/12/2025 13:44:12 05/12/2025 14:11:53 Cobalamin deficiency 494643197 E53.8 10721 [id number] YOUNG GHOTRA MD [facility] ESSIO NAL CHARGES [address] [facility], [address] [place] [address] 05/08/2025 11:29:44 05/13/2025 15:18:57 Bilateral osteoarthritis of knees 4081448098 68143 M17.0 [id number] JOSSIE MILLAY, PA-C PAIN MEDICINE [address] [place] [address] 06/03/2025 13:53:16 06/04/2025 04:17:53 Bilateral osteoarthritis of knees 4476163970 31238 M17.0 Osteoarthr itis of knee 597691644 M17.9 Health Concerns Section Related Observation LastModified by Organization Detai ls LastModified Time None Recorded Concern Status LastModified by Organization Details LastModified Time None Recorded Payers Encounter Date Sequence Insurance Name Policy Number Policy Walter Covered Member ID Walter Member ID Guarantor Name 06/03/2025 1 [place]MEDICARE [place]PLACEMENT HMO) [id number] [employer] [id number] 31 January C [employer] Notes Date Note Type Note Provider [...] fever, andno bleeding. JOSSIE AREVALO PA-C [address] [place], [address], [facility] 06/03/2025 14:26:25 OBGyn Episode No OBEpisode recorded.
--- OUTSIDE RECORDS SUMMARY | 2025-08-19 13:50 | XMS_ITS | Continuity of Care Document ---
Author Organization Formerly [facility], [facility] Address [address] [place] [address] Care Team Providers Care Seed Buyer Name Role Phone JULIANN PIZANO Primary Care Provider [phone] YOMI KELLER Orthopedic Surgeon Assessment No assessment recorded. Plan of Treatment Reminders Order Date Submit Date Provider Last Modified By Organization Details Last Modified Time Details Appointments HOSPITAL FOLLOW-UP 2025 03:30P M JULIANN PIZANO MD Not available Not [...] mcg/mL injection solution 2024 025 Not available 08/18/2025 21:11:40 Patient TargetsNo targets recorded. Patient InstructionsNo instructions recorded. Reason for Referral None Reported. Results Created Date Observation Date Name Description Value Unit Range Abnormal Flag Note LastModifiedBy Organization Detail LastModifiedTime 08/17/2008/17/2025 imagi ng/di agnos tic resul t No observ ation record ed. [email or web address] Not Available 08/19 11:43:38 08/18/2008/18/2025 CT, angio gram, chest , w/ contr ast No observ ation record ed. [email or web address] Not Available 08/19 11:46:36 Result Notes None recorded. Problems Name Problem SNOMED Code Status Onset Date Resolution Date Notes Provider Name and Address Organization Details Recorded Time Lack of energy 973263429 Completed 201502/07/2018 From [employer];Pro vider: Juliann Pizano;Sta tus: Active JULIANN PIZANO MD [address] [place] [address], [address] [place] [address] , [facility] 8 13:33:48 Finding of appearan ce of skin Completed 201502/07/2018 From [employer];Pro vider: Juliann Pizano;Sta tus: Active JULIANN PIZANO MD [address] [place] [address], [address] [place] [address] 8 13:33:45 Hypothyr oidism 14560653 Active 2015 From [employer];Pro vider: Juliann Pizano;Sta tus: Active JULIANN PIZANO MD [address] [place] [address], [address] [place] [address] , [facility] 3 14:38:44 Tinnitus 28857391 Active 2015 From [employer];Pro vider: Juliann Pizano;Sta tus: Active Not Available [facility] 2 07:32:58 Fibrocys tic disease of breast 31861359 Active 2017 Not Available [facility] 2 07:32:58 Divertic ular disease of colon 434744399 Active 2017 Not Available [facility] 2 07:32:58 Hearing loss 58244317 Active 2017 Not Available [facility] 2 07:32:58 Displace ment of lumbar interver tebral disc without myelopat hy 98870702 Active 2017 JULIANN PIZANO MD [address] [place] [address], [address] , [facility] 3 14:38:27 Osteoart hritis of knee 116549654 Active 2018 Not Available [facility] 2 07:32:58 Alopecia 93009378 Active 2019 Not Available [facility] 2 07:32:58 Hyperlip idemia 39634533 Active 2019 LDL>190 JULIANN PIZANO MD [address] [place] [address], [address] , [facility] 3 22:05:06 Vitamin B12 deficien cy (non anemic) 72563885 Active 2020 JULIANN PIZANO MD [address] [place] [address], [address] , [facility] 3 14:38:51 Atherosc lerosis of aorta 60064001 Active 2022 JULIANN PIZANO MD [address] [place] [address], [address] , [facility] 3 14:51:55 Cystitis 12060868 Active 2022 KERRIE SLATER PA-C [address] [place] [address], [address] , [facility] 3 10:32:11 Bilatera l osteoart hritis of knees 92599811053 9107 Active 2022 JULIANN PIZANO MD [address] [place] [address], [address] , [facility] 3 10:32:14 Pain of right temporom andibula r joint 72565372477 728630 Active 2022 JULIANN PIZANO MD [address] [place] [address], [address] , [facility] 3 10:33:46 Body mass index 25-29 - overweig ht 783203831 Active 2023 JULIANN PIZANO MD [address] [place] [address], [address] , [facility] 4 09:58:29 Dyslipid emia 064590103 Active 2023 JULIANN PIZANO MD [address] [place] [address], [address] , [facility] 4 10:13:07 Ischial bursitis 598176172 Active 2023 JULIANN PIZANO MD [address] [place] [address] [place], [address] , [facility] 4 10:42:24 Lumbar radiculo wendy 435429123 Active 2024 JULIANN PIZANO MD [address] [place] [address], [address] , [facility] 5 11:31:09 Primary gonarthr osis, bilatera l 942303318 Active 2024 JULIANN PIZANO MD [address] [place] [address], [address] , [facility] 5 14:24:04 Acute frontal sinusiti s 15240432 Active 2024 KERRIE SLATER PA-C [address] [place] [address], [address] , [facility] 5 11:58:13 Acute cough Active 2024 KERRIE SLATER PA-C [address] [place] [address], [address] , [facility] 5 12:02:22 Hiatal hernia 60333820 Active 2024 JULIANN PIZANO MD [address] [place] [address], [address] , [facility] 5 23:00:20 Problem Notes None recorded. Procedures Surgical History Date Name Laterality Status Provider Name and Address Organization Details Recorded Time 025 Joint Injection, Knee - Barb completed YOUNG GHOTRA MD [facility] [place], [address], [facility] 05/08/2025 12:43:39 025 Joint Injection, Knee - Barb completed YOUNG GHOTRA MD [address] [place] [address], [address], [facility] 01/28/2025 16:06:18 03/04/2 025 Joint Injection, Knee - Barb completed YOUNG GHOTRA MD [address] [place], [address], [facility] 10/22/2024 12:43:32 024 Injection - Joint/Bursa, Major completed Vicki Rai [facility] 07/15/2024 10:48:22 024 Injection - Joint/Bursa, Major completed Spenser Tijerina [facility] 04/12/2024 15:30:21 024 Injection - Joint/Bursa, Major completed Alexandria Sellers [place] [facility] 01/10/2024 15:32:45 024 Injection - Joint/Bursa, Major completed Quniten Rizo [facility] 10/16/2023 15:30:00 024 Injection - Joint/Bursa, Major completed Lisa SWANN PA-C [address] [place], [address], [facility] 10/13/2023 11:11:57 024 Injection - Joint/Bursa, Major cancelled Alexandria Sellers [place] [facility] 09/05/2023 08:39:03 023 Euflexxa Injection completed Rashad Welsh [facility] 08/16/2023 08:58:43 023 Euflexxa Injection completed Quinten Rizo [facility] 08/09/2023 09:16:07 023 Euflexxa Injection completed Rashad [place] [facility] 08/02/2023 08:54:42 023 Injection - Joint/Bursa, Major completed Alexandria Sellers [place] [facility] 06/21/2023 08:22:13 023 Injection - Joint/Bursa, Major completed Alexandria Sellers [place] [facility] 06/19/2023 14:59:56 023 DXA Normal completed JONAH HOWARD MD [address] [place], [address], [place] [facility] 03/30/2023 12:31:04 023 Injection - Joint/Bursa, [...] Joint/Bursa, Major completed Vicki Rai [place] [facility] 03/02/2022 09:13:27 022 Injection - Joint/Bursa, [...] suprapubic sling completed JULIANN PIZANO MD [address] [place], [address], [facility] 12/07/2023 10:17:40 021 Injection - Joint/Bursa, Major completed [place] Young [place] [facility] 02/10/2021 08:25:13 021 Injection - Joint/Bursa, Major completed Vicki Rai [facility] 02/03/2021 08:07:56 021 Injection - Joint/Bursa, Major completed [place] Young [place] [facility] 11/11/2020 08:47:33 021 Injection - Joint/Bursa, Major completed Lisa SWANN PA-C [address] [place], [address], [facility] 11/04/2020 13:58:40 020 Orthotic, HFO, Static Custom completed HEMALATHA BERNARD, OTR/L, CHT [address] [place], [address], [facility] 2020 13:04:03 020 Op Note completed YOUNG GUIDRY MD [address] [place], [address], [facility] 07/27/2020 19:12:28 020 Injection - Joint/Bursa, Interm completed YOUNG GUIDRY MD [address] [place], [address], [facility] 02/25/2020 19:59:39 019 Op Note completed YOUNG GUIDRY MD [address] [place], [address], [facility] 05/13/2019 09:25:23 019 Injection - Trigger Finger, Ortho completed YOUNG GUIDYR MD [address] [place], [address], [facility] 04/05/2019 16:43:35 019 Injection - Carpal Tunnel completed YOUNG GUIDRY MD [address] [place], [address], [facility] 03/15/2019 16:13:35 019 Injection - Joint/Bursa, Major completed Cristien Luna [facility] 12/18/2018 15:10:45 019 Injection - Joint/Bursa, Major completed Cristine Luna [facility] 12/11/2018 10:50:07 019 Injection - Joint/Bursa, Interm completed YOUNG GUIDRY MD [address] [place], [address], [facility] 09/20/2018 17:43:12 019 Electromyography (EMG) with Nerve Conduction Study (NCV) completed Luz Maria Pizano (Nicky) [facility] 09/20/2018 13:42:03 019 Injection - Joint/Bursa, Major completed Lisa SWANN PA-C [address] [place], [address], [facility] 09/05/2018 15:07:17 018 Injection - Joint/Bursa, Interm completed YOUNG GUIDRY MD [address] [place], [address], [facility] 07/04/2018 12:19:03 Hand tendon/muscle transfer completed JULIANN PIZANO MD [address] [place] [address], [address], [facility] 01/05/2017 11:59:57 Cataract Surgery completed JULIANN PARKS MD [address] [place] [address], [address], [facility] 08/29/2022 14:55:26 Appendectomy completed JULIANN PIZANO MD [address] [place] [address], [address], [facility] 10/13/2016 08:25:37 Imaging Results None recorded. Procedure [...] tablet Not Available Not Available Not Available Tillman 5 mg-325 mg tablet TAKE 1 TAB [...] Smoking Status [place] [address] [place] [address], [address], [facility] 01/05/2017 08:07:38 What Is Your Level Of Caffeine Consumption? Occasional Information not available 06/08/2017 How Much Tobacco Do You Chew? None [email or web address] Information not available 03/07/2019 Which Of Your Hands Is Dominant? Right Information not available 06/08/2017 Marital Status Informatio n not available 06/08/2017 What Was The Date Of Your Most Recent Tobacco Screening? 07/11/2025 [email or web address] Information not available 07/11/2025 What Is Your Relationship Status? [email or web address] Information not available 09/07/2023 How Much Tobacco Do You Smoke? No Information not available 04/24/2019 Has Tobacco Cessation Counseling Been Provided? No [email or web address] Information not available 10/18/2023 Sex: Female Functional Status Question Answer Note LastModified by Organizat ion Details LastModified Time Do you use any illicit or recreational drugs? No Information not available 06/08/2017 Do you or have you ever used any other forms of tobacco or nicotine? No [email or web address] Information not available 10/18/2023 What is your [...] available 08:25:23 Mother History of multiple myeloma [email or web address] Not available 07/30 11:06:48 Notes:NO FAMILY HX [...] N Immune System Disorder N Heart Attack ([place]) N Mental Illness N Neurological Problems N [...] Time zoster recombinant 3 completed Sayda Borjas [facility] 12/06/2023 16:19:20 Hep A, adult 9 completed Not Available [facility] 09/07/2019 02:50:37 COVID-19, mRNA, LNP-S, PF, jamie-sucrose, 30 mcg/0.3 mL 4 completed Gem Gilliam [facility] 06/09/2025 14:35:52 Influenza, split virus, quadrivalent, PF 9 completed Not Available [facility] 09/07/2019 02:52:20 Influenza, split virus, quadrivalent, preservative 0 completed Sayda Borjas [facility] 09/07/2023 16:44:05 zoster live 5 completed Sayda Borjas [facility] 09/07/2023 16:44:05 DTaP 4 completed Sayda Borjas [facility] 09/07/2023 16:44:05 COVID-19 vaccine, vector-nr, rS-Ad26, PF, 0.5 mL 1 completed Sayda Borjas [facility] 09/07/2023 16:44:05 Influenza, split virus, quadrivalent, preservative 1 completed Sayda Borjas null, [facility] 09/07/2023 16:44:05 Tdap 4 completed [facility] 12[facility]07/2023 10:49:24 Influenza, high-dose, quadrivalent, PF 4 completed [facility]07[facility]2023 10:49:24 RSV, recombinant, protein subunit RSVpreF, adjuvant reconstituted, 0.5 mL, PF 4 completed [facility] 01/09/2024 11:30:59 COVID-19, mRNA, LNP-S, PF, 100 mcg/0.5mL dose or 50 mcg/0.25mL dose 1 completed Veronica Stone [facility] 06/13/2022 08:44:52 Pneumococcal conjugate PCV 13 1 completed Veronica Stone [facility] 06/13/2022 08:44:52 COVID-19, mRNA, LNP-S, PF, 100 mcg/0.5mL dose or 50 mcg/0.25mL dose 2 completed Veronica Stone [facility] 06/13/2022 08:44:52 COVID-19 vaccine, vector-nr, rS-Ad26, PF, 0.5 mL 1 completed Veronica Stone [facility] 06/13/2022 08:44:52 Influenza, high-dose, trivalent, PF 0 completed Veronica Stone [facility] 06/13/2022 08:44:52 Influenza, high-dose, trivalent, PF 4 completed JULIANN PIZANO MD [address] [place] [address], [address], [facility] 05/26/2024 14:32:15 pneumococcal polysaccharide PPV23 9 completed JULIANN PIZANO MD [address] [place] [address], [address], [facility] 08/29/2022 14:39:38 Influenza, split virus, quadrivalent, PF 7 completed JULIANN PIZANO MD [address] [place] [address], [address], [facility] 08/29/2022 14:39:38 influenza, unspecified formulation 2 completed Sayda Borjas [facility] 09/07/2023 16:44:05 COVID-19, mRNA, LNP-S, PF, jamie-sucrose, 30 mcg/0.3 mL 5 completed JULIANN PIZANO MD [address] [place] [address], [address], [facility] 12/12/2024 17:13:08 zoster recombinant 3 completed Luis Alfredo Bourgeois [facility] 02/27/2023 09:41:31 Hep A, adult 8 completed Not Available [facility] 09/07/2019 02:45:53 Influenza, high-dose, trivalent, PF 5 completed Luis Alfredo Ramsey [facility] 06/12/2025 14:37:25 COVID-19, mRNA, LNP-S, PF, jamie-sucrose, 30 mcg/0.3 mL 5 completed Luis Alfredo Ramsey [facility] 06/12/2025 14:37:25 COVID-19, mRNA, LNP-S, bivalent, PF, 30 mcg/0.3 mL dose 3 completed Luis Alfredo Ramsey [facility] 03/24/2023 15:03:47 Influenza, split virus, quadrivalent, PF 8 completed Not Available [facility] 09/07/2019 02:48:52 Past Encounters Encounter ID Performer Location Encounter Start Date Encounter Closed Date Diagnosis/Indication Diagnosis SNOMED-CT Code Diagnosis ICD10 Code Diagnosis IMO Codes Diagnosis Note [id number] JULIANN PIZANO MD [address] [address] 08/18/2025 14:49:50 08/18/2025 15:01:49 Cobalamin deficiency 608779595 E53.8 88696 Health Concerns Section Related Observation LastModified by Organization Detai ls LastModified Time None Recorded Concern Status LastModified by Organization Details LastModified Time None Recorded Payers Encounter Date Sequence Insurance Name Policy Number Policy Walter Covered Member ID Walter Member ID Guarantor Name 08/18/2025 1 [place]MEDICARE [place]PLACEMENT HMO) [id number] January C Torres [id number] 31 January C Torres OBGyn Episode No OBEpisode recorded.
--- OUTSIDE RECORDS SUMMARY | 2025-08-19 13:50 | XMS_ITS | Data Portability ---
Author Organization [facility], [facility] Address [address] [place] [address] Assessment No assessment recorded. Plan of Treatment Reminders Order Date Submit Date Provider Last Modified By Organization Details Last Modified Time Details Appointments HOSPITAL FOLLOW-UP 2025 03:30P Coby GOFF MD Not available Not available Not available RECHECK 2025 02:30P M LUIS ALFREDO SALDAÑA PA-C Not available Not available Not available SHOT ONLY 2025 09:15A Coby ANDRES_ DENVER_NURS E Not available Not available Not available MEDICARE WELLNESS VISIT 2025 09:30A Coby GOFF MD Not available Not available Not [...] ICD10 Code Diagnosis IMO Codes Diagnosis Note [id number] QM_IMPORTS [place] [address] 11/21/2016 16:13:37 11/21/2016 16:13:37 [id number] JC GOFF MD [facility] [address] [place] [address] 7 11/23/2016 10:48:14 11/23/2016 14:28:47 [id number] JC GOFF MD [address] [address] 7 01/05/2017 11:05:32 01/05/2017 12:22:52 [id number] MESERET PANIAGUA [facility] [address] [place] [address] 7 03/29/2017 08:41:01 03/29/2017 09:44:29 [id number] VINH KLINE MD ZURDO [address] [place] [address] 03/29/2017 10:49:12 03/31/2017 15:53:12 [id number] MESERET PANIAGUA APRN [address] [address] 7 04/27/2017 09:54:11 04/27/2017 11:40:00 [id number] YOUNG GUIDRY MD [facility] CLOSED [address] [place] [address] 06/08/2017 09:14:33 06/08/2017 15:18:36 [id number] MESERET PANIAGUA APRN [address] [address] 7 10/10/2017 13:48:13 10/10/2017 14:59:14 [id number] JC GOFF MD [address] [address] 7 02/07/2018 12:45:49 02/07/2018 15:50:22 [id number] JC GOFF MD [address] [address] 7 02/09/2018 09:58:08 02/09/2018 10:07:19 [id number] JC GOFF MD [address] [address] 7 02/16/2018 14:58:15 02/19/2018 15:50:26 [id number] JC GOFF MD [address] [address] 7 05/03/2018 10:46:16 05/14/2018 09:28:10 [id number] YOUNG GUIDRY MD [facility] CLOSED [address] [place] [place] [address] 6 07/04/2018 09:39:59 07/04/2018 10:21:48 [id number] Lisa SWANN PA-C [facility] CLOSED [address] [place] [address] 6 07/04/2018 10:21:00 07/04/2018 11:16:32 [id number] MESERET PANIAGUA APRN [facility] [address] [place], [place] [address] 08/09/2018 09:57:38 08/10/2018 14:43:05 [id number] YOUNG GUIDRY MD [facility] CLOSED [address] [place] [address] 6 08/16/2018 14:06:42 08/20/2018 17:19:48 [id number] [place] [address] 7 08/22/2018 15:01:56 08/23/2018 08:38:12 [id number] Lisa SWANN PA-C [facility] CLOSED [address] [place] [address] 6 09/05/2018 13:57:11 09/05/2018 15:09:51 [id number] SEBASTIEN DENNEY MD NEUROLOGY [facility] CLOSED [address] [facility] [place] [address] 1 09/20/2018 12:50:54 09/20/2018 14:14:28 [id number] YOUNG GUIDRY MD [facility] CLOSED [address] [place] [address]84 6 09/20/2018 14:38:46 09/20/2018 16:28:59 [id number] Lisa SWANN PA-C [facility] CLOSED [address] [place] [address] 6 12/11/2018 10:41:31 12/11/2018 12:20:33 [id number] Lisa SWANN PA-C [facility] CLOSED [address] [place] [address] 6 12/18/2018 14:43:06 12/18/2018 15:45:02 [id number] JASON BERGER, BREASTER [facility] [address] [place] [address] 03/07/2019 09:43:43 03/07/2019 10:16:01 [id number] YOUNG GUIDRY MD [facility] CLOSED [address] [address] 6 03/15/2019 15:05:42 03/15/2019 16:11:48 [id number] YOUNG GUIDRY MD [facility] CLOSED [address] [place] [address] 6 04/05/2019 15:06:41 04/08/2019 08:56:30 [id number] [place] [address] 7 04/24/2019 13:32:43 04/24/2019 15:59:28 [id number] YOUNG GUIDRY MD SURGERY SCHEDULE [address] [place] [id number] 1 05/13/2019 06:05:31 05/13/2019 06:09:45 [id number] NOHEMY MICHEL PA-C [facility] CLOSED [address] [place] [address] 6 05/24/2019 14:12:18 05/24/2019 15:19:56 [id number] YOUNG GUIDRY MD [facility] CLOSED [address] [address] 6 06/21/2019 13:58:06 06/21/2019 16:13:30 [id number] [place] [address] 7 07/22/2019 10:48:33 07/22/2019 13:35:42 [id number] ASAEL NAYLOR PA-C SAME DAY DMITRY CLOSED [address] [place] [address] 7 07/29/2019 13:29:50 07/29/2019 16:49:05 [id number] YOUNG GUIDRY MD [facility] CLOSED [address] [address] 6 08/02/2019 13:14:29 08/02/2019 13:36:50 [id number] MESERET PANIAGUA APRN [address] [address] 7 08/19/2019 14:00:10 08/19/2019 14:58:52 [id number] YOUNG GUIDRY MD [facility] CLOSED [address] [address] 6 09/13/2019 13:03:55 09/13/2019 14:21:49 [id number] YOUNG GUIDRY MD [facility] CLOSED [address] [address] 6 10/18/2019 13:12:26 10/18/2019 14:08:00 [id number] JC GOFF MD [address] [address] 7 01/28/2020 08:55:16 01/28/2020 12:34:20 [id number] YOUNG GUIDRY MD [facility] CLOSED [address] [address] 6 02/25/2020 10:00:02 02/25/2020 12:49:33 [id number] YOUNG GUIDRY MD [facility] CLOSED [address] [address] 6 03/17/2020 08:42:34 03/17/2020 12:17:11 [id number] YOUNG GUIDRY MD [facility] CLOSED [address] [address] 6 05/21/2020 09:01:22 05/21/2020 10:56:30 [id number] YOUNG GUIDRY MD [facility] CLOSED [address] [address] 6 06/18/2020 09:11:15 06/23/2020 10:28:03 [id number] YOUNG GUIDRY MD SURGERY SCHEDULE [address] [place] [address] 1 07/27/2020 10:41:20 07/27/2020 10:43:08 [id number] JC GOFF MD [facility] [address] [place] [address] 7 07/29/2020 11:17:55 07/29/2020 14:15:15 [id number] NOHEMY MICHEL PA-C [facility] CLOSED [address] [place] [address] 2020 10:55:54 2020 11:47:56 [id number] HEMALATHA BERNARD, OTR/L, CHT PHYSICAL THERAPY / HAND THERAPY [facility] CLOSED [address] [place] [address] 6 2020 12:59:33 2020 13:49:19 [id number] HEMALATHA BERNARD OTR/L, CHT PHYSICAL THERAPY / HAND THERAPY [facility] CLOSED [address] [place] [address] 6 08/19/2020 13:14:31 11/17/2020 13:26:58 [id number] YOUNG GUIDRY MD [facility]OPEDI [facility] CLOSED [address] [place] [address] 6 09/08/2020 10:32:24 09/08/2020 11:58:13 [id number] MESERET PANIAGUA APRN [facility] [address] [place] [address] 7 09/28/2020 11:48:30 09/28/2020 12:22:28 [id number] [place] [address] [place] [address] 1 10/12/2020 14:21:56 10/14/2020 10:55:48 [id number] ANNE MARIE BARNARD ENT SB [address] [place] [address] 1 10/12/2020 15:10:48 10/12/2020 15:30:35 [id number] YOUNG GUIDRY MD [facility] CLOSED [address] [place] [address] 6 10/20/2020 10:16:27 10/20/2020 11:32:53 [id number] Lisa SWANN PA-C [facility] CLOSED [address] [place] [address] 6 11/04/2020 13:13:05 11/04/2020 14:03:17 [id number] Lisa SWANN PA-C [facility] CLOSED [address] [place] [address] 6 11/11/2020 09:12:48 11/11/2020 09:51:36 [id number] YOUNG GUIDRY MD [facility]EDI [facility] CLOSED [address] [place] [address] 6 12/01/2020 10:39:20 12/01/2020 11:54:27 [id number] [address]IAG[address] [address] 7 12/23/2020 13:56:56 12/23/2020 14:33:23 [id number] YOUNG GUIDRY MD [facility] CLOSED [address] [place] [address] 6 01/28/2021 14:29:50 01/28/2021 15:23:25 [id number] MILVIA SANTANA PA-C [facility] CLOSED [address] [place] [address] 6 02/03/2021 09:50:22 02/03/2021 10:09:20 [id number] MILVIA SANTANA PA-C [facility] CLOSED [address] [place] [address] 6 02/10/2021 09:51:36 02/10/2021 10:03:13 [id number] NOHEMY MICHEL PA-C [facility] CLOSED [address] [place] [address] 6 02/11/2021 10:03:30 02/11/2021 10:55:31 [id number] YOUNG GUIDRY MD [facility]OPEDI [facility] CLOSED [address] [address] 6 02/18/2021 10:57:01 02/18/2021 12:55:02 [id number] YOUNG GUIDRY MD [facility]OPEDI [facility] CLOSED [address] [address] 6 03/04/2021 15:01:51 03/04/2021 16:08:29 [id number] JC GOFF MD [facility] [address] [place] [address] 7 04/30/2021 12:57:45 04/30/2021 14:12:24 [id number] MILVIA SANTANA PA-C [facility] CLOSED [address] [address] 6 05/05/2021 10:25:16 05/05/2021 10:50:23 [id number] MILVIA SANTANA PA-C [facility] CLOSED [address] [address] 6 05/12/2021 10:26:05 05/12/2021 11:09:04 [id number] JC GOFF MD [address] [address] 7 06/07/2021 14:05:30 06/08/2021 07:31:20 [id number] JC GOFF MD [address] [address] 7 06/17/2021 11:41:40 06/17/2021 16:06:45 [id number] JC GOFF MD [address] [address] 7 06/30/2021 10:51:20 06/30/2021 11:34:23 [id number] JC GOFF MD [address] [address] 7 07/28/2021 10:50:28 07/29/2021 08:52:05 [id number] MILVIA SANTANA PA-C [facility] CLOSED [address] [address] 2021 13:04:02 2021 13:19:59 [id number] MILVIA SANTANA PA-C [facility] CLOSED [address] [place] [address] 6 08/18/2021 13:07:07 08/18/2021 13:27:07 [id number] JC GOFF MD [facility] [address] [place] [address] 7 09/14/2021 11:08:59 09/14/2021 11:55:43 [id number] MILVIA SANTANA PA-C [facility] CLOSED [address] [place] [address] 6 11/10/2021 15:19:11 11/10/2021 15:57:27 [id number] ADELINA LENNON MD [facility] [address] [place] [address] 7 11/17/2021 10:44:52 11/17/2021 11:05:32 [id number] MILVIA SANTANA PA-C [facility] CLOSED [address] [address] 6 11/18/2021 14:57:55 11/18/2021 15:30:12 [id number] JC GOFF MD [facility] [address] [place] [address] 7 12/08/2021 11:01:00 12/08/2021 13:00:04 [id number] RACHELL GILBERT PA-C SAME DAY DMITRY CLOSED [address] [place] [address] 7 12/20/2021 13:36:01 12/20/2021 14:12:00 [id number] JC GOFF MD [facility] [address] [place] [address] 7 12/31/2021 14:34:55 12/31/2021 14:46:11 [id number] ASAEL NAYLOR PA-C SAME DAY DMITRY CLOSED [address] [place] [address] 7 01/24/2022 10:38:15 01/25/2022 09:57:02 [id number] ADELINA LENNON MD [facility] [address] [place] [address] 7 02/04/2022 14:36:40 02/04/2022 15:25:23 [id number] TAIWO BRIONES, SAME DAY DMITRY CLOSED [address] [place] [address] 7 02/10/2022 10:38:51 02/10/2022 11:46:56 [id number] MILVIA SANTANA PA-C [facility] CLOSED [address] [address] 6 02/22/2022 10:28:00 02/22/2022 11:25:59 [id number] MILVIA SANTANA PA-C [facility] CLOSED [address] [address] 6 03/03/2022 14:50:15 03/03/2022 15:34:16 [id number] JC GOFF MD [place] [address] 7 03/17/2022 14:21:09 03/17/2022 15:23:21 [id number] JC GOFF MD [address] [address] 7 04/18/2022 10:45:43 04/18/2022 11:33:25 [id number] JC GOFF MD [address] [address] 7 05/19/2022 10:37:12 05/19/2022 11:17:18 [id number] MILVIA SANTANA PA-C [facility] CLOSED [address] [address] 6 06/02/2022 14:36:21 06/02/2022 15:50:32 [id number] MILVIA SANTANA PA-C [facility] CLOSED [address] [place] [address] 6 06/06/2022 09:47:55 06/06/2022 10:04:12 [id number] KERRIE SLATER PA-C [address] 7 06/28/2022 11:02:38 06/28/2022 11:16:23 [id number] JC GOFF MD [address] 7 07/28/2022 10:49:23 07/28/2022 11:21:13 [id number] JC GOFF MD [address] 7 08/29/2022 13:35:50 08/29/2022 17:08:01 [id number] MILVIA SANTANA PA-C [facility] CLOSED [address] [place] [address] 6 09/12/2022 14:54:41 09/12/2022 15:34:35 [id number] MILVIA SANTANA PA-C [facility] CLOSED [address] [place] [address] 6 09/19/2022 14:38:07 09/19/2022 15:15:13 [id number] JC GOFF MD [address] 7 11/28/2022 11:51:05 11/29/2022 12:13:12 [id number] JC GOFF MD [address] 7 11/30/2022 15:43:25 11/30/2022 16:05:13 [id number] MILVIA SANTANA PA-C [facility] CLOSED [address] [place] [address] 6 12/14/2022 15:02:39 12/14/2022 15:44:50 [id number] MILVIA SANTANA PA-C [facility] CLOSED [address] [place] [address] 6 12/05/2022 12:46:40 12/05/2022 13:08:36 [id number] KERRIE SLATER PA-C [facility] [address] [place] [address] 7 01/10/2023 09:54:57 01/10/2023 11:54:21 [id number] OLAYINKA GARZA PA-C SAME DAY DMITRY CLOSED [facility] [place] [address] 7 02/08/2023 13:48:04 02/08/2023 14:49:53 [id number] [place] [address] 7 02/27/2023 09:23:11 02/27/2023 11:25:27 [id number] MILVIA SANTANA PA-C [facility] CLOSED [address] [place] [address] 6 03/07/2023 12:32:57 03/07/2023 13:37:53 [id number] MILVIA SANTANA PA-C [facility] CLOSED [address] [place] [address] 6 03/13/2023 15:07:45 03/13/2023 15:31:16 [id number] [place] [address] 7 03/27/2023 11:09:57 03/27/2023 12:57:18 [id number] JONAH HOWARD MD [facility] [address] [place] [address] 1 03/30/2023 08:18:53 03/30/2023 08:35:59 [id number] [place] [address] 7 05/01/2023 16:00:56 05/01/2023 16:23:41 [id number] JC GOFF MD [place] 12[address] 7 05/04/2023 15:04:25 05/04/2023 18:23:43 [id number] MILVIA SANTANA PA-C [facility] CLOSED [address] [place] [address] 6 06/19/2023 14:52:23 06/19/2023 15:15:49 [id number] [place] [address] 7 06/19/2023 16:09:27 06/19/2023 16:16:20 [id number] MILVIA SANTANA PA-C [facility] CLOSED [address] [facility] [place] [address] 6 06/22/2023 08:55:00 06/22/2023 09:19:16 [id number] JC GOFF MD [address] 7 07/28/2023 15:35:18 07/28/2023 16:06:58 [id number] GENE BETANCOURT PA-C [facility] CLOSED [address] [place] [address] 6 08/02/2023 08:50:12 08/02/2023 09:15:45 [id number] GENE BETANCOURT PA-C [facility] CLOSED [address] [place] [address] 6 08/09/2023 08:54:10 08/09/2023 09:31:19 [id number] GENE BETANCOURT PA-C [facility] CLOSED [address] [place] [address] 6 08/16/2023 08:51:19 08/16/2023 10:01:23 [id number] JC GOFF MD [address] 7 12/07/2023 09:22:19 12/07/2023 12:16:06 [id number] Lisa SWANN PA-C [facility] CLOSED [address] [place] [address] 6 10/13/2023 10:41:46 10/13/2023 11:07:03 [id number] AUDREY KNAPP PA-C [facility] CLOSED [address] [place] [address] 6 10/18/2023 08:37:48 10/18/2023 09:02:45 [id number] JC GOFF MD [facility] [address] [place] [address] 7 01/09/2024 11:07:22 01/09/2024 11:38:24 [id number] AUDREY KNAPP PA-C [facility] CLOSED [address] [address] 6 01/17/2024 08:24:12 01/17/2024 08:48:08 [id number] JC GOFF MD [place] 12[address]113[address] 7 02/06/2024 11:04:36 02/06/2024 11:44:50 [id number] [place] [address] 7 05/23/2024 13:54:24 05/27/2024 05:35:09 [id number] JC GOFF MD [place] 12[address] 7 03/07/2024 13:50:02 03/07/2024 16:55:41 [id number] JC GOFF MD [place] [address] [place] [address] 7 03/14/2024 15:49:26 03/14/2024 16:05:49 [id number] AUDREY KNAPP PA-C [facility] CLOSED [address] [address] 6 04/17/2024 08:33:09 04/17/2024 08:55:29 [id number] JC GOFF MD [address] [address] 7 04/16/2024 10:50:30 04/16/2024 11:59:24 [id number] JC GOFF MD [address] [address] 7 05/14/2024 11:00:04 05/14/2024 12:38:19 [id number] JC GOFF MD [address] [address] 7 06/13/2024 10:38:43 06/13/2024 12:10:59 [id number] JC GOFF MD [address] [address] 7 07/11/2024 14:07:35 07/11/2024 16:43:47 [id number] STEPHANI PATEL-Lisa [facility]EDI [facility] CLOSED [address] [place] [address] 6 07/22/2024 08:24:17 07/22/2024 08:50:05 [id number] YOUNG GHOTRA MD PAIN MEDICINE CLOSED [address] [place] [address] 1 07/30/2024 10:24:17 07/30/2024 16:23:19 [id number] JC GOFF MD [address] [address] 7 08/15/2024 16:12:33 08/15/2024 16:37:58 [id number] JC GOFF MD [address] [address] 7 08/28/2024 14:49:07 08/28/2024 16:50:27 [id number] JC GOFF MD [address] [address] 7 09/13/2024 10:41:14 09/16/2024 08:54:21 [id number] JC GOFF MD [address] [address] 7 09/19/2024 15:58:13 09/20/2024 04:18:05 [id number] JC GOFF MD [address] 7 10/18/2024 13:59:32 10/18/2024 14:55:42 [id number] YOUNG GHOTRA MD [facility] PROFESSIO NAL CHARGES [address] [place] [address] 1 10/22/2024 11:47:06 10/22/2024 13:25:39 [id number] CARROL BELLAMY PA-C PAIN MEDICINE [address] [place] [address] 1 01/08/2025 12:52:45 01/08/2025 16:13:38 [id number] JC GOFF MD [place] [address] 7 12/12/2024 10:43:25 12/12/2024 15:06:45 [id number] JC GOFF MD [place] [address] 7 01/09/2025 13:56:27 01/09/2025 14:33:39 [id number] YOUNG GHOTRA MD [facility] PROFESSIO NAL CHARGES [address] [place] [address] 01/28/2025 14:39:40 01/28/2025 16:25:52 [id number] JC GOFF MD [place] [address] 02/10/2025 14:00:04 02/10/2025 15:08:57 [id number] CARROL BELLAMY PA-C PAIN MEDICINE [address] [place] [address] 02/26/2025 14:32:52 02/26/2025 16:22:08 [id number] JC GOFF MD [place] [address] 03/12/2025 13:49:13 03/12/2025 15:34:33 [id number] [place] [address] 04/14/2025 14:04:45 04/14/2025 14:53:59 [id number] [place] [address] 05/12/2025 13:44:12 05/12/2025 14:11:53 [id number] YOUNG GHOTRA MD [facility] PL[address] OF SERV[facility] PROFESSIO NAL CHARGES [address] [facility], [address] [place] [address] 1 05/08/2025 11:29:44 05/13/2025 15:18:57 [id number] CARROL BELLAMY PA-C PAIN MEDICINE [address]7 [address] [place] [address] 06/03/2025 13:53:16 06/04/2025 04:17:53 [id number] LUIS ALFREDO SALDAÑA PA-C ORTHOPEDI CS [address] 1 06/09/2025 14:29:03 06/09/2025 15:58:40 [id number] JC GOFF MD [facility] [address] 7 06/12/2025 13:44:45 06/12/2025 14:53:29 [id number] KERRIE SLATER PA-C [facility] MEDICINE [place] [address] 7 07/11/2025 11:22:46 07/11/2025 13:36:55 [id number] ARIANNE [place] [address] 07/18/2025 14:52:21 07/18/2025 15:05:20 [id number] JC GOFF MD [facility] [address] 7 08/18/2025 14:49:50 08/18/2025 15:01:49 Health Concerns Section Related Observation LastModified by Organization Detai ls LastModified Time None Recorded Concern Status LastModified by Organization Details LastModified Time None Recorded Advance Directives Directive None Recorded Payers Insurance Date Sequence Insurance Name Policy Number Policy Walter Covered Member ID Walter Member ID Guarantor Name 08/18/2025 1 [place]MED[place]AC[place] HMO) [id number] January Torres [id number] January Sharp 03/27/2023 [employer]ISIA [employer] ARSEN (BA) January Oppelo [id number] January Sharp 03/27/2023 1 [place] [id number] January Torres [id number] January Sharp 03/27/2023 1 [place] January Torres [id number] January03/27/2023 GENERIC INSURANCE - MOVED-HOLD January Sharp 03/27/2023 2 [employer] (EPO) January Torres [id number] January Sharp 03/27/2023 1 [employer] [facility] (PPO) January Torres [id number] January Sharp 03/27/2023 2 [employer] (PPO) January Sharp [id number] January Sharp 03/27/2023 1 [employer] - [facility] (PPO) January Torres [id number] January Torres 08/19/2020 [employer]ELERS [employer] January Torres 05/04/2020 [employer] January03/27/2023 [place] (ZURDO) January Jono [id number] January Sharp 03/27/2023 3 [employer] SMM January Torres [id number] January Sharp 03/27/2023 1 [employer] (POS) [id number] January Oppelo [id number] January Sharp 03/27/2023 1 [employer] [employer] [place] (MEDICA[place] REPLAC[place] - HMO) [id number] January Jono [id number] January Torres 03/27/2023 [employer] - DMEPOS ASSIGNED (MEDICARE DME REGION B) January Torres [id number] January Torres 03/27/2023 1 [facility]ICAID[facility] - FFS/TRADITIONAL January Jono [id number] January Torres 03/03/2022 [employer] January Torres 03/27/2023 BABS (BA) January Jono [id number] January Torres 05/04/2020 1 UNSPECIFIED REMIT PAYOR January Torres 08/19/2020 [employer]S [employer] January Torres 08/19/2020 [employer] January Torres 03/27/2023 BABS (BA) January Sofya [id number] January Torres 03/27/2023 INGENIOUSMED (MOVED TO HOLD) January Torres January Torres OBGyn Episode No OBEpisode recorded.
--- OUTSIDE RECORDS SUMMARY | 2025-08-19 13:50 | XMS_ITS | Data Portability ---
Author Organization V[facility] - ELIU Cary BRONX CLOSED Address [address] [facility] [address] [place] [address] Care Team Providers Care Rn Procedure Name Role Phone DENVERJULIANN Primary Care Provider YOMI KELLER Orthopedic Surgeon [phone] Assessment Encounter Date Assessment Date Assessment LastModified [...] as the patient is likely still contagious. adriel Not available 07/14/2025 13:07:05 Plan of Treatment [...] SARA+probe , respirato ry specimen [id number] [place] [address], [address] [place] [address], [phone], 07/11/2025 11:58:56 strep group A, DNA, swab [id number] [place] [address], [address] [place] [address], [address], 07/11/2025 11:58:56 lipid panel, serum 2024 025 [facility], [address] [place] [address], [address], 06/12/2025 18:18:25 hepatic function panel, serum 2024 [facility], [address] [place] [address], [address], 06/12/2025 18:34:01 ferritin, serum or plasma 2024 [facility], [address] [place] [address], [address], 06/12/2025 18:33:57 TSH, serum or plasma 2024 [facility], [address] [place] [address], [address], 06/12/2025 18:34:03 Referral sleep medicine referral 2024 [email or web address] Laci Patricia MD, [address] [place] [address], [address], 07/25/2025 08:58:34 Procedures None recorded. Surgeries None recorded. Imaging None recorded. Medication Orders cyanocoba jessica (vit B-12) 1,000 mcg/mL injection solution 2024 025 Not available 08/18/2025 21:11:40 cyanocoba jessica (vit B-12) 1,000 mcg/mL injection solution 2024 025 [email or web address] [id number] Not available 07/18/2025 15:33:33 doxycycli ne hyclate 100 mg capsule 2024 025 [facility] [id number], [address] [place], [address], 07/25/2025 05:02:00 prednison e 20 mg tablet 2024 025 [facility] [id number], [address] [place], [address], 07/23/2025 05:02:37 benzonata te 200 mg capsule 2024 025 [facility] [id number], [address] [place], [address], 07/28/2025 05:02:05 meloxicam 7.5 mg tablet [address] [facility] [id number], [address] [place], [address], 06/12/2025 14:37:19 cyanocoba jessica (vit B-12) 1,000 mcg/mL injection solution 2024 025 [place] [id number] Not available 06/12/2025 14:37:19 Patient TargetsNo targets recorded. Patient Instructions Encounter Date Encounter Id Patient Instructions Last Modified By Organization Details Last Modified Time 06/12/2025 [id number] - Continue administering your B12 injection monthly. [...] symptoms. Return 6month fasting medicare wellness visit. [place] [id number] Not available 06/12/2025 14:34:00 07/11/2025 [id number] - Take one prednisone pill each morning [...] Not available 07/11/2025 12:07:20 Reason for Referral Sleep Medicine Referral for Snoring Referring Physician: Juliann Pizano, Family Medicine, Encounter Date: 06/12/2025 Results Created Date Observation Date Name Description Value Unit Range Abnormal Flag Note LastModifiedBy Organization Detail LastModifiedTime 06/12/2006/12/2025 LIPID PROFI LE HDL cholesterol 58 mg/dL normal EDILSON L RANGE FEMAL E >49 MALE >39 NOTE: NEW EDILSON L RANGE Not Available [facility] [address] [place] [address], [address], 06/12/2025 18:33:59 06/12/2006/12/2025 LIPID PROFI LE triglyceride s 106 mg/dL 0-149 normal TRIGL YCERI DE RANGE S EDILSON L: < 150 BORDE RLINE HIGH: 150 - 199 HIGH: 200 - 499 VERY HIGH: > OR = 500 Not Available [facility] [address] [place] [address], [address], 06/12/2025 18:33:59 06/12/2006/12/2025 LIPID PROFI LE cholesterol 198 mg/dL 0-199 normal JHOANA STERO L (TOTA L) RANGE S GAYLA ABLE: < 200 BORDE RLINE : 200 - 239 HIGHE R RISK: > 239 Not Available [facility] [address] [place], [address], 06/12/2025 18:33:59 06/12/2006/12/2025 LIPID PROFI LE LDL cholesterol 119 mg/dL _(nohelia c) 0-99 high LDL JHOANA STERO L RANGE S OPTIM AL: < 100 NEAR/ ABOVE OPTIM AL: 100 - 129 BORDE RLINE HIGH: 130 - 159 HIGH: 160 - 189 VERY HIGH: > OR = 190 Not Available [facility] [address] [place] [address], [address], 06/12/2025 18:33:59 10/23/20 25 06/12/2025 LIPID PROFI LE chol/HDL ratio (calc) 3.4 mg/dL normal NO EDILSON L RANGE ESTAB LISHE D FOR JHOANA STERO L/HDL RATIO (CALC ULATE D). Not Available [facility] [address] [place] [address], [address], 06/12/2025 18:33:59 06/12/20 25 06/12/2025 LIPID PROFI LE LDL, direct 122 0-99 high Not Available [facility] [address] [place] [address], [address], 06/12/2025 18:33:59 06/12/2006/12/2025 REY TIN ferritin 69 NG/mL 13-157 normal Not Available [facility] [address] [place] [address], [address], 06/12/2025 18:33:57 06/12/20 25 06/12/2025 HEPAT IC (LIVE R) PANEL AST 21 U/L 0-32 normal Not Available [facility] [address] [place] [address], [address], 06/12/2025 18:34:01 06/12/20 25 06/12/2025 HEPAT IC (LIVE R) PANEL ALT 14 U/L 0-33 normal Not Available [facility] [address] [place] [address], [address], 06/12/2025 18:34:01 06/12/20 25 06/12/2025 HEPAT IC (LIVE R) PANEL alkaline phosphatase 79 U/L 30-121 normal Not Available [facility] [address] [place] [address], [address], 06/12/2025 18:34:01 06/12/20 25 06/12/2025 HEPAT IC (LIVE R) PANEL total protein 7.2 g/dL 6.4-8. 3 normal Not Available [facility] [address] [place] [address], [address], 06/12/2025 18:34:01 06/12/20 25 06/12/2025 HEPAT IC (LIVE R) PANEL albumin 4.4 g/dL 3.5-5. 2 normal Not Available [facility] [address] [place], [address], 06/12/2025 18:34:01 06/12/20 25 06/12/2025 HEPAT IC (LIVE R) PANEL bilirubin, total 0.6 mg/dL 0.1-1. 0 normal NOTE: New refer ence range . Not Available [facility] [address] [place], [address], 06/12/2025 18:34:01 06/12/20 25 06/12/2025 HEPAT IC (LIVE R) PANEL bilirubin, direct <0.2 mg/dL 0.0-0. 3 normal Not Available [facility] [address] [place], [address], 06/12/2025 18:34:01 06/12/20 25 06/12/2025 HEPAT IC (LIVE R) PANEL bilirubin, indirect see below mg/dL _(nohelia c) 0.0-1. 0 normal Unabl e to calcu late Indir ect Bilir ubin. Not Available [facility] [address] [place], [address], 06/12/2025 18:34:01 06/12/20 25 06/12/2025 TSH TSH 1.300 u[IU] /mL 0.270- 4.200 normal Not Available [facility] [address] [place], [address], 06/12/2025 18:34:03 07/11/20 25 07/11/2025 influ trini virus A + B and SARS CoV 2, QL, SARA+p robe, respi rator y speci men Unknown Analyte Negati ve Not Available [facility] [place] [address] [place], [address], 07/11/2025 11:41:20 07/11/20 25 07/11/2025 influ trini virus A + B and SARS CoV 2, QL, SARA+p robe, respi rator y speci men Unknown Analyte Negati ve Not Available [address], [address], 07/11/2025 11:41:20 07/11/20 25 07/11/2025 influ trini virus A + B and SARS CoV 2, QL, SARA+p robe, respi rator y speci men Unknown Analyte Negati ve Not Available [address], [address], 07/11/2025 11:41:20 07/11/20 25 07/11/2025 influ trini virus A + B and SARS CoV 2, QL, SARA+p robe, respi rator y speci men Unknown Analyte Valid Not Available [address], [address], 07/11/2025 11:41:20 07/11/20 25 07/11/2025 strep group A, DNA, swab Strep A negati ve Not Available [address], [address], 07/11/2025 11:41:55 07/11/20 25 07/11/2025 strep group A, DNA, swab Procedural Control Valid Not Available [address], [address], 07/11/2025 11:41:55 06/10/20 25 06/09/2025 XR, knee, 4 or more view [facility] [address] [place] [address] Patien t Name: MICHELLE MACDONALD Patiterry t : 1954 Patien t 9 Orderi ng Provid er: AUGUSTA [...] Interp reted By: Milvia Andrea MD Electr onical ly Signed By: Milvia Andrea MD on 2024 8:[id number] [facility] [address] [place], [address], 06/10/2025 09:39:21 08/17/20 25 08/17/2025 imagi ng/di agnos tic resul t No observ ation record ed. [email or web address] Not Available 08/19 11:43:38 08/18/20 25 08/18/2025 CT, angio gram, chest , w/ contr ast No observ ation record ed. [email or web address] Not Available 08/19 11:46:36 Result Notes Documentation Provider Name and Address Organization Details Recorded Time Xr, Knee, 4 Or More View : [facility] [address] [place] [address] Patient Name: MICHELLE MACDONALD Patient : 1955 Patient Ordering Provider: AUGUSTA SALDAÑA EXAM DATE: 06/09/2025 EXAM: XR LOLA KNEES COMPLETE, 4 OR MORE VWS HISTORY: Pain COMPARISON: 12/14/2022 FINDINGS: Loss of the medial compartments bilaterally with degenerative spurring. Normal alignment including the patellofemoral joints. No fracture or dislocation. IMPRESSION: 1. Severe bilateral knee DJD Interpreted By: Milvia Andrea MD STA SALDAÑA PA-C [address] [place] [address], [address], [facility] 06/10/2025 09:39:21 Problems Name Problem SNOMED Code Status Onset Date Resolution Date Notes Provider Name and Address Organization Details Recorded Time Lack of energy 968074997 Completed 201502/07/2018 From Automate d Load;Pro vider: Juliann Pizano;Sta tus: Active JULIANN PIZANO MD [address] [place] [address], [phone] [place] [address] 8 13:33:48 Finding of appearan ce of skin Completed 201502/07/2018 From Automate d Load;Pro vider: Juliann Pizano;Sta tus: Active JULIANN PIZANO MD [address] [place] [address], [address] , [facility] 8 13:33:45 Hypothyr oidism 56849035 Active 2015 From Automate d Load;Pro vider: Juliann Pizano;Sta tus: Active JULIANN PIZANO MD [address] [place] [address], [address] , [facility] 3 14:38:44 Tinnitus 03046999 Active 2015 From Automate d Load;Pro vider: Juliann Pizano;Sta tus: Active Not Available [facility] 2 07:32:58 Fibrocys tic disease of breast 50189886 Active 2017 Not Available [facility] 2 07:32:58 Divertic ular disease of colon 255350761 Active 2017 Not Available [facility] 2 07:32:58 Hearing loss 91342558 Active 2017 Not Available [facility] 2 07:32:58 Displace ment of lumbar interver tebral disc without myelopat hy 44995418 Active 2017 JULIANN PIZANO MD [address] [place] [address], [address] , [facility] 3 14:38:27 Osteoart hritis of knee 240697430 Active 2018 Not Available [facility] 2 07:32:58 Alopecia 39141717 Active 2019 Not Available [facility] 2 07:32:58 Hyperlip idemia 93443342 Active 2019 LDL>190 JULIANN PIZANO MD [address] [place] [address], [address] , [facility] 3 22:05:06 Vitamin B12 deficien cy (non anemic) 91745808 Active 2020 JULIANN PIZANO MD [address] [place] [address], [address] , [facility] 3 14:38:51 Atherosc lerosis of aorta 68545729 Active 2022 JULIANN PIZANO MD [address] [place] [address], [address] , [facility] 3 14:51:55 Cystitis 53325514 Active 2022 KERRIE SLATER PA-C [address] [place] [address], [address] , [facility] 3 10:32:11 Bilatera l osteoart hritis of knees 70997069172 9107 Active 2022 JULIANN PIZANO MD [address] [place] [address], [address] , [facility] 3 10:32:14 Pain of right temporom andibula r joint 85723628249 969497 Active 2022 JULIANN PIZANO MD [address] [place] [address], [address] , [facility] 3 10:33:46 Body mass index 25-29 - overweig ht 637343691 Active 2023 JULIANN PIZANO MD [address] [place] [address], [address] , [facility] 4 09:58:29 Dyslipid emia 559691047 Active 2023 JULIANN PIZANO MD [address] [place] [address], [address] , [facility] 4 10:13:07 Ischial bursitis 251218313 Active 2023 JULIANN PIZANO MD [address] [place] [address], [address] , [facility] 4 10:42:24 Lumbar radiculo wendy 520992504 Active 2024 JULIANN PIZANO MD [address] [place] [address], [address] , [facility] 5 11:31:09 Primary gonarthr osis, bilatera l 944140542 Active 2024 JULIANN PIZANO MD [address] [place] [address], [address] , [facility] 5 14:24:04 Acute frontal sinusiti s 70833375 Active 2024 KERRIE SLATER PA-C [address] [place] [address], [address] , [facility] 5 11:58:13 Acute cough Active 2024 KERRIE SLATER PA-C [address] [place] [address], [address] , [facility] 5 12:02:22 Hiatal hernia 37534001 Active 2024 JULIANN PIZANO MD [address] [place] [address], [address] , [facility] 5 23:00:20 Problem Notes None recorded. Procedures Surgical History Date Name Laterality Status Provider Name and Address Organization Details Recorded Time 025 Joint Injection, Knee - Barb completed YOUNG DAY MD [address] [place] [address], [address], [facility] 05/08/2025 12:43:39 025 Joint Injection, Knee - Barb completed YOUNG DAY MD [address] [place] [address], [address], [facility] 01/28/2025 16:06:18 025 Joint Injection, Knee - Barb completed YOUNG DAY MD [address] [place], [address], [facility] 10/22/2024 12:43:32 024 Injection - Joint/Bursa, Major completed Vicki Rai [facility] 07/15/2024 10:48:22 024 Injection - Joint/Bursa, Major completed Spenser Tijerina [facility] 04/12/2024 15:30:21 024 Injection - Joint/Bursa, Major completed Alexandria Sellers [facility] 01/10/2024 15:32:45 024 Injection - Joint/Bursa, Major completed Quinten Rizo [facility] 10/16/2023 15:30:00 024 Injection - Joint/Bursa, Major completed Lisa SWANN PA-C [address] [place], [address], [facility] 10/13/2023 11:11:57 024 Injection - Joint/Bursa, Major cancelled Alexandria Sellers [place] [facility] 09/05/2023 08:39:03 023 Euflexxa Injection completed Rashad Welsh [facility] 08/16/2023 08:58:43 023 Euflexxa Injection completed Quinten Rizo [facility] 08/09/2023 09:16:07 023 Euflexxa Injection completed Rashad Welsh [facility] 08/02/2023 08:54:42 023 Injection - Joint/Bursa, Major completed [place] Sellers [place] [facility] 06/21/2023 08:22:13 023 Injection - Joint/Bursa, Major completed [place] Sellers [place] [facility] 06/19/2023 14:59:56 023 DXA Normal completed JONAH HOWARD MD [address] [place], [address], [facility] 03/30/2023 12:31:04 023 Injection - Joint/Bursa, [...] Joint/Bursa, Major completed Vicki Rai [place] [facility] 03/02/2022 09:13:27 022 Injection - Joint/Bursa, [...] suprapubic sling completed JULIANN PIZANO MD [address] [place], [address], [facility] 12/07/2023 10:17:40 021 Injection - Joint/Bursa, Major completed [place] Young [place] [facility] 02/10/2021 08:25:13 021 Injection - Joint/Bursa, Major completed Vicki Rai [facility] 02/03/2021 08:07:56 021 Injection - Joint/Bursa, Major completed [place] [facility] 11/11/2020 08:47:33 021 Injection - Joint/Bursa, Major completed Lisa SWANN PA-C [address] [place], [address], [facility] 11/04/2020 13:58:40 020 Orthotic, HFO, Static Custom completed HEMALATHA BERNARD, OTR/L, CHT [address] [place], [address], [facility] 2020 13:04:03 020 Op Note completed YOUNG GUIDRY MD [address] [place], [address], [facility] 07/27/2020 19:12:28 020 Injection - Joint/Bursa, Interm completed YOUNG GUIDRY MD [address] [place], [address], [facility] 02/25/2020 19:59:39 Op Note completed YOUNG GUIDRY MD [address] [place], [address], [facility] 05/13/2019 09:25:23 019 Injection - Trigger Finger, Ortho completed YOUNG GUIDRY MD [address] [place], [address], [facility] 04/05/2019 16:43:35 019 Injection - Carpal Tunnel completed YOUNG GUIDRY [facility] [place], [address], [facility] 03/15/2019 16:13:35 019 Injection - Joint/Bursa, Major completed Cristine Jeremy [facility] 12/18/2018 15:10:45 019 Injection - Joint/Bursa, Major completed Cristine Jeremy [facility] 12/11/2018 10:50:07 019 Injection - Joint/Bursa, Interm completed YOUNG GUIDRY [facility], [address], [facility] 09/20/2018 17:43:12 019 Electromyography (EMG) with Nerve Conduction Study (NCV) completed Luz Maria Pizano (Nicky) [facility] 09/20/2018 13:42:03 019 Injection - Joint/Bursa, Major completed Lisa SWANN PA-C [address] [place], [address], [facility] 09/05/2018 15:07:17 018 Injection - Joint/Bursa, Interm completed YOUNG GUIDRY MD [address] [place], [address], [facility] 07/04/2018 12:19:03 Hand tendon/muscle transfer completed JULIANN PIZANO MD [address] [place], [address], [facility] 01/05/2017 11:59:57 Cataract Surgery completed JULIANN PARKS MD [address] [place] [address], [address], [facility] 08/29/2022 14:55:26 Appendectomy completed JULIANN PIZANO MD [address] [place] [address], [address], [facility] 10/13/2016 08:25:37 Imaging Results None recorded. [...] tablet Not Available Not Available Not Available [place] 5 mg-325 mg tablet TAKE 1 [...] Updated DateTime 06/09/2025 160.02 cm 26.6 kg/m2 81031.86 g 6 Honey [facility] 06/09/2025 15:32:20 Date Recorded Body height Body mass index (BMI) Body weight Body temperature Heart rate Oxygen saturation Respiratory rate Systolic And Diastolic Provider Name and Address Organization Details Last Updated DateTime 160.02 cm 26.6 kg/m2 25150.5 6 g 97.2 [degF] 84 /min 96 % 16 /min 134/84 mm[Hg] Augusta Braulio [facility] 5 13:55:58 Date Recorded Body height Body mass index (BMI) Body weight Body temperature Heart rate Oxygen saturation Systolic And Diastolic Provider Name and Address Organization Details Last Updated DateTime 5 160.02 cm 26 kg/m2 42200.6 4 g 98.6 [degF] 112 /min 95 % 118/80 mm[Hg] Makenzie Cornell [facility] 5 11:31:59 Social History Question Answer Notes LastModified by [employer]WireImageat Fidus Writer Details LastModified Time Tobacco Smoking Status Never Smoker JULIANN PIZANO MD [address] [place] [address], [address], [facility] 01/05/2017 08:07:38 What Is Your Level Of Caffeine Consumption? Occasional Information not available 06/08/2017 How Much Tobacco Do You Chew? None [email or web address] Information not available 03/07/2019 Which Of Your Hands Is Dominant? Right Information not available 06/08/2017 Marital Status Informatio n not available 06/08/2017 What Was The Date Of Your Most Recent Tobacco Screening? 07/11/2025 [email or web address] Information not available 07/11/2025 What Is Your Relationship Status? [email or web address] Information not available 09/07/2023 How Much Tobacco Do You Smoke? No Information not available 04/24/2019 Has Tobacco Cessation Counseling Been Provided? No [email or web address] Information not available 10/18/2023 Sex: Female Functional Status Question Answer Note LastModified by Gen[employer]com[employer] Fidus Writer Details LastModified Time Do you use any illicit or recreational drugs? No Information not available 06/08/2017 Do you or have you ever used any other forms of tobacco or nicotine? No [email or web address] Information not available 10/18/2023 What is your [...] e-cigarettes or vape? Never used electronic cigarettes [email or web address] Information not available 04/24/2019 Mental Status None recorded. Family History Relationship Description Onset Age of this Age Resolved Age Notes LastModified by Organization Details LastModified Time Unspecified Relation Malignant neoplastic disease [email or web address] Not available 2016 08:25:18 Unspecified Relation Cerebrovascu [...] N Immune System Disorder N Heart Attack ([place]) N Mental Illness N Neurological Problems N [...] Time zoster recombinant 3 completed Sayda lund [facility] 12/06/2023 16:19:20 Hep A, adult 9 completed Not Available [facility] 09/07/2019 02:50:37 COVID-19, mRNA, LNP-S, PF, jamie-sucrose, 30 mcg/0.3 mL 4 completed Gem Gilliam [facility] 06/09/2025 14:35:52 Influenza, split virus, quadrivalent, PF 9 completed Not Available [facility] 09/07/2019 02:52:20 Influenza, split virus, quadrivalent, preservative 0 [facility] 16:44:05 zoster live 5 completed [facility]23 16:44:05 DTaP 4 completed Sayda Indio [facility] 09/07/2023 16:44:05 COVID-19 vaccine, vector-nr, rS-Ad26, PF, 0.5 mL 1 completed [facility] 16:44:05 Influenza, split virus, quadrivalent, preservative 1 completed [facility]23 16:44:05 Tdap 4 completed Sayda Borjas [facility] 12/07/2023 10:49:24 Influenza, high-dose, quadrivalent, PF 4 completed [facility]23 10:49:24 RSV, recombinant, protein subunit RSVpreF, adjuvant reconstituted, 0.5 mL, PF 4 completed [facility]/09/2024 11:30:59 COVID-19, mRNA, LNP-S, PF, 100 mcg/0.5mL dose or 50 mcg/0.25mL dose 1 completed Veronica Stone [facility] 06/13/2022 08:44:52 Pneumococcal conjugate PCV 13 1 completed Veronica Stone [facility] 06/13/2022 08:44:52 COVID-19, mRNA, LNP-S, PF, 100 mcg/0.5mL dose or 50 mcg/0.25mL dose 2 completed Veronica Stone [facility] 06/13/2022 08:44:52 COVID-19 vaccine, vector-nr, rS-Ad26, PF, 0.5 mL 1 completed Veronica Stone [facility] 06/13/2022 08:44:52 Influenza, high-dose, trivalent, PF 0 completed Veronica Stone [facility] 06/13/2022 08:44:52 Influenza, high-dose, trivalent, PF 4 completed JULIANN PIZANO MD [address] [place] [address], [address] [place] [address], [facility] 05/26/2024 14:32:15 pneumococcal polysaccharide PPV23 9 completed JULIANN PIZANO MD [address] [place] [address], [address], [facility] 08/29/2022 14:39:38 Influenza, split virus, quadrivalent, PF 7 completed JULIANN PIZANO MD [address] [place] [address], [address] [place] [address], [facility] 08/29/2022 14:39:38 influenza, unspecified formulation 2 completed Sayda Borjas [facility] 09/07/2023 16:44:05 COVID-19, mRNA, LNP-S, PF, jamie-sucrose, 30 mcg/0.3 mL 5 completed JULIANN PIZANO MD [address] [place] [address], [address], [facility] 12/12/2024 17:13:08 zoster recombinant 3 completed Augusta Bourgeois [facility] 02/27/2023 09:41:31 Hep A, adult 8 completed Not Available [facility] 09/07/2019 02:45:53 Influenza, high-dose, trivalent, PF 5 completed Augusta Braulio [facility] 06/12/2025 14:37:25 COVID-19, mRNA, LNP-S, PF, jamie-sucrose, 30 mcg/0.3 mL 5 completed Augustaalyse Ramsey [facility] 06/12/2025 14:37:25 COVID-19, mRNA, LNP-S, bivalent, PF, 30 mcg/0.3 mL dose 3 completed Augusta Braulio [facility] 03/24/2023 15:03:47 Influenza, split virus, quadrivalent, PF 8 completed Not Available [facility] 09/07/2019 02:48:52 Past Encounters Encounter ID Performer Location Encounter Start Date Encounter Closed Date Diagnosis/Indication Diagnosis SNOMED-CT Code Diagnosis ICD10 Code Diagnosis IMO Codes Diagnosis Note [id number] [facility] [address] 11/21/2016 16:13:37 11/21/2016 16:13:37 [id number] JULIANN PIZANO MD [address] [address] 11/23/2016 10:48:14 11/23/2016 14:28:47 [id number] JULIANN PIZANO MD [address] [address] 01/05/2017 11:05:32 01/05/2017 12:22:52 Hypothyroidism 78446406 E03.9 TSH today since she has restarted medication . Continue current dosage. I informed that she cannot discontinu e medication [id number] MESERET PANIAGUA APRN [address] [address] 03/29/2017 08:41:01 03/29/2017 09:44:29 Hypothyroidism 36390382 E03.9 Bilateral knee pain 1187 398767 2928936 M25.752 [id number] VINH KLINE MD [facility] [address] [place] [address] 03/29/2017 10:49:12 03/31/2017 15:53:12 [id number] MESERET PANIAGUA APRN [place] [address] [place] [address] 04/27/2017 09:54:11 04/27/2017 11:40:00 Osteoarthritis of knee 359165003 M17.0 Body mass index 30+ - obesity 901476669 Z68.39 Hypothyroidism 16099920 E03.9 Administra tion of influenza vaccine 80002005 Z23 [id number] YOUNG GUIDRY MD [facility] [address] [place] [address] 06/08/2017 09:14:33 06/08/2017 15:18:36 Pain in thumb 394938956 M79.642 X-rays reveal previous Trapezoid excision with tight rope suspension of the thumb metacarpal . There is residual subsidence of the thumb metacarpal . [id number] MESERET PANIAGUA APRN [address] [address] 10/10/2017 13:48:13 10/10/2017 14:59:14 Contusion wrist or hand 486171482 S60.211A Contusion of right hand 4815415013 6414625 S60.221A [id number] JULIANN PIZANO MD [address] [address] 02/07/2018 12:45:49 02/07/2018 15:50:22 Hypothyroidism 01265246 E03.9 stable/con tinue current medication Vitamin B1 2 deficiency (non anemic) 88658944 E53.8 She has not taking vitamin B12. I advised to start at Vitamin B12 500mcg daily. Repeat in 2 months. Fibrocysti c disease of breast 49114550 N60.19 Continue vitamin E Diverticul osis of colon without diverticulitis 567319646 K57.30 Increased body mass index 70047766 E66.9 Advised [employer] Active or passive immunization 823900933 Z23 [id number] JULIANN PIZANO MD [address] [address] 02/09/2018 09:58:08 02/09/2018 10:07:19 [id number] JULIANN PIZANO MD [address] [address] 02/16/2018 14:58:15 02/19/2018 15:50:26 Active or passive immunization 172610809 Z23 [id number] JULIANN PIZANO MD [address] [address] 05/03/2018 10:46:16 05/14/2018 09:28:10 Acute conjunctivitis of left eye 5371177621 17225 H10.32 To call if symptoms worsen or do not improve. Active or passive immunization 301480226 Z23 [id number] YOUNG GUIDRY MD [facility] [address] [address] 07/04/2018 09:39:59 07/04/2018 10:21:48 Pain in thumb 043638097 M79.642 Left thumb CMC CSI: 07/04/18 Previous x-rays reveal previous trapezium excision with tight rope suspension of the thumb metacarpal . There is residual subsidence of the thumb metacarpal . [id number] C ORVILLE SWANN PA-C [facility] [address] [address] 07/04/2018 10:21:00 07/04/2018 11:16:32 Osteoarthritis of knee 880678473 M17.0 heel wedge, NSAID, f/u By phone to try different anti-infla mmatories follow-up and person if/when ready to consider Intra-karen cular corticoste roid injection [id number] MESERET PANIAGUA APRN [address] [address] 08/09/2018 09:57:38 08/10/2018 14:43:05 Pain in throat 516041438 R07.0 Pharyngitis 186825325 J0 2.9 Hypothyroidism 87035052 E03.9 Mixed hyperlipidemia 267 237192 E78.2 [id number] YOUNG GUIDRY MD [facility] [address] [place] [address] 08/16/2018 14:06:42 08/20/2018 17:19:48 Pain in thumb 203840817 M79.642 Left thumb CMC CSI: 07/04/18 Previous x-rays reveal previous trapezium excision with tight rope suspension of the thumb metacarpal . There is residual subsidence of the thumb metacarpal . 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 Bilateral injection today. Refilled diclofenac . Follow-up when necessary [id number] SEBASTIEN DENNEY MD NEUROLOGY [facility] [address] [place] [address] 09/20/2018 12:50:54 09/20/2018 14:14:28 Skin sensation disturbance 78868943 R20.9 Pain in left thumb 42365 39474 993377 M79.420 [id number] YOUNG GUIDRY MD [facility] [address] [place] [address] 09/20/2018 14:38:46 09/20/2018 16:28:59 Pain in thumb 129109191 M79.642 Left thumb CMC CSI: 07/04/18 Previous x-rays reveal previous trapezium excision with tight rope suspension of the thumb metacarpal . There is residual subsidence of the thumb metacarpal . Carpal mckenna jay syndrome 58480378 G56.02 Possible EMG negative carpal tunnel syndrome EMG/NCV (09/20/18) was normal [id number] Lisa SWANN PA-C [facility] [address] [place] [address] 12/11/2018 10:41:31 12/11/2018 12:20:33 Osteoarthritis of knee 727892583 M17.0 We decided to inject 1 knee [...] treatment options, and coordinati on of care. [id number] Lisa SWANN PA-C [facility] [address] [place] [address] 12/18/2018 14:43:06 12/18/2018 15:45:02 Osteoarthritis of knee 285134275 M17.0 [id number] JASON BERGER APRN [facility] [address] [place] [address] 03/07/2019 09:43:43 03/07/2019 10:16:01 Rosacea 020861060 L71.9 ERYTHEMATO US OPTIONS EDUCATE RECOMMEND UV PROTECTION DAILY TRY MIRVASO GEL QAM IF INSURANCE WILL COVER IF PAPULAR DEVELOPS DISCUSSED LET ME KNOW FOR FURTHER TREATMENT [id number] YOUNG GUIDRY MD [facility] [address] [place] [address] 03/15/2019 15:05:42 03/15/2019 16:11:48 Pain in thumb 886475992 M79.642 Left thumb CMC CSI: 07/04/18 Previous x-rays reveal previous trapezium excision with tight rope suspension of the thumb metacarpal . There is residual subsidence of the thumb metacarpal . Carpal mckenna jay syndrome 17521479 G56.02 Possible EMG negative carpal tunnel syndrome (CSI: 03/15/19) EMG/NCV (09/20/18) was normal [id number] YOUNG GUIDRY MD [facility] [address] [place] [address] 04/05/2019 15:06:41 04/08/2019 08:56:30 Pain in thumb 850146483 M79.642 Left thumb CMC CSI: 07/04/18 Previous x-rays reveal previous trapezium excision with tight rope suspension of the thumb metacarpal . There is residual subsidence of the thumb metacarpal . Carpal mckenna jay syndrome 77886009 G56.02 Possible EMG negative carpal tunnel syndrome (CSI: 03/15/19) - currently no numbness or tingling in the index or long fingers following injection EMG/NCV (09/20/18) was normal Trigger finger 056904423 1 50082 M65.312 Early trigger thumb versus tenosynovi tis (CSI: 04/05/19) [id number] JULIANN PIZANO MD [address] [address] 04/24/2019 13:32:43 04/24/2019 15:59:28 Hypothyroidism 02538066 E03.9 stable/con tinue current medication Fibrocysti c disease of breast 64867179 N60.19 Continue vitamin E Osteoarthr itis of knee 748550966 M17.0 Following with orthopedic s for prn cortisone. Continue diclofenac prn and advised to try topical [place]ese Wonder Dream Cream Hyperlipidemia 06860652 E78.5 [id number] YOUNG GUIDRY MD SURGERY SCHEDULE [address] [place] [address] 05/13/2019 06:05:31 05/13/2019 06:09:45 [id number] NOHEMY MICHEL PA-C [facility] [address] [place] [address] 05/24/2019 14:12:18 05/24/2019 15:19:56 Postoperative care 398119964 Z48.89 Doing well s/p Revision left thumb [...] by Dr. Lewis . Pain in thumb 895295193 M79.642 Left thumb CMC CSI: 07/04/18 Previous x-rays reveal previous trapezium excision with tight rope suspension of the thumb metacarpal . There is residual subsidence of the thumb metacarpal . Trigger finger 544164281 1 73732 M65.312 Early trigger thumb versus tenosynovi tis (CSI: 04/05/19) Carpal mckenna jay syndrome 93851104 G56.02 Possible EMG negative carpal tunnel syndrome (CSI: 03/15/19) - currently no numbness or tingling in the index or long fingers following injection EMG/NCV (09/20/18) was normal [id number] YOUNG GUIDRY MD [facility] [address] [place] [address] 06/21/2019 13:58:06 06/21/2019 16:13:30 Postoperative care 968348174 Z48.89 6 weeks s/p Revision left thumb CMC tight rope suspension arthroplas ty; Removal of hardware from left thumb and index finger (DOS: 05/13/19) Carpal mckenna jay syndrome 86498592 G56.02 Possible EMG negative carpal tunnel syndrome (CSI: 03/15/19) - currently no numbness or tingling in the index or long fingers following injection EMG/NCV (09/20/18) was normal [id number] JULIANN PIZANO MD [facility] [address] [place] [address] 07/22/2019 10:48:33 07/22/2019 13:35:42 [id number] ASAEL NAYLOR PA-C [facility] [address] [place] [address] 07/29/2019 13:29:50 07/29/2019 16:49:05 Active or passive immunization 490821000 Z23 [id number] YOUNG GUIDRY MD [facility] [address] [place] [address] 08/02/2019 13:14:29 08/02/2019 13:36:50 Postoperative care 457768842 Z48.89 12 weeks s/p Revision left thumb CMC tight rope suspension arthroplas ty; Removal of hardware from left thumb and index finger (DOS: 05/13/19) Carpal mckenna jay syndrome 88921251 G56.02 Possible EMG negative carpal tunnel syndrome (CSI: 03/15/19) - currently no numbness or tingling in the index or long fingers following injection EMG/NCV (09/20/18) was normal [id number] MESERET PANIAGUA APRN [facility] [address] [place] [address] 08/19/2019 14:00:10 08/19/2019 14:58:52 Adult health examination 266906819 Z00.00 Active or passive immunization 522375680 Z23 Abdominal aortic aneurysm screening 434566118 Z13.6 [id number] YOUNG GUIDRY MD [facility] [address] [place] [address] 09/13/2019 13:03:55 09/13/2019 14:21:49 Postoperative care 999845911 Z48.89 4 months s/p Revision left thumb CMC tight rope suspension arthroplas ty; Removal of hardware from left thumb and index finger (DOS: 05/13/19) Carpal mckenna jay syndrome 83675848 G56.02 Possible EMG negative carpal tunnel syndrome (CSI: 03/15/19) - currently no numbness or tingling in the index or long fingers following injection EMG/NCV (09/20/18) was normal [id number] YOUNG GUIDRY MD [facility] [address] [place] [address] 10/18/2019 13:12:26 10/18/2019 14:08:00 Postoperative care 431921588 Z48.89 5 months s/p Revision left thumb CMC tight rope suspension arthroplas ty; Removal of hardware from left thumb and index finger (DOS: 05/13/19) Carpal mckenna jay syndrome 39894092 G56.02 Possible EMG negative carpal tunnel syndrome (CSI: 03/15/19) - currently no numbness or tingling in the index or long fingers following injection EMG/NCV (09/20/18) was normal [id number] JULIANN PIZANO MD [address] [address] 01/28/2020 08:55:16 01/28/2020 12:34:20 Alopecia 67241841 L65.9 ?due to thyroid. TEODORA normal 07/2019. Blood work today, including TSH. Advised MVI, Bcomplex and Acai(not FDA approved). Hypothyroidism 39301478 E03.9 stable/con tinue current medication Displaceme nt of lumbar intervertebral disc without myelopathy 27358146 M51.26 Tinnitus 91953544 H93.11 Osteoarthr itis of knee 883762773 M17.0 Following with orthopedic s for prn cortisone. Continue diclofenac prn and advised to try topical [place] Wonder Dream Cream Hearing loss 16591398 H9 1.93 Diverticul ar disease of colon 053956507 K57.30 Hyperlipidemia 29853580 E78.5 [id number] YOUNG GUIDRY MD [facility] [address] [place] [address] 02/25/2020 10:00:02 02/25/2020 12:49:33 Postoperative care 879177443 Z48.89 9.5 months s/p Revision left thumb CMC tight rope suspension arthroplas ty; Removal of hardware from left thumb and index finger (DOS: 05/13/19) Carpal mckenna jay syndrome 54447604 G56.02 Possible EMG negative carpal tunnel syndrome (CSI: 03/15/19) - currently no numbness or tingling in the index or long fingers following injection EMG/NCV (09/20/18) was normal Pain in thumb 393928363 M79.642 Left thumb hardware/C MC CSI: 02/25/20 [id number] YOUNG GUIDRY MD [facility] [address] [place] [address] 03/17/2020 08:42:34 03/17/2020 12:17:11 Pain in thumb 190942915 M79.642 Left thumb hardware/C MC CSI: 02/25/20 Postoperative care 94623 9007 Z48.89 10 months s/p Revision left thumb CMC tight rope suspension arthroplas ty; Removal of hardware from left thumb and index finger (DOS: 05/13/19) Carpal mckenna jay syndrome 58198644 G56.02 Possible EMG negative carpal tunnel syndrome (CSI: 03/15/19) - currently no numbness or tingling in the index or long fingers following injection EMG/NCV (09/20/18) was normal [id number] YOUNG GUIDRY MD [facility] [address] [address] 05/21/2020 09:01:22 05/21/2020 10:56:30 Pain in thumb 963630936 M79.642 Left thumb hardware/C MC CSI: 02/25/20 Postoperative care 58128 9007 Z48.89 1 year s/p Revision left thumb CMC tight rope suspension arthroplas ty; Removal of hardware from left thumb and index finger (DOS: 05/13/19) Carpal mckenna jay syndrome 62314500 G56.02 Possible EMG negative carpal tunnel syndrome (CSI: 03/15/19) - currently no numbness or tingling in the index or long fingers following injection EMG/NCV (09/20/18) was normal [id number] YOUNG GUIDRY MD [facility] [address] [place] [address] 06/18/2020 09:11:15 06/23/2020 10:28:03 Pain in thumb 062526548 M79.642 Left thumb hardware/C MC CSI: 02/25/20 Postoperative care 78788 9007 Z48.89 Previously s/p Revision left thumb CMC tight rope suspension arthroplas ty; Removal of hardware from left thumb and index finger (DOS: 05/13/19) Carpal mckenna jay syndrome 41515302 G56.02 Possible EMG negative carpal tunnel syndrome (CSI: 03/15/19) - currently no numbness or tingling in the index or long fingers following injection EMG/NCV (09/20/18) was normal [id number] YOUNG GUIDRY MD SURGERY SCHEDULE [address] [place] [address] 07/27/2020 10:41:20 07/27/2020 10:43:08 [id number] JULIANN PIZANO MD [address] [address] 07/29/2020 11:17:55 07/29/2020 14:15:15 Hyperlipidemia 25319091 E78.5 Patient is advised on low fat, low calorie diet, weight loss and regular exercise. Also advised on medication compliance and regular labs. Hypothyroidism 56457128 E03.9 stable/con tinue current medication Diverticul ar disease of colon 443377781 K57.30 Fibrocysti c disease of breast 51076682 N60.19 Continue vitamin E Osteoarthr itis of knee 698089852 M17.0 Following with orthopedic s for prn cortisone. Continue diclofenac prn and advised to try topical [place] Wonder Dream Cream Hearing loss 72849598 H9 1.93 Osteoarthr osis of the carpometacarpal joint of the thumb 58575220 M18.9 s/p another revision per Dr Guidry [id number] NOHEMY MICHEL PA-C [facility] [address] [place] [address] 2020 10:55:54 2020 11:47:56 Pain in thumb 065185284 M79.642 Left thumb hardware/C MC CSI: 02/25/20 Postoperative care 23124 9007 Z48.89 Now s/p Revision left thumb [...] finger (DOS: 05/13/19) Carpal mckenna jay syndrome 99631300 G56.02 Possible EMG negative carpal tunnel syndrome (CSI: 03/15/19) - currently no numbness or tingling in the index or long fingers following injection EMG/NCV (09/20/18) was normal [id number] HEMALATHA BERNARD, OTR/L, CHT PHYSICAL THERAPY / HAND THERAPY [facility] [address] [place] [address] 2020 12:59:33 2020 13:49:19 Osteoarthrosis of the carpometacarpal joint of the thumb 15382551 M18.9 CMC Arth. Revision [id number] HEMAALTHA BERNARD, OTR/L, CHT PHYSICAL THERAPY / HAND THERAPY [facility] [address] [place] [address] 08/19/2020 13:14:31 11/17/2020 13:26:58 [id number] YOUNG GUIDRY MD [facility] [address] [place] [address] 09/08/2020 10:32:24 09/08/2020 11:58:13 Postoperative care 685354204 Z48.89 6 weeks s/p Revision left thumb [...] finger (DOS: 05/13/19) Carpal mckenna jay syndrome 76849353 G56.02 Possible EMG negative carpal tunnel syndrome (CSI: 03/15/19) - currently no numbness or tingling in the index or long fingers following injection EMG/NCV (09/20/18) was normal [id number] MESERET PANIAGUA APRN [address] [address] 09/28/2020 11:48:30 09/28/2020 12:22:28 Bilateral tinnitus 7478955346 102 H93.13 Hypothyroidism 04141837 E03.9 Mixed hyperlipidemia 267 727993 E78.2 [id number] CODY LOVELACE MD ENT [address] [place] [address] 10/12/2020 14:21:56 10/14/2020 10:55:48 Sensorineural hearing loss of bilateral ears 251345370 H90.3 audiogram performed and reviewed. Bilateral high-frequ ency sensorineu ral hearing loss present which is the etiology for her bilateral tinnitus. Not severe enough for hearing aids. Discussed lack of adequate treatment options. Discussed masking. Bilateral tinnitus 92207 73372 102 H93.13 Right temporomandibular joint disorder 5325985592 4743591 M26.601 soft diet, heat, NSAIDs [id number] ANNE MARIE BARNARD E[facility] [address] [place] [address] 10/12/2020 15:10:48 10/12/2020 15:30:35 Sensorineural hearing loss of bilateral ears 091584960 H90.3 [id number] YOUNG GUIDRY MD [facility] [address] [place] [address] 10/20/2020 10:16:27 10/20/2020 11:32:53 Postoperative care 964316689 Z48.89 12 weeks s/p Revision left thumb [...] finger (DOS: 05/13/19) Carpal mckenna jay syndrome 74189576 G56.02 Possible EMG negative carpal tunnel syndrome (CSI: 03/15/19) - currently no numbness or tingling in the index or long fingers following injection EMG/NCV (09/20/18) was normal [id number] Lisa SWANN PA-C [facility] [address] [place] [address] 11/04/2020 13:13:05 11/04/2020 14:03:17 Osteoarthritis of knee 049579375 M17.0 Ongoing bilateral medial compartmen t arthritis. Discontinu e ibuprofen and change to daily meloxicam. Follow-up next week for contralate ral knee injection. Maynor discussion with patient regarding likely inevitabil ity of knee replacemen t if she wishes to maintain current quality of life. Certainly no emergency [id number] Lisa SWANN PA-C [facility] [address] [address] 11/11/2020 09:12:48 11/11/2020 09:51:36 Osteoarthritis of knee 378052306 M17.0 Patient responding well to right knee CSI and by mouth meloxicam [id number] YOUNG GUIDRY MD [facility] [address] [address] 12/01/2020 10:39:20 12/01/2020 11:54:27 Postoperative care 519226553 Z48.89 4 months s/p Revision left thumb [...] finger (DOS: 05/13/19) Carpal mckenna jay syndrome 92557556 G56.02 Possible EMG negative carpal tunnel syndrome (CSI: 03/15/19) - currently no numbness or tingling in the index or long fingers following injection EMG/NCV (09/20/18) was normal [id number] MESERET PANIAGUA APRN [address] [address] 12/23/2020 13:56:56 12/23/2020 14:33:23 Pre-surgery evaluation 210729694 Z01.818 Urinary incontinence 165 498799 R32 [facility] 25593492 E03.9 Displaceme nt of lumbar intervertebral disc without myelopathy 43058880 M51.26 [facility] 23671515 H93.13 [id number] YOUNG GUIDRY MD [facility] [address] [address] 01/28/2021 14:29:50 01/28/2021 15:23:25 Postoperative care 918613789 Z48.89 6 months s/p Revision left thumb [...] finger (DOS: 05/13/19) Carpal mckenna jay syndrome 08186949 G56.02 Possible EMG negative carpal tunnel syndrome (CSI: 03/15/19) - currently no numbness or tingling in the index or long fingers following injection EMG/NCV (09/20/18) was normal [id number] MILVIA SANTANA PA-C [facility] [address] [place] [address] 02/03/2021 09:50:22 02/03/2021 10:09:20 Osteoarthritis of knee 897669872 M17.9 [id number] MILVIA SANTANA PA-C [facility] [address] [place] [address] 02/10/2021 09:51:36 02/10/2021 10:03:13 Osteoarthritis of knee 350637274 M17.9 [id number] NOHEMY MICHEL PA-C [facility] [address] [place] [address] 02/11/2021 10:03:30 02/11/2021 10:55:31 Postoperative care 967902671 Z48.89 6 months s/p Revision left thumb [...] finger (DOS: 05/13/19) Carpal mckenna jay syndrome 29413883 G56.02 Possible EMG negative carpal tunnel syndrome (CSI: 03/15/19) - currently no numbness or tingling in the index or long fingers following injection EMG/NCV (09/20/18) was normal [id number] YOUNG GUIDRY MD [facility] [address] [address] 02/18/2021 10:57:01 02/18/2021 12:55:02 Postoperative care 608266720 Z48.89 7 months s/p Revision left thumb [...] finger (DOS: 05/13/19) Carpal mckenna jay syndrome 12294237 G56.02 Possible EMG negative carpal tunnel syndrome (CSI: 03/15/19) - currently no numbness or tingling in the index or long fingers following injection EMG/NCV (09/20/18) was normal [id number] YOUNG GUIDRY MD [facility] [address] [address] 03/04/2021 15:01:51 03/04/2021 16:08:29 Postoperative care 225318927 Z48.89 7 months s/p Revision left thumb CMC suture suspension arthroplas ty; Left 1/2 trapezoid excision; Removal of hardware from left thumb and index finger; Left trigger thumb release (DOS: 07/27/2020) Previously s/p Revision left thumb CMC tight rope suspension arthroplas ty; Removal of hardware from left thumb and index finger (DOS: 05/13/19) Carpal mckenna jay syndrome 79978753 G56.02 Possible EMG negative carpal tunnel syndrome (CSI: 03/15/19) - currently no numbness or tingling in the index or long fingers following injection EMG/NCV (09/20/18) was normal [id number] JULIANN PIZANO MD [facility] [address] [place] [address] 04/30/2021 12:57:45 04/30/2021 14:12:24 Pain in left knee 2228852460 70313 M25.562 Known OA knees. Scheduled for injection on 05/12. Advised PT and topical Voltaren gel prn. To call if symptoms worsen or do not resolve. Bilateral osteoarthritis of knees 9329720269 53419 M17.0 [id number] MILVIA SANTANA PA-C [facility] [address] [place] [address] 05/05/2021 10:25:16 05/05/2021 10:50:23 Osteoarthritis of knee 709983271 M17.9 [id number] MILVIA SANTANA PA-C [facility] [address] [facility] [place] [address] 05/12/2021 10:26:05 05/12/2021 11:09:04 Osteoarthritis of knee 484515079 M17.9 [id number] JULIANN PIZANO MD [address] [address] 06/07/2021 14:05:30 06/08/2021 07:31:20 Adult health examination 078941659 Z00.00 Screening for osteoporosis 235324845 Z13.820 Anemia 393126615 D64.9 Hypothyroidism 58840735 E03.9 stable/con tinue current medication Vitamin B1 2 deficiency (non anemic) 14426990 E53.8 She has not taking vitamin B12. I advised to start at Vitamin B12 500mcg daily. Repeat in 2 months. Hyperlipidemia 36450029 E78.5 Patient is advised on low fat, low calorie diet, weight loss and regular exercise. Also advised on medication compliance and regular labs. Menopausal syndrome 1237 00870 N95.9 [id number] JULIANN PIZANO MD [address] [address] 06/17/2021 11:41:40 06/17/2021 16:06:45 [id number] JULIANN PIZANO MD [address] [id number] 06/30/2021 10:51:20 06/30/2021 11:34:23 Vitamin B12 deficiency (non anemic) [id number] E53.8 She has not taking vitamin B12. I advised to start at Vitamin B12 500mcg daily. Repeat in 2 months. [id number] JULIANN PIZANO MD [address] [address] 07/28/2021 10:50:28 07/29/2021 08:52:05 Vitamin B12 deficiency (non anemic) [id number] E53.8 She has not taking vitamin B12. I advised to start at Vitamin B12 500mcg daily. Repeat in 2 months. [id number] MILVIA SANTANA PA-C [facility] CLOSED [address] [place] [address] 2021 13:04:02 2021 13:19:59 Osteoarthritis of knee 558371246 M17.9 [id number] MILVIA SANTANA PA-C [facility] [address] [address] 08/18/2021 13:07:07 08/18/2021 13:27:07 Osteoarthritis of knee 037949212 M17.9 [id number] JULIANN PIZANO MD [address] [address] 09/14/2021 11:08:59 09/14/2021 11:55:43 Vitamin B12 deficiency (non anemic) 65719295 E53.8 She has not taking vitamin B12. I advised to start at Vitamin B12 500mcg daily. Repeat in 2 months. [id number] MILVIA SANTANA PA-C [facility] [address] [address] 11/10/2021 15:19:11 11/10/2021 15:57:27 Osteoarthritis of knee 228794613 M17.9 [id number] ADELINA LENNON MD [address] [address] 11/17/2021 10:44:52 11/17/2021 11:05:32 Vitamin B12 deficiency (non anemic) 42276053 E53.8 [id number] MILVIA SANTANA PA-C [facility] [address] [place] [address] 6 11/18/2021 14:57:55 11/18/2021 15:30:12 Osteoarthritis of knee 672174762 M17.9 [id number] JULIANN PIZANO MD [facility] MEDIC[facility] [place] [address] 7 12/08/2021 11:01:00 12/08/2021 13:00:04 Hypothyroidism 20068525 E03.9 stable/con tinue current medication Vitamin B1 2 deficiency (non anemic) 78158052 E53.8 She has been consistent with B12 IM monthly. Repeat B12 levels. Hyperlipidemia 33348010 E78.5 Patient is advised on low fat, low calorie diet, weight loss and regular exercise. Also advised on medication compliance and regular labs. Immunization due 7776004 08 Z28.3 Osteoarthr itis of knee 858410213 M17.9 Following with orthopedic s for prn cortisone. Continue diclofenac prn and advised to try topical Congolese Wonder Dream Cream Displaceme nt of lumbar intervertebral disc without myelopathy 46583151 M51.26 Diverticul ar disease of colon 321440837 K57.30 Tinnitus 01162523 H93.13 Fibrocysti c disease of breast 64254284 N60.19 Continue vitamin E Hearing loss 02355357 H9 1.93 [id number] RACHELL GILBERT PA-C [facility] [address] [place] [address] 7 12/20/2021 13:36:01 12/20/2021 14:12:00 Cough 74503147 R05.1 Asthmatic bronchitis 405 240592 J45.203 [id number] JULIANN PIZANO MD [facility] [address] [place] [address] 7 12/31/2021 14:34:55 12/31/2021 14:46:11 Vitamin B12 deficiency (non anemic) 70804292 E53.8 She has been consistent with B12 IM monthly. Repeat B12 levels. [id number] ASAEL NAYLOR PA-C [facility] [address] [place] [address] 7 01/24/2022 10:38:15 01/25/2022 09:57:02 Exposure to SARS-CoV-2 525374040 Z20.039 [id number] ADELINA LENNON MD [address] [address] 7 02/04/2022 14:36:40 02/04/2022 15:25:23 Vitamin B12 deficiency (non anemic) 83922442 E53.8 [id number] TAIWO BRIONES, DO [facility] [address] [place] [address] 7 02/10/2022 10:38:51 02/10/2022 11:46:56 COVID-19 804475274 U07.1 [id number] MILVIA SANTANA PA-C [facility] [address] [place] [address] 02/22/2022 10:28:00 02/22/2022 11:25:59 Osteoarthritis of left knee joint 6997030439 68662 M17.12 [id number] MILVIA SANTANA PA-C [facility] [address] [place] [address] 03/03/2022 14:50:15 03/03/2022 15:34:16 Osteoarthritis of right knee joint 9411995245 53873 M17.11 [id number] JULIANN PIZANO MD [address] [address] 7 03/17/2022 14:21:09 03/17/2022 15:23:21 Vitamin B12 deficiency (non anemic) 97891021 E53.8 She has been consistent with B12 IM monthly. Repeat B12 levels. [id number] JULIANN PIZANO MD [address] [address] 7 04/18/2022 10:45:43 04/18/2022 11:33:25 Vitamin B12 deficiency (non anemic) 67675135 E53.8 She has been consistent with B12 IM monthly. Repeat B12 levels. [id number] JULIANN PIZANO MD [address] [address] 05/19/2022 10:37:12 05/19/2022 11:17:18 Vitamin B12 deficiency (non anemic) 45237657 E53.8 She has been consistent with B12 IM monthly. Repeat B12 levels. [id number] MILVIA SANTANA PA-C [facility] [address] [place] [address] 06/02/2022 14:36:21 06/02/2022 15:50:32 Osteoarthritis of left knee joint 0333722872 54333 M17.12 [id number] MILVIA SANTANA PA-C [facility] [address] [place] [address] 06/06/2022 09:47:55 06/06/2022 10:04:12 Osteoarthritis of right knee joint 7057113200 09414 M17.11 [id number] [place] [address] 7 06/28/2022 11:02:38 06/28/2022 11:16:23 Vitamin B12 deficiency (non anemic) 09168072 E53.8 [id number] JULIANN PIZANO MD [address]170 7 07/28/2022 10:49:23 07/28/2022 11:21:13 Vitamin B12 deficiency (non anemic) 27707693 E53.8 She has been consistent with B12 IM monthly. Repeat B12 levels. [id number] JULIANN PIZANO MD [place] [address] 7 08/29/2022 13:35:50 08/29/2022 17:08:01 Vitamin B12 deficiency (non anemic) 94991929 E53.8 She has been consistent with B12 IM monthly. Repeat B12 levels. Adult heal th examination 238039985 Z00.00 Hypothyroidism 72700065 E03.9 stable/con tinue current medication Displaceme nt of lumbar intervertebral disc without myelopathy 70455850 M51.26 Diverticul ar disease of colon 699738063 K57.30 Fibrocysti c disease of breast 10269974 N60.19 Continue vitamin E Osteoarthr itis of knee 051338992 M17.9 Following with orthopedic s for prn cortisone. Continue diclofenac prn and advised to try topical [place] Wonder Dream Cream Hearing loss 44421991 H9 1.93 Hyperlipidemia 99400975 E78.5 Advised patient to start Lipitor nightly due to atheroscle rosis of aorta. ASCVD 9% in 10 years Patient is advised on low fat, low calorie diet, weight loss and regular exercise. Also advised on medication compliance and regular labs. Body mass index 25-29 - overweight 556906646 Z68.28 Atheroscle rosis of aorta 51767844 I70.0 Immunization due 3741402 08 Z28.39 Menopause 270312482 Z78. 0 [id number] MILVIA SANTANA PA-C [facility] [address] [place] [address] 6 09/12/2022 14:54:41 09/12/2022 15:34:35 Osteoarthritis of left knee joint 5233590297 18761 M17.12 [id number] MILVIA SANTANA PA-C [facility] [address] [place] [address] 6 09/19/2022 14:38:07 09/19/2022 15:15:13 Osteoarthritis of right knee joint 1925944754 43939 M17.11 [id number] JULIANN PIZANO MD [place] [address] 7 11/28/2022 11:51:05 11/29/2022 12:13:12 [id number] JULIANN PIZANO MD [place] [address]88[address] 7 11/30/2022 15:43:25 11/30/2022 16:05:13 [id number] MILVIA SANTANA PA-C [facility] [address] [place] [address] 6 12/14/2022 15:02:39 12/14/2022 15:44:50 Osteoarthritis of left knee joint 5774135508 73742 M17.12 [id number] MILVIA SANTANA PA-C [facility] [address] [place] [address] 6 12/05/2022 12:46:40 12/05/2022 13:08:36 Osteoarthritis of right knee joint 9855421348 35959 M17.11 CSI today. We will have patient follow-up in office with new x-rays, reevaluati on, possible scheduling of TKA. [id number] KERRIE SLATER PA-C [facility] [address] [place] [address] 01/10/2023 09:54:57 01/10/2023 11:54:21 Dysuria 19766482 R30.0 No blood in urine today but did have some leukocytes . We will treat with Bactrim and see if sx improve. MCIF pending. Cystitis 09709494 N30.81 if not improved after abx - recommend Urology and [employer]ER follow-up for bleeding of unknown origin in a post-menop ausal female. No blood in urine today. No recent episodes. 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 Hyperlipidemia 29529397 E78.[address] Pizano note on most recent lipids - start atorvastat in 20 mg. Pt did not receive that prescripti on. Risks benefits of increasing her statin were discussed. She agrees to try it. Pt is due to return in February for recheck so she will get her fasting lipid recheck then. [id number] OLAYINKA GARZA PA-C [facility] [address] [place] [address] 02/08/2023 13:48:04 02/08/2023 14:49:53 Acute upper respiratory infection 79094016 J06.9 Patient presented with symptoms of upper [...] in 7-10 days if symptoms not improving. [id number] JULIANN PIZANO MD [address] [address] 02/27/2023 09:23:11 02/27/2023 11:25:27 Hypothyroidism 49232847 E03.9 stable/con tinue current medication Vitamin B1 2 deficiency (non anemic) 71739889 E53.8 She has been consistent with B12 IM monthly. Repeat B12 levels. Atheroscle rosis of aorta 96316551 I70.0 Hyperlipidemia 90784359 E78.5 Displaceme nt of lumbar intervertebral disc without myelopathy 82978314 M51.26 Following with Workman's Comp Diverticul ar disease of colon 251106828 K57.30 Stable/no issues Cystitis 25970056 N30.81 Stable/no issues. Fibrocysti c disease of breast 82536075 N60.19 Continue vitamin E Body mass index 25-29 - overweight 329078438 Z68.28 Myalgia/my ositis - multiple 704280463 M79.10 Appears to be related to new start atorvastat in. Bloodwork today. Change to rosuvastat in Menopause 548405396 Z78. 0 Bilateral osteoarthritis of knees 9623724349 82837 M17.0 Actively following with orthopedic surgery/co ntinue injections prn Pain of ri ght temporomandibular joint 1357783674 7655709 M26.621 Advised bite guard [id number] MILVIA SANTANA PA-C [facility] [address] [place] [address] 03/07/2023 12:32:57 03/07/2023 13:37:53 Osteoarthritis of right knee joint 9687754029 22451 M17.11 [id number] MILVIA SANTANA PA-C [facility] [address] [place] [address] 03/13/2023 15:07:45 03/13/2023 15:31:16 Osteoarthritis of left knee joint 4448317665 98644 M17.12 CSI today [id number] JULIANN PIZANO MD [address] [address] 03/27/2023 11:09:57 03/27/2023 12:57:18 Hyperlipidemia 35004718 E78.5 Tolerating rosuvastat in Patient is advised on low fat, low calorie diet, weight loss and regular exercise. Also advised on medication compliance and regular labs. Vitamin B1 2 deficiency (non anemic) 30333826 E53.8 She has been consistent with B12 IM monthly. Repeat B12 levels. [id number] JONAH HOWARD MD [facility] [address] [place] [address] 03/30/2023 08:18:53 03/30/2023 08:35:59 Menopausal and postmenopausal disorders 768443814 N95.8 [id number] [place] [address] 05/01/2023 16:00:56 05/01/2023 16:23:41 Vitamin B12 deficiency (non anemic) 27123045 E53.8 She has been consistent with B12 IM monthly. Repeat B12 levels. [id number] JULIANN PIZANO MD [place] [address] 7 05/04/2023 15:04:25 05/04/2023 18:23:43 Bilateral osteoarthritis of knees 6049737283 75321 M17.0 Actively following with orthopedic surgery/co ntinue injections prn [id number] MILVIA SANTANA PA-C [facility] [address] [place] [address] 06/19/2023 14:52:23 06/19/2023 15:15:49 Osteoarthritis of left knee joint 6267325463 63676 M17.12 CSI today [id number] JULIANN PIZANO MD [place] [address] 7 06/19/2023 16:09:27 06/19/2023 16:16:20 Vitamin B12 deficiency (non anemic) 74034392 E53.8 She has been consistent with B12 IM monthly. Repeat B12 levels. [id number] MILVIA SANTANA PA-C [facility] [address] [place] [address] 06/22/2023 08:55:00 06/22/2023 09:19:16 Osteoarthritis of right knee joint 5736319910 70485 M17.11 [id number] JUILANN PIZANO MD [address] [address] 07/28/2023 15:35:18 07/28/2023 16:06:58 Vitamin B12 deficiency (non anemic) 64796903 E53.8 She has been consistent with B12 IM monthly. Repeat B12 levels. [id number] GENE BETANCOURT PA-C [facility] [place] [address] [place] [address] 08/02/2023 08:50:12 08/02/2023 09:15:45 Bilateral osteoarthritis of knees 2917862861 41971 M17.0 I discussed the risk and benefits of KMUAR injection to the patient which included the risk of infection, hypersensi tivity. The patient voiced understand ing of these risks and wished to proceed with the injection. Bilateral KUMAR injection tolerated well. Follow-up 1 week for her second part. [id number] TATUM MANTILLAEDI [facility] [address] [place] [address] 08/09/2023 08:54:10 08/09/2023 09:31:19 Bilateral osteoarthritis of knees 2061224529 35684 M17.0 I discussed the risk and benefits of KUMAR injection to the patient which included the risk of infection, hypersensi tivity. The patient voiced understand ing of these risks and wished to proceed with the injection. Bilateral KUMAR injection tolerated well. Follow-up 1 week for her third part. [id number] GENE BETANCOURT PA-C [facility] [address] [place] [address] 08/16/2023 08:51:19 08/16/2023 10:01:23 Bilateral osteoarthritis of knees 1217948011 40619 M17.0 I discussed the risk and benefits of KUMAR injection to the patient which included the risk of infection, hypersensi tivity. The patient voiced understand ing of these risks and wished to proceed with the injection. Third week of bilateral KUMAR injections completed and tolerated great. Patient will follow-up 6 months, sooner if needed. [id number] JULIANN PIZANO MD [facility] [address] [place] [address] 12/07/2023 09:22:19 12/07/2023 12:16:06 Adult health examination 289568245 Z00.00 Atheroscle rosis of aorta 88094582 I70.0 Continue rosuvastat in and advised to add aspirin 81mg daily. Hypothyroidism 02556569 E03.9 stable/con tinue levothyrox ine Displaceme nt of lumbar intervertebral disc without myelopathy 66847766 M51.26 Following with Workman's Comp-Rubina nue meloxicam Bilateral osteoarthritis of knees 4927931836 82493 M17.0 Actively following with orthopedic surgery/co ntinue injections prn-Contin ue meloxicam Diverticul ar disease of colon 332460055 K57.30 Stable/no issues Cystitis 71347208 N30.81 Stable/no issues. Vitamin B1 2 deficiency (non anemic) 36032499 E53.8 She has been consistent with B12 IM monthly.- Repeat B12 levels.-Ad vised compliance with monthly B12 injections . Pain of ri ght temporomandibular joint 4078800583 9926501 M26.621 Continue bite guard Body mass index 25-29 - overweight 559386191 Z68.28 Congratula tions on sustained 15 pound weight loss with healthy diet and exercise. Dyslipidemia 698152397 E 78.5 Intolerant to atorvastat in and rosuvastat in. Elevated 10 year calculated CV risk factor 8.9%. Change rosuvastat in to pravastati n.-Fasting bloodwork today and in 1month after change medication -Advised CoQ10 daily Patient is advised on low fat, low calorie diet, weight loss and regular exercise. Also advised on medication compliance and regular labs. Immunization due 2892646 08 Z28.39 Ischial bursitis 9068315 03 M70.72 Advised Medrol dose pack. To call if symptoms persist or worsen. [id number] C ORVILLE SWANN PA-C [facility] [address] [place] [address] 10/13/2023 10:41:46 10/13/2023 11:07:03 Osteoarthritis of knee 499496578 M17.0 [id number] AUDREY KNAPP PA-C [facility] [address] [place] [address] 10/18/2023 08:37:48 10/18/2023 09:02:45 Bilateral osteoarthritis of knees 7210408063 99936 M17.0 I discussed the risk and benefits [...] wants to stick to CSI going forward. [id number] JULIANN PIZANO MD [facility] MEDICINE [address] [address] 01/09/2024 11:07:22 01/09/2024 11:38:24 Vitamin B12 deficiency (non anemic) 71608639 E53.8 Active or passive immunization 896186887 Z23 [id number] AUDREY KNAPP PA-C [facility] [address] [place] [address] 01/17/2024 08:24:12 01/17/2024 08:48:08 Bilateral osteoarthritis of knees 0536179091 43987 M17.0 I discussed the risk and benefits of CSI to the patient which included the risk of elevated blood sugar, elevated blood pressure. We also discussed the risks of chondrotox ic effect of the medication with repeated injection as well as the risks of infection. The patient voiced understand ing of these risks and wished to proceed with the injection. Bilateral knee CSI's. [id number] JULIANN PIZANO MD [address] [address] 02/06/2024 11:04:36 02/06/2024 11:44:50 Vitamin B12 deficiency (non anemic) 54076062 E53.8 Small amount of leakage of B12 from around connection of needle and syringe. Reassuranc e given to patient that insignific ant amount noted. [id number] JULIANN PIZANO MD [facility] [place] [address] [place] [address] 05/23/2024 13:54:24 05/27/2024 05:35:09 Hypothyroidism 91418008 E03.9 stable/con tinue levothyrox ine Hyperlipidemia 47624276 E78.5 Tolerating rosuvastat in Patient is advised on low fat, low calorie diet, weight loss and regular exercise. Also advised on medication compliance and regular labs. Alopecia 55124799 L65.9 Bilateral osteoarthritis of knees 3493040100 68932 M17.0 Actively following with orthopedic surgery/co ntinue injections prn-Contin ue meloxicam- Add duloxetine Immunization due 4651048 08 Z28.39 Body mass index 25-29 - overweight 605868162 Z68.28 Congratula tions on sustained 15 pound weight loss with healthy diet and exercise. Screening mammography 24 990878 Z12.31 [id number] JULIANN PIZANO MD [place] [address] 03/07/2024 13:50:02 03/07/2024 16:55:41 [id number] JULIANN PIZANO MD [address] [address] 03/14/2024 15:49:26 03/14/2024 16:05:49 Vitamin B12 deficiency (non anemic) 22504991 E53.8 Small amount of leakage of B12 from around connection of needle and syringe. Reassuranc e given to patient that insignific ant amount noted. [id number] AUDREY KNAPP PA-C [facility] [address] [place] [address] 04/17/2024 08:33:09 04/17/2024 08:55:29 Bilateral osteoarthritis of knees 0493916585 58665 M17.0 I discussed the risk and benefits [...] May repeat in 3 months or PRN. [id number] JULIANN PIZANO MD [address] [address] 04/16/2024 10:50:30 04/16/2024 11:59:24 Vitamin B12 deficiency (non anemic) 72674872 E53.8 [id number] JULIANN PIZANO MD [place] [address] 05/14/2024 11:00:04 05/14/2024 12:38:19 Vitamin B12 deficiency (non anemic) 99845386 E53.8 [id number] JULIANN PIZANO MD [address] [address] 06/13/2024 10:38:43 06/13/2024 12:10:59 Vitamin B12 deficiency (non anemic) 35415750 E53.8 [id number] JULIANN PIZANO MD [address] [address] 07/11/2024 14:07:35 07/11/2024 16:43:47 Vitamin B12 deficiency (non anemic) 37787288 E53.8 [id number] AUDREY KNAPP PA-C [facility] [address] [place] [address] 07/22/2024 08:24:17 07/22/2024 08:50:05 Bilateral osteoarthritis of knees 6110409396 40179 M17.0 I discussed the risk and benefits [...] May repeat in 3 months or PRN. [id number] YOUNG DAY MD [facility] [address] [place] [address] 07/30/2024 10:24:17 07/30/2024 16:23:19 Bilateral osteoarthritis of knees 6307740417 06365 M17.0 Osteoarthr itis of knee 909537573 M17.9 [id number] JULIANN PIZANO MD [address] [address] 08/15/2024 16:12:33 08/15/2024 16:37:58 Vitamin B12 deficiency (non anemic) 07671929 E53.8 [id number] JULIANN PIZANO MD [address] [address] 08/28/2024 14:49:07 08/28/2024 16:50:27 Cough 13152438 R05.9 As the cough may be secondary to sinusitis, begin doxycyclin e therapy aimed at treating any underlying bacterial component. Recommend Delsym as an effective suppressan t to facilitate better sleep. Acute sinusitis 23157133 J01.90 Prescribe doxycyclin e to address sinusitis and its contributo ry effect on cough frequency. Encourage the use of over-the-c ounter cough suppressan ts like Delsym to manage acute symptoms. Restless l egs syndrome 45499775 G25.81 and snoring: Referral to a sleep specialist for targeted evaluation and management of restless legs syndrome. Continue monitoring leg restlessne ss frequency and symptom severity. Hyperlipidemia 88440315 E78.5 Continue pravastati n at 80 mg. [...] labs. Body mass index 25-29 - overweight 140813859 Z68.28 Congratula tions on weight loss with healthy diet and exercise. [id number] JULIANN PIZANO MD [address] [address] 09/13/2024 10:41:14 09/16/2024 08:54:21 Cough 81507226 R05.9 Administer benzonatat e pearls for symptomati c relief of cough. Order a chest X-ray due to persistent symptoms. Recommend and continue supportive care. -As the cough may be secondary to sinusitis, so treat sinusitis. Recommend Delsym as an effective suppressan t to facilitate better sleep over benzonatat e, if more effective. Restless l egs syndrome 37839003 G25.81 Reassessme nt scheduled for next month with sleep specialist . Continue current management until then. Lumbar radiculopathy 128 719061 M54.16 Recommend Medrol dose pack as anti-infla mmatory treatment. Initiate Baclofen for muscle relaxation . Follow up with Dr. Day for pain management and reassessme nt whether surgery or further interventi on might be helpful. Acute sinusitis 73442157 J01.90 Prescribe Cefdinir 300 mg orally twice daily for 10 days. Recommend monitoring symptoms and follow up if they persist or worsen. Bilateral osteoarthritis of knees 4003875692 27785 M17.0 Instruct to continue use of analgesic creams as needed. Explore possibilit y of expedited cortisone injections following consultati ons with Dr. Day and insurer. Continue Tylenol Arthritis as previously directed. Actively following with orthopedic surgery/co ntinue injections prn -Tylenol 650mg TID scheduled [id number] JULIANN PIZANO MD [facility] MEDICINE [address] [address] 09/19/2024 15:58:13 09/20/2024 04:18:05 Vitamin B12 deficiency (non anemic) 14743355 E53.8 [id number] JULIANN PIZANO MD [facility] [address] [address] 10/18/2024 13:59:32 10/18/2024 14:55:42 Vitamin B12 deficiency (non anemic) 22262515 E53.8 [id number] YOUNG DAY MD [facility] HEMANTHIO NAL CHARGES [address] [facility], [address] [place] [address] 10/22/2024 11:47:06 10/22/2024 13:25:39 Bilateral osteoarthritis of knees 6775406847 41243 M17.0 [id number] CARROL BELLAMY PA-C PA[facility] MED[facility] [address] [place] [address] 01/08/2025 12:52:45 01/08/2025 16:13:38 Bilateral osteoarthritis of knees 9136870773 26431 M17.0 Osteoarthr itis of knee 241036132 M17.9 [id number] JULIANN PIZANO MD [facility] [address] [place] [address] 12/12/2024 10:43:25 12/12/2024 15:06:45 Adult health examination 922345850 Z00.00 Ensure routine health maintenanc e and update screenings as needed during the wellness exam. Screening mammography 24 544602 Z12.31 Mammogram on 10/03/2024 . Screening for malignant neoplasm of colon 129425094 Z12.11 Colonoscop y on 11/28/2017 , repeat in 2027. Hepatitis C screening 41 1176448 Z11.59 07/22/2019 negative. Eye disord er screening 980892672 Z13.5 Keep regular follow-up with ophthalmol ogist for preventive care. No record in chart. Postmenopa usal osteoporosis 320226152 M81.0 2201 Continue existing treatment plan and follow preventive advice. DEXA on 03/30/2023 , repeat in 2027. Atheroscle rosis of aorta 42436060 I70.0 Continue rosuvastat in and advised to add aspirin 81mg daily. Hyperlipidemia 15997529 E78.5 Sustain current lipid management plan and [...] today. Vitamin B1 2 deficiency (non anemic) 93941682 E53.8 Resume B12 injection schedule due to previous disruption s from illness. Hypothyroidism 76811041 E03.9 Keep up with thyroid medication and periodic evaluation s. stable/con tinue levothyrox ine Immunization due 7842665 08 Z23 5067986 Covid vaccine today, then hepatitis B vaccine at pharmacy. Displaceme nt of lumbar intervertebral disc without myelopathy 80265859 M51.26 Following with Workman's Comp-Rubina nue meloxicam [id number] JULIANN PIZANO MD [place] [address] 01/09/2025 13:56:27 01/09/2025 14:33:39 Cobalamin deficiency 280129650 E53.8 82575 [id number] YOUNG DAY MD [facility] [address] [facility] [address] PROFESSIO NAL CHARGES [address] [facility], [address] [place] [address] 01/28/2025 14:39:40 01/28/2025 16:25:52 Bilateral osteoarthritis of knees 8179087445 55744 M17.0 [id number] JULIANN PIZANO MD [place] [address] 02/10/2025 14:00:04 02/10/2025 15:08:57 Cobalamin deficiency 572114859 E53.8 663590 [id number] CARROL BELLAMY PA-C PAIN MEDICINE [address] [place] [address] 02/26/2025 14:32:52 02/26/2025 16:22:08 Bilateral osteoarthritis of knees [id number] 97947 M17.0 Osteoarthr itis of knee 897371374 M17.9 [id number] JULIANN PIZANO MD [address] 7 03/12/2025 13:49:13 03/12/2025 15:34:33 Cobalamin deficiency 702803811 E53.8 85025 [id number] JULIANN PIZANO MD [address] 7 04/14/2025 14:04:45 04/14/2025 14:53:59 Cobalamin deficiency 077515179 E53.8 73400 [id number] JULIANN PIZANO MD [address] 7 05/12/2025 13:44:12 05/12/2025 14:11:53 Cobalamin deficiency 725529814 E53.8 18807 [id number] YOUNG DAY MD [facility] [address] [facility], [address] [place] [address] 1 05/08/2025 11:29:44 05/13/2025 15:18:57 Bilateral osteoarthritis of knees [id number] 82843 M17.0 [id number] CARROL BELLAMY PA-C PAIN MEDICINE [address] [place] [address] 1 06/03/2025 13:53:16 06/04/2025 04:17:53 Bilateral osteoarthritis of knees [id number] 66988 M17.0 Osteoarthr itis of knee 406788062 M17.9 [id number] AUGUSTA SALDAÑA PA-C ORTHOPEDI CS [address] [place] [address] 1 06/09/2025 14:29:03 06/09/2025 15:58:40 Primary gonarthrosis, bilateral 820391184 M17.0 [id number] Ms. Macdonald is here to discuss treatment [...] t at that time. Patient was agreeable. [id number] JULIANN PIZANO MD FAMILY [address] [address] 06/12/2025 13:44:45 06/12/2025 14:53:29 Vitamin B12 deficiency (non anemic) 95864625 E53.8 Continue B12 injections monthly. Snoring 66949512 R06.83 76210 - Refer for a sleep study to assess nocturnal breathing patterns and potential sleep apnea. Restless l egs syndrome 79566742 G25.81 25399 Reassessme nt scheduled for next month with sleep specialist . Continue current management until then. - Order ferritin level as low levels might contribute to symptoms. - Consider melatonin supplement ation as supportive therapy. Primary go narthrosis, bilateral [id number] M17.0 [id number] Instruct to continue use of analgesic creams [...] response and knee pain management . Dyslipidemia 759270082 E 78.5 Intolerant to atorvastat in and [...] side effects causing musculoske letal symptoms. Hypothyroidism 98544596 E03.9 Keep up with thyroid medication and periodic evaluation s. stable/con tinue levothyrox ine - Conduct a TSH test for evaluation due to persistent nocturnal symptoms, though well-maint ained per patient report. Immunization due 0353218 08 Z23 [id number] Covid vaccine today, then hepatitis B vaccine at pharmacy.- Administer COVID-19 and influenza vaccinatio ns during the visit. [id number] KERRIE SLATER PA-C [facility] [place] [address] [place] [address] 07/11/2025 11:22:46 07/11/2025 13:36:55 Acute cough [id number] 73184842 R05.7 [id number] discussed negative flu and covid Acute fron joaquín sinusitis 46498178 J01.10 J40 [id number] Patient presented with symptoms of upper respirator [...] keeping them stored safely away from children. [id number] ALEXANDRIA LEONG APRN [address] [address] 07/18/2025 14:52:21 07/18/2025 15:05:20 Cobalamin deficiency 924959999 E53.8 89047 [id number] JULIANN PIZANO MD [address] [address] 08/18/2025 14:49:50 08/18/2025 15:01:49 Cobalamin deficiency 901215310 E53.8 73960 Health Concerns Section Related Observation LastModified by Organization Detai ls LastModified Time None Recorded Concern Status LastModified by Organization Details LastModified Time None Recorded Advance Directives Directive None Recorded Payers Insurance Date Sequence Insurance Name Policy Number Policy Walter Covered Member ID Walter Member ID Guarantor Name 08/18/2025 1 [place]MED[place]ACEMENT HMO) [id number] January Sharp [id number] January Sharp 03/27/2023 [employer] (BA) January Jono [id number] January Sharp 03/27/2023 1 [place] [id number] January Torres [id number] January Sharp 03/27/2023 1 [place] January Torres [id number] January Sharp 03/27/2023 GENERIC INSURANCE - MOVED-HOLD January Sharp 03/27/2023 2 [employer] (EPO) January Sharp [id number] January Sharp 03/27/2023 1 [employer] [facility] (PPO) January Sharp [id number] January Sharp 03/27/2023 2 [employer] (PPO) January Sharp [id number] January Sharp 03/27/2023 1 [employer] [facility] (PPO) January Sharp [id number] January Sharp 08/19/2020 [employer] January Sharp 05/04/2020 [employer] January Sharp 03/27/2023 [place] (ZURDO) January Jono [id number] January Sharp 03/27/2023 3 [employer] SMM January Torres [id number] January Sharp 03/27/2023 1 [employer] (POS) [id number] January Jono [id number] January Sharp 03/27/2023 1 [employer] [place] [employer] [place] (MEDICA[place]PLAC[place] - HMO) CSKY January Jono [id number] January Torres 03/27/2023 [employer] - DMEPOS ASSIGNED (MEDICARE [facility] B) January Torres [id number] January Torres 03/27/2023 1 [employer]ICA[employer]-[facility] - FFS/TRADITIONAL January [place] [id number] January Torres 03/03/2022 [employer] January03/27/2023 [employer] (BA) January Jono [id number] January Torres 05/04/2020 1 UNSPECIFIED REMIT PAYOR January Torres 08/19/2020 [employer] January08/19/2020 [employer] January Torres 03/27/2023 [employer] (BA) Michelle Sofya [id number] January Torres 03/27/2023 INGENIOUSMED (MOVED TO HOLD) January Torres Notes Date Note Type Note [...] she is the primary caregiver for her qhjhtb-bq-gzn and is wanting to avoid surgical treatment and the associated downtime. She is interested in nerve ablation but unfortunately her insurance does not cover this. 05/08/2025 bilateral Zilretta injection 50% 1 week01/28/2025 Bilateral Zilretta injections with 80% ongoing10/22/2024 Bilateral Zilretta injections with 98% x 3 [id number]/22/2024 intra-articular knee injection (triamcinolone) bilaterally (ortho)04/17/2024 intra-articular knee injection (triamcinolone) bilaterally (ortho)Intra-articular hyaluronic acid no relief 4Bil knee CSI 01/17/24Bil Knee CSI 10/18/23Left knee CSI 10/13/23Right knee CSI AUGUSTA SALDAÑA PA-C [address] [place] [address], [phone], [facility] 06/09/2025 17:10:43 06/12/2025 text/html ROS as noted in the HPI Pt presents today for 6 mo recheck, B12 injection. Agrees to flu vaccination and any other vaccinations needed. No acute issues. 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 The patient is a 69-year-old female presenting [...] note prior to signature. JULIANN PIZANO MD [address] [place] [address], [phone], [facility] 06/12/2025 14:38:24 07/11/2025 text/html Upper Respirator [...] with coughing. - The patient has tried oppd-vgf-fchrnov medications without relief. - In-office testing for [...] note prior to signature. KERRIE SLATER PA-C [facility] [place], [phone], [facility] 07/14/2025 13:07:34 OBGyn Episode No OBEpisode recorded.
--- OUTSIDE RECORDS SUMMARY | 2025-08-19 13:50 | XMS_ITS | Continuity of Care Document ---
Author Organization [facility] c, [facility] Address [address] [place] [address] Care Team Providers Care Lan/Wan Engineer Name Role Phone JULIANN PIZANO Primary Care Provider [phone] YOMI KELLER Orthopedic Surgeon [phone] Assessment Encounter Date Assessment Date Assessment LastModified [...] Not available Lab lipid panel, serum 2024 [facility], [address] [place] [address], [phone], 06/12/2025 18:18:25 hepatic function panel, serum 2024 [facility], [address] [place] [address], [phone], 06/12/2025 18:34:01 ferritin, serum or plasma 2024 [facility], [address] [place] [address], [phone], 06/12/2025 18:33:57 TSH, serum or plasma 2024 [facility], [address] [place] [address], [phone], 06/12/2025 18:34:03 Referral sleep medicine referral 2024 [email or web address] Laci Patricia MD, [address] [place] [address], [phone], 07/25/2025 08:58:34 Procedures None recorded. Surgeries None recorded. Imaging None recorded. Medication Orders meloxicam 7.5 mg tablet 2024 [facility] [id number], [address] [place] [address], [id number], 06/12/2025 14:37:19 cyanocoba jessica (vit B-12) 1,000 mcg/mL injection solution 2024 [place] [id number] Not available 06/12/2025 14:37:19 Patient TargetsNo targets recorded. Patient Instructions Encounter Date Encounter Id Patient Instructions Last Modified By Organization Details Last Modified Time 06/12/2025 [id number] - Continue administering your B12 injection monthly. [...] Sleep Medicine Referral for Snoring Referring Physician: Julinan Pizano, Family Medicine, Encounter Date: 06/12/2025 Results Created Date Observation Date Name Description Value Unit Range Abnormal Flag Note LastModifiedBy Organization Detail LastModifiedTime 06/12/2006/12/2025 LIPID PROFI LE HDL cholesterol 58 mg/dL normal EDILSON L RANGE FEMAL E >49 MALE >39 NOTE: NEW EDILSON L RANGE Not Available [facility] [address] [place], [address], 06/12/2025 18:33:59 06/12/2006/12/2025 LIPID PROFI LE triglyceride s 106 mg/dL 0-149 normal TRIGL YCERI DE RANGE S EDILSON L: < 150 BORDE RLINE HIGH: 150 - 199 HIGH: 200 - 499 VERY HIGH: > OR = 500 Not Available [facility] [address] [place], [address], 06/12/2025 18:33:59 06/12/20 25 06/12/2025 LIPID PROFI LE cholesterol 198 mg/dL 0-199 normal JHOANA STERO L (TOTA L) RANGE S GAYLA ABLE: < 200 BORDE RLINE : 200 - 239 HIGHE R RISK: > 239 Not Available [facility] [address] [place], [address], 06/12/2025 18:33:59 06/12/2006/12/2025 LIPID PROFI LE LDL cholesterol 119 mg/dL _(nohelia c) 0-99 high LDL JHOANA STERO L RANGE S OPTIM AL: < 100 NEAR/ ABOVE OPTIM AL: 100 - 129 BORDE RLINE HIGH: 130 - 159 HIGH: 160 - 189 VERY HIGH: > OR = 190 Not Available [facility] [address] [place] [address], [address], 06/12/2025 18:33:59 06/12/20 25 06/12/2025 LIPID PROFI LE chol/HDL ratio (calc) 3.4 mg/dL normal NO EDILSON L RANGE ESTAB LISHE D FOR JHOANA STERO L/HDL RATIO (CALC ULATE D). Not Available [facility] [address] [place] [address], [address], 06/12/2025 18:33:59 06/12/2006/12/2025 LIPID PROFI LE LDL, direct 122 0-99 high Not Available [facility] [address] [place] [address], [address], 06/12/2025 18:33:59 06/12/2006/12/2025 REY TIN ferritin 69 NG/mL 13-157 normal Not Available [facility] [address] [place] [address], [address], 06/12/2025 18:33:57 06/12/2006/12/2025 HEPAT IC (LIVE R) PANEL AST 21 U/L 0-32 normal Not Available [facility] [address] [place] [address], [address], 06/12/2025 18:34:01 06/12/20 25 06/12/2025 HEPAT IC (LIVE R) PANEL ALT 14 U/L 0-33 normal Not Available [facility] [address] [place] [address], [address], 06/12/2025 18:34:01 06/12/20 25 06/12/2025 HEPAT IC (LIVE R) PANEL alkaline phosphatase 79 U/L 30-121 normal Not Available [facility] [address] [place] [address], [address], 06/12/2025 18:34:01 10/23/20 25 06/12/2025 HEPAT IC (LIVE R) PANEL total protein 7.2 g/dL 6.4-8. 3 normal Not Available [facility] [address] [place] [address], [address], 06/12/2025 18:34:01 06/12/20 25 06/12/2025 HEPAT IC (LIVE R) PANEL albumin 4.4 g/dL 3.5-5. 2 normal Not Available [facility] [address] [place] [address], [address], 06/12/2025 18:34:01 06/12/2006/12/2025 HEPAT IC (LIVE R) PANEL bilirubin, total 0.6 mg/dL 0.1-1. 0 normal NOTE: New refer ence range . Not Available [facility] [address] [place] [address], [address], 06/12/2025 18:34:01 06/12/2006/12/2025 HEPAT IC (LIVE R) PANEL bilirubin, direct <0.2 mg/dL 0.0-0. 3 normal Not Available [facility] [address] [place] [address], [address], 06/12/2025 18:34:01 06/12/2006/12/2025 HEPAT IC (LIVE R) PANEL bilirubin, indirect see below mg/dL _(nohelia c) 0.0-1. 0 normal Unabl e to calcu late Indir ect Bilir ubin. Not Available [facility] [address] [place] [address], [address], 06/12/2025 18:34:01 06/12/2006/12/2025 TSH TSH 1.300 u[IU] /mL 0.270- 4.200 normal Not Available [facility] [address] [place] [address], [address], 06/12/2025 18:34:03 06/10/2006/09/2025 XR, knee, 4 or more view [facility] [address] [facility] [place] [address] Patiterry t Name: MICHELLE ni : 1954 [...] Shiva Andrea MD on 2024 8:48 AM [email or web address] [facility] [address] [place], [address], 06/10/2025 09:39:21 08/17/20 25 08/17/2025 imagi ng/di agnos tic resul t No observ ation record ed. [email or web address] Not Available 08/19 11:43:38 08/18/20 25 08/18/2025 CT, angio gram, chest , w/ contr ast No observ ation record ed. Not Available 08/19 11:46:36 Result Notes None recorded. Problems Name Problem SNOMED Code Status Onset Date Resolution Date Notes Provider Name and Address Organization Details Recorded Time Lack of energy 190738252 Completed 201502/07/2018 From [employer];Pro vider: Juliann Pizano;Sta tus: Active JULIANN PIZANO MD [address] [place] [address], [address] , [facility] 8 13:33:48 Finding of appearan ce of skin Completed 201502/07/2018 From [employer];Pro vider: Juliann Pizano;Sta tus: Active JULIANN PIZANO MD [address] [place] [address], [address] , [facility] 8 13:33:45 Hypothyr oidism 97394851 Active 2015 From [employer];Pro vider: Juliann Pizano;Sta tus: Active JULIANN PIZANO MD [address] [place] [address], [address] , [facility] 3 14:38:44 Tinnitus 15380433 Active 2015 From [employer];Pro vider: Juliann Pizano;Sta tus: Active Not Available [facility] 2 07:32:58 Fibrocys tic disease of breast 88746276 Active 2017 Not Available [facility] 2 07:32:58 Divertic ular disease of colon 703715940 Active 2017 Not Available [facility] 2 07:32:58 Hearing loss 53198681 Active 2017 Not Available [facility] 2 07:32:58 Displace ment of lumbar interver tebral disc without myelopat hy 75828456 Active 2017 JULIANN PIZANO MD [address] [place] [address], [address] , [facility] 3 14:38:27 Osteoart hritis of knee 819727491 Active 2018 Not Available [facility] 2 07:32:58 Alopecia 00612288 Active 2019 Not Available [facility] 2 07:32:58 Hyperlip idemia 17654632 Active 2019 LDL>190 JULIANN PIZANO MD [address] [place] [address], [address] , [facility] 3 22:05:06 Vitamin B12 deficien cy (non anemic) 89875756 Active 2020 JULIANN PIZANO MD [address] [place] [address], [address] , [facility] 3 14:38:51 Atherosc lerosis of aorta 64396126 Active 2022 JULIANN PIZANO MD [facility] [place], [address] , [facility] 3 14:51:55 Cystitis 03050799 Active 2022 KERRIE SLATER PA-C [address] [place], [address] , [facility] 3 10:32:11 Bilatera l osteoart hritis of knees 60928790614 9107 Active 2022 JULIANN PIZANO MD [address] [place], [address] , [facility] 3 10:32:14 Pain of right temporom andibula r joint 85246687612 057177 Active 2022 JULIANN PIZANO MD [facility] [place], [address] , [facility] 3 10:33:46 Body mass index 25-29 - overweig ht 835953603 Active 2023 UJLIANN PIZANO MD [facility] [place], [address] , [facility] 4 09:58:29 Dyslipid emia 090389186 Active 2023 JULIANN PIZANO MD [facility] [place], [address] , [facility] 4 10:13:07 Ischial bursitis 543934840 Active 2023 JULIANN PIZANO MD [facility] [place], [address] , [facility] 4 10:42:24 Lumbar radiculo wendy 033064312 Active 2024 JULIANN PIZANO MD [facility] [place], [address] , [facility] 5 11:31:09 Primary gonarthr osis, bilatera l 475316556 Active 2024 JULIANN PIZANO MD [facility] [place], [address] , [facility] 14:24:04 Acute frontal sinusiti s 56978396 Active 2024 KERRIE SLATER PA-C [address] [place] [address], [address] , [facility] 11:58:13 Acute cough Active 2024 KERRIE SLATER PA-C [address] [place] [address], [address] , [facility] 12:02:22 Hiatal hernia 91007411 Active 2024 JULIANN PIZANO MD [address] [place] [address], [address] [place] [address] , [facility] 23:00:20 Problem Notes None recorded. Procedures Surgical History Date Name Laterality Status Provider Name and Address Organization Details Recorded Time 025 Joint Injection, Knee - Barb completed YOUNG DAY MD [address] [place] [address], [address] [place] [address], [facility] 05/08/2025 12:43:39 025 Joint Injection, Knee - Barb completed YOUNG DAY MD [address] [place] [address], [address], [facility] 01/28/2025 16:06:18 025 Joint Injection, Knee - Barb completed YOUNG DAY MD [address] [place] [address], [address], [facility] 10/22/2024 12:43:32 024 Injection - Joint/Bursa, Major completed Vicki Rai [facility] 07/15/2024 10:48:22 024 Injection - Joint/Bursa, Major completed Spenser Tijerina [facility] 04/12/2024 15:30:21 024 Injection - Joint/Bursa, Major completed Alexandria Sellers [facility] 01/10/2024 15:32:45 024 Injection - Joint/Bursa, Major completed Quinten Rizo [place] [facility] 10/16/2023 15:30:00 024 Injection - Joint/Bursa, Major completed Lisa SWANN PA-C [address] [place], [address], [facility] 10/13/2023 11:11:57 024 Injection - Joint/Bursa, Major cancelled [place] Young [place] [facility] 09/05/2023 08:39:03 023 Euflexxa Injection completed Rashad Welsh [place] [facility] 08/16/2023 08:58:43 023 Euflexxa Injection completed Quinten Rizo [facility] 08/09/2023 09:16:07 023 Euflexxa Injection [facility] 08/02/2023 08:54:42 023 Injection - Joint/Bursa, Major completed [place] Young [place] [facility] 06/21/2023 08:22:13 023 Injection - Joint/Bursa, Major completed [place] Young [place] [facility] 06/19/2023 14:59:56 023 DXA Normal completed JONAH HOWARD MD [address] [place], [address], [facility] 03/30/2023 12:31:04 023 Injection - Joint/Bursa, [...] Joint/Bursa, Major completed Vicki Rai [place] - [facility] 03/02/2022 09:13:27 022 Injection - Joint/Bursa, [...] stress incontinence by suprapubic sling completed JULIANN R PIZANO, MD [address] [place], [address], [facility] 12/07/2023 10:17:40 021 Injection - Joint/Bursa, Major completed [facility]ellers [facility] 02/10/2021 08:25:13 021 Injection - Joint/Bursa, Major completed Vicki Fredi [facility] 02/03/2021 08:07:56 021 Injection - Joint/Bursa, Major completed Alexandria Sellers [facility] 11/11/2020 08:47:33 021 Injection - Joint/Bursa, Major completed Lisa SWANN PA-C [facility] [place], [address], [facility] 11/04/2020 13:58:40 020 Orthotic, HFO, Static Custom completed HEMALATHA BERNARD, OTR/L, CHT [address] [place] [address] [place], [address], [facility] 2020 13:04:03 020 Op Note completed YOUNG GUIDRY MD [address] [place] [address], [address], [facility] 07/27/2020 19:12:28 020 Injection - Joint/Bursa, Interm completed YOUNG GUIDRY MD [address] [place] [address] [place], [address], [facility] 02/25/2020 19:59:39 019 Op Note completed YOUNG GUIDRY MD [facility] [place], [address], [facility] 05/13/2019 09:25:23 019 Injection - Trigger Finger, Ortho completed YOUNG GUIDRY MD [address] [place] [address] [place], [address], [facility] 04/05/2019 16:43:35 019 Injection - Carpal Tunnel completed YOUNG GUIDRY MD [facility] [place], [address], [facility] 03/15/2019 16:13:35 019 Injection - Joint/Bursa, Major completed Cristine Luna [facility] 12/18/2018 15:10:45 019 Injection - Joint/Bursa, Major completed Cristine Luna [facility] 12/11/2018 10:50:07 019 Injection - Joint/Bursa, Interm completed YOUNG GUIDRY MD [address] [place] [address], [address] [place] [address] 09/20/2018 17:43:12 Electromyography (EMG) with Nerve Conduction Study (NCV) completed Luz Maria Pizano (Nicky) [facility] 09/20/2018 13:42:03 019 Injection - Joint/Bursa, Major completed Lisa SWANN PA-C [address] [place] [address], [address] [place] [address] 09/05/2018 15:07:17 018 Injection - Joint/Bursa, Interm completed YOUNG GUIDRY MD [address] [place] [address], [address] [place] [address], [facility] 07/04/2018 12:19:03 Hand tendon/muscle transfer completed JULIANN PIZANO MD [address] [place] [address], [address] [place] [address], [facility] 01/05/2017 11:59:57 Cataract Surgery completed JULIANN PARKS MD [address] [place] [address], [address], [facility] 08/29/2022 14:55:26 Appendectomy completed JULIANN PIZANO MD [address] [place] [address] [place] [address] 10/13/2016 08:25:37 Imaging Results None recorded. Procedure Notes None recorded. Medical Equipment None Reported. Allergies No known drug allergies Medications Name Sig Start Date Stop Date Status Note LastModified by Organization Details LastModified Time Compound Rx Alternati ves Neuropath ic Pain Cream Apply 1-2 grams to the affected area 3-4 times daily 10/14/ 2025 active D/C Not Available Not Available Not [...] tablet Not Available Not Available Not Available [place] 5 mg-325 mg tablet TAKE 1 TAB [...] Last Updated DateTime 160.02 cm 26.6 kg/m2 76695.5 6 g 97.2 [degF] 84 /min 96 % 16 /min 134/84 mm[Hg] Luis Alfredo Ramsey [facility] 13:55:58 Social History Question Answer Notes LastModified by Organizat ion Details LastModified Time Tobacco Smoking Status Never Smoker JULIANN PIZANO MD [address] [place] [address], [address], [facility] 01/05/2017 08:07:38 What Is Your Level Of Caffeine Consumption? Occasional Information not available 06/08/2017 How Much Tobacco Do You Chew? None [email or web address] Information not available 03/07/2019 Which Of Your Hands Is Dominant? Right Information not available 06/08/2017 Marital Status Informatio n not available 06/08/2017 What Was The Date Of Your Most Recent Tobacco Screening? 07/11/2025 [email or web address] Information not available 07/11/2025 What Is Your Relationship Status? [email or web address] Information not available 09/07/2023 How Much Tobacco Do You Smoke? No Information not available 04/24/2019 Has Tobacco Cessation Counseling Been Provided? No Information not available 10/18/2023 Sex: Female Functional Status Question Answer Note LastModified by Organizat ion Details LastModified Time Do you use any illicit or recreational drugs? No Information not available 06/08/2017 Do you or have you ever used any other forms of tobacco or nicotine? No [email or web address] Information not available 10/18/2023 What is your [...] available 08:25:23 Mother History of multiple myeloma [email or web address] Not available 07/30 11:06:48 Notes:NO FAMILY HX [...] N Immune System Disorder N Heart Attack ([place]) N Mental Illness N Neurological Problems N [...] Time zoster recombinant 3 completed Sayda Borjas [facility] 12/06/2023 16:19:20 Hep A, adult 9 completed Not Available [facility] 09/07/2019 02:50:37 COVID-19, mRNA, LNP-S, PF, jamie-sucrose, 30 mcg/0.3 mL 4 completed Gem Gilliam [facility] 06/09/2025 14:35:52 Influenza, split virus, quadrivalent, PF 9 completed Not Available [facility] 09/07/2019 02:52:20 Influenza, split virus, quadrivalent, preservative 0 completed Sayda Borjas [facility] 09/07/2023 16:44:05 zoster live 5 completed Sayda Borjas [facility] 09/07/2023 16:44:05 DTaP 4 completed Sayda Borjas [facility] 09/07/2023 16:44:05 COVID-19 vaccine, vector-nr, rS-Ad26, PF, 0.5 mL 1 completed Sayda Borjas [facility] 09/07/2023 16:44:05 Influenza, split virus, quadrivalent, preservative 1 completed Sayda Borjas [facility] 09/07/2023 16:44:05 Tdap 4 completed Sayda Borjas [facility] 12/07/2023 10:49:24 Influenza, high-dose, quadrivalent, PF 4 completed Sayda Borjas [facility] 12/07/2023 10:49:24 RSV, recombinant, protein subunit RSVpreF, adjuvant reconstituted, 0.5 mL, PF 4 completed Luis Alfredo Ramsey [facility] 01/09/2024 11:30:59 COVID-19, mRNA, LNP-S, PF, 100 mcg/0.5mL dose or 50 mcg/0.25mL dose 1 completed Veronica Stone [facility] 06/13/2022 08:44:52 Pneumococcal conjugate PCV 13 1 completed Veronica Phelpse [facility] 06/13/2022 08:44:52 COVID-19, mRNA, LNP-S, PF, 100 mcg/0.5mL dose or 50 mcg/0.25mL dose 2 completed Veronicabethany Phelpse [facility] 06/13/2022 08:44:52 COVID-19 vaccine, vector-nr, rS-Ad26, PF, 0.5 mL 1 completed Veronica Stone [facility] 06/13/2022 08:44:52 Influenza, high-dose, trivalent, PF 0 completed [facility] 06/13/2022 08:44:52 Influenza, high-dose, trivalent, PF 4 completed JULIANN PIZANO MD [address] [place] [address], [address], [facility] 05/26/2024 14:32:15 pneumococcal polysaccharide PPV23 9 completed JULIANN PIZANO MD [address] [place] [address], [address], [facility] 08/29/2022 14:39:38 Influenza, split virus, quadrivalent, PF 7 completed JULIANN PIZANO MD [address] [place] [address], [address], [facility] 08/29/2022 14:39:38 influenza, unspecified formulation 2 completed Sayda Borjas [facility], [facility] 09/07/2023 16:44:05 COVID-19, mRNA, LNP-S, PF, jamie-sucrose, 30 mcg/0.3 mL 5 completed JULIANN PIZANO MD [address] [place] [address], [address], [facility] 12/12/2024 17:13:08 zoster recombinant 3 completed Luis Alfredo Bourgeois [facility] 02/27/2023 09:41:31 Hep A, adult 8 completed Not Available [facility] 09/07/2019 02:45:53 Influenza, high-dose, trivalent, PF 5 completed Luis Alfredo Ramsey [facility] 06/12/2025 14:37:25 COVID-19, mRNA, LNP-S, PF, jamie-sucrose, 30 mcg/0.3 mL 5 completed Luis Alfredo Ramsey [facility] 06/12/2025 14:37:25 COVID-19, mRNA, LNP-S, bivalent, PF, 30 mcg/0.3 mL dose 3 completed Luis Alfredo Ramsey [facility] 03/24/2023 15:03:47 Influenza, split virus, quadrivalent, PF 8 completed Not Available [facility] 09/07/2019 02:48:52 Past Encounters Encounter ID Performer Location Encounter Start Date Encounter Closed Date Diagnosis/Indication Diagnosis SNOMED-CT Code Diagnosis ICD10 Code Diagnosis IMO Codes Diagnosis Note [id number] CARROL BELLAMY PA-C PAIN MEDICINE [address] [place] [address] 06/03/2025 13:53:16 06/04/2025 04:17:53 Bilateral osteoarthritis of knees 6853625725 10395 M17.0 Osteoarthr itis of knee 902284673 M17.9 [id number] LUIS ALFREDO SALDAÑA PA-C ORTHOPEDI CS [address] [place] [address] 06/09/2025 14:29:03 06/09/2025 15:58:40 Primary gonarthrosis, bilateral 327687944 M17.0 [id number] Ms. Macdonald is here to discuss treatment [...] t at that time. Patient was agreeable. [id number] JULIANN PIZANO MD [facility] [address] [address] 06/12/2025 13:44:45 06/12/2025 14:53:29 Vitamin B12 deficiency (non anemic) 91175178 E53.8 Continue B12 injections monthly. Snoring 37611181 R06.83 38339 - Refer for a sleep study to assess nocturnal breathing patterns and potential sleep apnea. Restless l egs syndrome 73100583 G25.81 [id number] Reassessme nt scheduled for next month with sleep specialist . Continue current management until then. - Order ferritin level as low levels might contribute to symptoms. - Consider melatonin supplement ation as supportive therapy. Primary go narthrosis, bilateral 633540300 M17.0 [id number] Instruct to continue use of analgesic creams [...] response and knee pain management . Dyslipidemia 377269986 E 78.5 Intolerant to atorvastat in and [...] side effects causing musculoske letal symptoms. Hypothyroidism 33015538 E03.9 Keep up with thyroid medication and periodic evaluation s. stable/con tinue levothyrox ine - Conduct a TSH test for evaluation due to persistent nocturnal symptoms, though well-maint ained per patient report. Immunization due [id number] 08 Z23 [id number] Covid vaccine today, then hepatitis B vaccine [...] Name 06/12/2025 1 [place]MEDICARE REPLACEMENT HMO) [id number] Torres [id number] January Torres Notes Date Note Type Note Provider Name and Address Organization Details Recorded Time 06/12/2025 text/html ROS as noted in the HPI Pt presents today for 6 mo recheck, B12 injection. Agrees to flu vaccination and any other vaccinations needed. No acute issues. 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 The patient is a 69-year-old female presenting [...] note prior to signature. JULIANN PIZANO MD [address] [place] [address], [address], [facility] - [facility] 06/12/2025 14:38:24 OBGyn Episode No OBEpisode recorded.
--- OUTSIDE RECORDS SUMMARY | 2025-08-19 13:50 | XMS_ITS | Clinical Summary ---
Author Organization [facility] Address [address] [facility] [employer] [place] [address] Care Team Providers Care Yard Stocker Name Role Phone Juliann Pizano MD Primary Care Provider [phone] Allergies No known active allergies Medications atorvastatin [...] file Medical Devices Not on file Insurance [facility] Care Teams Yard Stocker Relationship Specialty Start Date End Date Juliann Pizano MD [address] [place] [address] PCP - General Internal Medicine 02/15/22
--- OUTSIDE RECORDS SUMMARY | 2025-08-19 13:51 | XMS_ITS | Clinical Summary ---
[facility] Organization [facility] Address [address] [place] [address] Care Team Providers Care Research And Development Researcher Name Role Phone Juliann Pizano MD Primary Care Provider [phone] Family History Medical History Relation Name Comments [...] fall-prevention measurements. The National Osteoporosis Foundation recommends (http://www.nof.org/hcp/practice/vspfjqxi-aku-wrrcaquy-guidelines/clinic ans-guide) that FDA-approved medical therapies be considered [...] the left hip with 95% confidence is 0.839678 gm/cm2 at the hip and 0.827410 g/cm2 at the lumbar spine. This report [...] fall-prevention measurements. The National Osteoporosis Foundation recommends (http://www.nof.org/hcp/practice/bedwhzev-itk-nemzsuln-guidelines/clinic ans-guide) that FDA-approved medical therapies be considered [...] the left hip with 95% confidence is 0.534058 gm/cm2 at the hip and 0.341488 g/cm2 at the lumbar spine. This report was finalized on 01/30/2020 10:[address] Mandeep Napoles MD. Stormy Jolley SODA DRY HOUSE OPERATOR IM DXA ORDERABLES Final R esult from Last 3 Months or Most Recently Relevant to Health Maintenance Insurance [employer] H[employer] Care Teams Research And Development Researcher Relationship Specialty Start Date End Date Juliann Pizano MD [address] [place] [address] PCP - General 05/19/15
--- OUTSIDE RECORDS SUMMARY | 2025-08-19 13:51 | XMS_ITS | Continuity of Care Document ---
Author Organization [facility] Address [address] [place] [address] Care Team Providers Care Row Boss Hoeing Name Role Phone JULIANN PIZANO Primary Care Provider YOMI KELLER Orthopedic Surgeon [phone] Assessment No assessment recorded. Plan of Treatment [...] B-12) 1,000 mcg/mL injection solution 2024 025 [email or web address] Not available 07/18/2025 15:33:33 Patient TargetsNo targets recorded. Patient InstructionsNo instructions recorded. Reason for Referral None Reported. Results Created Date Observation Date Name Description Value Unit Range Abnormal Flag Note LastModifiedBy Organization Detail LastModifiedTime 07/11/2007/11/2025 influ trini virus A + B and SARS CoV 2, QL, SARA+p robe, respi rator y speci men Unknown Analyte Negati ve Not Available [facility] [address], [address], 07/11/2025 11:41:20 07/11/20 25 07/11/2025 influ trini virus A + B and SARS CoV 2, QL, SARA+p robe, respi rator y speci men Unknown Analyte Negati ve Not Available [address], [address], 07/11/2025 11:41:20 07/11/20 25 07/11/2025 influ trini virus A + B and SARS CoV 2, QL, SARA+p robe, respi rator y speci men Unknown Analyte Negati ve Not Available [address], [address], 07/11/2025 11:41:20 07/11/20 25 07/11/2025 influ trini virus A + B and SARS CoV 2, QL, SARA+p robe, respi rator y speci men Unknown Analyte Valid Not Available [address], [address], 07/11/2025 11:41:20 07/11/20 25 07/11/2025 strep group A, DNA, swab Strep A negati ve Not Available [address], [address], 07/11/2025 11:41:55 07/11/20 25 07/11/2025 strep group A, DNA, swab Procedural Control Valid Not Available [address], [address], 07/11/2025 11:41:55 08/17/20 25 08/17/2025 imagi ng/di agnos tic resul t No observ ation record ed. [email or web address] Not Available 08/19 11:43:38 08/18/20 25 08/18/2025 CT, angio gram, chest , w/ contr ast No observ ation record ed. [email or web address] Not Available 08/19 11:46:36 Result Notes None recorded. Problems Name Problem SNOMED Code Status Onset Date Resolution Date Notes Provider Name and Address Organization Details Recorded Time Lack of energy 529717096 Completed 201502/07/2018 From Automate d Load;Pro vider: Juliann Pizano;Sta tus: Active JULIANN PIZANO MD [address] [place] [address], [address] , [facility] 8 13:33:48 Finding of appearan ce of skin Completed 201502/07/2018 From Automate d Load;Pro vider: Juliann Pizano;Sta tus: Active JULIANN PIZANO MD [address] [place] [address], [address] , [facility] 8 13:33:45 Hypothyr oidism 21533813 Active 2015 From Automate d Load;Pro vider: Juliann Pizano;Sta tus: Active JULIANN PIZANO MD [address] [place] [address], [address] , [facility] 3 14:38:44 Tinnitus 51990619 Active 2015 From Automate d Load;Pro vider: Juliann Pizano;Sta tus: Active Not Available [facility] 2 07:32:58 Fibrocys tic disease of breast 98585635 Active 2017 Not Available [facility] 2 07:32:58 Divertic ular disease of colon 871299176 Active 2017 Not Available [facility] 2 07:32:58 Hearing loss 15381379 Active 2017 Not Available [facility] 2 07:32:58 Displace ment of lumbar interver tebral disc without myelopat hy 04856426 Active 2017 JULIANN PIZANO MD [address] [place] [address], [address] , [facility] 3 14:38:27 Osteoart hritis of knee 444042950 Active 2018 Not Available [facility] 2 07:32:58 Alopecia 77284914 Active 2019 Not Available [facility] 2 07:32:58 Hyperlip idemia 75895546 Active 2019 LDL>190 JULIANN PIZANO MD [address] [place] [address], [address] , [facility] 3 22:05:06 Vitamin B12 deficien cy (non anemic) 59922012 Active 2020 JULIANN PIZANO MD [address] [place] [address], [address] , [facility] 3 14:38:51 Atherosc lerosis of aorta 28513566 Active 2022 JULIANN PIZANO MD [address] [place] [address], [address] , [facility] 3 14:51:55 Cystitis 76368696 Active 2022 KERRIE SLATER PA-C [address] [place] [address], [address] , [facility] 3 10:32:11 Bilatera l osteoart hritis of knees 03643252695 9107 Active 2022 JULIANN PIZANO MD [address] [place] [address], [address] , [facility] 3 10:32:14 Pain of right temporom andibula r joint 57670111216 552841 Active 2022 JULIANN PIZANO MD [address] [place] [address], [address] , [facility] 3 10:33:46 Body mass index 25-29 - overweig ht 617586315 Active 2023 JULIANN PIZANO MD [address] [place] [address], [address] , [facility] 4 09:58:29 Dyslipid emia 494660301 Active 2023 JULIANN PIZANO MD [address] [place] [address], [address] , [facility] 4 10:13:07 Ischial bursitis 094732503 [place] [address] [place] [address], [address] , [facility] 4 10:42:24 Lumbar radiculo wendy 503323135 Active 2024 JULIANN PIZANO MD [address] [place] [address], [address] , [facility] 5 11:31:09 Primary gonarthr osis, lolaatera l 140608559 Active 2024 JULIANN PIZANO MD [address] [place] [address], [address] , [facility] 5 14:24:04 Acute frontal sinusiti s 16012815 Active 2024 KERRIE SLATER PA-C [address] [place] [address], [address] , [facility] 5 11:58:13 Acute cough Active 2024 KERRIE SLATER PA-C [address] [place] [address], [address] , [facility] 5 12:02:22 Hiatal hernia 49983869 Active 2024 JULIANN PIZANO MD [address] [place] [address], [address] , [facility] 23:00:20 Problem Notes None recorded. Procedures Surgical History Date Name Laterality Status Provider Name and Address Organization Details Recorded Time 025 Joint Injection, Knee - Barb completed YOUNG GHOTRA MD [address] [place] [address], [address], [facility] 05/08/2025 12:43:39 025 Joint Injection, Knee - Barb completed YOUNG GHOTRA MD [address] [place] [address], [address], [place] - [facility] 01/28/2025 16:06:18 025 Joint Injection, Knee - Barb completed YOUNG GHOTRA MD [address] [place], [address], [facility] - [facility] 10/22/2024 12:43:32 024 Injection - Joint/Bursa, Major completed Vicki Rai [place] - [facility] 07/15/2024 10:48:22 024 Injection - Joint/Bursa, Major completed Spenser Tijerina [place] - [facility] 04/12/2024 15:30:21 024 Injection - Joint/Bursa, Major completed Alexandria Sellers [place] - [facility] 01/10/2024 15:32:45 024 Injection - Joint/Bursa, Major completed Quinten Rizo [place] - [facility] 10/16/2023 15:30:00 024 Injection - Joint/Bursa, Major completed Lisa SWANN PA-C [address] [place], [address], [facility] - [facility] 10/13/2023 11:11:57 024 Injection - Joint/Bursa, Major cancelled Alexandria Sellers [place] - [facility] 09/05/2023 08:39:03 023 Euflexxa Injection completed Rashad Welsh [place] - [facility] 08/16/2023 08:58:43 023 Euflexxa Injection completed Quinten Rizo [place] - [facility] 08/09/2023 09:16:07 023 Euflexxa Injection completed Rashad Welsh [place] - [facility] 08/02/2023 08:54:42 023 Injection - Joint/Bursa, Major completed Alexandria Sellers [place] - [facility] 06/21/2023 08:22:13 023 Injection - Joint/Bursa, Major completed Alexandria Sellers [place] [facility] 06/19/2023 14:59:56 023 DXA Normal completed JONAH HOWARD MD [address] [place], [address], [place] - [facility] 03/30/2023 12:31:04 023 Injection - Joint/Bursa, [...] Joint/Bursa, Major completed Vicki Rai [place] - [facility] 03/02/2022 09:13:27 022 Injection - Joint/Bursa, [...] suprapubic sling completed JULIANN PIZANO MD [address] [place], [address], [facility] 12/07/2023 10:17:40 021 Injection - Joint/Bursa, Major completed Alexandria Young [place] - [facility] 02/10/2021 08:25:13 021 Injection - Joint/Bursa, Major completed Vicki Rai [facility] 02/03/2021 08:07:56 021 Injection - Joint/Bursa, Major completed Alexandria Young [place] - [facility] 11/11/2020 08:47:33 021 Injection - Joint/Bursa, Major completed Lisa SWANN PA-C [address] [place], [address], [facility] 11/04/2020 13:58:40 020 Orthotic, HFO, Static Custom completed HEMALATHA BERNARD, OTR/L, CHT [address] [place], [address], [facility] 2020 13:04:03 020 Op Note completed YOUNG GUIDRY MD [address] [place], [address], [facility] 07/27/2020 19:12:28 020 Injection - Joint/Bursa, Interm completed YOUNG GUIDRY MD [address] [place], [address], [facility] 02/25/2020 19:59:39 019 Op Note completed YOUNG GUIDRY MD [address] [place], [address], [facility] 05/13/2019 09:25:23 019 Injection - Trigger Finger, Ortho completed YOUNG GUIDRY MD [address] [place], [address], [facility] 04/05/2019 16:43:35 019 Injection - Carpal Tunnel completed YOUNG GUIDRY MD [address] [place], [address], [facility] 03/15/2019 16:13:35 019 Injection - Joint/Bursa, Major completed Cristine Jeremy [facility] 12/18/2018 15:10:45 019 Injection - Joint/Bursa, Major completed Cristine Luna [facility] 12/11/2018 10:50:07 019 Injection - Joint/Bursa, Interm completed YOUNG GUIDRY MD [address] [place], [address], [facility] 09/20/2018 17:43:12 019 Electromyography (EMG) with Nerve Conduction Study (NCV) completed Luz Maria Pizano (Nicky) [facility] 09/20/2018 13:42:03 019 Injection - Joint/Bursa, Major completed Lisa SWANN PA-C [address] [place], [address], [facility] 09/05/2018 15:07:17 018 Injection - Joint/Bursa, Interm completed YOUNG GUIDRY MD [address] [place], [address], [facility] 07/04/2018 12:19:03 Hand tendon/muscle transfer completed JULIANN PIZANO MD [address] [place] [address], [address], [facility] 01/05/2017 11:59:57 Cataract Surgery completed JULIANN PARKS MD [address] [place] [address], [address], [facility] 08/29/2022 14:55:26 Appendectomy completed JULIANN PIZANO MD [address] [place] [address], [address] [place] [address], [facility] 10/13/2016 08:25:37 Imaging Results None recorded. Procedure [...] tablet Not Available Not Available Not Available [place] 5 mg-325 mg tablet TAKE 1 TAB [...] Status Never Smoker JULIANN PIZANO MD [address] [place], [address], [facility] 01/05/2017 08:07:38 What Is Your Level Of Caffeine Consumption? Occasional Information not available 06/08/2017 How Much Tobacco Do You Chew? None [email or web address] Information not available 03/07/2019 Which Of Your Hands Is Dominant? Right Information not available 06/08/2017 Marital Status Informatio n not available 06/08/2017 What Was The Date Of Your Most Recent Tobacco Screening? 07/11/2025 [email or web address] Information not available 07/11/2025 What Is Your Relationship Status? [email or web address] Information not available 09/07/2023 How Much Tobacco Do You Smoke? No Information not available 04/24/2019 Has Tobacco Cessation Counseling Been Provided? No [email or web address] Information not available 10/18/2023 Sex: Female Functional Status Question Answer Note LastModified by Organizat ion Details LastModified Time Do you use any illicit or recreational drugs? No Information not available 06/08/2017 Do you or have you ever used any other forms of tobacco or nicotine? No [email or web address] Information not available 10/18/2023 What is your [...] available 08:25:23 Mother History of multiple myeloma [email or web address] Not available 07/30 11:06:48 Notes:NO FAMILY HX [...] N Immune System Disorder N Heart Attack (ND) N Mental Illness N Neurological Problems N [...] Time zoster recombinant 3 completed Sayda Borjas [facility] 12/06/2023 16:19:20 Hep A, adult 9 completed Not Available [facility] 09/07/2019 02:50:37 COVID-19, mRNA, LNP-S, PF, jamie-sucrose, 30 mcg/0.3 mL 4 completed Gem Gilliam [facility] 06/09/2025 14:35:52 Influenza, split virus, quadrivalent, PF 9 completed Not Available [facility] 09/07/2019 02:52:20 Influenza, split virus, quadrivalent, preservative 0 completed Sayda Borjas [facility] 09/07/2023 16:44:05 zoster live 5 completed Sayda Borjas [facility] 09/07/2023 16:44:05 DTaP 4 completed Sayda Borjas [facility] 09/07/2023 16:44:05 COVID-19 vaccine, vector-nr, rS-Ad26, PF, 0.5 mL 1 completed Sayda Borjas [facility] 09/07/2023 16:44:05 Influenza, split virus, quadrivalent, preservative 1 [facility] 16:44:05 Tdap 4 completed [facility] 12/07/2023 10:49:24 Influenza, high-dose, quadrivalent, PF 4 completed [facility] 12/07/2023 10:49:24 RSV, recombinant, protein subunit RSVpreF, adjuvant reconstituted, 0.5 mL, PF 4 completed Luis [facility]o [facility] 01/09/2024 11:30:59 COVID-19, mRNA, LNP-S, PF, 100 mcg/0.5mL dose or 50 mcg/0.25mL dose 1 completed Veronica Stone [facility] 06/13/2022 08:44:52 Pneumococcal conjugate PCV 13 1 completed Veronica Stone [facility] 06/13/2022 08:44:52 COVID-19, mRNA, LNP-S, PF, 100 mcg/0.5mL dose or 50 mcg/0.25mL dose 2 completed Veronica Stone [facility] 06/13/2022 08:44:52 COVID-19 vaccine, vector-nr, rS-Ad26, PF, 0.5 mL 1 completed Veronica Stone [facility] 06/13/2022 08:44:52 Influenza, high-dose, trivalent, PF 0 completed Veronica Stone [facility] 06/13/2022 08:44:52 Influenza, high-dose, trivalent, PF 4 completed JULIANN PIZANO MD [address] [place] [address], [address], [facility] 05/26/2024 14:32:15 pneumococcal polysaccharide PPV23 9 completed JULIANN PIZANO MD [address] [place] [address], [address], [facility] 08/29/2022 14:39:38 Influenza, split virus, quadrivalent, PF 7 completed JULIANN PIZANO MD [address] [place] [address], [address], [facility] 08/29/2022 14:39:38 influenza, unspecified formulation 2 completed Sayda Borjas [facility] 09/07/2023 16:44:05 COVID-19, mRNA, LNP-S, PF, jamie-sucrose, 30 mcg/0.3 mL 5 completed JULIANN PIZANO MD [address] [place] [address], [address], [facility] 12/12/2024 17:13:08 zoster recombinant 3 completed Luis Alfredo Bourgeois [facility] 02/27/2023 09:41:31 Hep A, adult 8 completed Not Available [facility] 09/07/2019 02:45:53 Influenza, high-dose, trivalent, PF 5 completed Luis Alfredo Ramsey [facility] 06/12/2025 14:37:25 COVID-19, mRNA, LNP-S, PF, jamie-sucrose, 30 mcg/0.3 mL 5 completed Luis Alfredo Ramsey [facility] 06/12/2025 14:37:25 COVID-19, mRNA, LNP-S, bivalent, PF, 30 mcg/0.3 mL dose 3 completed Luis Alfredo Ramsey [facility] 03/24/2023 15:03:47 Influenza, split virus, quadrivalent, PF 8 completed Not Available [facility] 09/07/2019 02:48:52 Past Encounters Encounter ID Performer Location Encounter Start Date Encounter Closed Date Diagnosis/Indication Diagnosis SNOMED-CT Code Diagnosis ICD10 Code Diagnosis IMO Codes Diagnosis Note [id number] KERRIE SLATER PA-C [facility] [address] [address] 07/11/2025 11:22:46 07/11/2025 13:36:55 Acute cough 3930095189 43825427 R05.1 [id number] discussed negative flu and covid Acute fron joaquín sinusitis 86191273 J01.10 J40 50407549 Patient presented with symptoms of upper respirator [...] keeping them stored safely away from children. [id number] ALEXANDRIA LEONG APRN [facility] [address] [address] 07/18/2025 14:52:21 07/18/2025 15:05:20 Cobalamin deficiency 428309532 E53.8 83884 Health Concerns Section Related Observation LastModified by Organization Detai ls LastModified Time None Recorded Concern Status LastModified by Organization Details LastModified Time None Recorded Payers Encounter Date Sequence Insurance Name Policy Number Policy Walter Covered Member ID Walter Member ID Guarantor Name 07/18/2025 1 [place]MEDICARE REPLACEMENT HMO) [id number] Sharp [id number] January [employer] [facility] Episode No OBEpisode recorded.
--- OUTSIDE RECORDS SUMMARY | 2025-08-19 13:51 | XMS_ITS | Continuity of Care Document ---
Author Organization [facility], ORTHOPEDICS [address] [place] [address] Care Team Providers Care Psychometrician Name Role Phone DENVER JULIANN Primary Care Provider [phone] YOMI KELLER Orthopedic Surgeon Assessment No assessment [...] 06/09/2025 XR, knee, 4 [facility] [address] [address] [phone] Pk ni Name: MICHELLE ni : 1954 [...] Shiva Andrea MD on 2024 8:48 AM [email or web address] [facility] Radiology [address] [place], [address], 06/10/2025 09:39:21 08/17/2008/17/2025 imagi ng/di agnos tic resul t No observ ation record ed. Not Available 08/19 11:43:38 08/18/20 25 08/18/2025 CT, angio gram, chest , w/ contr ast No observ ation record ed. [email or web address] Not Available 08/19 11:46:36 Result Notes None recorded. Problems Name Problem SNOMED Code Status Onset Date Resolution Date Notes Provider Name and Address Organization Details Recorded Time Lack of energy 253255461 Completed 201502/07/2018 From Automate d Load;Pro vider: Juliann Pizano;Sta tus: Active JULIANN PIZANO MD [address] [place] [address], [address] , [facility] 8 13:33:48 Finding of appearan ce of skin Completed 201502/07/2018 From Automate [employer] Load;Pro vider: Juliann Pizano;Sta tus: Active JULIANN PIZANO MD [address] [place] [address], [address] , [facility] 8 13:33:45 Hypothyr oidism 12542475 Active 2015 From Automate [employer] Load;Pro vider: Juliann Pizano;Sta tus: Active JULIANN PIZANO MD [address] [place] [address], [address] , [facility] 3 14:38:44 Tinnitus 78624464 Active 2015 From Automate d Load;Pro vider: Juliann Pizano;Sta tus: Active Not Available [facility] 2 07:32:58 Fibrocys tic disease of breast 03485655 Active 2017 Not Available [facility] 2 07:32:58 Divertic ular disease of colon 030780252 Active 2017 Not Available [facility] 2 07:32:58 Hearing loss 89052476 Active 2017 Not Available [facility] 2 07:32:58 Displace ment of lumbar interver tebral disc without myelopat hy 99789674 Active 2017 JULIANN PIZANO MD [address] [place] [address] 3 14:38:27 Osteoart hritis of knee 338146702 Active 2018 Not Available [facility] 2 07:32:58 Alopecia 83357798 Active 2019 Not Available [facility] 2 07:32:58 Hyperlip idemia 47622158 Active 2019 LDL>190 JULIANN PIZANO MD [address] [place] [address], [address] [place] [address] , [facility] 3 22:05:06 Vitamin B12 deficien cy (non anemic) 07204012 Active 2020 JULIANN PIZANO MD [address] [place] [address], [address] [place] [address] , [facility] 3 14:38:51 Atherosc lerosis of aorta 30548609 Active 2022 JULIANN PIZANO MD [address] [place] [address] , [facility] 3 14:51:55 Cystitis 95627964 Active 2022 KERRIE SLATER PA-C [address] [place] [address], [address] [place] [address] , [facility] 3 10:32:11 Bilatera l osteoart hritis of knees 33341348510 9107 Active 2022 JULIANN PIZANO MD [facility] [place], [address] , [facility] 3 10:32:14 Pain of right temporom andibula r joint 21135978192 855795 Active 2022 JULIANN PIZANO MD [address] [place], [address] , [facility] 3 10:33:46 Body mass index 25-29 - overweig ht 356306391 Active 2023 JULIANN PIZANO MD [facility] [place], [address] , [facility] 4 09:58:29 Dyslipid emia 836880335 Active 2023 JULIANN PIZANO MD [facility] [place], [address] , [facility] 4 10:13:07 Ischial bursitis 362451576 Active 2023 JULIANN PIZANO MD [facility] [place], [address] , [facility] 4 10:42:24 Lumbar radiculo wendy 641653051 Active 2024 JULIANN PIZANO MD [facility] [place], [address] , [facility] 5 11:31:09 Primary gonarthr osis, bilatera l 449330879 Active 2024 JULIANN PIZANO MD [address] [place], [address] , [facility] 5 14:24:04 Acute frontal sinusiti s 45526153 Active 2024 TATUM HURST [place], [address] , [facility] 5 11:58:13 Acute cough Active 2024 [place], [address] , [facility] 12:02:22 Hiatal hernia 00045598 Active 20[place] [address] [place] [address], [address] , [facility] 23:00:20 Problem Notes None recorded. Procedures Surgical History Date Name Laterality Status Provider Name and Address Organization Details Recorded Time 025 Joint Injection, K[place] [address] [place] [address], [address], [facility] 05/08/2025 12:43:39 025 Joint Injection, K[place] - [place] [address] [place] [address], [address], [facility] 01/28/2025 16:06:18 025 Joint Injection, Knee - Barb completed YOUNG DAY MD [address] [place], [address], [facility] 10/22/2024 12:43:32 024 Injection - Joint/Bursa, Major completed Vicki Rai [facility] 07/15/2024 10:48:22 024 Injection - Joint/Bursa, Major completed Spenser Tijerina [facility] 04/12/2024 15:30:21 024 Injection - Joint/Bursa, Major completed [facility] 01/10/2024 15:32:45 024 Injection - Joint/Bursa, Major completed Quinten Rizo [facility] 10/16/2023 15:30:00 024 Injection - Joint/Bursa, Major completed Lisa SWANN PA-C [address] [place], [address], [facility] 10/13/2023 11:11:57 024 Injection - Joint/Bursa, Major cancelled [place] [facility] 09/05/2023 08:39:03 023 Euflexxa Injection completed Rashad Welsh [place] [facility] 08/16/2023 08:58:43 023 Euflexxa Injection completed Quinten Rizo [place] [facility] 08/09/2023 09:16:07 023 Euflexxa Injection completed Rashad Welsh [place] [facility] 08/02/2023 08:54:42 023 Injection - Joint/Bursa, Major completed Alexandria Young [place] [facility] 06/21/2023 08:22:13 023 Injection - Joint/Bursa, Major completed Alexandria Young [place] [facility] 06/19/2023 14:59:56 023 DXA Normal completed JONAH HOWARD MD [address] [place] [address], [address] [place] [facility] 03/30/2023 12:31:04 023 Injection - Joint/Bursa, [...] Joint/Bursa, Major completed Vicki Rai [place] [facility] 03/02/2022 09:13:27 022 Injection - Joint/Bursa, [...] by suprapubic sling completed JULIANN PIZANO MD [address] [place] [address], [address], [place] [facility] 12/07/2023 10:17:40 021 Injection - Joint/Bursa, Major completed [place] Young [place] [facility] 02/10/2021 08:25:13 021 Injection - Joint/Bursa, Major completed Vicki Rai [facility] 02/03/2021 08:07:56 021 Injection - Joint/Bursa, Major completed Alexandria Marlo [facility] 11/11/2020 08:47:33 021 Injection - Joint/Bursa, Major completed Lisa SWANN PA-C [address] [place], [address], [facility] 11/04/2020 13:58:40 020 Orthotic, HFO, Static Custom completed HEMALATHA BERNARD, OTR/L, CHT [address] [place], [address], [facility] 2020 13:04:03 020 Op Note completed YOUNG GUIDRY MD [address] [place], [address], [facility] 07/27/2020 19:12:28 020 Injection - Joint/Bursa, Interm completed YOUNG GUIDRY MD [address] [place], [address], [facility] 02/25/2020 19:59:39 019 Op Note completed YOUNG GUIDRY MD [address] [place], [address], [facility] 05/13/2019 09:25:23 019 Injection - Trigger Finger, Ortho completed YOUNG GUIDRY MD [address] [place], [address], [facility] 04/05/2019 16:43:35 019 Injection - Carpal Tunnel completed YOUNG GUIDRY MD [address] [place], [address], [facility] 03/15/2019 16:13:35 019 Injection - Joint/Bursa, Major completed Cristine Luna [facility] 12/18/2018 15:10:45 019 Injection - Joint/Bursa, Major completed Cristine Luna [facility] 12/11/2018 10:50:07 019 Injection - Joint/Bursa, Interm completed YOUNG GUIDRY MD [address] [place] [address], [address] [place] [address], [facility] 09/20/2018 17:43:12 019 Electromyography (EMG) with Nerve Conduction Study (NCV) completed Luz Maria Pizano (Nicky) [facility] 09/20/2018 13:42:03 019 Injection - Joint/Bursa, Major completed Lisa SWANN PA-C [address] [place] [address], [address] [place] [address] 09/05/2018 15:07:17 018 Injection - Joint/Bursa, Interm completed YOUNG GUIDRY MD [address] [place] [address], [address] [place] [address] 07/04/2018 12:19:03 Hand tendon/muscle transfer completed JULIANN PIZANO MD [address] [place] [address] 01/05/2017 11:59:57 Cataract Surgery completed JULIANN PARKS MD [address] [place] [address], [address] [place] [address], [facility] 08/29/2022 14:55:26 Appendectomy completed JULIANN PIZANO MD [address] [place] [address], [address] [place] [address] 10/13/2016 08:25:37 Imaging Results None recorded. Procedure [...] tablet Not Available Not Available Not Available Sterling 5 mg-325 mg tablet TAKE 1 TAB [...] Updated DateTime 06/09/2025 160.02 cm 26.6 kg/m2 06545.86 g 6 Honey Mane [facility] 06/09/2025 15:32:20 Social History Question Answer Notes LastModified by Organizat ion Details LastModified Time Tobacco Smoking Status Never Smoker JULIANN PIZANO MD [address] [place] [address], [address], [facility] 01/05/2017 08:07:38 What Is Your Level Of Caffeine Consumption? Occasional Information not available 06/08/2017 How Much Tobacco Do You Chew? None [email or web address] Information not available 03/07/2019 Which Of Your Hands Is Dominant? Right Information not available 06/08/2017 Marital Status Informatio n not available 06/08/2017 What Was The Date Of Your Most Recent Tobacco Screening? 07/11/2025 [email or web address] Information not available 07/11/2025 What Is Your Relationship Status? [email or web address] Information not available 09/07/2023 How Much Tobacco Do You Smoke? No Information not available 04/24/2019 Has Tobacco Cessation Counseling Been Provided? No [email or web address] Information not available 10/18/2023 Sex: Female Functional Status Question Answer Note LastModified by Organizat ion Details LastModified Time Do you use any illicit or recreational drugs? No Information not available 06/08/2017 Do you or have you ever used any other forms of tobacco or nicotine? No Information not available 10/18/2023 What is your [...] available 08:25:23 Mother History of multiple myeloma [email or web address] Not available 07/30 11:06:48 Notes:NO FAMILY HX [...] N Immune System Disorder N Heart Attack ([place]) N Mental Illness N Neurological Problems N [...] Time zoster recombinant 3 completed Sayda Borjas [facility] 12/06/2023 16:19:20 Hep A, adult 9 completed Not Available Counts include 234 beds at the [facility] 09/07/2019 02:50:37 COVID-19, mRNA, LNP-S, PF, jamie-sucrose, 30 mcg/0.3 mL 4 completed Gem Gilliam [facility] 06/09/2025 14:35:52 Influenza, split virus, quadrivalent, PF 9 completed Not Available Counts include 234 beds at the [facility] 09/07/2019 02:52:20 Influenza, split virus, quadrivalent, preservative 0 completed Sayda Borjas [facility] 09/07/2023 16:44:05 zoster live 5 completed Sayda Borjas [facility] 09/07/2023 16:44:05 DTaP 4 completed Sayda Borjas [facility] 09/07/2023 16:44:05 COVID-19 vaccine, vector-nr, rS-Ad26, PF, 0.5 mL 1 completed Sayda Borjas [facility] 09/07/2023 16:44:05 Influenza, split virus, quadrivalent, preservative 1 completed Sayda Borjas [facility] 09/07/2023 16:44:05 Tdap 4 completed Sayda Borjas [facility] 12/07/2023 10:49:24 Influenza, high-dose, quadrivalent, PF 4 completed Sayda Borjas [facility] 12/07/2023 10:49:24 RSV, recombinant, protein subunit RSVpreF, adjuvant reconstituted, 0.5 mL, PF 4 completed Luis Alfredo Ramsey [facility] 01/09/2024 11:30:59 COVID-19, mRNA, LNP-S, PF, 100 mcg/0.5mL dose or 50 mcg/0.25mL dose 1 completed Veronica Stone [facility] 06/13/2022 08:44:52 Pneumococcal conjugate PCV 13 1 completed Veronica Stone [facility] 06/13/2022 08:44:52 COVID-19, mRNA, LNP-S, PF, 100 mcg/0.5mL dose or 50 mcg/0.25mL dose 2 completed Veronica Stone [facility] 06/13/2022 08:44:52 COVID-19 vaccine, vector-nr, rS-Ad26, PF, 0.5 mL 1 completed Veronica Stone [facility] 06/13/2022 08:44:52 Influenza, high-dose, trivalent, PF 0 completed Veronica Stone [facility] 06/13/2022 08:44:52 Influenza, high-dose, trivalent, PF 4 completed JULIANN PIZANO MD [address] [place] [address], [address] [place] [address], [facility] 05/26/2024 14:32:15 pneumococcal polysaccharide PPV23 9 completed JULIANN PIZANO MD [address] [place] [address], [address], [facility] 08/29/2022 14:39:38 Influenza, split virus, quadrivalent, PF 7 completed JULIANN PIZANO MD [address] [place] [address], [address], [facility] 08/29/2022 14:39:38 influenza, unspecified formulation 2 completed Sayda Borjas [facility] 09/07/2023 16:44:05 COVID-19, mRNA, LNP-S, PF, jamie-sucrose, 30 mcg/0.3 mL 5 completed JULIANN PIZANO MD [address] [place] [address], [address], [facility] 12/12/2024 17:13:08 zoster recombinant 3 completed Luis Alfredo Bourgeois [facility] 02/27/2023 09:41:31 Hep A, adult 8 completed Not Available Counts include 234 beds at the [facility] 09/07/2019 02:45:53 Influenza, high-dose, trivalent, PF 5 completed Luis Alfredo Ramsey [facility] 06/12/2025 14:37:25 COVID-19, mRNA, LNP-S, PF, jamie-sucrose, 30 mcg/0.3 mL 5 completed Luis Alfredo Braulio [facility] 06/12/2025 14:37:25 COVID-19, mRNA, LNP-S, bivalent, PF, 30 mcg/0.3 mL dose 3 completed Luis Alfredo Braulio [facility] 03/24/2023 15:03:47 Influenza, split virus, quadrivalent, PF 8 completed Not Available Counts include 234 beds at the [facility] 09/07/2019 02:48:52 Past Encounters Encounter ID Performer Location Encounter Start Date Encounter Closed Date Diagnosis/Indication Diagnosis SNOMED-CT Code Diagnosis ICD10 Code Diagnosis IMO Codes Diagnosis Note [id number] JULIANN PIZANO MD [place] [id number] 7 05/12/2025 13:44:12 05/12/2025 14:11:53 Cobalamin deficiency 941923642 E53.8 63305 [id number] CARRLO BELLAMY PA-C PAIN MEDICINE [address] [place], [place] [address] 06/03/2025 13:53:16 06/04/2025 04:17:53 Bilateral osteoarthritis of knees 7951146268 47094 M17.0 Osteoarthr itis of knee 327297389 M17.9 [id number] LUIS ALFREDO SALDAÑA PA-C ORTHOPEDI [facility] [address] [place] [id number] 06/09/2025 14:29:03 06/09/2025 15:58:40 Primary gonarthrosis, bilateral 964712896 M17.0 [id number] Ms. Macdonald is here to discuss treatment options for her knees. Patient states that she continues to have significan t bilateral knee pain despite numerous cortisone injections , Zilretta injections and hyaluronic injections in the bilateral knees. She most recently has been seeing pain management with Dr. Dya and received Zilretta injections on May 08. 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 She is interested in nerve ablation but unfortunately her insurance does not cover this. 05/08/2025 bilateral Zilretta injection 50% 1 week01/28/2025 Bilateral Zilretta injections with 80% ongoing10/22/2024 Bilateral Zilretta injections with 98% x 3 [id number]/22/2024 intra-articular knee injection (triamcinolone) bilaterally (ortho)04/17/2024 intra-articular knee injection (triamcinolone) bilaterally (ortho)Intra-articu lar hyaluronic acid no relief 4Bil knee CSI 01/17/24Bil Knee CSI 10/18/23Left knee CSI 10/13/23Right knee CSI TOBY KIDDC [address] [place], [address], [facility] 06/09/2025 17:10:43 OBGyn Episode No OBEpisode recorded.
--- OUTSIDE RECORDS SUMMARY | 2025-08-19 13:51 | XMS_ITS | Referral Summary ---
Author Organization [employer] ([place], [place], [place], [place], [place]) Address [address] [place] [address] Care Team Providers Care Oracle E Business Developer Name Role Phone Unavailable Primary Care Provider [...]
--- OUTSIDE RECORDS SUMMARY | 2025-08-19 13:51 | XMS_ITS | Encounter Summary ---
Author Organization [employer] ([place], [place], [place], [place], [place]) Address [address] [place] [address] Care Team Providers Care Community Recreation Programmer Name Role Phone Unavailable Primary Care Provider Unavailabl e Encounter Details Date Type Department Care Team (Late st Contact Info) Description 03/03/2021 Transcribed Document [facility] [place] [address] ProviderHector MD [facility] [place] [address] Social History Tobacco Use Types [...] VOSS /Sex: 1955 Female Med Rec #: [id number] Physician: Angie PULLIAM MD-OBG Financial #: [id number] Pt. Type: O Room/Bed: [facility]/ Admit/Disch: 03/03/21 04:56:00 - 03/03/21 16:32:00 Institution: [facility] PreOp Case Times Entry 1 In Preop 03/03/21 13:00:00 Ready for Holding n/a Room Patient Ready for n/a Surgery Patient Out of Preop 03/03/21 14:50:00 Patient Out of n/a Holding Room Last Modified By: BETSY FOREMAN 03/04/21 06:50:21 SJJacqueline PreOp Case Times Audit 03/04/21 06:50:21 Preschool Assistant Director: RASHI Modifier: [email or web address] <+> 1 Patient Out of Preop Finalized By: BETSY FOREMAN Document Signatures Signed By: BETSY FOREMAN 03/04/21 06:50 Electronically signed by Carol [facility] Conversion Rotary Filter Operator Cerner at 12/07/2022 8:38 PM CDT documented in this encounter Plan of Treatment Not on file documented as of this encounter Visit Diagnoses Not on filedocumented in this encounter
--- OUTSIDE RECORDS SUMMARY | 2025-08-19 13:51 | XMS_ITS | Continuity of Care Document ---
Author Organization [facility], [facility] Address [address] [place] [address] Care Team Providers Care Pedicab Driver Name Role Phone JULIANN PIZANO Primary Care Provider [phone] YOMI KELLER Orthopedic Surgeon [phone] Assessment Encounter Date Assessment Date Assessment LastModified [...] as the patient is likely still contagious. [email or web address] Not available 07/14/2025 13:07:05 Plan of Treatment Reminders Order Date Submit Date Provider Last Modified By Organization Details Last Modified Time Details Appointments HOSPITAL FOLLOW-UP 2025 03:30P Coby PIZANO MD Not available Not available Not available RECHECK 2025 02:30P M LUIS ALFREDO LUISC Not available Not available Not available SHOT ONLY 2025 09:15A Coby ANDRES_ DENVER_NURS E Not available Not available Not available MEDICARE WELLNESS VISIT 2025 09:30A Coby PIZANO MD Not available Not available Not available Lab influenza virus A + B and SARS CoV 2, QL, SARA+probe , respirato ry specimen [address], [address] [place] [address], [address], 07/11/2025 11:58:56 strep group A, DNA, swab [address], [address] [place] [address], [address], 07/11/2025 11:58:56 Referral None recorded. Procedures None recorded. Surgeries None recorded. Imaging None recorded. Medication Orders doxycycli ne hyclate 100 mg capsule 2024 025 [facility] [id number], [address] [place], [address], 07/25/2025 05:02:00 prednison e 20 mg tablet 2024 025 [facility] [id number], [address] [place], [address], 07/23/2025 05:02:37 benzonata te 200 mg capsule 2024 025 [facility] [id number], [address] [place], [address], 07/28/2025 05:02:05 Patient TargetsNo targets recorded. Patient Instructions Encounter Date Encounter Id Patient Instructions Last Modified By Organization Details Last Modified Time 07/11/2025 [id number] - Take one prednisone pill each morning [...] NOTE: NEW EDILSON L RANGE Not Available [facility] [address] [place], [address], 06/12/2025 18:33:59 06/12/2006/12/2025 LIPID PROFI LE triglyceride s 106 mg/dL 0-149 normal TRIGL YCERI DE RANGE S EDILSON L: < 150 BORDE RLINE HIGH: 150 - 199 HIGH: 200 - 499 VERY HIGH: > OR = 500 Not Available [facility] [address] [place], [address], 06/12/2025 18:33:59 06/12/20 25 06/12/2025 LIPID PROFI LE cholesterol 198 mg/dL 0-199 normal JHOANA STERO L (TOTA L) RANGE S GAYLA ABLE: < 200 BORDE RLINE : 200 - 239 HIGHE R RISK: > 239 Not Available [facility] [address] [place] [address], [address], 06/12/2025 18:33:59 06/12/20 25 06/12/2025 LIPID PROFI LE LDL cholesterol 119 mg/dL _(nohelia c) 0-99 high LDL JHOANA STERO L RANGE S OPTIM AL: < 100 NEAR/ ABOVE OPTIM AL: 100 - 129 BORDE RLINE HIGH: 130 - 159 HIGH: 160 - 189 VERY HIGH: > OR = 190 Not Available [facility] [address] [place] [address], [address], 06/12/2025 18:33:59 06/12/20 25 06/12/2025 LIPID PROFI LE chol/HDL ratio (calc) 3.4 mg/dL normal NO EDILSON L RANGE ESTAB LISHE D FOR JHOANA STERO L/HDL RATIO (CALC ULATE D). Not Available [facility] [address] [place] [address], [address], 06/12/2025 18:33:59 06/12/20 25 06/12/2025 LIPID PROFI LE LDL, direct 122 0-99 high Not Available [facility] [address] [place] [address], [address], 06/12/2025 18:33:59 06/12/20 25 06/12/2025 REY TIN ferritin 69 NG/mL 13-157 normal Not Available [facility] [address] [place] [address], [address], 06/12/2025 18:33:57 06/12/20 25 06/12/2025 HEPAT IC (LIVE R) PANEL AST 21 U/L 0-32 normal Not Available [facility] [address] [place] [address], [address], 06/12/2025 18:34:01 06/12/20 25 06/12/2025 HEPAT IC (LIVE R) PANEL ALT 14 U/L 0-33 normal Not Available [facility] [address] [place] [address], [address], 06/12/2025 18:34:01 06/12/20 25 06/12/2025 HEPAT IC (LIVE R) PANEL alkaline phosphatase 79 U/L 30-121 normal Not Available [facility] [address] [place] [address], [address], 06/12/2025 18:34:01 06/12/2006/12/2025 HEPAT IC (LIVE R) PANEL total protein 7.2 g/dL 6.4-8. 3 normal Not Available [facility] [address] [place] [address], [address], 06/12/2025 18:34:01 06/12/2006/12/2025 HEPAT IC (LIVE R) PANEL albumin 4.4 g/dL 3.5-5. 2 normal Not Available [facility] [address] [place] [address], [address], 06/12/2025 18:34:01 06/12/2006/12/2025 HEPAT IC (LIVE R) PANEL bilirubin, total 0.6 mg/dL 0.1-1. 0 normal NOTE: New refer ence range . Not Available [facility] [address] [place] [address], [address], 06/12/2025 18:34:01 06/12/20 25 06/12/2025 HEPAT IC (LIVE R) PANEL bilirubin, direct <0.2 mg/dL 0.0-0. 3 normal Not Available [facility] [address] [place] [address], [address], 06/12/2025 18:34:01 06/12/2006/12/2025 HEPAT IC (LIVE R) PANEL bilirubin, indirect see below mg/dL _(nohelia c) 0.0-1. 0 normal Unabl e to calcu late Indir ect Bilir ubin. Not Available [facility] [address] [place] [address], [address], 06/12/2025 18:34:01 06/12/20 25 06/12/2025 TSH TSH 1.300 u[IU] /mL 0.270- 4.200 normal Not Available [facility] [address] [place] [address], [place], [address], 06/12/2025 18:34:03 07/11/20 25 07/11/2025 influ trini virus A + B and SARS CoV 2, QL, SARA+p robe, respi rator y speci men Unknown Analyte Negati ve Not Available [address], [address], 07/11/2025 11:41:20 07/11/20 25 07/11/2025 influ trini virus A + B and SARS CoV 2, QL, SARA+p robe, respi rator y speci men Unknown Analyte Negati ve Not Available [address], [address], 07/11/2025 11:41:20 07/11/20 25 07/11/2025 influ trini virus A + B and SARS CoV 2, QL, SARA+p robe, respi rator y speci men Unknown Analyte Negati ve Not Available [address], [address], 07/11/2025 11:41:20 07/11/20 25 07/11/2025 influ trini virus A + B and SARS CoV 2, QL, SARA+p robe, respi rator y speci men Unknown Analyte Valid Not Available [address], [address], 07/11/2025 11:41:20 07/11/20 25 07/11/2025 strep group A, DNA, swab Strep A negati ve Not Available [address] [address] [place], [address], 07/11/2025 11:41:55 07/11/20 25 07/11/2025 strep group A, DNA, swab Procedural Control Valid Not Available [facility] [address] [place], [address], 07/11/2025 11:41:55 06/10/20 25 06/09/2025 XR, knee, 4 or more view [facility] [address] [place] [address] Pk ni Name: MICHELLE ni : 1954 Pk in 9 Orderi ng Provid er: LUIS ALFREDO [...] Shiva Andrea MD on 2024 8:48 AM [email or web address] [facility] [address] [place], [address], 06/10/2025 09:39:21 08/17/20 25 08/17/2025 imagi ng/di agnos tic resul t No observ ation record ed. [email or web address] Not Available 08/19 11:43:38 08/18/20 25 08/18/2025 CT, angio gram, chest , w/ contr ast No observ ation record ed. [email or web address] Not Available 08/19 11:46:36 Result Notes None recorded. Problems Name Problem SNOMED Code Status Onset Date Resolution Date Notes Provider Name and Address Organization Details Recorded Time Lack of energy 527684467 Completed 201502/07/2018 From Automate [employer];Pro vider: Juliann Pizano;Sta tus: Active JULIANN PIZANO MD [address] [place] [address], [address] , [facility] 8 13:33:48 Finding of appearan ce of skin Completed 201502/07/2018 From Automate d Load;Pro vider: Juliann Pizano;Sta tus: Active JULIANN PIZANO MD [address] [place] [address], [address] , [facility] 8 13:33:45 Hypothyr oidism 98606378 Active 2015 From Automate d Load;Pro vider: Juliann Pizano;Sta tus: Active JULIANN PIZANO MD [address] [place] [address], [address] , [facility] 3 14:38:44 Tinnitus 69527321 Active 2015 From Automate d Load;Pro vider: Juliann Pizano;Sta tus: Active Not Available [facility] 2 07:32:58 Fibrocys tic disease of breast 94468955 Active 2017 Not Available [facility] 2 07:32:58 Divertic ular disease of colon 945655488 Active 2017 Not Available [facility] 2 07:32:58 Hearing loss 15971754 Active 2017 Not Available [facility] 2 07:32:58 Displace ment of lumbar interver tebral disc without myelopat hy 11671562 Active 2017 JULIANN PIZANO MD [address] [place] [address], [address] , [facility] 3 14:38:27 Osteoart hritis of knee 249868846 Active 2018 Not Available [facility] 2 07:32:58 Alopecia 96905158 Active 2019 Not Available [facility] 2 07:32:58 Hyperlip idemia 44850045 Active 2019 LDL>190 JULIANN PIZANO MD [address] [place] [address], [address] , [facility] 3 22:05:06 Vitamin B12 deficien cy (non anemic) 90591751 Active 2020 JULIANN PIZANO MD [address] [place] [address], [address] , [facility] 3 14:38:51 Atherosc lerosis of aorta 48575558 Active 2022 JULIANN PIZANO MD [address] [place] [address], [address] , [facility] 3 14:51:55 Cystitis 58325206 Active 2022 KERRIE SLATER PA-C [address] [place] [address], [address] , [facility] 3 10:32:11 Bilatera l osteoart hritis of knees 31097228833 9107 Active 2022 JULIANN PIZANO MD [address] [place] [address], [address] , [facility] 3 10:32:14 Pain of right temporom andibula r joint 97481232157 897398 Active 2022 JULIANN PIZANO MD [address] [place] [address], [address] , [facility] 3 10:33:46 Body mass index 25-29 - overweig ht 133442107 Active 2023 JULIANN PIZANO MD [address] [place] [address], [address] , [facility] 4 09:58:29 Dyslipid emia 939336031 Active 2023 JULIANN PIZANO MD [address] [place] [address], [address] , [facility] 4 10:13:07 Ischial bursitis 607238011 Active 2023 JULIANN PIZANO MD [address] [place] [address], [address] , [facility] 4 10:42:24 Lumbar radiculo wendy 739093404 Active 2024 JULIANN PIZANO MD [address] [place] [address], [address] , [facility] 5 11:31:09 Primary gonarthr osis, bilatera l 177160042 Active 2024 JULIANN PIZANO MD [address] [place] [address], [address] , [facility] 5 14:24:04 Acute frontal sinusiti s 84575110 Active 2024 KERRIE SLATER PA-C [address] [place] [address], [address] , [facility] 5 11:58:13 Acute cough Active 2024 KERRIE SLATER PA-C [address] [place] [address], [address] , [facility] 5 12:02:22 Hiatal hernia 92946997 Active 2024 JULIANN PIZANO MD [address] [place] [address], [address] , [facility] 23:00:20 Problem Notes None recorded. Procedures Surgical History Date Name Laterality Status Provider Name and Address Organization Details Recorded Time 025 Joint Injection, Knee - Barb completed YOUNG DAY MD [address] [place] [address], [address], [facility] 05/08/2025 12:43:39 025 Joint Injection, Knee - Barb completed YOUNG DAY MD [address] [place] [address], [address], [facility] 01/28/2025 16:06:18 025 Joint Injection, Knee Jermaine Day completed YOUNG DAY MD [address] [place] [address], [address], [facility] 10/22/2024 12:43:32 024 Injection - Joint/Bursa, Major completed Vicki Rai [place] - [facility] 07/15/2024 10:48:22 024 Injection - Joint/Bursa, Major completed Spenser Cachorroazucena Tijerina [place] [facility] 04/12/2024 15:30:21 024 Injection - Joint/Bursa, Major completed Alexandria Sellers [place] [facility] 01/10/2024 15:32:45 024 Injection - Joint/Bursa, Major completed Quinten Rizo [place] [facility] 10/16/2023 15:30:00 024 Injection - Joint/Bursa, Major completed Lisa SWANN PA-C [address] [place], [address], [facility] 10/13/2023 11:11:57 024 Injection - Joint/Bursa, Major cancelled Alexandria Sellers [place] [facility] 09/05/2023 08:39:03 023 Euflexxa [facility]jection [facility] 08/16/2023 08:58:43 023 Euflexxa Injection completed Quinten Rizo [place] [facility] 08/09/2023 09:16:07 023 Euflexxa Injection completed Rashad Welsh [facility] 08/02/2023 08:54:42 023 Injection - Joint/Bursa, Major completed Alexandria Sellers [place] [facility] 06/21/2023 08:22:13 023 Injection - Joint/Bursa, Major completed [place] Sellers [place] [facility] 06/19/2023 14:59:56 023 DXA Normal completed JONAH HOWARD MD [address] [place], [address], [facility] 03/30/2023 12:31:04 023 Injection - Joint/Bursa, Major completed [place] Sellers [place] [facility] 03/07/2023 15:51:17 [...] Joint/Bursa, Major completed Vicki Rai [place] [facility] 03/02/2022 09:13:27 022 Injection - Joint/Bursa, Major completed [place] [facility] 02/18/2022 09:00:30 022 Injection - Joint/Bursa, Major cancelled [place] Young [place] [facility] 02/09/2022 14:36:58 022 Injection - Joint/Bursa, Major completed [place] [facility] 11/18/2021 12:21:48 022 Injection - Joint/Bursa, Major completed Aelxandria Young [place] [facility] 11/10/2021 [...] suprapubic sling completed JULIANN PIZANO MD [address] [place], [address], [facility] 12/07/2023 10:17:40 021 Injection - Joint/Bursa, Major completed [place] Young [place] [facility] 02/10/2021 08:25:13 021 Injection - Joint/Bursa, Major completed Vicki Rai [facility] 02/03/2021 08:07:56 021 Injection - Joint/Bursa, Major completed [place] [facility] 11/11/2020 08:47:33 021 Injection - Joint/Bursa, Major completed Lisa SWANN PA-C [address] [place], [address], [facility] 11/04/2020 13:58:40 020 Orthotic, HFO, Static Custom completed HEMALATHA BERNARD, OTR/L, CHT [address] [place], [address], [facility] 2020 13:04:03 020 Op Note completed YOUNG GUIDRY MD [address] [place], [address], [facility] 07/27/2020 19:12:28 020 Injection - Joint/Bursa, Interm completed YOUNG GUIDRY MD [address] [place], [address], [facility] 02/25/2020 19:59:39 019 Op Note completed YOUNG GUIDRY MD [address] [place], [address], [facility] 05/13/2019 09:25:23 019 Injection - Trigger Finger, Ortho completed YOUNG GUIDRY MD [address] [place], [address], [facility] 04/05/2019 16:43:35 019 Injection - Carpal Tunnel completed YOUNG GUIDRY MD [address] [place], [address], [facility] 03/15/2019 16:13:35 019 Injection - Joint/Bursa, Major completed Cirstine Jeremy [facility] 12/18/2018 15:10:45 019 Injection - Joint/Bursa, Major completed Cristine Jeremy [facility] 12/11/2018 10:50:07 019 Injection - Joint/Bursa, Interm completed YOUNG GUIDRY MD [address] [place] [address], [address], [facility] 09/20/2018 17:43:12 019 Electromyography (EMG) with Nerve Conduction Study (NCV) completed Luz Maria Pizano (Nicky) [facility] 09/20/2018 13:42:03 019 Injection - Joint/Bursa, Major completed Lisa SWANN PA-C [address] [place] [address], [address], [facility] 09/05/2018 15:07:17 018 Injection - Joint/Bursa, Interm completed YOUNG GUIDRY MD [address] [place] [address], [address], [facility] 07/04/2018 12:19:03 Hand tendon/muscle [place] [address] [place] [address], [address], [facility] 01/05/2017 11:59:57 Cataract Surgery completed JULIANN PARKS MD [address] [place] [address], [address], [facility] 08/29/2022 14:55:26 Appendectomy completed JULIANN PIZANO MD [facility] [place], [address], [facility] 10/13/2016 08:25:37 Imaging Results None [...] tablet Not Available Not Available Not Available [place] 5 mg-325 mg tablet TAKE 1 [...] Updated DateTime 5 160.02 cm 26 kg/m2 39108.6 4 g 98.6 [degF] 112 /min 95 % 118/80 mm[Hg] Makenzie Cornell [facility] 5 11:31:59 Social History Question Answer Notes LastModified by Organizat ion Details LastModified Time Tobacco Smoking Status Never Smoker JULIANN PIZANO MD [address] [place] [address], [address], [facility] 01/05/2017 08:07:38 What Is Your Level Of Caffeine Consumption? Occasional Information not available 06/08/2017 How Much Tobacco Do You Chew? None [email or web address] Information not available 03/07/2019 Which Of Your Hands Is Dominant? Right Information not available 06/08/2017 Marital Status Informatio n not available 06/08/2017 What Was The Date Of Your Most Recent Tobacco Screening? 07/11/2025 [email or web address] Information not available 07/11/2025 What Is Your Relationship Status? [email or web address] Information not available 09/07/2023 How Much Tobacco Do You Smoke? No Information not available 04/24/2019 Has Tobacco Cessation Counseling Been Provided? No [email or web address] Information not available 10/18/2023 Sex: Female Functional Status Question Answer Note LastModified by Organizat ion Details LastModified Time Do you use any illicit or recreational drugs? No Information not available 06/08/2017 Do you or have you ever used any other forms of tobacco or nicotine? No [email or web address] Information not available 10/18/2023 What is your [...] available 08:25:23 Mother History of multiple myeloma [email or web address] Not available 07/30 11:06:48 Notes:NO FAMILY HX [...] zoster recombinant 3 completed Sayda Borjas [facility] 12/06/2023 16:19:20 Hep A, adult 9 completed Not Available [facility] 09/07/2019 02:50:37 COVID-19, mRNA, LNP-S, PF, jamie-sucrose, 30 mcg/0.3 mL 4 completed Gem Gilliam [facility] 06/09/2025 14:35:52 Influenza, split virus, quadrivalent, PF 9 completed Not Available [facility] 09/07/2019 02:52:20 Influenza, split virus, quadrivalent, preservative 0 completed Sayda Borjas [facility] 09/07/2023 16:44:05 zoster live 5 completed Sayda Borjas [facility] 09/07/2023 16:44:05 DTaP 4 completed Sayda Borjas [facility] 09/07/2023 16:44:05 COVID-19 vaccine, vector-nr, rS-Ad26, PF, 0.5 mL 1 completed Sayda Borjas null, [facility] 09/07/2023 16:44:05 Influenza, split virus, quadrivalent, preservative 1 completed Sayda Borjas null, [facility] 09/07/2023 16:44:05 Tdap 4 completed Sayda Borjas null, [facility] 12/07/2023 10:49:24 Influenza, high-dose, quadrivalent, PF 4 completed Sayda Borjas null, [facility] 12/07/2023 10:49:24 RSV, recombinant, protein subunit RSVpreF, adjuvant reconstituted, 0.5 mL, PF 4 completed [facility] 11:30:59 COVID-19, mRNA, LNP-S, PF, 100 mcg/0.5mL dose or 50 mcg/0.25mL dose 1 completed [facility] 06/13/2022 08:44:52 Pneumococcal conjugate PCV 13 1 completed Veronica Stone [facility] 06/13/2022 08:44:52 COVID-19, mRNA, LNP-S, PF, 100 mcg/0.5mL dose or 50 mcg/0.25mL dose 2 completed Veronica Stone [facility] 06/13/2022 08:44:52 COVID-19 vaccine, vector-nr, rS-Ad26, PF, 0.5 mL 1 completed [facility] 06/13/2022 08:44:52 Influenza, high-dose, trivalent, PF 0 completed [facility] 06/13/2022 08:44:52 Influenza, high-dose, trivalent, PF 4 completed JULIANN PIZANO MD [address] [place] [address], [address], [facility] 05/26/2024 14:32:15 pneumococcal polysaccharide PPV23 9 completed JULIANN PIZANO MD [address] [place] [address], [address], [facility] 08/29/2022 14:39:38 Influenza, split virus, quadrivalent, PF 7 completed JULIANN PIZANO MD [address] [place] [address], [address], [facility] 08/29/2022 14:39:38 influenza, unspecified formulation 2 completed [facility] 09/07/2023 16:44:05 COVID-19, mRNA, LNP-S, PF, jamie-sucrose, 30 mcg/0.3 mL 5 completed JULIANN PIZANO MD [address] [place] [address], [address], [facility] 12/12/2024 17:13:08 zoster recombinant 3 completed Luis Alfredo Bourgeois [facility] 02/27/2023 09:41:31 Hep A, adult 8 completed Not Available [facility] 09/07/2019 02:45:53 Influenza, high-dose, trivalent, PF 5 completed Luis Alfredo Ramsey [facility] 06/12/2025 14:37:25 COVID-19, mRNA, LNP-S, PF, jamie-sucrose, 30 mcg/0.3 mL 5 completed Luis Alfredo Ramsey [facility] 06/12/2025 14:37:25 COVID-19, mRNA, LNP-S, bivalent, PF, 30 mcg/0.3 mL dose 3 completed Luis Alfredo Ramsey [facility] 03/24/2023 15:03:47 Influenza, split virus, quadrivalent, PF 8 completed Not Available [facility] 09/07/2019 02:48:52 Past Encounters Encounter ID Performer Location Encounter Start Date Encounter Closed Date Diagnosis/Indication Diagnosis SNOMED-CT Code Diagnosis ICD10 Code Diagnosis IMO Codes Diagnosis Note [id number] JULIANN PIZANO [facility] [address] [place] [address] 06/12/2025 13:44:45 06/12/2025 14:53:29 Vitamin B12 deficiency (non anemic) 33006837 E53.8 Continue B12 injections monthly. Snoring 21277015 R06.83 76972 - Refer for a sleep study to assess nocturnal breathing patterns and potential sleep apnea. Restless l egs syndrome 38095944 G25.81 [id number] Reassessme nt scheduled for next month with sleep specialist . Continue current management until then. - Order ferritin level as low levels might contribute to symptoms. - Consider melatonin supplement ation as supportive therapy. Primary go narthrosis, bilateral 599325683 M17.0 [id number] Instruct to continue use of analgesic creams [...] response and knee pain management . Dyslipidemia 253655224 E 78.5 Intolerant to atorvastat in and [...] side effects causing musculoske letal symptoms. Hypothyroidism 87380855 E03.9 Keep up with thyroid medication and periodic evaluation s. stable/con tinue levothyrox ine - Conduct a TSH test for evaluation due to persistent nocturnal symptoms, though well-maint ained per patient report. Immunization due 8030290 08 Z23 [id number] Covid vaccine today, then hepatitis B vaccine at pharmacy.- Administer COVID-19 and influenza vaccinatio ns during the visit. [id number] KERRIE SLATER PA-C [facility] [address] [place] [address] 07/11/2025 11:22:46 07/11/2025 13:36:55 Acute cough [id number] 30238031 R05.9 [id number] discussed negative flu and covid Acute fron joaquín sinusitis 07514488 J01.10 J40 [id number] Patient presented with symptoms of upper respirator [...] ID Guarantor Name 07/11/2025 1 BCBS-VIC: [place] (MEDICARE REPLACEMENT HMO) [id number] Torres [id number] January Torres Notes Date Note Type Note [...] with coughing. - The patient has tried [id number] medications without relief. - In-office testing for [...] note prior to signature. KERRIE SLATER PA-C [address] [place], [address], [place] [facility] 07/14/2025 13:07:34 OBGyn Episode No OBEpisode recorded.
--- OUTSIDE RECORDS SUMMARY | 2025-08-19 13:51 | XMS_ITS | Encounter Summary ---
Author Organization [employer] ([place], [place], [place], [place], [place]) Address [address] [place] [address] Care Team Providers Care Household Coordinator Name Role Phone Unavailable Primary Care Provider Unavailabl e Encounter Details Date Type Department Care Team (Late st Contact Info) Description 03/03/2021 Transcribed Document [facility] [place] [facility] [place] [address] ProviderHector MD [facility] [place] [address] Social History Tobacco Use Types [...] Hector ProviderMD - 03/03/2021 3:06 PM CDT [facility] [place] Main [place] PACU Summary Primary Physician: Angie PULLIAM MD-OBG Finalized Date/Time: 03/03/21 16:09:20 Pt. Name: MICHELLE VOSS /Sex: 1955 Female Med Rec #: [id number] Physician: Angie PULLIAM MD-OBG Financial #: [id number] Pt. Type: O Room/Bed: [facility] Admit/Disch: 03/03/21 04:56:00 - Institution: [facility] [place] Main OR PACU Case Times Entry 1 In PACU I 03/03/21 15:22:00 Ready for PACU 03/03/21 16:09:00 Discharge Discharge from PACU 03/03/21 16:09:00 I Last Modified By: Heydi Ho RN 03/03/21 16:09:09 [facility] Main OR PACU Case Times Audit 03/03/21 16:09:09 Director Of Academic Support: YONASYAA Modifier: CARRIEC <+> 1 Ready for PACU Discharge <+> 1 Discharge from PACU I Finalized By: Heydi Ho RN Document Signatures Signed By: Heydi Ho RN 03/03/21 16:09 Electronically signed by Carol [facility] Conversion Assistant Community Director Cerner at 12/07/2022 8:29 PM CDT documented in this encounter Plan of Treatment Not on file documented as of this encounter Visit Diagnoses Not on filedocumented in this encounter
--- OUTSIDE RECORDS SUMMARY | 2025-08-19 13:51 | XMS_ITS | Encounter Summary ---
Author Organization [employer] ([place], [place], [place], [place], [place]) Address [address] [place] [address] Care Team Providers Care Psychiatric Rn Name Role Phone Unavailable Primary Care Provider Unavailabl e Encounter Details Date Type Department Care Team (Late st Contact Info) Description 03/03/2021 Transcribed Document [facility] [place] [facility] [place] [address] ProviderHector MD [address] [place] [address] Social History Tobacco Use Types [...] and water are not available, use hand boat operator. ? Change your dressing as told [...] allowed to take sponge baths. ??? Take pgzb-vbo-ufnoqhw and prescription medicines only as told by [...] keep your urine pale yellow. ? Take pzkp-esi-ejtvvzm or prescription medicines. ? Eat foods that [...] provider. Document Revised: 07/20/2018 Document Reviewed: 11/15/2017 [employer] Patient Education ? 2020 [employer] Pharmacology General Anesthesia, Adult, Care After [...] activities are safe for you. ??? Take ffny-axp-lpkofmu and prescription medicines only as told by [...] provider. Document Revised: 08/10/2018 Document Reviewed: 03/23/2018 [employer] Patient Education ? 2020 [employer] documented in this encounter Plan of Treatment Not on file documented as of this encounter Visit Diagnoses Not on filedocumented in this encounter
--- OUTSIDE RECORDS SUMMARY | 2025-08-19 13:51 | XMS_ITS | Encounter Summary ---
Author Organization [employer] ([place], [place], [place], [place], [place]) Address [address] [place] [address] Care Team Providers Care Family Program Specialist Name Role Phone Unavailable Primary Care Provider Unavailabl e Encounter Details Date Type Department Care Team (Late st Contact Info) Description 03/03/[address] [facility] [place] [facility] [place] [address] ProviderHector MD [facility] [place] [address] Social History Tobacco Use Types [...] Hector Provider, - 03/03/2021 3:06 PM CDT [facility] [place] IntraOp Summary Primary Physician: Angie PULLIAM MD-OBG Finalized Date/Time: 03/05/21 09:24:22 Pt. Name: MICHELLE VOSS Lisa /Sex: 1955 Female Med Rec #: [id number] Physician: Angie PULLIAM MD-OBG Financial #: [id number] Pt. Type: O Room/Bed: [facility] Admit/Disch: 03/03/21 04:56:00 - 03/03/21 16:32:00 Institution: [facility] [place]Op Case Attendance Entry 1 Entry 2 Entry 3 Case Attendee Angie PULLIAM Holliday, Stewart R, RN Sophia Dwyer, DIRECTOR BUSINESS DEVELOPMENT -OBG Role Performed Surgeon/Proceduralist, Airline Attendant, First Scrub, First First Time In 03/03/21 [...] CHUA, LUIS ALFREDO [address] Role Performed LEAD PHP DEVELOPER/Nurse Service Center Specialist Scrub, First Time In 03/03/21 14:56:00 03/03/21 15:07:00 Time Out 03/03/21 15:21:00 03/03/21 15:21:00 Procedure Vaginal Sling Vaginal Sling Procedure, Cystoscopy Procedure, Cystoscopy Adult Adult Other Attendee Superficial Wound Closed By: Last Modified By: Rashid Carrillo RN Holliday, Stewart R, KATHY 03/03/21 15:21:11 03/03/21 15:21:11 [facility] IntraOp Case Attendance Audit 03/03/21 15:21:11 History Professor: FELIX Modifier: HOLLIDSR 1 <+> Time Out 1 <*> Procedure Vaginal Sling Procedure, Cystoscopy Adult 2 <+> Time Out 2 <*> Procedure Vaginal Sling Procedure, Cystoscopy Adult 3 <*> Procedure Vaginal Sling Procedure, Cystoscopy Adult 4 <+> Time Out 4 <*> Procedure Vaginal Sling Procedure, Cystoscopy Adult 5 <+> Time Out 5 <*> Procedure Vaginal Sling Procedure, Cystoscopy Adult 03/03/21 15:07:06 History Professor: FELIX Modifier: DAQUANIDSR 1 <+> Time In [...] [facility] IntraOp Case Times Audit 03/03/21 15:21:10 History Professor: DAQUANIDSR Modifier: HOLLIDSR <+> 1 Out Room Time <+> 1 Stop Time 03/03/21 15:18:09 History Professor: DAQUANIDSR Modifier: HOLLIDSR 1 <*> Start Time 03/03/21 15:17:00 03/03/21 15:17:57 History Professor: DAQUANIDSR Modifier: HOLLIDSR <+> 1 Start Time 03/03/21 15:17:36 History Professor: HOLLIDSR Modifier: HOLLIDSR <+> 1 Stop Time [...] [facility] IntraOp Counts Final Audit 03/03/21 15:17:41 History Professor: FELIX Modifier: FELIX 1 <*> Procedure Vaginal [...] Yes Assessment Complete Fire Risk Rashid Carrillo, master scheduler Verified By Fire Risk 03/03/21 14:47:00 Assessment Verified Date/Time Fire Risk High Risk Protocol Yes Implemented Standard Fire Yes Safety Precautions Followed Last Modified By: Rashid Carrillo, RN 03/03/21 14:56:09 [facility] IntraOp Fire Risk Assessment Audit 03/03/21 14:56:09 History Professor: FELIX Modifier: FELIX <+> 1 Fire Risk Assessment Verified Date/Time [facility] IntraOp General Case Chef Under 1 Case Information OR OR 07 SJE Case Level 1 Room Verified Yes Wound Class II - Clean-Contaminated Specialty Gynecology Anesthesia Type General ASA Class 3 Diagnosis Preop Diagnosis urinary incontinence Postop Diagnosis refer to MD notes Last Modified By: Rashid Carrillo RN 03/03/21 15:06:05 [facility] IntraOp General Case Data Audit 03/03/21 15:06:05 History Professor: FELIX Modifier: FELIX <+> 1 ASA Class <+> 1 Anesthesia Type <+> 1 Preop Diagnosis <+> 1 Postop Diagnosis <+> 1 Room Verified [facility] IntraOp Implant Log Entry 1 Type Implant (Synthetic) Implant Log Implant Type Mesh Implant SLING SOLYX SIS Identification [id number] Description Implant Quantity 1 Implant [id number] Identification Lot Number Implant Carnation Identification Sci:Urology/Gynecology Comfort Filler Name: Implant [id number] Identification Catalog Number Implant Has an Yes [...] 0.5% w/ epinephrine 1:200,000 30ml vial - [id number] Dose Administered By Angie PULLIAM MD-OBG Procedure [...] [facility] IntraOp Patient Positioning Audit 03/03/21 15:05:44 History Professor: FELIX Modifier: FELIX <+> 1 Procedure SJE [...] [facility] IntraOp Skin Prep Audit 03/03/21 15:17:41 History Professor: HEMALATHAGriselda Modifier: DAQUANEMILIANOGriselda <+> 1 Procedure SJE [...] Clean-Contaminated Last Modified By: Rashid Carrillo, RN Rahsid Carrillo, RN 03/03/21 15:21:12 03/03/21 15:21:12 [facility] IntraOp Surgical Procedures Audit 03/03/21 15:21:12 History Professor: FELIX Modifier: DAQUANEMILIANOGriselda <+> 1 Start <+> [...]
--- OUTSIDE RECORDS SUMMARY | 2025-08-19 13:51 | XMS_ITS | Clinical Summary ---
Author Organization [employer] ([place], [place], [place], [place], [place]) Address [address] [place] [address] Care Team Providers Care Guidance Secretary Name Role Phone Unavailable Primary Care Provider [...]
--- OUTSIDE RECORDS SUMMARY | 2025-08-19 13:51 | XMS_ITS | Encounter Summary ---
Author Organization [employer] ([place], [place], [place], [place], [place]) Address [address] [place] [address] Care Team Providers Care Title I Assistant Name Role Phone Unavailable Primary Care Provider Unavailabl e Encounter Details Date Type Department Care Team (Late st Contact Info) Description 03/03/2021 Transcribed Document [facility] [place] [facility] [place] [address] ProviderHector MD [facility] [place] [address] Social History Tobacco Use Types [...] VOSS /Sex: 1955 Female Med Rec #: [id number] Physician: Angie PULLIAM MD-OBG Financial #: [id number] Pt. Type: O Room/Bed: [facility] Admit/Disch: 03/03/21 04:56:00 - Institution: [facility] Main OR PostOp Case Times Entry 1 In PACU II 03/03/21 16:11:00 Ready for PACU II 03/03/21 16:32:00 Discharge Discharge from PACU 03/03/21 16:32:00 II Last Modified By: NEIL WELCH RN 03/03/21 16:41:05 Finalized By: NEIL WELCH, KATHY Document Signatures Signed By: NEIL WELCH RN 03/03/21 16:41 Electronically signed by Carol [facility] Conversion Wide Piece Goods Inspector Cerner at 12/07/2022 8:26 PM CDT documented in this encounter Plan of Treatment Not on file documented as of this encounter Visit Diagnoses Not on filedocumented in this encounter
--- OUTSIDE RECORDS SUMMARY | 2025-08-19 13:51 | XMS_ITS | Encounter Summary ---
Author Organization [employer] ([place], [place], [place], [place], [place]) Address [address] [place] [address] Care Team Providers Care Technology Specialist Name Role Phone Unavailable Primary Care Provider Unavailabl e Encounter Details Date Type Department Care Team (Late st Contact Info) Description 03/03/2021 Transcribed Document [facility] [place] Family Medicine [facility] [place] [address] ProviderHector MD [address] [place] [address] Social History Tobacco Use Types [...] Vaughan MD - 03/03/2021 4:23 [place] [address] MICHELLE VOSS :1955 Visit Time:03/03/2021 What to do next Your Diagnosis Stress incontinence (female) (male), Stress incontinence (female) (male) Instructions From Your Care Team Nothing vaginally until seen by doctor at follow up appointment Medications have been escribed to your pharmacy Resume diet as tolerated Follow-Up Appointments Follow Up with Angie PULLIAM MD-OBG When Comments Keep already scheduled follow up appointment Where: [place] [address]- Medications What How Much When Instructions Next [...] and water are not available, use hand filling room operator. ? Change your dressing as told [...] allowed to take sponge baths. ??? Take szpe-wyj-icrloju and prescription medicines only as told by [...] keep your urine pale yellow. ? Take llrf-cbm-fpcsvsr or prescription medicines. ? Eat foods that [...] provider. Document Revised: 07/20/2018 Document Reviewed: 11/15/2017 [employer] Patient Education ?? 2020 [employer] General Anesthesia, Adult, Care After This [...] activities are safe for you. ??? Take budi-ecc-eaixpux and prescription medicines only as told by [...] provider. Document Revised: 08/10/2018 Document Reviewed: 03/23/2018 [employer] Patient Education ?? 2020 [employer]. Emergency Awareness and Preventative Care STROKE is [...] Assistance with quitting is available by contacting 2-235-WRBN-NOW. This is a free resource providing counseling, [...] was given the opportunity to ask questions. Patient/Nicker And Breaker Name: Patient/Nicker And Breaker Signature: Relationship to Patient: Clinician/Hospital Nicker And Breaker Signature: Date: documented in this encounter Plan of Treatment Not on file documented as of this encounter Visit Diagnoses Not on filedocumented in this encounter
--- OUTSIDE RECORDS SUMMARY | 2025-08-19 13:51 | XMS_ITS | Clinical Summary ---
Author Organization [facility] Address [address] [place] [address] Care Team Providers Care Hardening Machine Operator Helper Name Role Phone Juliann Pizano MD Primary Care Provider Gerald Vargas DDS Unavailable [phone] Richard Hein Unavailable Allergies No known active [...] Cap) 18+ 10/31/19 21 Moderna COVID-19 Vaccine (Construction Framer) 12+ years ,07/21/2021 Family History Medical History [...] Td Vaccines (2 - Tdap) 10/02/2023 10/02/2013 [id number] Vaccine ( season) 2025 02/27/2023, 02/04/2022, 07/21/2021, [...] COMMERCIAL on file [employer] MEDICARE Care Teams Hardening Machine Operator Helper Relationship Specialty Start Date End Date Juliann Pizano MD [address] [place] [address] PCP - General 08/21/21 Gerald Vargas DDS [address] [place] [address] Dentist Dentist 07/25/22 Richard Hein Dentist 07/25/22
--- OUTSIDE RECORDS SUMMARY | 2025-08-19 13:51 | XMS_ITS | Encounter Summary ---
Author Organization [employer] ([place], [place], [place], [place], [place]) Address [address] [place] [address] Care Team Providers Care Machine Plaster Mixer Name Role Phone Unavailable Primary Care Provider Unavailabl e Encounter Details Date Type Department Care Team (Late st Contact Info) Description 03/01/2021 Transcribed Document [facility] [place] [facility] [place] [address] ProviderHector MD [facility] [place] [address] Social History Tobacco Use Types [...] Source : Stated Height Entry Format : Carbon Height, Feet : 5 ft(Converted to: 152 cm, 60 Inch) Height, Inches : 2 Inch(Converted to: 0 ft 2 Inch, 5.08 cm) Clinical Height : 157.48 cm Weight Source : Standing scale Weight Entry Format : Carbon Clinical Dosing Weight : 75.45 kg Weight, Pounds : 166 lb Body Surface Area (BSA) : 1.77 m2 Body Mass Index : 30.4 kg/m2 (HI) [place] Body Weight : 50 kg LAKEISHA PARTIDA [...] LAKEISHA PARTIDA RN - 03/01/2021 12:00 EDT [place] Suicide Severity Rating Scale (C-SSRS) CSSRS Past [...] #2 Relationship : - Primary Language : Citizen Of [place] Communication Barrier : None Security System Engineer Needed : LAKEISHA Ritter RN - 03/01/2021 [...]
--- OUTSIDE RECORDS SUMMARY | 2025-08-19 13:51 | XMS_ITS | Encounter Summary ---
Author Organization [employer] ([place], [place], [place], [place], [place]) Address [address] [place] [address] Care Team Providers Care Shell Molding Roller Blast Operator Name Role Phone Unavailable Primary Care Provider Unavailabl e Encounter Details Date Type Department Care Team (Late st Contact Info) Description 03/03/2021 Transcribed Document [facility] [place] [facility] [place] [address] ProviderHector MD [facility] [place] [address] Social History Tobacco Use Types [...] Source : Stated Height Entry Format : Perkins Height, Feet : 5 ft(Converted to: 152 cm, 60 Inch) Height, Inches : 2 Inch(Converted to: 0 ft 2 Inch, 5.08 cm) Clinical Height : 157.48 cm Weight Source : Standing scale Weight Entry Format : Perkins Clinical Dosing Weight : 75.45 kg Weight, Pounds : 166 lb Body Surface Area (BSA) : 1.77 m2 Body Mass Index : 30.4 kg/m2 (HI) [place] Body Weight : 50 kg NEIL WELCH [...] NEIL WELCH RN - 03/03/2021 13:37 EDT [place] Suicide Severity Rating Scale (C-SSRS) CSSRS Past [...] #2 Relationship : - Primary Language : Greek Communication Barrier : None Labourers Needed : No NEIL WELCH RN - [...]
--- OUTSIDE RECORDS SUMMARY | 2025-08-19 13:51 | XMS_ITS | Encounter Summary ---
Author Organization [employer] ([place], [place], [place], [place], [place]) Address [address] [place] [address] Care Team Providers Care Railway Signal Operator Name Role Phone Unavailable Primary Care Provider Unavailabl e Encounter Details Date Type Department Care Team (Late st Contact Info) Description 03/03/2021 Transcribed Document [facility] [place] [facility] [place] [address] ProviderHector [place] [address] Social History Tobacco Use Types [...] left the operating room in satisfactory condition. /[id number] PankajMD MANSOOR Maciel/AXEL / MANSOOR / MODL /[id number] documented in this encounter Plan of Treatment Not on file documented as of this encounter Visit Diagnoses Not on filedocumented in this encounter
== END 2025-08-19 23:59 | disposition home or self-care (01) ==
LOC: RT 13:46
PROVIDERS: PCP Internal Medicine; Visit Provider Nurse Practitioner
DX: I08.0 Rheumatic disorders of both mitral and aortic valves (principal); E78.5 Hyperlipidemia, unspecified; R55 Syncope and collapse; R42 Dizziness and giddiness; Z13.6 Encounter for screening for cardiovascular disorders
CPT/HCPCS: 93306